=== PATIENT | male | born 1945 | race Hispanic/Latino ===

== ENCOUNTER 2017-01-27 15:10 | Emergency (ER) | payer MEDICARE, BC ==
[2017-01-27 15:18] VITALS: BMI 37.9
[2017-01-27 15:20] VITALS: RESP 18; TEMP 98.4
[2017-01-27 15:58] LABS: BASO # 0.02 K/mm3 (0.0-2.0); BASO % 0.3 % (0.0-3.0); EOS # 0.1 (0.0-0.7); EOS % 1.5 % (1.5-5.0); GRAN # 5.26 (1.4-6.5); GRAN % 66.4 % (50.0-68.0); HEMATOCRIT 42.7 % (42.0-52.0); LYMPH # 1.8 (1.2-3.4); LYMPH % 23.1 % (22.0-35.0); MEAN CELL VOLUME 98.2 fl (80.0-105.0); MEAN CORPUSCULAR HEMOGLOBIN 32.9 pg (25.0-35.0); MEAN CORPUSCULAR HGB CONC 33.5 g/dl (31.0-37.0); MEAN PLATELET VOLUME 10.9 fl (7.0-11.0); MONO # 0.7 (0.1-0.6); MONO % 8.7 % (1.0-6.0); RED CELL DISTRIBUTION WIDTH 16.7 % (11.5-14.5); WHITE BLOOD COUNT 7.9 10^3/ul (4.5-11.0)
[2017-01-27 16:07] LABS: ALB/GLOB RATIO 1.4 (1.1-1.8); ALKALINE PHOSPHATASE 73 U/L (38-126); ALT/SGPT 44 U/L (7-56); AST/SGOT 42 U/L (17-59); BILIRUBIN,TOTAL 0.8 mg/dL (0.2-1.3); BLOOD UREA NITROGEN 32 mg/dL (7-21); CALCIUM 8.4 mg/dL (8.4-10.5); CARBON DIOXIDE 30 mmol/L (21-33); CHLORIDE 106 mmol/L (98-107); GFR AFRICAN-AMERICAN > 60; GLUCOSE,RANDOM 92 mg/dL (70-110); POTASSIUM 4.1 mmol/L (3.6-5.0); SODIUM 143 mmol/L (132-148); TOTAL PROTEIN 6.7 g/dL (5.8-8.3)
[2017-01-27 16:12] LABS: INR 2.1 (0.93-1.08); PARTIAL THROMBOPLASTIN TIME 46.9 Seconds (23.7-30.8)
[2017-01-27] MEDS: Albuterol-Ipratrop 3 mg / 0.5 (3 ml) UD IH SCH ×3 (16:21→17:33)
--- NOTE | 2017-01-27 16:24 | RAD ---
HISTORY: cough COMPARISON: 05/26/2016 FINDINGS: LUNGS: No active pulmonary disease. PLEURA: No significant pleural effusion identified, no pneumothorax apparent. CARDIOVASCULAR: Normal. OSSEOUS STRUCTURES: No significant abnormalities. VISUALIZED UPPER ABDOMEN: Normal. OTHER FINDINGS: None. IMPRESSION: No active disease.
[2017-01-27 16:30] LABS: FREE T4 0.08 ng/dL (0.78-2.19)
--- NOTE | 2017-01-27 16:49 | ED PDOC ---
Arrival/HPI - General Chief Complaint: Abnormal Skin Integrity Time Seen by Provider: 01/27/17 15:37 - History of Present Illness Narrative History of Present Illness (Text): 01/27/17 17:55 71yo male with hx of hyperthyroidism, pulm disease, eczema. Presents with facial redness and some itching for the past 3 weeks. Pt states face feels slightly swollen. No sob or haro. States he does not use his inhalers. denies chest pain. No other complaints. Past Medical History - Provider Review Nursing Documentation Reviewed: Yes - Infectious Disease Hx of Infectious Diseases: None - Tetanus Immunization Tetanus Immunization: Unknown - Cardiac Hx Congestive Heart Failure: Yes Hx Hypertension: Yes - Pulmonary Hx Chronic Obstructive Pulmonary Disease (COPD): Yes - Neurological Hx Neurological Disorder: No - HEENT Hx Deafness: Yes - Renal Hx Renal Disorder: No - Endocrine/Metabolic Hx Endocrine Disorders: No - Hematological/Oncological Hx Blood Disorders: No - Integumentary Hx Dermatological Disorder: Yes Hx Psoriasis: Yes - Musculoskeletal/Rheumatological Hx Musculoskeletal Disorders: No Hx Falls: No - Gastrointestinal Hx Gastrointestinal Disorders: No - Genitourinary/Gynecological Hx Genitourinary Disorders: No - Psychiatric Hx Psychophysiologic Disorder: No Hx Substance Use: No - Past Surgical History Past Surgical History: No Previous - Anesthesia Hx Anesthesia: No - Suicidal Assessment Feels Threatened In Home Enviroment: No Family/Social History Family/Social History: Unknown Family HX Smoking Status: Heavy Smoker > 10 Cigarettes Daily Hx Alcohol Use: No Hx Substance Use: No Hx Substance Use Treatment: No Allergies/Home Meds Allergies/Adverse Reactions: Allergies No Known Allergies Allergy (Verified 05/24/16 09:14) Home Medications: Home Meds Medication Instructions Recorded Confirmed Furosemide [Lasix] 40 mg PO DAILY 01/27/17 01/27/17 Warfarin [Coumadin] 1 tab PO DAILY 01/27/17 01/27/17 methIMAzole [Tapazole] 10 mg PO TID 01/27/17 01/27/17 Physical Exam - Physical Exam Narrative Physical Exam (Text): - Review of Systems Constitutional: Normal. absent: Fatigue, Weight Change, Fevers Eyes: Normal ENT: denies sore throat, denies tristhmus Respiratory: Normal. absent: SOB, Cough, Sputum Cardiovascular: absent: Chest Pain, Palpitations, Syncope Gastrointestinal: Normal. absent: Abdominal Pain, Diarrhea, Nausea, Vomiting Genitourinary: Normal. absent: Dysuria, Frequency, Hematuria Musculoskeletal: Normal. absent: Arthralgias, Back Pain, Neck Pain Skin: facial rash, no erythema Neurological: absent: Focal Weakness Endocrine: Normal Hemo/Lymphatic: Normal Psychiatric: No suicidal or homicidal ideations Physical exam Patient appears age appropriate in no distress, speaking full sentences without difficulty - Systems Exam Head: Present: Atraumatic, Normocephalic Pupils: Present: PERRL Extroacular Muscles: Present: EOMI Conjunctiva: Present: Normal Mouth: Present: Moist Mucous Membranes Neck: Present: Normal Range of Motion. No: MIDLINE TENDERNESS, Paraspinal Tenderness Respiratory/Chest: Present: faint exp wheezing in all lung ruiz, Good Air Exchange. No: Respiratory Distress, Accessory Muscle Use, Tachypneic Cardiovascular: Present: Regular Rate and Rhythm, Normal S1, S2, Peripheal Pulses Present. No: Murmurs Abdomen: Present: Normal Bowel Sounds. No: Tenderness, Distention, Peritoneal Signs, Rebound, Guarding Back: Present: Normal Inspection. No: Midline Tenderness, Paraspinal Tenderness Upper Extremity: Present: Normal Inspection. No: Cyanosis, Edema Lower Extremity: Present: Normal Inspection. No: Edema Neurological: Present: GCS=15, Speech Normal, cranial nerves II through XII fully intact with no cerebellar abnormality, neurosensory fully intact. No focal neurological deficits. Skin: Present: eczematous rash to pt's face and body, no signs of secondary infection Lymphatic: Present: OX3, NI, NC Psychiatric: Present: Alert, Oriented x 3, Normal Insight, Normal Concentration Vital Signs Reviewed: Yes Vital Signs Temp Pulse Resp BP Pulse Ox 01/27/17 16:43 86 18 156/96 H 95 01/27/17 15:19 98.4 F 99 H 18 159/103 H 93 L Temperature: Afebrile Blood Pressure: Hypertensive Pulse: Regular Respiratory Rate: Normal Appearance: Positive for: Well-Appearing Pain Distress: None Mental Status: Positive for: Alert and Oriented X 3 Medical Decision Making ED Course and Treatment: Report Date : 01/27/2017 16:22:21 Procedure: Chest xray Dictator : Renaldo Perez MD IMPRESSION: No active disease. on reevaluation, patient is clear to ausc. b/l after nebs, states he feels well instructed to use inhailer at home as prescribed dw Dr. Campos in detail. aware of TSH. states he will set up endocrine f/u himself will dc home with medrol dose pack pt states he feels comfortable being dc'd home with outpatient f/u BNP 2190 previous higher no active disease per radiologist read pt's lungs clear to ausc. b/l Pt states he understands to return to the ER right away for new or worsening symptoms or for inability to f/u with PMD or specialist as instructed. Patient states that he fully agrees with and understands discharge instructions. States that he agrees with the plan and disposition. Verbalized and repeated discharge instructions and plan. I have given the patient opportunity to ask any additional questions. - Lab Interpretations Lab Results: 01/27/17 15:45 01/27/17 15:45 Lab Results 01/27/17 15:45: Free T4 0.08 L, TSH 3rd Generation 45.00 H 01/27/17 15:45: Sodium 143, Potassium 4.1, Chloride 106, Carbon Dioxide 30, Anion Gap 11, BUN 32 H, Creatinine 1.3, Est GFR ( Amer) > 60, Est GFR ( Non-Af Amer) 54, Random Glucose 92, Calcium 8.4, Total Bilirubin 0.8, AST 42, ALT 44, Alkaline Phosphatase 73, Lactate Dehydrogenase 1710 H, Total Creatine Kinase 414 H, CK-MB (CK-2) 5.8 H, CK-MB (CK-2) % 1.4 L, Troponin I < 0.01 D, NT -Pro-B Natriuret Pep 2190 H, Total Protein 6.7, Albumin 3.9, Globulin 2.8, Albumin/Globulin Ratio 1.4 01/27/17 15:45: PT 22.7 H, INR 2.10 H, APTT 46.9 H 01/27/17 15:45: WBC 7.9, RBC 4.35, Hgb 14.3, Hct 42.7, MCV 98.2, MCH 32.9, MCHC 33.5, RDW 16.7 H, Plt Count 139, MPV 10.9, Gran % 66.4, Lymph % (Auto) 23.1, Murray % (Auto) 8.7 H, Eos % (Auto) 1.5, Baso % (Auto) 0.3, Gran # 5.26, Lymph # 1.8, Murray # 0.7 H, Eos # 0.1, Baso # 0.02 - RAD Interpretation Radiology Orders: 01/27/17 15:52 CHEST PORTABLE [RAD] Stat - Medication Orders Current Medication Orders: Discontinued Medications Albuterol/Ipratropium (Duoneb 3 Mg/0.5 Mg (3 Ml) Ud) 3 ml IH Q15M UBALDO Stop: 01/27/17 16:31 Last Admin: 01/27/17 17:33 Dose: 3 ml Albuterol/Ipratropium (Duoneb 3 Mg/0.5 Mg (3 Ml) Ud) 3 ml IH Q15M UBALDO Stop: 01/27/17 17:16 Last Admin: 01/27/17 17:33 Dose: 3 ml Aspirin (Aspirin Chewable) 162 mg PO STAT STA Stop: 01/27/17 15:53 Last Admin: 01/27/17 16:21 Dose: 162 mg Methylprednisolone (Solu-Medrol) 125 mg IVP STAT STA Stop: 01/27/17 15:53 Last Admin: 01/27/17 16:21 Dose: 125 mg Disposition/Present on Arrival - Present on Arrival Any Indicators Present on Arrival: No History of DVT/PE: No History of Uncontrolled Diabetes: No Urinary Catheter: No History of Decub. Ulcer: No History Surgical Site Infection Following: None - Disposition Have Diagnosis and Disposition been Completed?: Yes Diagnosis: Rash Disposition: HOME/ ROUTINE Disposition Time: 19:01 Patient Plan: Discharge Condition: GOOD Discharge Instructions (ExitCare): Dermatitis (ED), Acute Rash (ED) Additional Instructions: PLEASE RETURN TO THE EMERGENCY DEPARTMENT FOR NEW OR WORSENING SYMPTOMS. RETURN RIGHT AWAY IF YOU CANNOT FOLLOW UP WITH YOUR PRIMARY CARE DOCTOR, CLINIC, OR SPECIALIST IN 1-2 DAYS. Prescriptions: Methylprednisolone [Medrol Dose Pack (21 tabs)] 4 mg PO DAILY #21 mg Referrals: Natalya Campos MD [Primary Care Provider] - Follow up with primary Forms: [employer] (Latvian)
[2017-01-27 18:15] LABS: TROPONIN I < 0.01 ng/mL
[2017-01-27 19:05] VITALS: BP 148/89; PULSE 79; O2SAT 96
== END 2017-01-27 19:20 | disposition home or self-care (01) ==
LOC: ED 15:10
DX: R21 Rash and other nonspecific skin eruption (principal); I10 Essential (primary) hypertension; F17.210 Nicotine dependence, cigarettes, uncomplicated
CPT/HCPCS: 71010; 80053; 82550; 82553; 83615; 83880; 84439; 84443; 84484; 85025; 85610; 85730; 96374; 99283; J2930

== ENCOUNTER 2018-02-08 18:02 | Inpatient (IN) | payer MEDICARE ==
[2018-02-08 18:08] VITALS: BMI 37.5
--- NOTE | 2018-02-08 19:05 | ED PDOC ---
Arrival/HPI <Cyrus Green - Last Filed: 02/08/18 22:44> - General Historian: Patient - History of Present Illness Time/Duration: Prior to Arrival Symptom Onset: Sudden Symptom Course: Unchanged Activities at Onset: Light Context: Home <Hannah Reilly PA-C - Last Filed: 02/09/18 00:58> - General Chief Complaint: Abdominal Pain Time Seen by Provider: 02/08/18 18:11 - History of Present Illness Narrative History of Present Illness (Text): 02/08/18 19:02 72 year old male, whose past medical history includes hyperlipidemia, congestive heart failure, and afib, who presents to the Emergency Department complaining of weakness to legs and dizziness. Patient states he woke up ftom a nap and when he stood up began experiencing symptoms. Patient notes associated nausea and headache. Patient denies any fever, chills, chest pain, shortness of breath, vomiting, diarrhea, urinary symptoms, back pain, neck pain, current dizziness, or any other complaints. PMD Andres (Hannah Reilly PA-C) Past Medical History - Provider Review Nursing Documentation Reviewed: Yes - Infectious Disease Hx of Infectious Diseases: None - Tetanus Immunization Tetanus Immunization: Unknown - Cardiac Hx Congestive Heart Failure: Yes Hx Hypertension: Yes - Pulmonary Hx Chronic Obstructive Pulmonary Disease (COPD): Yes - Neurological Hx Neurological Disorder: No - HEENT Hx Deafness: Yes - Renal Hx Renal Disorder: No - Endocrine/Metabolic Hx Endocrine Disorders: No - Hematological/Oncological Hx Blood Disorders: No - Integumentary Hx Dermatological Disorder: Yes Hx Psoriasis: Yes - Musculoskeletal/Rheumatological Hx Musculoskeletal Disorders: No Hx Falls: No - Gastrointestinal Hx Gastrointestinal Disorders: No - Genitourinary/Gynecological Hx Genitourinary Disorders: No - Psychiatric Hx Psychophysiologic Disorder: No Hx Substance Use: No - Past Surgical History Past Surgical History: No Previous - Anesthesia Hx Anesthesia: No - Suicidal Assessment Feels Threatened In Home Enviroment: No <Hannah Reilly PA-C - Last Filed: 02/09/18 00:58> Family/Social History - Physician Review Nursing Documentation Reviewed: Yes Family/Social History: Unknown Family HX Smoking Status: Heavy Smoker > 10 Cigarettes Daily Hx Alcohol Use: No Hx Substance Use: No Hx Substance Use Treatment: No <Hannah Reilly PA-C - Last Filed: 02/09/18 00:58> Allergies/Home Meds <Cyrus Green - Last Filed: 02/08/18 22:44> <Hannah Reilly PA-C - Last Filed: 02/09/18 00:58> Allergies/Adverse Reactions: Allergies No Known Allergies Allergy (Verified 05/24/16 09:14) Home Medications: Home Meds Medication Instructions Recorded Confirmed Furosemide [Lasix] 40 mg PO DAILY 01/27/17 02/09/18 Warfarin [Coumadin] 1 tab PO DAILY 01/27/17 02/09/18 methIMAzole [Tapazole] 5 mg PO DAILY 01/27/17 02/09/18 Atorvastatin [Lipitor] 10 mg PO 02/09/18 Review of Systems - Physician Review All systems were reviewed & negative as marked: Yes - Review of Systems Constitutional: Normal Eyes: Normal ENT: Normal Respiratory: Normal. absent: SOB, Cough Cardiovascular: Normal. absent: Chest Pain Gastrointestinal: Nausea. absent: Abdominal Pain, Diarrhea Genitourinary Male: Normal. absent: Dysuria, Frequency, Hematuria Musculoskeletal: Normal. absent: Back Pain, Neck Pain Skin: Normal Neurological: Headache, Dizziness Endocrine: Normal Hemo/Lymphatic: Normal Psychiatric: Normal <Hannah Reilly PA-C - Last Filed: 02/09/18 00:58> Physical Exam Vital Signs Reviewed: Yes Temperature: Afebrile Blood Pressure: Normal Pulse: Regular Respiratory Rate: Normal Appearance: Positive for: Well-Appearing, Non-Toxic, Comfortable Pain Distress: None Mental Status: Positive for: Alert and Oriented X 3 - Systems Exam Head: Present: Atraumatic, Normocephalic Pupils: Present: PERRL Extroacular Muscles: Present: EOMI Conjunctiva: Present: Normal Mouth: Present: Moist Mucous Membranes Neck: Present: Normal Range of Motion Respiratory/Chest: Present: Rhonchi (scattered). No: Respiratory Distress, Accessory Muscle Use Cardiovascular: Present: Normal S1, S2, Irregular Rhythm. No: Murmurs, Tachycardic Abdomen: No: Tenderness, Distention, Peritoneal Signs Back: Present: Normal Inspection Upper Extremity: Present: Normal Inspection. No: Cyanosis, Edema Lower Extremity: Present: Normal Inspection, Edema (2+ pitting edema) Neurological: Present: GCS=15, CN II-XII Intact, Speech Normal, Motor Func Grossly Intact, Normal Sensory Function Skin: Present: Warm, Dry, Rashes (errythematous raised plaque like lesions on chest, back, forearms, and bilateral shins) Psychiatric: Present: Alert, Oriented x 3, Normal Insight, Normal Concentration <Hannah Reilly PA-C - Last Filed: 02/09/18 00:58> Vital Signs Temp Pulse Resp BP Pulse Ox 02/08/18 23:03 86 18 124/78 96 02/08/18 22:21 98.5 F 72 18 130/71 97 02/08/18 18:09 98.2 F 86 18 128/77 98 Medical Decision Making <Cyrus Green - Last Filed: 02/08/18 22:44> <Hannah Reilly PA-C - Last Filed: 02/09/18 00:58> ED Course and Treatment: 02/08/18 19:06 Impression: 72 year old male presents to the Emergency Department complaining of weakness to legs and dizziness. Plan: -- CT Head -- EKG -- Labs -- Cardiac ISO -- Chest X-ray -- Urine Culture -- UA -- Reassess and disposition Progress Notes: EKG : A fib at 81 bpm, +RBBB, no acute ST changes, as read by KB CXR : +pleural effusion in the LLL Labs : trop (-), BNP 2009. CT head : FINDINGS: Brain: There is minimal patchy low attenuation of deep white matter. Ventricles: Normal. No ventriculomegaly. Bones/joints: Normal. No acute fracture. Sinuses: Minimal frontal sinus mucosal thickening. Mastoid air cells: Normal as visualized. No mastoid effusion. Soft tissues: Normal. IMPRESSION: 1. Minimal chronic ischemic white matter change. 2. Minimal frontal sinus disease. 3. Otherwise negative noncontrast head CT. Dictated and Authenticated by: Reg Fuentes MD 02/08/2018 8:47 PM Eastern Time ([place] & [place]) On reevaluation, patient reports improvement of symptoms, denies any dizziness, headache, CP or SOB at this time. On exam, patient remains awake alert and oriented 3 in no acute distress. Neck is supple, repeat neuro exam shows no focal findings. Given lasix 20 mg IV. Case d/w Dr. Campos agrees with plan for tele observation with consults to Dr. Arguelles (pt's cardio) and Dr. Aundrea Carlin. Patient agrees with plan for further tele observation. (Tommie TOLEDO,Hannah Munoz) - Lab Interpretations Lab Results: 02/08/18 18:57 02/08/18 18:57 Lab Results 02/08/18 20:50: Urine Color Yellow, Urine Appearance Clear, Urine pH 5.5, Ur Specific Victor 1.020, Urine Protein Negative, Urine Glucose (UA) Negative, Urine Ketones Negative, Urine Blood Small H, Urine Nitrate Negative, Urine Bilirubin Negative, Urine Urobilinogen 0.2, Ur Leukocyte Esterase Negative, Urine RBC 10 - 15, Urine WBC 2 - 5, Ur Epithelial Cells 6 - 8 09 18:57: Sodium 141, Potassium 4.4, Chloride 104, Carbon Dioxide 32, Anion Gap 11, BUN 28 H, Creatinine 1.2, Est GFR ( Amer) > 60, Est GFR (Non-Af Amer) 59, Random Glucose 104, Calcium 8.9, Magnesium 2.0, Total Bilirubin 1.6 H, AST 29, ALT 24, Alkaline Phosphatase 103, Lactate Dehydrogenase 671, Total Creatine Kinase 94, Troponin I < 0.01, NT-Pro-B Natriuret Pep 2010 H , Total Protein 7.5, Albumin 4.1, Globulin 3.4, Albumin/Globulin Ratio 1.2 02/08/18 18:57: PT 17.5 H, INR 1.52, APTT 35.3 02/08/18 18:57: WBC 10.5 D, RBC 5.23, Hgb 16.3, Hct 48.6, MCV 92.9 D, MCH 31.2, MCHC 33.5, RDW 14.0, Plt Count 172, MPV 11.2 H, Gran % 80.4 H, Lymph % (Auto) 11.3 L, [place] % (Auto) 6.5 H, Eos % (Auto) 1.6, Baso % (Auto) 0.2, Gran # 8.44 H, Lymph # (Auto) 1.2, [place] # (Auto) 0.7 H, Eos # (Auto) 0.2, Baso # (Auto) 0.02 - RAD Interpretation Radiology Orders: 02/08/18 18:35 CHEST TWO VIEWS (PA/LAT) [RAD] Stat 02/08/18 18:37 HEAD W/O CONTRAST [CT] Stat - Medication Orders Current Medication Orders: Discontinued Medications Furosemide (Lasix) 20 mg IVP STAT STA Stop: 02/08/18 21:33 Last Admin: 02/08/18 23:03 Dose: 20 mg MAR Blood Pressure Document 02/08/18 23:03 [place] (Rec: 02/08/18 23:03 [id number] Blood Pressure Blood Pressure (100/60-150/90) 124/78 IVP Administration Document 02/08/18 23:03 [place] (Rec: 02/08/18 23:03 [id number]) Charges for Administration # of IVP Administrations 1 - PA / ENERGY PROJECT MANAGER / Resident Statement / has reviewed & agrees with the documentation as recorded. / has examined the patient and agrees with the treatment plan. <Cyrus Green - Last Filed: 02/08/18 22:44> - PA / ENERGY PROJECT MANAGER / Resident Statement TATIANA has reviewed & agrees with the documentation as recorded. - Scribe Statement The provider has reviewed the documentation as recorded by the Scribe <Hannah Reilly PA-C - Last Filed: 02/09/18 00:58> - Scribe Statement Fabiana Martin All medical record entries made by the Scribe were at my direction and personally dictated by me. I have reviewed the chart and agree that the record accurately reflects my personal performance of the history, physical exam, medical decision making, and the department course for this patient. I have also personally directed, reviewed, and agree with the discharge instructions and disposition. (Hannah Reilly PA-C) Disposition/Present on Arrival <Cyrus Green - Last Filed: 02/08/18 22:44> - Present on Arrival Any Indicators Present on Arrival: No History of DVT/PE: No History of Uncontrolled Diabetes: No Urinary Catheter: No History of Decub. Ulcer: No History Surgical Site Infection Following: None - Disposition Have Diagnosis and Disposition been Completed?: Yes Disposition Time: 21:30 Patient Plan: Telemetry (observation) <Hannah Reilly PA-C - Last Filed: 02/09/18 00:58> - Disposition Diagnosis: CHF exacerbation, Near syncope Disposition: HOSPITALIZED Patient Problems: Current Active Problems Problem Status Onset CHF exacerbation Acute Near syncope Acute Condition: FAIR
[2018-02-08 19:18] LABS: BASO # 0.02 K/mm3 (0.0-2.0); BASO % 0.2 % (0.0-3.0); EOS # 0.2 (0.0-0.7); EOS % 1.6 % (1.5-5.0); GRAN # 8.44 (1.4-6.5); GRAN % 80.4 % (50.0-68.0); HEMOGLOBIN 16.3 g/dL (14.0-18.0); LYMPH # 1.2 (1.2-3.4); LYMPH % 11.3 % (22.0-35.0); MEAN CELL VOLUME 92.9 fl (80.0-105.0); MEAN CORPUSCULAR HEMOGLOBIN 31.2 pg (25.0-35.0); MEAN CORPUSCULAR HGB CONC 33.5 g/dl (31.0-37.0); MEAN PLATELET VOLUME 11.2 fl (7.0-11.0); MONO # 0.7 (0.1-0.6); MONO % 6.5 % (1.0-6.0); RBC 5.23 10^6/uL (3.5-6.1); WHITE BLOOD COUNT 10.5 10^3/ul (4.5-11.0)
[2018-02-08 19:24] LABS: INR 1.52; PARTIAL THROMBOPLASTIN TIME 35.3 Seconds (25.1-36.5); PROTHROMBIN TIME 17.5 SECONDS (9.4-12.5)
[2018-02-08 19:26] LABS: ALB/GLOB RATIO 1.2 (1.1-1.8); ALBUMIN 4.1 g/dL (3.0-4.8); ALT/SGPT 24 U/L (7-56); AST/SGOT 29 U/L (17-59); BLOOD UREA NITROGEN 28 mg/dL (7-21); CALCIUM 8.9 mg/dL (8.4-10.5); GFR NON-AFRICAN AMERICAN 59
[2018-02-08 19:38] LABS: B-TYPE NATRIURETIC PEPTIDE 2010 pg/mL (0-450); TROPONIN I < 0.01 ng/mL
[2018-02-08 21:23] LABS: PH,URINE 5.5 (4.7-8.0); URINE APPEARANCE CLEAR (CLEAR); URINE BILIRUBIN NEGATIVE (NEGATIVE); URINE BLOOD SMALL (NEGATIVE); URINE COLOR YELLOW (YELLOW); URINE GLUCOSE (UA) NEGATIVE (NEGATIVE); URINE LEUKOCYTE ESTERASE NEGATIVE Leu/uL (NEGATIVE); URINE PROTEIN NEGATIVE mg/dL (<30 mg/dL); URINE UROBILINOGEN 0.2 E.U./dL (<1 E.U./dL)
[2018-02-09 08:01] LABS: INR 1.53; PROTHROMBIN TIME 17.8 SECONDS (9.4-12.5)
--- NOTE | 2018-02-09 08:01 | CT ---
Date of service: 02/08/2018 PROCEDURE: CT HEAD WITHOUT CONTRAST. HISTORY: weakness COMPARISON: None available. TECHNIQUE: Axial computed tomography images were obtained through the head/brain without intravenous contrast. Supplemental Coronal and Sagittal projectections created and reviewed. Radiation dose: Total exam DLP = 1102.51 mGy-cm. This CT exam was performed using one or more of the following dose reduction techniques: Automated exposure control, adjustment of the mA and/or kV according to patient size, and/or use of iterative reconstruction technique. FINDINGS: HEMORRHAGE: No intracranial hemorrhage. BRAIN: No mass effect or edema. No atrophy or chronic microvascular ischemic changes. VENTRICLES: Unremarkable. No hydrocephalus. CALVARIUM: Unremarkable. PARANASAL SINUSES: Unremarkable as visualized. No significant inflammatory changes. MASTOID AIR CELLS: Unremarkable as visualized. No inflammatory changes. OTHER FINDINGS: None. IMPRESSION: No acute intracranial abnormalities. No significant findings to account for the clinical presentation. Concordant results (preliminary interpretation) provided by [facility]. Procedure Completed: 19:51 Preliminary ([facility]) Report: Dictated and Authenticated: 20:47 Final Interpretation: 07:59. February 09, 2018.
--- NOTE | 2018-02-09 08:40 | RAD ---
Date of service: 02/08/2018 HISTORY: weakness COMPARISON: 01/27/2017 TECHNIQUE: Chest PA and lateral FINDINGS: LUNGS: No active pulmonary disease. PLEURA: No significant pleural effusion identified. No pneumothorax apparent. CARDIOVASCULAR: No radiographic findings to suggest acute or significant cardiovascular disease. OSSEOUS STRUCTURES: No significant abnormalities. VISUALIZED UPPER ABDOMEN: Normal. OTHER FINDINGS: None. IMPRESSION: No active disease. No significant interval change compared to the prior examination(s).
[2018-02-09] MEDS: Albuterol 0.083% Inhal Sol (2.5 mg/3 mL) UD INH SCH ×3 (08:45→19:50)
--- NOTE | 2018-02-09 09:37 | CON ---
DATE: 02/09/2018 PULMONARY CONSULTATION DICTATION REASON FOR CONSULTATION: Chronic obstructive pulmonary disease. REFERRING PHYSICIAN: Dr. Natalya Campos HISTORY OF PRESENT ILLNESS: The patient is a 72-year-old male, with past medical history significant for chronic obstructive pulmonary disease, paroxysmal atrial fibrillation, hyperlipidemia, who presents to [facility] with a 1-day history of dizziness and weakness. The patient states that after his nap yesterday, he stood up and began experiencing dizziness. He also noted weakness in his legs. He was thus admitted for additional evaluation. The patient denies shortness of breath at rest, dyspnea on exertion, cough, and/or sputum production. The patient also denies chest pain, coughing up of blood, or chest pain - made worse with deep respirations. There is no history of temperatures, chills or infectious exposure. There is no history of night sweats, weight loss or appetite change prior to the above events. No history of leg or calf pains. No history of syncope or diaphoresis. No history of recent travel or trauma. REVIEW OF SYSTEMS: The patient does state to some nausea at home. No vomiting. No diarrhea. No acute urinary symptoms. No new musculoskeletal complaints. Rest of the review of systems is negative. ALLERGIES: NO KNOWN ALLERGIES. SOCIAL HISTORY: Positive for tobacco usage - still smokes, no alcohol. FAMILY HISTORY: No inheritable diseases. HOME MEDICATIONS: Include Tapazole, Lasix, Coumadin, Inderal, Lipitor and albuterol HFA. PHYSICAL EXAMINATION: GENERAL: The patient appears comfortable this morning. He is not short of breath at rest. VITAL SIGNS: The temperature is 97.9, pulse is 88, respirations 18, blood pressure 133/83. Oxygen saturation on room air is 96%. HEENT: Normocephalic, atraumatic. No JVD. CARDIOVASCULAR: Systolic ejection murmur at the lower left sternal border. No S3 gallop. LUNGS: Decreased breath sounds at the bases. Minimal rhonchi. No wheezing. EXTREMITIES: No clubbing, cyanosis or edema. Calves are nontender to palpation. GI: Abdomen is soft, nontender and nondistended. Bowel sounds are positive. SKIN: No acute rash. NEUROLOGIC: Exam limited at the present time. PERTINENT LABORATORY DATA: Chest x-ray was done yesterday and reviewed. There is a chronically elevated left hemidiaphragm. The film done yesterday is very similar to the film done on 01/27/2017. CBC: White count 10.5K, hemoglobin 16.3, hematocrit 48.6, platelets of 172,000. INR is 1.53. Complete metabolic profile: BUN 28, bilirubin 1.6. B-type natriuretic peptide 2010. Rest of the metabolic profile is within normal limits. IMPRESSION: 1. Weakness, dizziness. 2. Chronic obstructive pulmonary disease. 3. Paroxysmal atrial fibrillation. 4. Increased B-type natriuretic peptide. PLAN: I did discuss the case with the nurse at length. I have also reviewed the chart at length, and discussed case with the patient at length. The patient presents to [facility] with a 1-day history of weakness and dizziness. Apparently, after a nap yesterday, the patient stood up and began to experience dizziness. He also felt weakness in his legs. He was thus admitted for additional evaluation. I did review the chest x-ray as above. The chest x-ray is very similar to the film done last year. There is chronic elevation of the left hemidiaphragm. On physical exam, there is no significant bronchospasm noted. In addition, there is no significant alveolar-arterial gradient. I will continue the patient on albuterol via inhalation three times a day. Cardiology and Neurology consults are also ordered. Clinical status of the patient appears improved - compared to the initial presentation. The patient does state to feeling better this morning. I will discuss the above with Dr. Campos. Thank you very much for this pulmonary consultation. Jaiver Echevarria MD DILAN
[2018-02-09] MEDS: methIMAzole 5 MG TAB PO SCH (10:53)
--- NOTE | 2018-02-09 12:39 | CON ---
DATE: 02/09/2018 CHIEF COMPLAINT: Dizziness. HISTORY OF PRESENT ILLNESS: This is a 72-year-old man with past medical history of hyperlipidemia; CHF; AFib, on Coumadin. He was complaining after waking up from a nap generalized weakness, especially weakness in his legs, difficulty moving his legs and getting up and felt lightheaded when he stood up rather than spinning sensation of the room. He denied any headache. Denied any change in sense of vision, taste or smell. Currently, he is doing much better. He is moving all extremities. No pronator drifts seen. REVIEW OF SYSTEMS: Fourteen-point review of systems is negative except as per the HPI. FAMILY HISTORY: Noncontributory. PAST MEDICAL HISTORY: COPD, CHF, hypertension, AFib. MEDICATIONS: The patient is on Lasix, Coumadin, methimazole, Lipitor. ALLERGIES: NO KNOWN DRUG ALLERGIES. REVIEW OF SYSTEMS: Fourteen-point review of systems is negative except as per the HPI. SOCIAL HISTORY: No illicit drug use, smoking or EtOH abuse. LABORATORY DATA: Sodium is 141, potassium is 4.4, chloride of 104, carbon dioxide of 32, BUN of 28, creatinine of 1.2, random glucose . PHYSICAL EXAMINATION: GENERAL: The patient is sitting up in bed, in no acute distress. HEENT: Atraumatic, normocephalic. PERRLA. Extraocular muscles intact. NECK: Supple. No JVD, no adenopathy noted. LUNGS: Clear to auscultation. No adventitious sounds. HEART: S1, S2. Normal rate and rhythm. No murmurs, rubs or gallops. ABDOMEN: Soft, nontender and nondistended. Bowel sounds are present. EXTREMITIES: No clubbing. No cyanosis. Peripheral pulses 2+ felt bilaterally. NEUROLOGIC: The patient is alert and oriented to person, place, month and year. Speech is fluent without any errors. Cranial nerves II through XII are intact. Motor exam: Moves all extremities equally. Toes are downgoing bilaterally. No pronator drift seen. Sensory exam: Light touch, pinprick, proprioception and vibration are intact. DTRs are 2+ throughout and 1 at both ankles. Coordination: Fmrjsx-[id number] intact. No dysmetria noted. VITAL SIGNS: Temperature is 97.9, pulse rate of 88, blood pressure 133/83, respiratory rate of 20, oxygen saturation 95% by room air. ASSESSMENT AND PLAN: This is a 72-year-old man with history of atrial fibrillation, hypertension, congestive heart failure, chronic obstructive pulmonary disease, psoriasis, who came in to the hospital because of weakness in the legs, especially when get up from his nap today along with lightheadedness in terms of dizziness, but no spinning sensation of room. No headache. No change in sense of vision, taste or smell. Currently, neurologic exam shows no focal weakness. Mildly deconditioned, otherwise doing well. 1. Given his history of atrial fibrillation, he has a HAS-BLED score of 3, which does make him a risk of being on Coumadin, but given that he has atrial fibrillation, it is likely he is better to be on Coumadin for stroke prevention and given that he has congestive heart failure as well. 2. We will get an MRI of the brain to see if any embolic infarction has caused him to have dizziness. 3. Physical therapy, occupational therapy evaluation and monitor his atrial fibrillation with the Holter monitor. Thank you for this consult. Lucas Carlin MD
[2018-02-09 12:42] LABS: ALB/GLOB RATIO 1.2 (1.1-1.8); ALBUMIN 3.9 g/dL (3.0-4.8); ALT/SGPT 21 U/L (7-56); AST/SGOT 26 U/L (17-59); BLOOD UREA NITROGEN 27 mg/dL (7-21); CALCIUM 8.7 mg/dL (8.4-10.5); GFR NON-AFRICAN AMERICAN > 60
[2018-02-09 12:53] LABS: TROPONIN I < 0.01 ng/mL
--- NOTE | 2018-02-09 15:12 | HP ---
HISTORY OF PRESENT ILLNESS: A 72-year-old male presented to [facility] with a history of feeling lightheaded and unsteady on his feet. The patient states that he had gone out earlier in the day and came home, taken a nap and upon awakening from the nap, he stood up and began experiencing dizziness and have weakness in his legs. The patient has no history or complaints of chest pain, coughing, shortness of breath, fever, chills, night sweats, loss of appetite or weight. No calf or leg pain. No history of syncope. No recent travel. SOCIAL HISTORY: He has a history of smoking. No alcohol. ALLERGIES: HE HAS NO KNOWN ALLERGIES. FAMILY HISTORY: Negative. HOME MEDICATIONS: Consist of Lipitor, albuterol, Inderal, Coumadin, Lasix and Tapazole. PAST MEDICAL HISTORY: History of hyperthyroidism, atrial fibrillation, COPD, psoriasis, CHF in the past. REVIEW OF SYSTEMS: As stated, he had some mild nausea at home. PHYSICAL EXAMINATION: VITAL SIGNS: His temperature is 97.8. His pulse is 84, his blood pressure is 136/88, respiratory rate is 19. He is satting at this time reportedly at 94% on room air. However, the nurse last night states that he desatted to 88%. NECK: Supple. LUNGS: Showed diminished breath sounds at the bases. HEART: S1, S2 rhythm. ABDOMEN: Obese, soft with positive bowel sounds. EXTREMITIES: Show trace edema plus psoriatic plaques. DIAGNOSTICS: His EKG shows atrial fibrillation with an incomplete right bundle-branch block. He does have a chest x-ray which was read as no active disease by Radiology. He had a CAT scan of his head and is reported as showing no acute intracranial abnormalities. LABORATORY DATA: Shows WBC of 10.5, RBC 5.23, hemoglobin 16.3, hematocrit of 48.6, platelet count is 172. His PT is 17.5 and INR 1.52, PTT is 35.3. His chemistry shows normal electrolytes, BUN is 28, creatinine is 1.2. BNP is reported as 2010. His first troponin is 0.01, total bilirubin is reported as 1.6. Urinalysis shows small amount of blood, 10-15 RBCs, 2-5 WBCs. IMPRESSION: A 72-year-old male with: 1. Episode of lightheadedness and unsteadiness. 2. History of atrial fibrillation. 3. History of chronic obstructive pulmonary disease, has reported desaturation on room air as per the nursing staff. PLAN: We will get cardiac enzymes on the patient and place the patient on telemetry and Cardiology, Neurology and Pulmonary to assess the patient,check orthostatic blood pressures. Follow up the patient's labs. Natalya Campos MD
--- NOTE | 2018-02-09 19:54 | CARD ---
APPROVED REPORT Date of service: 02/08/2018 EKG Measurement Heart [id number] <Conclusion> Atrial fibrillation Incomplete right bundle branch block Abnormal ECG
--- NOTE | 2018-02-10 00:02 | PN ---
DATE: 02/09/2018 SUBJECTIVE: A 72-year-old male sitting comfortably on the edge of the bed this morning. He states that he still feels unsteady when he stands up and a bit lightheaded. Nursing staff relates that there were no particular problems during the night; although they do report that there was some desaturation without oxygen during the night. Pulmonary consult has been requested. PHYSICAL EXAMINATION: VITAL SIGNS: His temp is 98.3, his pulse is 91. His blood pressure is 135/83. Orthostatic blood pressures are 102/60, 110/67 and 150/88. GENERAL: He is alert and oriented x3. NECK: Supple. LUNGS: Show diminished breath sounds at the bases. HEART: In irregular S1 and S2 rhythm. ABDOMEN: Soft, obese, positive bowel sounds. EXTREMITIES: Show trace edema. LABORATORY DATA: His INR is 1.5. Chemistry show normal electrolytes. The BUN is 27. His total bilirubin is 2. His troponins are negative x3. ASSESSMENT AND PLAN: 1. The patient had an episode of lightheadedness and unsteadiness. Neurology consult is pending. 2. We will fractionate his bilirubin. 3. He has been seen by Pulmonary for his chronic obstructive pulmonary disease and initiated on respiratory treatments. 4. Neurology consult is pending as is Cardiology. Continue current level of care. Natalya Campos MD
--- NOTE | 2018-02-10 07:11 | PN ---
DATE: 02/10/2018 PULMONARY NOTE SUBJECTIVE: The patient appears very comfortable this morning. He is not short of breath at rest. PHYSICAL EXAMINATION: VITAL SIGNS: Temperature is 97.6, pulse 58, respirations 18-20, blood pressure 131/92. Oxygen saturation on room air is 96%. HEENT: Normocephalic, atraumatic. No JVD. CARDIOVASCULAR: Systolic ejection murmur at the lower left sternal border. No S3 gallop. LUNGS: Improved breath sounds at the bases. Very minimal/less rhonchi. No wheezing. EXTREMITIES: No clubbing, cyanosis, or edema. Calves are nontender to palpation. GASTROINTESTINAL: Abdomen is soft, nontender, and nondistended. Bowel sounds are positive. SKIN: No acute rash. NEUROLOGIC: Limited at the present time. IMPRESSION: 1. Weakness, dizziness-- resolving. 2. Chronic obstructive pulmonary disease. 3. Paroxysmal atrial fibrillation. 4. Increased B-type natriuretic peptide. PLAN: The patient appears very comfortable this morning. He is not short of breath at rest. He has much less dizziness. He does state to feeling much better overall. I did discuss the case with the night nurse at length. The night nurse stated that the patient had a very good night. On physical exam, there is no significant bronchospasm noted. In addition, the oxygen saturation on room air is 96%. I will continue with the current nebulizer treatments for now. Input by Neurology is noted. We are awaiting a cardiology evaluation. Clinical status of the patient appears much improved - compared to the initial presentation. I will discuss the above with Dr. Campos. Javier Echevarria MD MTDEthan
[2018-02-10 07:41] LABS: INR 1.53; PROTHROMBIN TIME 17.7 SECONDS (9.4-12.5)
[2018-02-10] MEDS ORDERED: Propranolol 80 mg ER Cap PO ONE (11:30)
--- NOTE | 2018-02-10 13:58 | MRI ---
Date of service: 02/10/2018 PROCEDURE: MRI BRAIN WITHOUT CONTRAST HISTORY: Dizziness COMPARISON: Noncontrast head CT from 02/08/2018 TECHNIQUE: Multiplanar, multisequence MR images of the brain were obtained without intravenous contrast enhancement. FINDINGS: HEMORRHAGE: None DWI: No evidence of an acute or early subacute infarction. BRAIN PARENCHYMA: There are mild chronic microangiopathic changes. There is no mass, mass effect or abnormal extra-axial fluid collection. There is no territorial infarction. The midline sagittal structures are normal. VENTRICLES: There is mild age-related global parenchymal volume loss and proportionate enlargement of the ventricles and cortical sulci. CRANIUM: There is normal bone marrow signal pattern. ORBITS: Grossly unremarkable. PARANASAL SINUSES/MASTOIDS: There is mild mucosal thickening in the frontal sinuses and ethmoid air cells. The remaining included paranasal sinuses and mastoid air cells are clear. VASCULAR SYSTEM: There are normal signal voids in the larger intracranial arteries. OTHER FINDINGS: None. IMPRESSION: No acute intracranial abnormality. Mild chronic microangiopathic changes and mild age-related global parenchymal volume loss.
[2018-02-10] MEDS: methIMAzole 5 MG TAB PO SCH (16:53)
--- NOTE | 2018-02-10 17:57 | PN ---
DATE: 02/10/2018 NEUROLOGY CONSULTATION CHIEF COMPLAINT: Follow up for dizziness. SUBJECTIVE: The patient is seen and examined at bedside. He mentioned his dizziness is much better. His MRI of the brain showed no acute intracranial abnormality, just some mild chronic ischemic changes and mild global volume loss bilaterally. His electrolytes were unremarkable. Occasionally, he gets hypertensive diastolically, but otherwise stable. PAST MEDICAL HISTORY: History of COPD, CHF, hypertension, AFib. REVIEW OF SYSTEMS: Fourteen-point review of systems is negative except as per the HPI. FAMILY HISTORY: Noncontributory. MEDICATIONS: On Lasix, Coumadin, methimazole, Lipitor. ALLERGIES: NO KNOWN DRUG ALLERGIES. LABORATORY DATA: Sodium is 141, potassium is 4.3, chloride of 102, carbon dioxide of 31, BUN of 27, creatinine of 1.1, random glucose of 89. PHYSICAL EXAMINATION: VITAL SIGNS: Temperature 97.6, pulse rate of 83, blood pressure 131/92, respiratory rate of 18, O2 saturation 96% by room air. GENERAL: The patient is sitting up in bed, in no acute distress. HEENT: Atraumatic, normocephalic. PERRLA. Extraocular muscles intact. NECK: Supple. No JVD, no adenopathy noted. LUNGS: Clear to auscultation. No adventitious sounds. HEART: S1, S2. Normal rate and rhythm. No murmurs, rubs, or gallops. ABDOMEN: Soft, nontender, and nondistended. Bowel sounds are present. EXTREMITIES: No clubbing. No cyanosis. Peripheral pulses 2+ felt bilaterally. NEUROLOGIC: The patient is alert and oriented to person, place, month, and year. Speech is fluent without any errors. Cranial nerves II through XII are intact. Motor: Moves all extremities equally. Toes are downgoing bilaterally. Sensory: Light touch, pinprick, proprioception, and vibration are intact. DTRs are 2+ throughout and 1 at both ankles and knees. Coordination: Madmvg-ej-tyol intact. No dysmetria noted. Gait is deferred for now. ASSESSMENT AND PLAN: This is a 72-year-old man with history of atrial fibrillation, hypertension, congestive heart failure, and chronic obstructive pulmonary disease who came in for weakness on his legs, especially when getting up from his nap along with lightheadedness in terms of dizziness, but no spinning sensation of room. He denies any change in sense of vision, taste, or smell. Neuro exam shows no focal neurological deficits. He is mildly deconditioned, otherwise doing well. MRI of the brain showed no acute intracranial abnormalities. At this time, we would recommend: 1. Outpatient physical therapy for reconditioning. 2. Continue with his Coumadin for stroke prevention given his AFib. 3. Advice increased fluid intake throughout the day and continue with current present medical management. Thank you for this followup. Lucas Carlin MD
[2018-02-10] MEDS: Albuterol 0.083% Inhal Sol (2.5 mg/3 mL) UD INH SCH (19:42)
[2018-02-11 06:18] VITALS: O2SAT 94
[2018-02-11 06:53] LABS: INR 1.64; PROTHROMBIN TIME 19.1 SECONDS (9.4-12.5)
[2018-02-11] MEDS: Albuterol 0.083% Inhal Sol (2.5 mg/3 mL) UD INH SCH (07:04)
--- NOTE | 2018-02-11 07:23 | PN ---
DATE: 02/11/2018 PULMONARY NOTE DICTATION SUBJECTIVE: The patient appears very comfortable this morning. He is not short of breath at rest. PHYSICAL EXAMINATION: VITAL SIGNS: Temperature is 98, pulse 89, respirations 18, blood pressure 119/82. Oxygen saturation on room air is 94%-97%. HEENT: Normocephalic, atraumatic. No JVD. CARDIOVASCULAR: Systolic ejection murmur at the lower left sternal border. No S3 gallop. LUNGS: Clear bilaterally. EXTREMITIES: No clubbing, cyanosis or edema. Calves are nontender to palpation. GI: Abdomen is soft, nontender and nondistended. Bowel sounds are positive. SKIN: No acute rash. NEUROLOGIC: Exam limited at the present time. IMPRESSION: 1. Weakness, dizziness - resolved. 2. Chronic obstructive pulmonary disease. 3. Paroxysmal atrial fibrillation. 4. Increased B-type natriuretic peptide. PLAN: The patient appears very comfortable this morning. He is not short of breath at rest. He has no more dizziness. He does state to feeling much better overall. On physical exam, his lungs are now clear. In addition, there is no significant alveolar-arterial gradient. I will continue the current nebulizer treatments for now. Input by Neurology is also noted. Clinical status of the patient is significantly improved overall. He is for probable discharge later today. I did give him my card/information for a followup appointment. I will discuss the above with Dr. Campos. Javier Echevarria MD MTDEthan
--- NOTE | 2018-02-11 09:15 | PN ---
DATE: 02/10/2018 SUBJECTIVE: A 72-year-old male admitted to [facility] with sense of lightheadedness and dizziness, primarily being monitored on telemetry and being evaluated by Cardiology, Neurology, and Pulmonary. Nursing staff relates there were no problems during the night, although the patient states that he still feels a little lightheaded at times. PHYSICAL EXAMINATION: VITAL SIGNS: His temperature is 97.6. His pulse is 83. His blood pressure is 131/92. GENERAL: He is alert and oriented x3. LUNGS: Clear. HEART: Irregular S1 and S2 rhythm. ABDOMEN: Soft with positive bowel sounds. EXTREMITIES: Show no evidence of edema. LABORATORY DATA: His bilirubin has normalized. His PT this morning is 17.7 with an INR of 1.53. ASSESSMENT AND PLAN: He is currently on albuterol treatments for his chronic obstructive pulmonary disease, warfarin for his atrial fibrillation, Inderal for his atrial fibrillation and he has known coronary disease, Lipitor for hyperlipidemia and Tapazole for his hyperthyroidism. The patient is scheduled for an MRI today by Neurology and is going to continue to be monitored at this time. Cardiology evaluation is pending. I will continue current level of care. Input from the individual consultants is greatly appreciated. Natalya Campos MD
[2018-02-11] MEDS ORDERED: Propranolol 80 mg ER Cap PO SCH (10:00)
[2018-02-11] MEDS: methIMAzole 5 MG TAB PO SCH (10:21)
[2018-02-11 11:58] VITALS: BP 118/77; PULSE 68; RESP 20; TEMP 97.9
--- NOTE | 2018-02-12 01:07 | CON ---
DATE: 02/11/2018 REASON FOR CONSULTATION: Near syncope. HISTORY: This is a 72-year-old man with a history of chronic atrial fibrillation, hyperlipidemia and prior congestive heart failure, who was admitted with near syncope recently. He states he was in his usual state of health, but became unsteady on his feet and felt weak, found it difficult to stand and became lightheaded. He denied any loss of consciousness. He was unaware of any palpitations at the time. He presents to emergency room for evaluation. He was noted to be orthostatic upon admission. Rest of his workup has been negative. PAST MEDICAL HISTORY: Notable for the problems as mentioned above. He also has COPD and hyperthyroidism. He has history of ybrw-en-gynnzdnf aortic stenosis and chronic psoriasis. MEDICATIONS AT HOME: Include Lipitor, methimazole, Lasix, Coumadin,Inderal and verapamil. ALLERGIES: NONE. SOCIAL HISTORY: He does not smoke or drink. FAMILY HISTORY: Both parents from age-related illness. REVIEW OF SYSTEMS: A 10-point review of systems was unremarkable. PHYSICAL EXAMINATION: GENERAL: He is a middle-aged man, appears comfortable at present time. VITAL SIGNS: Blood pressure 118/76 with pulse 68, in atrial fibrillation. Respirations are 14. He is afebrile. HEENT: Normocephalic, atraumatic. NECK: Supple. No JVD noted. CHEST: Clear to auscultation and percussion. HEART: PMI displaced laterally with an irregular regular rhythm and soft systolic murmurs noted at the base as well as at the left sternal border. ABDOMEN: Soft, nontender, normoactive bowel sounds. EXTREMITIES: No edema. SKIN: Warm and dry. Multiple psoriatic lesions noted. PSYCHIATRIC: Normal mood and affect. NEUROLOGICAL: Alert and oriented x3. No gross motor or sensory is appreciable. DIAGNOSTIC DATA: White count is 10.5, hematocrit 16.3 and 48.6 with platelet count of 172,000. INR is 1.64, potassium 4.2. BUN and creatinine is 27 and 1.1, bilirubin is 1.3. Three sets of cardiac enzymes are negative. BNP is 2010. Initial electrocardiogram reveals atrial fibrillation and rapid ventricular response and non-specific ST-T abnormalities. Followup electrocardiogram reveals the same except for better controlled ventricular rate. Chest x-ray reveals normal cardiac silhouette with clear lung ruiz. Neurologic workup has been unremarkable. IMPRESSION: 1. Recent near syncope in the setting of orthostasis, possibly secondary to volume depletion. 2. Chronic atrial fibrillation with controlled rate at the present time. No evidence of excessive bradycardia noted on monitoring. 3. Hycu-la-sgdpsavd aortic stenosis, likely not playing a role in current symptomatology. 4. Rest of problems as noted. RECOMMENDATIONS: From cardiac standpoint, he appears stable for discharge home at this time. His last echocardiogram revealed only mild LV hypokinesis and may be appropriate to withhold his diuretic therapy at this time and follow him as an outpatient. If his symptomatology changes, diuretics can be resumed. Continued monitoring of his valvular heart disease would be appropriate as well. If he has recurrent symptoms, further evaluation can be planned. Thank you for this consultation. Nixon Arevalo MD MTDEthan
== END 2018-02-11 13:02 | disposition home or self-care (01) | DRG 948 ==
LOC: ED 18:02 → ERH 22:45 → 2RNO 23:46 → OBSVTOIN 02-10 11:49 → 2RNO 02-11 06:01
PROVIDERS: ADMIT Internal Medicine; ATTEND Internal Medicine
PROC: 3E0F7GC Introduction of Other Therapeutic Substance into Respiratory Tract, Via Natural or Artificial Opening (ICD-10-PCS; principal; 2018-02-09)
DX: R53.1 Weakness (principal); R42 Dizziness and giddiness; I11.0 Hypertensive heart disease with heart failure; I50.9 Heart failure, unspecified; J44.9 Chronic obstructive pulmonary disease, unspecified; I48.0 Paroxysmal atrial fibrillation; Z79.01 Long term (current) use of anticoagulants; E05.90 Thyrotoxicosis, unspecified without thyrotoxic crisis or storm; I35.0 Nonrheumatic aortic (valve) stenosis; I48.2 Chronic atrial fibrillation; L40.9 Psoriasis, unspecified; E78.5 Hyperlipidemia, unspecified; F17.200 Nicotine dependence, unspecified, uncomplicated

== ENCOUNTER 2018-05-12 23:41 | Inpatient (IN) | payer MEDICARE ==
[2018-05-13] MEDS ORDERED: Sodium Chloride 0.9% 500 ML IV STA (00:09)
--- NOTE | 2018-05-13 00:13 | ED PDOC ---
Arrival/HPI - General Time Seen by Provider: 05/12/18 23:57 Historian: Patient - History of Present Illness Narrative History of Present Illness (Text): 05/13/18 00:10 72 year old male, with past medical history of hypertension, CHF, and hyperlipidemia, presents to the Emergency department complaining of shortness of breath since prior to arrival. Patient states the symptoms were brought on by exertion and has been unchanged since onset, prompting him to present to the ED for medical evaluation. Patient reports similar symptoms a few months ago for which he was admitted to the hospital. Patient denies any other associated somatic complaints. Patient denies any fevers, chills, headache, dizziness, chest pain, cough, abdominal pain, nausea, vomiting, diarrhea, back pain, neck pain, or any other complaints. PMD: Dr. Campos Time/Duration: Prior to Arrival Symptom Onset: Gradual Symptom Course: Unchanged Activities at Onset: Light Context: Home Past Medical History - Provider Review Nursing Documentation Reviewed: Yes - Infectious Disease Hx of Infectious Diseases: None - Tetanus Immunization Tetanus Immunization: Unknown - Cardiac Hx Congestive Heart Failure: Yes - Pulmonary Hx Chronic Obstructive Pulmonary Disease (COPD): Yes - Neurological Hx Neurological Disorder: No - HEENT Hx Deafness: Yes - Renal Hx Renal Disorder: No - Endocrine/Metabolic Hx Endocrine Disorders: No - Hematological/Oncological Hx Blood Disorders: No - Integumentary Hx Dermatological Disorder: Yes Hx Psoriasis: Yes - Musculoskeletal/Rheumatological Hx Musculoskeletal Disorders: No Hx Falls: No - Gastrointestinal Hx Gastrointestinal Disorders: No - Genitourinary/Gynecological Hx Genitourinary Disorders: No - Psychiatric Hx Psychophysiologic Disorder: No Hx Substance Use: No - Past Surgical History Past Surgical History: No Previous - Anesthesia Hx Anesthesia: No - Suicidal Assessment Feels Threatened In Home Enviroment: No Family/Social History - Physician Review Nursing Documentation Reviewed: Yes Family/Social History: Unknown Family HX Smoking Status: Heavy Smoker > 10 Cigarettes Daily Hx Alcohol Use: No Hx Substance Use: No Hx Substance Use Treatment: No Allergies/Home Meds Allergies/Adverse Reactions: Allergies No Known Allergies Allergy (Verified 05/24/16 09:14) Home Medications: Home Meds Medication Instructions Recorded Confirmed Warfarin [Coumadin] 1 tab PO DAILY 01/27/17 02/09/18 methIMAzole [Tapazole] 5 mg PO DAILY 01/27/17 02/11/18 Atorvastatin [Lipitor] 10 mg PO DAILY 02/09/18 02/11/18 Review of Systems - Physician Review All systems were reviewed & negative as marked: Yes - Review of Systems Constitutional: absent: Fevers Respiratory: SOB Cardiovascular: absent: Chest Pain Gastrointestinal: absent: Abdominal Pain, Nausea, Vomiting Genitourinary Male: absent: Dysuria, Urinary Output Changes Musculoskeletal: absent: Back Pain, Neck Pain Skin: absent: Rash Neurological: absent: Headache, Dizziness Physical Exam - Physical Exam Narrative Physical Exam (Text): 05/13/18 00:13 Gen: VS reviewed, alert, well developed, well nourished, nontoxic, moderate distress. ENT: normal pharynx. Eye: EOMI, PERRL. Neck: no JVD, supple, no adenopathy. CV: regular rate, Irregularly irregular rhythm, no rubs, no murmur, no gallops, S1, S2, pulses equal and strong. Pulm: moderate distress, rales in all lung ruiz, diminished breath sounds in lower lung ruiz, left worse than right Abd: soft, nontender, no guarding, no rebound, no rigidity, normal bowel sounds. Ext: Scales on noted to lower extremities w/ edema. Skin: good color, no rash, no cyanosis. Psych: responds appropriately to questions, normal affect. Neuro: oriented x 3, CN2-12 intact grossly, motor intact, sensation intact. Appearance: Positive for: Well-Appearing, Non-Toxic Pain Distress: Moderate Mental Status: Positive for: Alert and Oriented X 3 Medical Decision Making ED Course and Treatment: 05/13/18 00:16 Impression: 72 year old male presents to the ED complaining of shortness of br eath. Plan: -- VBG -- EKG -- Labs -- Chest X-ray -- Blood Culture -- Bipap/Cpap -- Reassess and disposition Prior Visits: Notes and results from previous visits were reviewed. Progress Notes: 05/13/18 00:19 initial blood pressure read as low but current accurate read patient is hypertensive, will cancel ivf and give dose of lasix 05/13/18 01:29 On reassessment, patient is breathing comfortably on BIPAP and is less tachypneic. Will continue BIPAP and admit to the hospital. 05/13/18 02:[address] campos. patient to be admitted for clinical presentation consistent with chf which responded to bipap and diuresis. after getting cxr there appears to be a distinct left upper infiltrate. will empirically tx for pneumonia. case has been discussed with dr. forerst jernigan or icu screening and disposition. - Critical Care Critical Care Minutes: 30 minutes (critical care for critical illness, coodination of care and complex medical decision making) - RAD Interpretation Narrative RAD Interpretations (Text): 05/13/18 02:07 cxr my read: small bilateral pleural effusion, left upper lobe infiltrate, no ptx Radiology Orders: 05/12/18 23:58 CHEST PORTABLE [RAD] Stat Computer Compositor: ED Physician - EKG Interpretation EKG Interpretation (Text): 05/13/18 02:06 [id number]: atrial fib at 80 bpm, artifact, low voltage, nonspecific lateral st deporessions Interpreted by ED Physician: Yes - Scribe Statement The provider has reviewed the documentation as recorded by the Scribe Danisha Reaves. All medical record entries made by the Scribe were at my direction and personall y dictated by me. I have reviewed the chart and agree that the record accurately reflects my personal performance of the history, physical exam, medical decision making, and the department course for this patient. I have also personally directed, reviewed, and agree with the discharge instructions and disposition. Disposition/Present on Arrival - Present on Arrival Any Indicators Present on Arrival: No History of DVT/PE: No History of Uncontrolled Diabetes: No Urinary Catheter: No History Surgical Site Infection Following: None - Disposition Have Diagnosis and Disposition been Completed?: Yes Diagnosis: CHF (congestive heart failure), Pneumonia, Respiratory distress Disposition: HOSPITALIZED Disposition Time: 02:04 Patient Plan: Admission Patient Problems: Current Active Problems Problem Status Onset CHF (congestive heart failure) Acute Pneumonia Acute Respiratory distress Acute Condition: GUARDED Discharge Instructions (ExitCare): Heart Failure (ED)
[2018-05-13 00:37] LABS: INR 2.67; PARTIAL THROMBOPLASTIN TIME 36.7 Seconds (25.1-36.5)
[2018-05-13 00:41] LABS: ALB/GLOB RATIO 1.3 (1.1-1.8); ALBUMIN 4.2 g/dL (3.0-4.8); ALT/SGPT 47 U/L (7-56); AST/SGOT 147 U/L (17-59); BLOOD UREA NITROGEN 23 mg/dL (7-21); CALCIUM 8.4 mg/dL (8.4-10.5); GFR NON-AFRICAN AMERICAN 59
[2018-05-13 00:44] LABS: BASO # 0.02 K/mm3 (0.0-2.0); BASO % 0.2 % (0.0-3.0); EOS # 0.1 (0.0-0.7); EOS % 0.8 % (1.5-5.0); GRAN # 6.36 (1.4-6.5); GRAN % 75.7 % (50.0-68.0); HEMOGLOBIN 15.6 g/dL (14.0-18.0); LYMPH # 1.5 (1.2-3.4); LYMPH % 17.4 % (22.0-35.0); MEAN CORPUSCULAR HEMOGLOBIN 28.9 pg (25.0-35.0); MEAN CORPUSCULAR HGB CONC 34.4 g/dl (31.0-37.0); MEAN PLATELET VOLUME 10.8 fl (7.0-11.0); MONO # 0.5 (0.1-0.6); MONO % 5.9 % (1.0-6.0); RBC 5.4 10^6/uL (3.5-6.1); RED CELL DISTRIBUTION WIDTH 14.3 % (11.5-14.5); WHITE BLOOD COUNT 8.4 10^3/uL (4.5-11.0)
[2018-05-13 00:50] LABS: MEAN CELL VOLUME 83.9 fl (80.0-105.0)
[2018-05-13 00:53] LABS: TROPONIN I 0.02 ng/mL
[2018-05-13] MEDS ORDERED: Azithromycin 500MG/NS 250ml 500 MG/250 ML BAG IVPB STA (02:05)
[2018-05-13] MEDS ORDERED: cefTRIAXone 1 gm 1 GM/100 ML BAG IVPB ONE (02:30)
[2018-05-13] MEDS ORDERED: Albuterol-Ipratrop 3 mg / 0.5 (3 ml) UD IH STA (02:40)
[2018-05-13] MEDS ORDERED: Albuterol-Ipratrop 3 mg / 0.5 (3 ml) UD ONE (02:45)
[2018-05-13 03:01] LABS: ARTERIAL BLOOD GAS HCO3 24.3 mmol/L (21-28); ARTERIAL BLOOD GAS HEMOGLOBIN 15.2 g/dL (11.7-17.4); ARTERIAL BLOOD GAS O2 CAPACITY 21.2 mL/dl (16-24); ARTERIAL BLOOD GAS O2 CONTENT 21.2 ML/dl (15-23); ARTERIAL BLOOD GAS PCO2 35 mm/Hg (35-45); ARTERIAL BLOOD GAS PH 7.45 (7.35-7.45); ARTERIAL BLOOD GAS TCO2 25.4 mmol.L (22-28)
--- NOTE | 2018-05-13 03:44 | CP.PCM.CON ---
History of Present Illness - History of Present Illness History of Present Illness: David Roque, PGY-1 ICU Consult Note for Vasu Patel: CC: SOB x 2 days Pt is a 72 yo M with pmhx of Afib (on warfarin), COPD, HTN, HLD and CHF who presents to the ED for SOB x 2 days. Pt states that he has noticed being increasingly SOB for the past 2 days and is worse today. Pt states that he was at a [employer] green party where he was eating and drinking when he began to notice SOB with exertion. He then states that he attempted to sit down and relax which typically helps him but nothing he did alleviated the symptoms. He denies any recent travel, and denies any sick contacts. He denies fevers, chills, headache, lightheadedness, coughing, chest pain, palpitations, leg swelling, paroxysmal nocturnal dyspnea, abd pain, n/v, c/d, dysuria. He does admit to SOB, orthopnea, and SOB with exertion. Pmhx: Afib (on warfarin), COPD, HTN, HLD and CHF Pshx: Denies Meds: Lasix 40, warfarin 5mg, propanolol 80, verapamil 40, lipitor 10, me thimazole 5 All: NKDA Social: 1ppd x 30 yrs, admits to some wine at green party, denies any illicit drug use Fam: Non contributory Review of Systems - Review of Systems Review of Systems: 12 point ROS is reviewed and negative except noted in HPI above. Past Patient History - Infectious Disease Hx of Infectious Diseases: None - Tetanus Immunizations Tetanus Immunization: Unknown - Past Social History Smoking Status: Heavy Smoker > 10 Cigarettes Daily - CARDIAC Hx Congestive Heart Failure: Yes - PULMONARY Hx Chronic Obstructive Pulmonary Disease (COPD): Yes - NEUROLOGICAL Hx Neurological Disorder: No - HEENT Hx Deafness: Yes - RENAL Hx Chronic Kidney Disease: No - ENDOCRINE/METABOLIC Hx Endocrine Disorders: No - HEMATOLOGICAL/ONCOLOGICAL Hx Blood Disorders: No - INTEGUMENTARY Hx Dermatological Problems: Yes Hx Psoriasis: Yes - MUSCULOSKELETAL/RHEUMATOLOGICAL Hx Musculoskeletal Disorders: No Hx Falls: No - GASTROINTESTINAL Hx Gastrointestinal Disorders: No - GENITOURINARY/GYNECOLOGICAL Hx Genitourinary Disorders: No - PSYCHIATRIC Hx Psychophysiologic Disorder: No Hx Substance Use: No - SURGICAL HISTORY Hx Surgeries: No - ANESTHESIA Hx Anesthesia: No Meds Allergies/Adverse Reactions: Allergies Allergy/AdvReac Type Severity Reaction Status Date / Time No Known Allergies Allergy Verified 05/24/16 09:14 - Medications Medications: Current Medications Ceftriaxone Sodium (Rocephin 1 Gram Ivpb) 1 gm in 100 mls @ 100 mls/hr IVPB ONCE ONE; Protocol Stop: 05/13/18 03:29 Last Admin: 05/13/18 02:51 Dose: 100 mls/hr Azithromycin (Zithromax 500mg In Ns) 500 mg in 250 mls @ 167 mls/hr IVPB STAT STA; Protocol Stop: 05/13/18 03:34 Physical Exam - Constitutional Appears: Non-toxic, No Acute Distress - Head Exam Head Exam: ATRAUMATIC, NORMAL INSPECTION, NORMOCEPHALIC - Eye Exam Eye Exam: EOMI, Normal appearance, PERRL - Respiratory Exam Respiratory Exam: Decreased Breath Sounds, NORMAL BREATHING PATTERN. absent: Accessory Muscle Use, Rales, Rhonchi, Wheezes, Respiratory Distress, Stridor - Cardiovascular Exam Cardiovascular Exam: Irregular Rhythm, +S1, +S2. absent: Bradycardia, Tachycardia, Gallop, Rubs - GI/Abdominal Exam GI & Abdominal Exam: Normal Bowel Sounds, Soft. absent: Distended, Firm, Guarding, Tenderness - Extremities Exam Extremities exam: Positive for: normal capillary refill, normal inspection, pedal edema, pedal pulses present - Back Exam Back exam: NORMAL INSPECTION. absent: CVA tenderness (L), CVA tenderness (R) - Neurological Exam Neurological exam: Alert, Oriented x3 - Psychiatric Exam Psychiatric exam: Normal Affect, Normal Mood - Skin Skin Exam: Dry, Normal Color, Warm Results - Vital Signs Recent Vital Signs: Last Vital Signs Temp 97.9 F 05/12/18 23:42 Pulse 82 05/13/18 03:12 Resp 19 05/13/18 03:12 BP 138/97 H 05/13/18 03:12 Pulse Ox 99 05/13/18 03:12 - Labs Result Diagrams: 05/12/18 23:50 05/12/18 23:50 Labs: Laboratory Results - last 24 hr 05/12/18 05/12/18 05/12/18 23:50 23:50 23:50 WBC 8.4 RBC 5.40 Hgb 15.6 Hct 45.3 MCV 83.9 D MCH 28.9 MCHC 34.4 RDW 14.3 Plt Count 72 L MPV 10.8 Gran % 75.7 H Lymph % (Auto) 17.4 L [place] % (Auto) 5.9 Eos % (Auto) 0.8 L Baso % (Auto) 0.2 Gran # 6.36 Lymph # (Auto) 1.5 [place] # (Auto) 0.5 Eos # (Auto) 0.1 Baso # (Auto) 0.02 PT 31.0 H INR 2.67 APTT 36.7 H pCO2 pO2 HCO3 ABG pH ABG Total CO2 ABG O2 Saturation ABG O2 Content ABG Base Excess ABG Hemoglobin ABG Carboxyhemoglobin POC ABG HHb (Measured) ABG Methemoglobin ABG O2 Capacity Hgb O2 Saturation FiO2 Sodium 123 L Potassium 5.1 H Chloride 86 L Carbon Dioxide 30 Anion Gap 13 BUN 23 H Creatinine 1.2 Est GFR ( Amer) > 60 Est GFR (Non-Af Amer) 59 Random Glucose 111 H Calcium 8.4 Phosphorus 3.1 Magnesium 1.7 Total Bilirubin 1.0 AST 147 H D ALT 47 Alkaline Phosphatase 126 D Troponin I 0.02 D Total Protein 7.5 Albumin 4.2 Globulin 3.3 Albumin/Globulin Ratio 1.3 05/13/18 02:50 WBC RBC Hgb Hct MCV MCH MCHC RDW Plt Count MPV Gran % Lymph % (Auto) [place] % (Auto) Eos % (Auto) Baso % (Auto) Gran # Lymph # (Auto) [place] # (Auto) Eos # (Auto) Baso # (Auto) PT INR APTT pCO2 35 pO2 264.0 H HCO3 24.3 ABG pH 7.45 ABG Total CO2 25.4 ABG O2 Saturation 100.0 H ABG O2 Content 21.2 ABG Base Excess 0.8 ABG Hemoglobin 15.2 ABG Carboxyhemoglobin 2.6 H POC ABG HHb (Measured) 0 ABG Methemoglobin 0.8 ABG O2 Capacity 21.2 Hgb O2 Saturation 96.6 FiO2 60.0 Sodium Potassium Chloride Carbon Dioxide Anion Gap BUN Creatinine Est GFR ( Amer) Est GFR (Non-Af Amer) Random Glucose Calcium Phosphorus Magnesium Total Bilirubin AST ALT Alkaline Phosphatase Troponin I Total Protein Albumin Globulin Albumin/Globulin Ratio Assessment & Plan - Assessment and Plan (Free Text) Assessment: Pt is a 72 yo M with pmhx of Afib (on warfarin), COPD, HTN, HLD and CHF who presents to the ED for SOB x 2 days. Plan: Pt is currently afebrile, VSS and has a normal WBC. Pt has improved clinically through ED interventions. Pt at this time does not meet ICU criteria for admission and will be placed on tele for admission. Thank you for this consult. Case seen and discussed With Vasu Patel, PGY-1
[2018-05-13 05:35] VITALS: BMI 25.0
--- NOTE | 2018-05-13 07:58 | RAD ---
Date of service: 05/13/2018 HISTORY: chest pain COMPARISON: Chest radiographs 02/08/2018. FINDINGS: LUNGS: Interval left perihilar density is appreciated potentially reflecting localized infiltrate though no definite air bronchograms are associated. An ovoid density is question at the right perihilar space as well and follow-up chest CT is advised with contrast for greater characterization of both findings. Remaining lung ruiz appear clear otherwise. PLEURA: No significant pleural effusion identified, no pneumothorax apparent. CARDIOVASCULAR: No aortic atherosclerotic calcification present. Normal cardiac size. No pulmonary vascular congestion. OSSEOUS STRUCTURES: No significant abnormalities. VISUALIZED UPPER ABDOMEN: Normal. OTHER FINDINGS: None. IMPRESSION: Interval bilateral hilar densities are identified greater the left and right sides for which follow-up chest CT with contrast is advised for better characterization. Consider possible lymphadenopathy and left-sided infiltrate though neoplasm is not excluded. Please see discussion above. Discussed with Nurse Ly with written down and read back verification 05/13/2018 7:52 a.m..
[2018-05-13] MEDS: Budesonide 0.5 mg/2 ml Inhal Susp UD IH SCH ×2 (08:23→20:25)
[2018-05-13] MEDS: Levalbuterol 1.25 MG/3 ML Inhal Soln UD IH SCH ×3 (08:23→20:25)
[2018-05-13 08:32] LABS: BLOOD UREA NITROGEN 20 mg/dL (7-21); CALCIUM 8.7 mg/dL (8.4-10.5); GFR NON-AFRICAN AMERICAN > 60
[2018-05-13 08:42] LABS: TROPONIN I 0.03 ng/mL
--- NOTE | 2018-05-13 09:24 | RAD ---
Date of service: 05/13/2018 HISTORY: follow up COMPARISON: Portable chest 05/13/2018 1:44 a.m.. TECHNIQUE: Chest PA and lateral FINDINGS: LUNGS: The patient rotated toward the right slightly left perihilar in density reiterated. Some air bronchograms are identified included in this area of increased density suggesting infiltrate with right hilar nodular density less well appreciated at this time, potentially due to rotation. Lateral projections fail demonstrate masslike density at the region of the bilateral hilar regions. PLEURA: No significant pleural effusion identified. No pneumothorax apparent. CARDIOVASCULAR: No aortic atherosclerotic calcification present. Normal cardiac size. No pulmonary vascular congestion. OSSEOUS STRUCTURES: No significant abnormalities. VISUALIZED UPPER ABDOMEN: Normal. OTHER FINDINGS: None. IMPRESSION: Pattern most compatible with left perihilar infiltrate with nonvisualization of prior right hilar density seen in earlier portable chest radiograph 05/13/2018 1:44 a.m.. Clinical follow-up and continued is advised to resolution with follow-up chest CT recommended 5th perihilar density persists.
[2018-05-13 10:06] LABS: BASO # 0.01 K/mm3 (0.0-2.0); BASO % 0.1 % (0.0-3.0); EOS # 0.1 (0.0-0.7); GRAN # 5.42 (1.4-6.5); GRAN % 76.9 % (50.0-68.0); LYMPH # 1.1 (1.2-3.4); MEAN CELL VOLUME 82.8 fl (80.0-105.0); MEAN CORPUSCULAR HEMOGLOBIN 28.6 pg (25.0-35.0); MEAN CORPUSCULAR HGB CONC 34.6 g/dl (31.0-37.0); MONO # 0.4 (0.1-0.6); PLATELET COUNT 52 10^3/uL (120.0-450.0); RBC 5.24 10^6/uL (3.5-6.1); RED CELL DISTRIBUTION WIDTH 14.3 % (11.5-14.5); WHITE BLOOD COUNT 7.1 10^3/uL (4.5-11.0)
[2018-05-13] MEDS: cefTRIAXone 1 gm 1 GM/100 ML BAG IVPB SCH (10:13)
[2018-05-13] MEDS: Propranolol 80 mg ER Cap PO SCH (10:13)
[2018-05-13] MEDS: Azithromycin 500MG/NS 250ml 500 MG/250 ML BAG IVPB SCH (10:14)
[2018-05-13 10:39] LABS: PLATELET COUNT MANUAL 50 K/mm3 (120-450)
--- NOTE | 2018-05-13 11:25 | CON ---
DATE: 05/13/2018 PULMONARY CONSULTATION REASON FOR PULMONARY CONSULTATION: Shortness of breath. REFERRING PHYSICIAN FOR THIS PULMONARY CONSULTATION: Dr. Campos. HISTORY OF PRESENT ILLNESS: The patient is a 72-year-old male, with past medical history significant for chronic obstructive pulmonary disease, congestive heart failure, hypertension, hyperlipidemia, who presents to [facility] with worsening shortness of breath at rest, dyspnea on exertion for the past 2 days. There is no history of cough or sputum production. There is no history of chest pain, coughing up of blood, or chest pain - brought on with deep respirations. There is no history of temperatures, chills or infectious exposure. There is no history of night sweats, weight loss or appetite change prior to the above events. No history of leg or calf pains. No history of syncope or diaphoresis. No history of recent travel or trauma. REVIEW OF SYSTEMS: No history of nausea, vomiting or diarrhea. No acute urinary symptoms. No new neurologic complaints. Rest of the review of systems is negative. ALLERGIES: NO KNOWN ALLERGIES. SOCIAL HISTORY: Positive for tobacco and negative for alcohol. FAMILY HISTORY: No inheritable diseases. HOME MEDICATIONS: Include Tapazole, Coumadin, Calan, Inderal, Lipitor, and albuterol HFA PHYSICAL EXAMINATION: GENERAL: The patient appears comfortable at rest. He is not short of breath. He is not using accessory muscles for breathing. VITAL SIGNS: Temperature is 97.5, pulse 80, respirations 18/20, blood pressure 120/86. Oxygen saturation on nasal cannula is 96%. HEENT: Normocephalic, atraumatic. No JVD. CARDIOVASCULAR: Systolic ejection murmur at the lower left sternal border. Positive S3 gallop. LUNGS: Crackles at both bases. Minimal bilateral rhonchi. No wheezing. GASTROINTESTINAL: Abdomen is soft, nontender and nondistended. Bowel sounds are positive. EXTREMITIES: Mild edema. No cyanosis. No clubbing. Calves are nontender to palpation. SKIN: No acute rash. NEUROLOGIC: Exam limited at the present time. PERTINENT LABORATORY DATA: Chest x-ray was done early this morning as a portable film. It is a poor,rotated film. Official results-pending. There is definite increase in pulmonary vascular congestion noted. However, I do question whether there is an added left upper lobe infiltrate. CBC: White count 8.4K, hemoglobin 15.6, hematocrit 45.3, platelets of 72,000. INR 2.67. Complete metabolic profile: Sodium 123, potassium 5.1, chloride 86, BUN 23, glucose 111, AST 147. Rest of the metabolic profile is within normal limits. IMPRESSION: 1. Acute congestive heart failure. 2. Chronic obstructive pulmonary disease. 3. Atrial fibrillation. 4. Electrolyte abnormalities. 5. Rule out pneumonia--left upper lobe. PLAN: The patient presents to [facility] with a 2-day history of worsening pulmonary symptoms. Other than the shortness of breath at rest and dyspnea on exertion, the patient offers NO other pulmonary symptoms. I did review the chest x-ray as above. Official results are pending. Again, there is definite pulmonary vascular congestion noted. However, I do question whether there is an added, left upper lobe infiltrate. I have ordered a repeat chest x-ray - PA and lateral - for closer evaluation. Keep in mind, there is no history of fevers. There is no leukocytosis. On physical exam, there is mild bronchospasm noted. However, there is no significant alveolar-arterial gradient. I will start the patient on Xopenex nebulizer treatments (given the atrial fibrillation) and inhaled Pulmicort. The patient did receive intravenous Lasix in the emergency room. Consultation with Dr. Lorenzo (Cardiology) has been ordered. The patient does state to feeling much better this morning - compared to the past few days. He is clinically improved. Additional pulmonary intervention will be based on the above results, as well as the clinical status of the patient. I will discuss the above with Dr. Campos later this morning. Thank you very much for this pulmonary consultation. Javier Echevarria MD [facility]
[2018-05-13 12:00] LABS: T3 UPTAKE 36.5 % (23.0-41.0); T4 12.1 ug/dL (5.5-11.0)
--- NOTE | 2018-05-13 12:01 | CON ---
DATE: 05/13/2018 INDICATION: Shortness of breath. HISTORY OF PRESENT ILLNESS: This is a 72-year-old man admitted with increasing shortness of breath, which has been present for several weeks to a month or more. He noted increasing dyspnea on exertion walking short distances and stairs. This got worse, and he came to the emergency room yesterday. He was treated in the emergency room. This morning he feels better, sitting on his bed in telemetry. There is no chest pain, orthopnea, PND, syncope, presyncope, lightheadedness, dizziness or vertigo. No palpitations. He has chronic edema. No fever, chills, cough, sputum production, hemoptysis, abdominal pain, nausea, vomiting, diarrhea, constipation, melena. PAST MEDICAL HISTORY: His past medical history is notable for congestive heart failure. He has an echocardiogram in 05/2016 that showed mild LV dysfunction with [id number] aortic stenosis and mitral regurgitation and moderate tricuspid regurgitation and pulmonary hypertension. He has chronic AFib, on warfarin. He is a current smoker. He has COPD, hyperlipidemia, psoriasis, hyperthyroidism. There is no history of rheumatic fever, myocardial infarction, angina, stroke, TIA or gout. MEDICATIONS: Medications at the time of admission include verapamil, warfarin, propranolol [place], Lipitor, Tapazole, and albuterol. ALLERGIES: NO MEDICATION ALLERGIES ARE REPORTED. SOCIAL HISTORY: He lives at home. He is ambulatory, but very limited. He still smokes. He denies significant alcohol intake. FAMILY HISTORY: Noncontributory. REVIEW OF SYSTEMS: Ten-point review of systems is otherwise unremarkable except as noted above. PHYSICAL EXAMINATION: GENERAL: He is a well-developed male sitting on his bed in telemetry, in no acute distress. VITAL SIGNS: Notable for atrial fibrillation, 80 beats per minute, afebrile, 120/86, respirations 19-20, O2 sat 96-98% on BiPAP and now nasal cannula. HEENT: Exam reveals no neck vein distention, thyromegaly, carotid bruit. Mucous membranes moist. Conjunctivae pink. NECK: Supple. LUNGS: Lung ruiz, scattered rhonchi. CARDIAC: Examination of the heart revealed an irregular rhythm. Normal first and second heart sounds. ABDOMEN: Soft. Bowel sounds present. No mass, organomegaly, tenderness, rebound, guarding, CVA tenderness, or palpable abdominal aortic aneurysm. EXTREMITIES: Extremity exam reveals chronic skin changes. Mild edema. NEUROLOGICALLY: Awake, alert, oriented. PSYCHIATRIC: Normal as to mood and affect. LABORATORY AND IMAGING STUDIES: Chest x-ray reveals bilateral hilar densities, greater left than right, consider left-sided infiltrate, neoplasm not excluded, see full report. An EKG is done, but not available, apparently it did not show acute changes, I will track it down. CBC is notable for platelet count of 72,000. Otherwise unremarkable. PT 31, INR 2.67, PTT 36.7. Blood gases are noted. Electrolytes revealed sodium of 123, potassium 5.1, BUN 23, creatinine 1.2, blood sugar 111, magnesium 1.7. AST is elevated at 147, troponin 0.02. IMPRESSION: Jayden Palacios is a 72-year-old smoker, admitted with increasing shortness of breath, dyspnea on exertion, infiltrates on the x-ray suggestive of pneumonia, possible neoplasm, also hyponatremia, and thrombocytopenia with a background history of left ventricular dysfunction, [id number] aortic stenosis, [id number] mitral regurgitation, moderate tricuspid regurgitation and pulmonary hypertension. PLAN: At this time, he will have a Pulmonary consultation and a CT scan of the chest. I would hold Lasix for now. There should be fluid restrictions. He should have a Renal evaluation as well. I will check a troponin level. I will order an echocardiogram. I will review his old records. I will continue verapamil and propranolol for now. I will continue Lipitor. We will monitor I's and O's and adjust warfarin dose accordingly. He can be out of bed to a chair and ambulate as tolerated. I would hold Lasix for now given the hyponatremia and the chest x-ray, which does not suggest acute congestive heart failure. I will monitor I's and O's, check stool for occult blood. I will follow along with you and make additional recommendations based on his clinical course. Stewart Lorenzo MD [facility]
--- NOTE | 2018-05-13 14:46 | CP.PCM.CON ---
History of Present Illness - History of Present Illness History of Present Illness: 72 year old male with PMH of COPD, hypertension, dyslipidemia, Psoriasis came in to [facility] because of shortness of breath for the past 2 days associated with shortness of breath. The patient was recently at a [employer] and is unsure if he was exposed to someone with cough or colds, or fevers. He denies being in the hospital or taking antibiotics in the past 3 months, denies recent travel outside of [place] in the past 3 months, no headache or dizziness, no chest pain, no sore throat, no rhinorrhea, no muscle aches, no abdominal pain, no diarrhea, no dysuria. CXR was done and it is showing left sided perihilar infiltrates. Infectious diseases consult is requested to further evaluate and manage. Review of Systems - Review of Systems All systems: reviewed and no additional remarkable complaints except (as per HPI) Past Patient History - Infectious Disease Hx of Infectious Diseases: None - Tetanus Immunizations Tetanus Immunization: Unknown - Past Social History Smoking Status: Current Some Days Smoker - CARDIAC Hx Congestive Heart Failure: Yes - PULMONARY Hx Chronic Obstructive Pulmonary Disease (COPD): Yes - NEUROLOGICAL Hx Neurological Disorder: No - HEENT Hx Deafness: Yes - RENAL Hx Chronic Kidney Disease: No - ENDOCRINE/METABOLIC Hx Endocrine Disorders: No - HEMATOLOGICAL/ONCOLOGICAL Hx Blood Disorders: No - INTEGUMENTARY Hx Dermatological Problems: Yes Hx Psoriasis: Yes - MUSCULOSKELETAL/RHEUMATOLOGICAL Hx Musculoskeletal Disorders: No Hx Falls: No - GASTROINTESTINAL Hx Gastrointestinal Disorders: No - GENITOURINARY/GYNECOLOGICAL Hx Genitourinary Disorders: No - PSYCHIATRIC Hx Psychophysiologic Disorder: No Hx Substance Use: No - SURGICAL HISTORY Hx Surgeries: No - ANESTHESIA Hx Anesthesia: No Meds Allergies/Adverse Reactions: Allergies Allergy/AdvReac Type Severity Reaction Status Date / Time No Known Allergies Allergy Verified 05/24/16 09:14 - Medications Medications: Current Medications Atorvastatin Calcium (Lipitor) 10 mg PO DIN [facility] Budesonide (Pulmicort Respules) 0.5 mg IH [id number] [facility] Last Admin: 05/13/18 08:23 Dose: 0.5 mg Azithromycin (Zithromax 500mg In Ns) 500 mg in 250 mls @ 167 mls/hr IVPB DAILY [facility]; Protocol Last Admin: 05/13/18 10:14 Dose: 167 mls/hr Ceftriaxone Sodium (Rocephin 1 Gram Ivpb) 1 gm in 100 mls @ 100 mls/hr IVPB DAILY [facility]; Protocol Last Admin: 05/13/18 10:13 Dose: 100 mls/hr Levalbuterol HCl (Xopenex) 1.25 mg IH [id number] [facility] Last Admin: 05/13/18 08:23 Dose: 1.25 mg Propranolol HCl (Inderal La) 80 mg PO DAILY [facility] Last Admin: 05/13/18 10:13 Dose: 80 mg Verapamil HCl (Calan Tab) 40 mg PO TID [facility] Last Admin: 05/13/18 10:12 Dose: 40 mg Physical Exam - Constitutional Appears: Chronically Ill - Head Exam Head Exam: NORMAL INSPECTION - Respiratory Exam Respiratory Exam: Decreased Breath Sounds - Cardiovascular Exam Cardiovascular Exam: +S1, +S2 - GI/Abdominal Exam GI & Abdominal Exam: Soft. absent: Tenderness Results - Vital Signs Recent Vital Signs: Last Vital Signs Temp 97.5 F L 05/13/18 06:00 Pulse 98 H 05/13/18 10:13 Resp 20 05/13/18 06:00 BP 113/62 05/13/18 10:12 Pulse Ox 96 05/13/18 06:00 - Labs Result Diagrams: 05/13/18 09:58 05/13/18 08:00 Labs: Laboratory Results - last 24 hr 05/12/18 05/12/18 05/12/18 23:50 23:50 23:50 WBC 8.4 RBC 5.40 Hgb 15.6 Hct 45.3 MCV 83.9 D MCH 28.9 MCHC 34.4 RDW 14.3 Plt Count 72 L Manual Plt Count MPV 10.8 Gran % 75.7 H Lymph % (Auto) 17.4 L Reynolds % (Auto) 5.9 Eos % (Auto) 0.8 L Baso % (Auto) 0.2 Gran # 6.36 Lymph # (Auto) 1.5 Reynolds # (Auto) 0.5 Eos # (Auto) 0.1 Baso # (Auto) 0.02 PT 31.0 H INR 2.67 APTT 36.7 H pCO2 pO2 HCO3 ABG pH ABG Total CO2 ABG O2 Saturation ABG O2 Content ABG Base Excess ABG Hemoglobin ABG Carboxyhemoglobin POC ABG HHb (Measured) ABG Methemoglobin ABG O2 Capacity Hgb O2 Saturation FiO2 Sodium 123 L Potassium 5.1 H Chloride 86 L Carbon Dioxide 30 Anion Gap 13 BUN 23 H Creatinine 1.2 Est GFR ( Amer) > 60 Est GFR (Non-Af Amer) 59 Random Glucose 111 H Calcium 8.4 Phosphorus 3.1 Magnesium 1.7 Total Bilirubin 1.0 AST 147 H D ALT 47 Alkaline Phosphatase 126 D Troponin I 0.02 D Total Protein 7.5 Albumin 4.2 Globulin 3.3 Albumin/Globulin Ratio 1.3 Thyroxine (T4) T3 Uptake TSH 3rd Generation 05/13/18 05/13/18 05/13/18 02:50 08:00 09:58 WBC 7.1 RBC 5.24 Hgb 15.0 Hct 43.4 MCV 82.8 MCH 28.6 MCHC 34.6 RDW 14.3 Plt Count 52 L Manual Plt Count 50 L MPV Gran % 76.9 H Lymph % (Auto) 16.0 L Reynolds % (Auto) 6.0 Eos % (Auto) 1.0 L Baso % (Auto) 0.1 Gran # 5.42 Lymph # (Auto) 1.1 L Reynolds # (Auto) 0.4 Eos # (Auto) 0.1 Baso # (Auto) 0.01 PT INR APTT pCO2 35 pO2 264.0 H HCO3 24.3 ABG pH 7.45 ABG Total CO2 25.4 ABG O2 Saturation 100.0 H ABG O2 Content 21.2 ABG Base Excess 0.8 ABG Hemoglobin 15.2 ABG Carboxyhemoglobin 2.6 H POC ABG HHb (Measured) 0 ABG Methemoglobin 0.8 ABG O2 Capacity 21.2 Hgb O2 Saturation 96.6 FiO2 60.0 Sodium 124 L Potassium 4.6 Chloride 87 L Carbon Dioxide 28 Anion Gap 14 BUN 20 Creatinine 1.1 Est GFR ( Amer) > 60 Est GFR (Non-Af Amer) > 60 Random Glucose 99 Calcium 8.7 Phosphorus Magnesium Total Bilirubin AST ALT Alkaline Phosphatase Troponin I 0.03 D Total Protein Albumin Globulin Albumin/Globulin Ratio Thyroxine (T4) T3 Uptake TSH 3rd Generation 05/13/18 11:26 WBC RBC Hgb Hct MCV MCH MCHC RDW Plt Count Manual Plt Count MPV Gran % Lymph % (Auto) Reynolds % (Auto) Eos % (Auto) Baso % (Auto) Gran # Lymph # (Auto) Reynolds # (Auto) Eos # (Auto) Baso # (Auto) PT INR APTT pCO2 pO2 HCO3 ABG pH ABG Total CO2 ABG O2 Saturation ABG O2 Content ABG Base Excess ABG Hemoglobin ABG Carboxyhemoglobin POC ABG HHb (Measured) ABG Methemoglobin ABG O2 Capacity Hgb O2 Saturation FiO2 Sodium Potassium Chloride Carbon Dioxide Anion Gap BUN Creatinine Est GFR ( Amer) Est GFR (Non-Af Amer) Random Glucose Calcium Phosphorus Magnesium Total Bilirubin AST ALT Alkaline Phosphatase Troponin I Total Protein Albumin Globulin Albumin/Globulin Ratio Thyroxine (T4) 12.1 H T3 Uptake 36.5 TSH 3rd Generation 4.36 Assessment & Plan - Assessment and Plan (Free Text) Plan: Assessment consider left sided community-acquired pneumonia history of Severe sepsis secondary to community-acquired pneumonia COPD hypertension dyslipidemia Psoriasis Plan started Ceftriaxone and Zithromax and will follow up urine Legionella Ag, PCT; reviewed CXR with Dr. Echevarria will monitor clinically discussed with Dr. Campos
--- NOTE | 2018-05-13 23:59 | CARD ---
APPROVED REPORT Date of service: 05/12/2018 EKG Measurement Heart [id number] <Conclusion> Atrial fibrillation Left posterior fascicular block Cannot rule out Inferior infarct, age undetermined Anteroseptal infarct, age undetermined Abnormal ECG
--- NOTE | 2018-05-14 00:37 | CARD ---
APPROVED REPORT Date of service: 05/13/2018 EKG Measurement Heart [id number] <Conclusion> Atrial fibrillation Abnormal ECG
[2018-05-14] MEDS: Levalbuterol 1.25 MG/3 ML Inhal Soln UD IH SCH ×4 (01:25→21:22)
[2018-05-14 07:24] LABS: BASO # 0.02 K/mm3 (0.0-2.0); BASO % 0.3 % (0.0-3.0); EOS # 0.1 (0.0-0.7); EOS % 0.8 % (1.5-5.0); GRAN # 4.42 (1.4-6.5); GRAN % 68.3 % (50.0-68.0); HEMOGLOBIN 15.4 g/dL (14.0-18.0); LYMPH # 1.4 (1.2-3.4); LYMPH % 22.3 % (22.0-35.0); MEAN CELL VOLUME 84.4 fl (80.0-105.0); MEAN CORPUSCULAR HEMOGLOBIN 28.6 pg (25.0-35.0); MEAN CORPUSCULAR HGB CONC 33.9 g/dl (31.0-37.0); MONO # 0.5 (0.1-0.6); MONO % 8.3 % (1.0-6.0); PLATELET COUNT 54 10^3/uL (120.0-450.0); RBC 5.38 10^6/uL (3.5-6.1); RED CELL DISTRIBUTION WIDTH 14.6 % (11.5-14.5); WHITE BLOOD COUNT 6.5 10^3/uL (4.5-11.0)
[2018-05-14 07:29] LABS: INR 1.59; PROTHROMBIN TIME 18.4 SECONDS (9.4-12.5)
[2018-05-14 07:45] LABS: ALB/GLOB RATIO 1.3 (1.1-1.8); ALBUMIN 4.2 g/dL (3.0-4.8); ALT/SGPT 40 U/L (7-56); AST/SGOT 147 U/L (17-59); BLOOD UREA NITROGEN 23 mg/dL (7-21); CALCIUM 8.9 mg/dL (8.4-10.5); GFR NON-AFRICAN AMERICAN > 60
--- NOTE | 2018-05-14 08:11 | CP.PCM.PN ---
Subjective - Date & Time of Evaluation Date of Evaluation: 05/14/18 Time of Evaluation: 07:00 - Subjective Subjective: Stable on 2R. He feels better. No SOB, CP. V/S noted. AF PE: Lungs: rhonchi Cor: irreg, S1S2 Abd: soft Ext.: no edema Neuro.: alert I/O= 440/700 recorded Labs: Pl CT = 54,000, INR = 1.59, Na+= 127, K+= 5.3, BUN = 23, Cr.= 1.1, trops X2 Neg., TSH NL, T4 = 12.1 05/13 ECG: AF, NSSTWchages. No change Objective - Vital Signs/Intake and Output Vital Signs (last 24 hours): Temp Pulse Resp BP Pulse Ox 97.8 F 70 20 115/57 L 99 05/14/18 06:00 05/14/18 06:00 05/14/18 06:00 05/14/18 06:00 05/14/18 06:00 Intake and Output: 05/14/18 05/14/18 06:59 18:59 Intake Total 440 Output Total 700 Balance -260 - Medications Medications: Current Medications Atorvastatin Calcium (Lipitor) 10 mg PO DIN [facility] Last Admin: 05/13/18 17:39 Dose: 10 mg Budesonide (Pulmicort Respules) 0.5 mg IH [id number] [facility] Last Admin: 05/13/18 20:25 Dose: 0.5 mg Azithromycin (Zithromax 500mg In Ns) 500 mg in 250 mls @ 167 mls/hr IVPB DAILY [facility]; Protocol Last Admin: 05/13/18 10:14 Dose: 167 mls/hr Ceftriaxone Sodium (Rocephin 1 Gram Ivpb) 1 gm in 100 mls @ 100 mls/hr IVPB DAILY [facility]; Protocol Last Admin: 05/13/18 10:13 Dose: 100 mls/hr Levalbuterol HCl (Xopenex) 1.25 mg IH [id number] [facility] Last Admin: 05/14/18 01:25 Dose: 1.25 mg Propranolol HCl (Inderal La) 80 mg PO DAILY [facility] Last Admin: 05/13/18 10:13 Dose: 80 mg Verapamil HCl (Calan Tab) 40 mg PO TID [facility] Last Admin: 12/26/18 17:39 Dose: 40 mg Warfarin Sodium (Coumadin) 5 mg PO 1800 [facility]; Protocol - Labs Labs: 05/14/18 06:30 05/14/18 06:30 PT 18.4 SECONDS (9.4-12.5) H 05/14/18 06:30 INR 1.59 05/14/18 06:30 APTT 36.7 Seconds (25.1-36.5) H 05/12/18 23:50 Assessment and Plan - Assessment and Plan (Free Text) Assessment: Dyspnea Hyponatremia, Thrombocytopenia Abn. CXR R/O pneumonia, neoplasm, etc COPD/Smoker Chronic AF on warfarin H/O CHF Remote echo: Mild LVD, mild/mod and MR, mild TR and PH HLD Syncope Psoriasis Hyperthyroidism Plan: CT chest, as per pulm. Check echo>done Heme Eval Warfarin 5 today. Monitor INRs Fluid Restriction Monitor: labs, I/O, sats., cultures, INRs, etc. OOB D/C Smoking.
--- NOTE | 2018-05-14 08:19 | HP ---
DATE OF EXAM: 05/13/2018 HISTORY OF PRESENT ILLNESS: The patient is a 72-year-old male who states that 2 days prior to coming to the emergency room he was noting that he was having increased shortness of breath with activity, especially when he would go up and down steps. He denies any chest tightness or chest pain or palpitations. Denies any cough, fever or chills. PAST MEDICAL HISTORY: Aortic stenosis, coronary disease, COPD, psoriasis, atrial fibrillation and hyperlipidemia. SOCIAL HISTORY: He is a nonsmoker at this time, but was a smoker for many years. He denies any use of drugs and an occasional social drinker. ALLERGIES: HE DOES NOT HAVE ANY KNOWN ALLERGIES. HOME MEDICATIONS: Listed as methimazole for his hyperthyroid disease, warfarin for his atrial fibrillation, verapamil for his AFib, Inderal for his AFib and hypertension for his coronary artery disease, Lipitor for his hyperlipidemia and he uses Ventolin inhaler at home. Methimazole is 5 mg daily, warfarin is 2.5 mg daily, verapamil is 40 mg t.i.d., Inderal is 80 mg daily, Lipitor is 10 mg daily, and albuterol is 2 puffs q.i.d. REVIEW OF SYSTEMS: Ten systems are actively reviewed. Pertinent findings as stated in the physical exam. At this point in time, the patient is resting comfortably, says that he still has some mild shortness of breath. PHYSICAL EXAMINATION: VITAL SIGNS: His temperature is reported at 97.5. His pulse is 80. His heart rate is irregular. His blood pressure is 120/86. His respiratory rate is 20. He is satting reportedly on 4 liters of nasal oxygen at 96%. GENERAL: He is alert and oriented x3. NECK: Supple. No JVD appreciated. HEART: Has an irregular S1, S2 with a grade 2/6 systolic murmur. ABDOMEN: Soft, obese, positive bowel sounds. EXTREMITIES: Show evidence of psoriasis. LABORATORY DATA: Shows a WBC of 8.4, RBC 5.4, hemoglobin 15.6, hematocrit 45.3, and platelet count is 72,000. Coagulation panel; PT of 31, INR 2.67 and PTT of 36.7. A blood gas in the emergency room is reported as showing a pH of 7.45, CO2 of 35, pO2 of 264 on an FIO2 of 60% with 100% oxygen saturation. Bicarb was 24.3. Chemistry was reported as showing a sodium of 123, potassium 5.1, chloride 86, CO2 of 30, BUN of 23, creatinine of 1.2 and random glucose was 111. His AST was 147. His troponin is 0.02. Chest x-ray report is read as showing findings of bilateral hilar densities, left and right. A repeat chest x-ray is reported as showing air bronchogram with increased density suggesting infiltrate with right hilar nodular density less well appreciated at this time, partially due to rotation failed to demonstrate mass-like density in the region of the bilateral pleural hilar regions. IMPRESSION: A 72-year-old male with increased progressive episodes of shortness of breath with activity over the last several days. 1. Dyspnea, possible pneumonia. 2. Hyponatremia. 3. Thrombocytopenia. 4. Chronic obstructive pulmonary disease with exacerbation. PLAN: Initiate the patient on antibiotics with a Pulmonary consultation. Blood cultures were drawn in the emergency room. We will follow up the patient's labs. We will check a manual platelet count. At the same time, we will get a Cardiology consult to rule out the possibility of underlying vascular congestion.Need to assess CXR findings Will review with Pulmonary Renal consult and Hematology consult Natalya Campos MD [facility]TD[facility]
[2018-05-14] MEDS: Budesonide 0.5 mg/2 ml Inhal Susp UD IH SCH ×2 (08:22→21:22)
--- NOTE | 2018-05-14 09:20 | CARD ---
APPROVED REPORT Date of service: 05/13/2018 EXAM: Two-dimensional and M-mode echocardiogram with Doppler and color Doppler. Other Information Quality : FairRhythm : INDICATION Dyspnea Cardiac Disease: CAD , S/P Remote CABG. 2D DIMENSIONS Left Atrium (2D)4.5 (1.6-4.0cm)IVSd1.2 (0.7-1.1cm) LVDd4.7 (3.9-5.9cm)PWd1.2 (0.7-1.1cm) LVDs3.3 (2.5-4.0cm)FS (%) 30.8 % LVEF (%)58.0 (>50%) M-Mode DIMENSIONS Aortic Root3.60 (2.2-3.7cm)Aortic Cusp Exc.1.00 (1.5-2.0cm) Aortic Valve AoV Peak Xftzwwlx212.0cm/Satya Peak GR.18mmHg Mitral Valve E/A ratio0.0 TDI E/Lateral E'0.0E/Medial E'0.0 Tricuspid Valve RAP [id number] Peak Gr.[id number] LEFT VENTRICLE The left ventricle is normal size. There is mild concentric left ventricular hypertrophy. The left ventricular function is normal. The left ventricular ejection fraction is within the normal range. There is normal LV segmental wall motion. RIGHT VENTRICLE The right ventricle is normal size. ATRIA The left atrium is mildly dilated. The right atrium is mildly dilated. The interatrial septum is intact with no evidence for an atrial septal defect. AORTIC VALVE The aortic valve is mildly to moderately calcified. Aortic sclerosis vs. mild . MITRAL VALVE The mitral valve is normal in structure. TRICUSPID VALVE The tricuspid valve is normal in structure. There is mild tricuspid regurgitation. PULMONIC VALVE The pulmonic valve is not well visualized. There is mild pulmonic valvular regurgitation. GREAT VESSELS The aortic root is normal in size. PERICARDIAL EFFUSION There is no pericardial effusion. <Conclusion> The left ventricle is normal size. There is mild concentric left ventricular hypertrophy. The left ventricular function is normal. The left ventricular ejection fraction is within the normal range. The aortic valve is mildly to moderately calcified. Aortic sclerosis vs. mild . There is mild tricuspid regurgitation.
[2018-05-14] MEDS: cefTRIAXone 1 gm 1 GM/100 ML BAG IVPB SCH (10:47)
[2018-05-14] MEDS: Propranolol 80 mg ER Cap PO SCH (10:47)
[2018-05-14] MEDS: Azithromycin 500MG/NS 250ml 500 MG/250 ML BAG IVPB SCH (10:48)
--- NOTE | 2018-05-14 11:00 | CON ---
DATE: 05/14/2018 SUBJECTIVE: This is a 72-year-old man with a thrombocytopenia. The patient at present is sitting up in chair and notably comfortable. PHYSICAL EXAMINATION: SKIN: No petechiae. No bruises. No telangiectasia. HEENT: Anicteric. No mucosal lesions noted. LYMPH NODES: No palpable masses in the axillary, cervical, supraclavicular, inguinal regions. LUNGS: Clear at present. No vertebral tenderness. HEART: S1 and S2. ABDOMEN: Shows no liver. No spleen. No tenderness. No rebound. No ascites. EXTREMITIES: No edema. [employer] DEVELOPMENT: No focal finding. MEDICATIONS: The patient is on various medications including warfarin with atrial fibrillation and he is also on the Tapazole for thyroid condition. He really does not have very good history of how long he has been on this. He says that he was at the green party and he was getting more short of breath last 2 days, came from that, right now he is feeling much better. LABORATORY FINDINGS: Show white count between 6.5 and 8.5 with a hemoglobin of 15, MCV is 84, and the platelet count variation from 72, manual is 50, today is 54. I am going to do another manual. I do not see clumping. I do not see large platelets. I do not see abnormal white cells on the peripheral smear and no lymphocytes or monocytes. The INR was 2.6 upon admission. He held Coumadin for a day, it is 1.6. The laboratory findings show a normal creatinine. The sugar is okay. The liver function test are basically as well. His AST is 147, ALT 40, I do not understand how that could be, but his thyroid overall T4 is 12.1, otherwise normal. There certainly could be a part of the Tapazole pill, though that as we discussed with Dr. Campos also low is the white cells as well, but it does not have to. Could be an acute alcohol effect on the platelets, but usually has been drinking a lot more than that. I do not see ITP or TTP here on the peripheral smear and at this point, his main problem was his heart failure and shortness of breath probably when he was eating. He seems to be more stable at this point. We would recommend holding of and reevaluate him as an outpatient in another week or two and observe the questions whether he should continue the Tapazole, but he clearly needs it. So at this point with the platelet count of 50 and if he needs the Tapazole, we would not stop it and just follow his platelets. So, I would recommend that he come to the office in another week or two to get it rechecked. I know if he understands very well , but if he just wants to go home, but it is all discussed with Dr. Campos. Franco MD [place]
--- NOTE | 2018-05-14 12:05 | CT ---
Date of service: 05/14/2018 PROCEDURE: CT Chest without contrast HISTORY: hilar and lung changes COMPARISON: None available. TECHNIQUE: Contiguous axial images were obtained through the chest without intravenous contrast enhancement. Sagittal and coronal reconstructions were performed. Radiation dose: Total exam DLP = 719.79 mGy-cm. This CT exam was performed using one or more of the following dose reduction techniques: Automated exposure control, adjustment of the mA and/or kV according to patient size, and/or use of iterative reconstruction technique. FINDINGS: LUNGS: Large roughly 6.2 x 6.1 centimeter lobulated mass in the left lower lobe compatible with malignancy. Left hilar lymphadenopathy as well as a 1.2 centimeter nonspecific left paratracheal lymph node. Accompanying subpleural infiltrate at the left base. Centrilobular emphysema. MEDIASTINUM: Unremarkable thoracic aorta. No aneurysm. Normal sized heart. Main pulmonary artery unremarkable. No vascular congestion. No aortic atherosclerotic calcification. PLEURA: No pleural fluid. No pneumothorax. BONES: No fracture. No destructive lesion. UPPER ABDOMEN: Grossly unremarkable. OTHER FINDINGS: None. IMPRESSION: Large roughly 6.2 x 6.1 centimeter lobulated mass in the left lower lobe compatible with malignancy. Left hilar lymphadenopathy as well as a 1.2 centimeter nonspecific left paratracheal lymph node. Accompanying subpleural infiltrate at the left base. Centrilobular emphysema.
--- NOTE | 2018-05-14 12:45 | CP.PCM.PN ---
Subjective - Date & Time of Evaluation Date of Evaluation: 05/14/18 Time of Evaluation: 10:55 - Subjective Subjective: Comfortable on a chair, no fevers, no cough currently. Objective - Vital Signs/Intake and Output Vital Signs (last 24 hours): Temp Pulse Resp BP Pulse Ox 97.5 F L 84 20 118/84 96 05/13/18 06:00 05/13/18 12:00 05/13/18 12:00 05/13/18 12:00 05/13/18 06:00 Intake and Output: 05/13/18 05/13/18 06:59 18:59 Intake Total 150 Output Total 1300 Balance -1150 - Medications Medications: Current Medications Atorvastatin Calcium (Lipitor) 10 mg PO DIN [facility] Budesonide (Pulmicort Respules) 0.5 mg IH [id number] [facility] Last Admin: 05/13/18 08:23 Dose: 0.5 mg Azithromycin (Zithromax 500mg In Ns) 500 mg in 250 mls @ 167 mls/hr IVPB DAILY [facility]; Protocol Last Admin: 05/13/18 10:14 Dose: 167 mls/hr Ceftriaxone Sodium (Rocephin 1 Gram Ivpb) 1 gm in 100 mls @ 100 mls/hr IVPB DAILY [facility]; Protocol Last Admin: 05/13/18 10:13 Dose: 100 mls/hr Levalbuterol HCl (Xopenex) 1.25 mg IH [id number] [facility] Last Admin: 05/13/18 13:14 Dose: 1.25 mg Propranolol HCl (Inderal La) 80 mg PO DAILY [facility] Last Admin: 05/13/18 10:13 Dose: 80 mg Verapamil HCl (Calan Tab) 40 mg PO TID [facility] Last Admin: 05/13/18 10:12 Dose: 40 mg - Labs Labs: 05/13/18 09:58 05/13/18 08:00 PT 31.0 SECONDS (9.4-12.5) H 05/12/18 23:50 INR 2.67 05/12/18 23:50 APTT 36.7 Seconds (25.1-36.5) H 05/12/18 23:50 - Constitutional Appears: No Acute Distress, Chronically Ill - Head Exam Head Exam: NORMAL INSPECTION - Respiratory Exam Respiratory Exam: Decreased Breath Sounds - Cardiovascular Exam Cardiovascular Exam: +S1, +S2 - GI/Abdominal Exam GI & Abdominal Exam: Soft. absent: Tenderness Assessment and Plan - Assessment and Plan (Free Text) Plan: Assessment consider left sided community-acquired pneumonia history of Severe sepsis secondary to community-acquired pneumonia COPD hypertension dyslipidemia Psoriasis Plan continue Ceftriaxone and Zithromax day 2 and will follow up urine Legionella Ag, PCT; reviewed CXR with Dr. Echevarria will continue monitor clinically patient to have CT chest today discussed with Dr. Campos
--- NOTE | 2018-05-14 14:16 | PN ---
DATE: 05/14/2018 PULMONARY PROGRESS NOTE SUBJECTIVE: The patient is resting comfortably, in no acute distress. He is sitting in his chair. There is no dyspnea at rest, although he does remain somewhat tachypneic. There is no apparent cough at this time. He denies chest pain. Chart has been reviewed and the case discussed at length with Dr. Natalya Campos. PHYSICAL EXAMINATION: GENERAL: The patient is resting comfortably. VITAL SIGNS: Remain stable. He is afebrile, pulse of 80, respiratory rate 18, blood pressure 120/80, oxygen saturation 96% on supplemental oxygen nasal cannula. HEENT: Normocephalic, atraumatic. NECK: Supple. No jugular venous distension. No bruit. No mass. No thyromegaly. Lymphadenopathy is not present on physical exam. CARDIOVASCULAR: Regular rhythm. S1 and S2. Soft systolic ejection murmur at the lower left sternal border. S3 gallop is appreciated. LUNGS: Bilateral rales and rhonchi throughout both lung ruiz. No wheezing is appreciated. ABDOMEN: Soft. Bowel sounds normoactive without mass, guarding, rebound or organomegaly. EXTREMITIES: Reveal trace edema. No clubbing or cyanosis. There is no Constantino sign noted. SKIN: Shows no rash or excoriation. NEUROLOGIC: Reveals no focal findings. Chest x-ray has been reviewed with Dr. Campos, it is a poorly evaluated film. There appears to be increased pulmonary vascular congestion, question of an infiltrate in the hilum is noted. No other additional laboratory value was available. IMPRESSION: 1. Respiratory insufficiency. 2. Pulmonary vascular congestion/congestive heart failure. 3. Chronic obstructive pulmonary disease. 4. Atrial fibrillation. 5. Rule out lung mass or infiltrate. PLAN: The case has been discussed at length with Dr. Natalya Campos. We will get a CT of the chest without contrast and evaluate further the radiographic findings. In the meantime; however, the patient will continue on inhaled bronchodilators, corticosteroids and antibiotics treatment with diuresis for his pulmonary vascular congestion will continue. We will follow closely. The patient is feeling better since his admission, but we need further evaluation to confirm the general status. Continue present care. We will follow closely with you and decide on the need for further intervention based on his clinical status. Howard Hillman MD [facility] # [phone]
--- NOTE | 2018-05-14 16:23 | CON ---
DATE: 05/14/2018 ENDOCRINOLOGY CONSULTATION LOCATION: Room 276. HISTORY OF PRESENT ILLNESS: This is a 72-year-old male with known history of hyperthyroidism, on a low-dose methimazole given at 5 mg once daily and presenting here with acute onset of shortness of breath with precordial chest pain and is now undergoing cardiac evaluation and management. He is being referred also for endocrine evaluation of hyperthyroidism as noted. PAST MEDICAL HISTORY: History of hyperthyroidism, currently on methimazole given at 5 mg daily; history of cardiac tachyarrhythmias with chronic atrial fibrillation, currently on Coumadin therapy for anticoagulation; history of chronic obstructive lung disease and previous admissions for exacerbations of the same; history of congestive heart failure and has been optimally controlled on cardiac medications at this time; history of hypertension and dyslipidemia. FAMILY HISTORY: Positive for hypertension and heart disease. SOCIAL HISTORY: The patient is an active smoker and has smoked a pack a day for more than 30 years. He drinks wine socially. He has a supportive family otherwise. REVIEW OF SYSTEMS: As mentioned above, admits to generalized body weakness with episodic bouts of dizziness and lightheadedness worse on the day of admission. Also admits to sudden onset of precordial chest pain with progressive shortness of breath initially on exertion and then at rest with paroxysmal nocturnal dyspnea. His oral intake has been variable with nausea and dyspepsia and vague upper abdominal pains. No recent alterations of bowel or urinary patterns. PHYSICAL EXAMINATION: GENERAL: This is an average built male in no apparent distress. VITAL SIGNS: Blood pressure of 140/80, pulse of 100 beats per minute and irregular, temperature 98, respirations 20. Height is 6 feet 1 inch, weight is 190 pounds. HEENT: Head, normocephalic. Eyes anicteric with pink conjunctivae. Funduscopy not possible at this time. Ears, nose and throat otherwise normal. NECK: Supple. Thyroid gland is normal in size. No carotid bruits or cervical adenopathy. CARDIOPULMONARY: Some adynamic precordium. S1, S2 is rapid and irregular. LUNGS: Showed some scattered rhonchi. ABDOMEN: Flat, soft with positive bowel sounds. EXTREMITIES: No peripheral edema. Pulses are +2 bilaterally. LABORATORY DATA: His chemistry showed a BUN of 23, sodium 127, potassium 5.3, chloride 86, CO2 is 33, glucose 95 and creatinine is 1.1. His thyroxine level is 12.1 with a TSH of 4.36. ASSESSMENT: This is a 72-year-old male with a known history of hyperthyroidism, who appears clinically euthyroid at this time and biochemically has evidence of early subclinical hypothyroxinemia most likely related to the intercurrent low-dose methimazole therapy as given. He most likely has also significant history of autoimmune thyroiditis with longstanding hyperthyroidism as mentioned. PLAN OF MANAGEMENT: We will hold off the resumption of his oral thyroid medication given as Tapazole at 5 mg once daily at this time. We will repeat the thyroid studies to include a total of free T4 and TSH with a TSH stimulating immunoglobulin to confirm and/or indicate the presence of underlying autoimmune thyroiditis. We will observe his clinical and biochemical response, currently off medical therapy for hyperthyroidism, and resume the above mentioned if his thyroid indices change otherwise. We will follow this. Rika Anderson MD
--- NOTE | 2018-05-14 19:27 | PN ---
DATE: 05/14/2018 SUBJECTIVE: A 72-year-old male sitting comfortably on the edge of the bed this morning. Nursing staff relates that there were no problems during the night. OBJECTIVE: VITAL SIGNS: Show a temperature of 98.8, pulse is 93, blood pressure is 129/90, and oxygen sat 99% on room air. GENERAL: He is alert and oriented x3. LUNGS: Show diminished breath sounds at the bases. Rhonchi left more than right. HEART: Irregular S1 and S2 rhythm with grade 2/6 systolic murmur. ABDOMEN: Soft with positive bowel sounds. EXTREMITIES: Show no evidence of edema. He has psoriasis. NEUROLOGIC: He is alert and oriented x3. LABORATORY DATA: Shows WBC of 6.5, RBC 5.38, hemoglobin 15.4, hematocrit 45.4, and platelet count manually 77,000. Differential shows 68% granulocytes, 22% lymphs, 8.3% monocytes, 0.8 lymphocytes, and 0.3 basophils. Chemistry shows a sodium of 127, potassium 5.3, chloride 86, BUN is 23, and creatinine is 1.1. His AST is 147. His procalcitonin is 1.93. His TSH level was 4.36 with a T4 of 12.1 and a T3 uptake of 36.5. ASSESSMENT AND PLAN: 1. We will request a CT of the chest for further evaluation of the chest findings on this patient. 2. He continues on IV antibiotics. 3. He continues on bronchodilator therapy, being followed by Pulmonary. He is also being followed by Infectious Disease on antibiotics. Cardiology is also following the patient with his history of atrial fibrillation. We requested Endocrinology evaluation regarding his Graves disease disorder and the use of methimazole. Oncology note is noted and appreciated. We will follow up the patient's labs. We will also get a Renal consult because of the low sodium and elevated potassium. Natalya Campos MD
[2018-05-14] MEDS: Sodium Chloride 0.9% 500 ML IV SCH (23:44)
--- NOTE | 2018-05-15 00:02 | CON ---
DATE OF CONSULTATION: 05/14/2018 The patient is admitted for Dr. Natalya Campos. REFERRING PHYSICIAN: Natalya Campos MD REASON FOR CONSULTATION: Evaluation of a patient who presents with hyponatremia and a lung mass. HISTORY OF PRESENT ILLNESS: The patient is a 72-year-old white male with a long history of cigarette smoking, one pack per day for 30 plus years; history of COPD; history of atrial fibrillation, on chronic anticoagulation, with mild valvular heart disease, /TR/PI; history of hypertension; history of hyperlipidemia; history of hyperthyroidism, on methimazole therapy. The patient presents to the hospital with increasing shortness of breath. He was initially felt to have congestive heart failure. Workup shows a large left lower lobe lung mass 6 cm with hilar lymphadenopathy. The patient's sodium on admission was 123. His sodium today is 127. Of note, the patient is also noted to be mildly hyperkalemic. The patient has no history of adrenal disease. Thyroid function tests are normal. The patient is not an avid water drinker. The patient does not use diuretic therapy at home. The patient has a mild elevation of his BUN at 23 with a creatinine of 1.1, which is his baseline. We are asked to evaluate the patient for his hyponatremia. PAST MEDICAL HISTORY: Significant for COPD; atrial fibrillation, on chronic anticoagulation; history of LVH; hypertension; mild ; tricuspid regurgitation; pulmonic insufficiency; history of continued cigarette smoking; history of hyperthyroidism, on methimazole therapy; history of hyperlipidemia. FAMILY HISTORY: Positive for hypertension and heart disease. SOCIAL HISTORY: Positive for history of cigarette smoking. Positive for history of alcohol use. MEDICATIONS AT HOME: Tapazole, Coumadin, Calan, Inderal, Lipitor, Ventolin. CURRENT MEDICATIONS IN HOSPITAL: Verapamil, Coumadin, Inderal, Lipitor, Pulmicort Respules, Rocephin, Xopenex, and Zithromax. ALLERGIES: THE PATIENT HAS NO KNOWN ALLERGIES TO MEDICATIONS. REVIEW OF SYSTEMS: GENERAL: The patient states appetite and weight have been stable. ENT: Denies any hearing or visual problems. PULMONARY: Chronic shortness of breath with dyspnea on exertion, likely secondary to COPD. CARDIAC: History of LVH with mild valvular heart disease. GI: No nausea, vomiting, diarrhea, constipation or abdominal pain. : No history of chronic kidney disease. No history of prostate issues. No history of urinary tract infections. ENDOCRINE: No history of diabetes. Positive for history of hyperthyroidism. MUSCULOSKELETAL: No complaints. NEURO: No past history of CVA, TIA, seizures or syncope. HEME/ONC: No history of anemia. No history of malignancy. PSYCHIATRIC: History is negative. PHYSICAL EXAMINATION: GENERAL: The patient is currently seen on telemetry. He is sitting with his clothes on at the edge of the bed, asking if he can go home tomorrow. He remained short of breath. The presence of his lung mass was not discussed with him as per my discussion with Dr. Campos. VITAL SIGNS: Blood pressure is 138/96 presently, earlier today it was 118/63; temperature is 97.6; pulse is 75 and irregular; respiratory rate is 20. HEENT: Exam shows him to be normocephalic, atraumatic. Conjunctivae are pink. Sclerae are nonicteric. Pupils are equal and reactive to light and accommodation. Extraocular muscles are intact. Posterior pharynx is normal. NECK: Supple. No neck vein distention. No thyromegaly. No lymphadenopathy. No bruits. CHEST: Decreased breath sounds at the left base. Scattered rhonchi. No rales or wheezing. CARDIOVASCULAR: Irregular S1, S2. Atrial fibrillation. /TR/PI. No S3, no S4, no rub. ABDOMEN: Soft. Bowel sounds normal. No rebound, guarding or masses. BACK: No CVAT. No spinal tenderness. EXTREMITIES: No cyanosis, clubbing or edema. Positive for dermatitis over his lower extremities bilaterally. Diminished lower extremity pulses bilaterally. NEURO: Alert and oriented x3 with no gross focal motor or sensory deficits noted. LABORATORY DATA AND IMAGING STUDIES: Admitting chest CT scan shows a 6-cm left lower lobe lung mass and COPD with left hilar lymphadenopathy. Admitting EKG shows atrial fibrillation, rate controlled. Admitting chest x-ray shows a left perihilar infiltrate. Labs: CBC: White blood cell count 8.4 on admission, it is now 6.5; hemoglobin 15.4; platelet count is low at 54,000, manual platelet count is 77,000. Coags: PT 18.4 with an INR of 1.59. Blood gas: pCO2 of 35, pO2 of 264 with a pH of 7.45. This is on an FiO2 of 60%. Chemistries show sodium of 123 on admission and 127 today. Potassium has been ranging from 4.6 to 5.3. BUN 23 with a creatinine of 1.1. Glucose is 95. Calcium, phosphorus, and magnesium level are normal. Liver enzymes show mild elevation of his AST. Elevated procalcitonin. Normal TSH with a T4 level of 12.1. Microbiology: Blood cultures are negative at 24 hours. ASSESSMENT: 1. Hyponatremia. The patient is not on diuretic therapy. The patient is not a copious fluid drinker. Perhaps this is syndrome of inappropriate antidiuretic hormone perhaps secondary to probable malignancy. I will obtain a uric acid level, urine sodium, urine osmolality. In light of his mild elevation of potassium level with low sodium level, I will check an a.m. cortisol level. Unlikely, but possible that the patient could have adrenal mets. 2. Chronic obstructive pulmonary disease with exacerbation. The patient continues to smoke in excess of one pack per day of cigarettes for the last 30 plus years. 3. History of atrial fibrillation, on chronic anticoagulation, history of left ventricular hypertrophy, history of valvular heart disease, aortic stenosis/tricuspid regurgitation/pulmonary insufficiency, all appear to be stable. There is no evidence presently for congestive heart failure. 4. Hypertension. Blood pressure control is variable. The patient should continue outpatient antihypertensive meds. 5. Hyperthyroidism. The patient is seen by Endocrinology. Presently, he is not on Tapazole. 6. History of hyperlipidemia, on low cholesterol diet and statin therapy. PLAN: 1. Discussed with Dr. Campos. I will start the patient on low volume normal saline, as there is no evidence for congestive heart failure and the sodium level remains low at 127. 2. We will obtain urine sodium, urine osmolality, uric acid level, and a.m. cortisol level. 3. If it turns out that the patient does have SIADH and he is not responding well to low volume normal saline, the patient can receive several doses of tolvaptan in the hospital. 4. Continue p.o. fluid restriction, but increased from 1000 mL to 1250 mL a day. 5. Restart blood pressure medication. P.r.n. increase verapamil dose. 6. Complete a course of antibiotic therapy, though I am not convinced that the patient has pneumonia or bronchitis. 7. Continue to monitor accurate I's and O's. 8. Continue to follow labs on a daily basis. 9. Discussed with Dr. Campos. In all likelihood, the patient will be seen by Oncology, perhaps a biopsy of the left lower lobe lung mass will be necessary. 10. Consider full body CT scan, which should include an abdominal and pelvic CT scan. Thank you for letting me partake and share in the care of your patient. Cyrus Paul MD
[2018-05-15] MEDS: Levalbuterol 1.25 MG/3 ML Inhal Soln UD IH SCH ×4 (03:07→20:17)
[2018-05-15 06:39] LABS: BASO # 0.02 K/mm3 (0.0-2.0); BASO % 0.3 % (0.0-3.0); EOS # 0.1 (0.0-0.7); EOS % 0.8 % (1.5-5.0); GRAN # 4.87 (1.4-6.5); LYMPH # 1.1 (1.2-3.4); MEAN CELL VOLUME 83.1 fl (80.0-105.0); MEAN CORPUSCULAR HEMOGLOBIN 27.9 pg (25.0-35.0); MEAN CORPUSCULAR HGB CONC 33.6 g/dl (31.0-37.0); MONO # 0.4 (0.1-0.6); MONO % 5.9 % (1.0-6.0); PLATELET COUNT 55 10^3/uL (120.0-450.0); RBC 5.02 10^6/uL (3.5-6.1); RED CELL DISTRIBUTION WIDTH 14.6 % (11.5-14.5); WHITE BLOOD COUNT 6.4 10^3/uL (4.5-11.0)
[2018-05-15 06:42] LABS: INR 1.55
[2018-05-15 07:25] LABS: FREE T4 1.96 ng/dL (0.78-2.19); T4 11.4 ug/dL (5.5-11.0)
[2018-05-15 07:43] LABS: BLOOD UREA NITROGEN 20 mg/dL (7-21); GFR NON-AFRICAN AMERICAN > 60
[2018-05-15 07:44] LABS: ALB/GLOB RATIO 1.2 (1.1-1.8); ALBUMIN 3.7 g/dL (3.0-4.8); ALT/SGPT 42 U/L (7-56); AST/SGOT 151 U/L (17-59); CALCIUM 8.6 mg/dL (8.4-10.5); URIC ACID 5.2 mg/dL (3.5-8.5)
--- NOTE | 2018-05-15 07:57 | CP.PCM.PN ---
Subjective - Date & Time of Evaluation Date of Evaluation: 05/15/18 Time of Evaluation: 07:00 - Subjective Subjective: Stable on 2R. He feels better. No SOB, CP at rest. V/S noted. AF PE: Lungs: rhonchi Cor: irreg, S1S2, TI Abd: soft Ext.: no edema Neuro.: alert I/O= 1260/206 recorded Labs: Pl CT = 55,000, INR = 1.55, other labs pending 05/13 ECG: AF, NSSTW chages. No change CT Scan noted: LARGE LLL mass Echo: NL LV. Aortic sclerosis vs. Mild and mild TR Objective - Vital Signs/Intake and Output Vital Signs (last 24 hours): Temp Pulse Resp BP Pulse Ox 99.1 F 91 H 20 142/76 97 05/15/18 00:01 05/15/18 02:00 05/15/18 00:01 05/15/18 00:01 05/14/18 06:00 Intake and Output: 05/15/18 05/15/18 06:59 18:59 Intake Total 120 Output Total 200 Balance -80 - Medications Medications: Current Medications Atorvastatin Calcium (Lipitor) 10 mg PO DIN [facility] Last Admin: 05/14/18 17:34 Dose: 10 mg Budesonide (Pulmicort Respules) 0.5 mg IH [id number] [facility] Last Admin: 05/14/18 21:22 Dose: 0.5 mg Azithromycin (Zithromax 500mg In Ns) 500 mg in 250 mls @ 167 mls/hr IVPB DAILY [facility]; Protocol Last Admin: 05/14/18 10:48 Dose: 167 mls/hr Ceftriaxone Sodium (Rocephin 1 Gram Ivpb) 1 gm in 100 mls @ 100 mls/hr IVPB DAILY [facility]; Protocol Last Admin: 05/14/18 10:47 Dose: 100 mls/hr Sodium Chloride (Sodium Chloride 0.9%) 500 mls @ 60 mls/hr IV [id number] UBALDO Stop: 05/16/18 05:34 Last Admin: 05/14/18 23:44 Dose: 60 mls/hr Levalbuterol HCl (Xopenex) 1.25 mg IH [id number] [facility] Last Admin: 05/15/18 03:07 Dose: 1.25 mg Propranolol HCl (Inderal La) 80 mg PO DAILY [facility] Last Admin: 05/14/18 10:47 Dose: 80 mg Verapamil HCl (Calan Tab) 40 mg PO TID [facility] Last Admin: 05/14/18 17:34 Dose: 40 mg Warfarin Sodium (Coumadin) 5 mg PO 1800 [facility]; Protocol Warfarin Sodium (Coumadin) 10 mg PO ONCE ONE; Protocol Stop: 05/15/18 10:01 - Labs Labs: 05/15/18 06:00 05/15/18 06:00 PT 18.0 SECONDS (9.4-12.5) H 05/15/18 06:00 INR 1.55 05/15/18 06:00 APTT 36.7 Seconds (25.1-36.5) H 05/12/18 23:50 Assessment and Plan - Assessment and Plan (Free Text) Assessment: Dyspnea Hyponatremia, Thrombocytopenia Abn. CXR and CT chest: LARGE LLL mass c/w neoplasm COPD/Smoker Chronic AF on warfarin H/O CHF Remote echo: Mild LVD, mild/mod and MR, mild TR and PH HLD Syncope Psoriasis Hyperthyroidism Plan: Heme/Onc Eval. Warfarin 10 today. Monitor INRs. If procedure is planned, can hold warfarin and bridge with Lovenox. Fluid Restriction Monitor: labs, I/O, sats., cultures, INRs, etc. OOBas hue. D/C Smoking.
[2018-05-15] MEDS: Sodium Chloride 0.9% 500 ML IV SCH ×3 (08:00→21:29)
[2018-05-15] MEDS: Budesonide 0.5 mg/2 ml Inhal Susp UD IH SCH ×2 (08:10→20:17)
[2018-05-15] MEDS: Propranolol 80 mg ER Cap PO SCH (09:46)
[2018-05-15] MEDS: cefTRIAXone 1 gm 1 GM/100 ML BAG IVPB SCH (09:47)
--- NOTE | 2018-05-15 10:54 | CP.PCM.PN ---
Subjective - Date & Time of Evaluation Date of Evaluation: 05/15/18 Time of Evaluation: 10:35 - Subjective Subjective: Not in distress, no fevers, no cough currently. Objective - Vital Signs/Intake and Output Vital Signs (last 24 hours): Temp Pulse Resp BP Pulse Ox 97.8 F 93 H 20 118/63 99 05/14/18 06:00 05/14/18 10:47 05/14/18 06:00 05/14/18 10:47 05/14/18 06:00 Intake and Output: 05/14/18 05/14/18 06:59 18:59 Intake Total 440 Output Total 700 Balance -260 - Medications Medications: Current Medications Atorvastatin Calcium (Lipitor) 10 mg PO DIN [facility] Last Admin: 05/13/18 17:39 Dose: 10 mg Budesonide (Pulmicort Respules) 0.5 mg IH [id number] [facility] Last Admin: 05/14/18 08:22 Dose: 0.5 mg Azithromycin (Zithromax 500mg In Ns) 500 mg in 250 mls @ 167 mls/hr IVPB DAILY [facility]; Protocol Last Admin: 05/14/18 10:48 Dose: 167 mls/hr Ceftriaxone Sodium (Rocephin 1 Gram Ivpb) 1 gm in 100 mls @ 100 mls/hr IVPB DAILY [facility]; Protocol Last Admin: 05/14/18 10:47 Dose: 100 mls/hr Levalbuterol HCl (Xopenex) 1.25 mg IH [id number] [facility] Last Admin: 05/14/18 08:22 Dose: 1.25 mg Propranolol HCl (Inderal La) 80 mg PO DAILY [facility] Last Admin: 05/14/18 10:47 Dose: 80 mg Verapamil HCl (Calan Tab) 40 mg PO TID [facility] Last Admin: 05/14/18 10:47 Dose: 40 mg Warfarin Sodium (Coumadin) 5 mg PO 1800 [facility]; Protocol - Labs Labs: 05/14/18 06:30 05/14/18 06:30 PT 18.4 SECONDS (9.4-12.5) H 05/14/18 06:30 INR 1.59 05/14/18 06:30 APTT 36.7 Seconds (25.1-36.5) H 05/12/18 23:50 - Constitutional Appears: No Acute Distress, Chronically Ill - Head Exam Head Exam: NORMAL INSPECTION - Respiratory Exam Respiratory Exam: Decreased Breath Sounds - Cardiovascular Exam Cardiovascular Exam: +S1, +S2 - GI/Abdominal Exam GI & Abdominal Exam: Soft. absent: Tenderness Assessment and Plan - Assessment and Plan (Free Text) Plan: Assessment consider left sided community-acquired pneumonia, now with new finding of left lung mass on CT scan, suspicious for malignancty history of Severe sepsis secondary to community-acquired pneumonia COPD hypertension dyslipidemia Psoriasis Plan continue Ceftriaxone and Zithromax day 3 to complete 5-7 days; PCT is elevated at 1.93; reviewed CT chest with Dr. Campos and Dr. Marcelino - recommend biopsy of lung mass
--- NOTE | 2018-05-15 11:10 | PN ---
DATE: 05/15/2018 SUBJECTIVE: A 72-year-old male sitting comfortably this morning, receiving a breathing treatment. Nursing staff relates that there were no problems during the night. OBJECTIVE: VITAL SIGNS: The patient's temperature orally is 99, his pulse is 74, his blood pressure is 142/76, 35% FIO2, he has reported satting at 98%, his respiratory rate is 20. GENERAL: His alert and oriented x3. LUNGS: Show rhonchi with diminished breath sounds at the bases. HEART: Irregular S1, S2 rhythm. ABDOMEN: Obese, soft with positive bowel sounds. EXTREMITIES: Show no evidence of edema. He does have psoriasis present. LABORATORY DATA: Shows a WBC of 6.4, RBC of 5.02, hemoglobin 14, hematocrit 41.7, platelet count is 55,000. His PT is 18 with INR of 1.55. His chemistry shows sodium of 124, potassium 5, chloride 90, BUN of 20, creatinine is 0.9. His AST is 151. His free T4 is 1.96. His T4 is 11.4. His TSH is 3.17. 1. The patient's CT of the chest which has been discussed with the patient shows presence of mass and has been explained to the patient after discussion with oncology and pulmonary, the indication is to do a biopsy. 2. Oncology is requested an abdominal ultrasound. 3. His low platelet count evaluation is in process. 4. Endocrinology is following the patient with a history of Graves disease in the past appreciated. We will monitor his labs closely. 5. Cardiology is following the patient as well, his anticoagulation therapy is continued at this time, we will monitor his PT/INR. 6. We will request consult for needle biopsy of the process in the lung. 7. Infectious Diseases is working with the patient as well and continues on his antibiotics at this time. 8. Current medications consist of , Coumadin, Inderal, Lipitor, Pulmicort, Rocephin, IV sodium chloride, and Xopenex, as well as Zithromax. 9. He is being seen by renal for his hyponatremia and hyperkalemia and evaluation is being in process to rule out adrenal insufficiency. Also there is a concern that if the findings on the CAT scan of the chest and may be some distant disease as well. All these findings have been discussed with the patient at this point in time and we will continue current level of care and monitor the patient closely. Natalya Campos MD
--- NOTE | 2018-05-15 11:52 | US ---
Date of service: 05/15/2018 HISTORY: increasde lft, r/o hyperspklenism COMPARISON: None. TECHNIQUE: Sonographic evaluation of the abdomen. FINDINGS: LIVER: Measures 14.6 cm. Patent portal vein. Portal venous flow: Hepatopetal. Unremarkable echogenicity of the liver parenchyma. No mass. No intrahepatic bile duct dilatation. GALLBLADDER: Cholelithiasis. Negative study for gallbladder wall thickening, pericholecystic fluid, sonographic Lara's sign. COMMON BILE DUCT: Measures 4.7 mm. No stones. No dilatation. PANCREAS: Unremarkable as visualized. No mass. No ductal dilatation. RIGHT KIDNEY: Measures 5.8 x 12.0cm. Normal echogenicity. No calculus, mass, or hydronephrosis. LEFT KIDNEY: Measures 6.0 x 10.4cm. Normal echogenicity. No calculus, mass, or hydronephrosis. Lower pole cyst 1.7 x 2 cm SPLEEN: Normal in size and contour. No mass. AORTA: No aneurysmal dilatation. IVC: Unremarkable. OTHER FINDINGS: None. IMPRESSION: Contracted gallbladder. Cholelithiasis. No sonographic evidence of acute cholecystitis.
--- NOTE | 2018-05-15 13:29 | PN ---
DATE: 05/15/2018 Two issues: 1. The patient still has a platelet count that is low. There is a discrepancy between 55 and manual is about 72. It is still unclear to me. My suspicion at this point is it may be hypersplenism. 2. Liver function test. There is a big discrepancy here between the AST which is 147 and 151 and ALT which is 40, alk phos normal, bilirubin normal. It is unclear to me why the AST should be so high and what we are going to do is do an ultrasound to rule out hypersplenism, to rule out lesions in his liver based on that. 3. The patient has a mass in his lung. The mass is about 6 cm lobulated mass in the left lower lobe with left hilar lymphadenopathy and the issue here is cancer which also brings this into the issue as to whether there is any metastasis as well. The patient does not complain of any cough, shortness of breath, change in weight etc. He is going to need to biopsy this. I am going to advise CAT scan guided biopsy. In terms of the platelets, they are about 70,000 but I will give a unit of single donor platelets on the day of prior to the biopsy. As far as the PT is concerned, the INR is 1.55 at this point with a PT of 18, either hold the Coumadin for 2 days or so and treat him and we will give him vitamin K initially today. We would rather hold it for two to three days and do the biopsy and then restart him on the Coumadin. The issue is to whether to give him heparin or Lovenox up to the day before and restart the day after the biopsies is also reasonable, but he needs to biopsy this mass. Franco Ross MD
--- NOTE | 2018-05-15 14:03 | PN ---
DATE: 05/15/2018 PULMONARY PROGRESS NOTE SUBJECTIVE: The patient was seen and examined at bedside. Case discussed at length with Dr. Campos. PHYSICAL EXAMINATION: GENERAL: The patient appears to be comfortable, in no respiratory distress. VITAL SIGNS: His temperature is 98.4, pulse 93, blood pressure 120/90 and oxygen saturation is 99% on room air. HEENT: Head, ears, nose, and throat just within normal limits. NECK: Supple. There is no jugular vein distentions. PULMONARY: Diminished breath sounds at left lung base with few rhonchi. No wheezing. CARDIOVASCULAR: S1 and S2. No S3. Regular. GI: Soft and nontender. No organomegaly. EXTREMITIES: No pedal edema. No cyanosis. NEUROLOGIC: No focal deficits. SKIN: No acute skin rash. LABORATORY DATA: New laboratory data reviewed. His platelet count is reduced to 77,000. I also reviewed the CT scan of the chest together with Dr. Campos. The findings are consistent with large mass in the left lower lobe with possible post obstructive pneumonitis with extension to the pleura. There is no significant pleural effusion. There are no other findings. ASSESSMENT AND PLAN: Left lower lobe lung mass from the radiologic appearance. It looks like primary lung tumor. I advised needle biopsy on the CT guidance by Dr. Peña Patel. This will be done either today or tomorrow. We will follow closely after results are obtained. Joao Daniel MD MTDD
[2018-05-15] MEDS: Tolvaptan 15 MG TAB PO SCH (14:50)
--- NOTE | 2018-05-15 15:27 | PN ---
DATE: 05/15/2018 SUBJECTIVE The patient is currently seen sitting up in bed, normal saline is infusing. The patient was unable to leave us urine samples. His sodium level today had dropped down to 124. The patient is aware of the fact that he has a mass in his lung. He understands that he will need a biopsy and a workup but he understands that this while might be cancer. MEDICATIONS: Medication list reviewed. The patient is currently on verapamil, Coumadin, Inderal, Lipitor, Pulmicort Respules, Rocephin, normal saline 60 mL an hour, Xopenex and Zithromax. OBJECTIVE: GENERAL: Intake/output; intake 1260, output 2206. VITAL SIGNS: Blood pressure is 127/81, pulse of 67, temperature is 99.1, respiratory rate is 20. HEENT: Shows him to be normocephalic, atraumatic. Conjunctivae are pink. Sclerae are nonicteric. NECK: Supple. No neck vein distention. CHEST: Decreased breath sounds at the left base. No rhonchi or wheezing today. No rales. CARDIOVASCULAR: Shows an irregular S1, S2. Atrial fibrillation. /TR/PI. No ST no S4, no rub. ABDOMEN: Soft. Bowel sounds normal. No rebound, guarding or masses. EXTREMITIES: Show trace to 1+ pitting pedal edema bilaterally. Dermatitis over his lower extremity bilaterally. Diminished lower extremity pulses. LABS: CBC, white blood cell count today 6.4, hemoglobin 14 with a platelet count of 55,000, manual platelet count was 77,000. Coags, PT 18 with an INR of 1.55. Chemistry show a sodium which has dropped to 124, potassium 5, chloride 90. BUN 20 with a creatinine of 0.9. Uric acid level 5.2. Calcium 8.6, phosphorus 3.2, magnesium 1.8. Elevated AST. Remainder of the liver enzymes are normal. Normal TFTs that his thyroid function tests. Abnormal a.m. cortisol level. Urine studies requested were not done. Urine sodium, urine osmolality are pending. Microbiology, all cultures are negative at 48 hours. ASSESSMENT: 1. Hyponatremia. Quite possibly this is secondary to syndrome of inappropriate antidiuretic hormone secretion likely secondary to possible lung malignancy. I will empirically start the patient on tolvaptan 15 mg daily for 2-3 days pending his response. Once his sodium level increases to greater than 134, tolvaptan will be discontinued. I will leave him on normal saline, pending tomorrow's blood work. If the sodium level starts increasing normal saline can be discontinued as the patient is starting develop some edema of his lower extremity. 2. Mild hyperkalemia, resolved. No evidence for adrenal insufficiency a.m. cortisol level was normal. 3. Chronic obstructive pulmonary disease with exacerbation. The patient continues to smoke cigarettes in excess of one pack per day for 30+ years. 4. History of atrial fibrillation on chronic anticoagulation with left ventricular hypertrophy, history of valvular heart disease aortic stenosis/tricuspid regurgitation/pulmonary insufficiency. 5. History of hypertension. Blood pressure control is improved. He is back on his usual regimen. 6. History of hyperthyroidism. The patient seen by Endocrinology. Presently he is not receiving Tapazole. Thyroid function levels are acceptable. 7. History of hyperlipidemia, on low fat/low cholesterol diet and statin therapy. PLAN: 1. As discussed with staff on tomorrow I will start the patient empirically on tolvaptan as a sodium level had dropped 127-124. Once his sodium level starts increasing IV normal saline may be discontinued. 2. Complete a course of antibiotics for possible bronchitis or pneumonia. 3. Appreciate input from oncology. The patient will likely need a CT-guided biopsy of the lung mass. If indeed positive for cancer the patient will require a complete workup and evaluation for metastatic cancer. 4. Continue p.o. fluid restriction for now and labs on a daily basis. Cyrus Paul MD
--- NOTE | 2018-05-15 19:31 | PN ---
DATE: 05/15/2018 ENDOCRINOLOGY FOLLOWUP NOTE ROOM: 276. SUBJECTIVE: This is a 72-year-old male admitted with precordial chest pain and currently being followed closely for hemodynamic monitoring and is also being followed for metabolic management because of known history of hyperthyroidism, previously on Tapazole medications as given. He remains clinically euthyroid at this time. LABORATORY DATA: The latest chemistries showed a BUN of 20, sodium 124, potassium 5, chloride 90, CO2 of 28, glucose 96 and creatinine 0.9. His repeat comprehensive thyroid profile showed a total T4 or thyroxine of 11.4 with a TSH of 3.17 and a free T4 of 1.96. His serum cortisol level is 16.8 mcg/dL. 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 PLAN: Plan of management, we will continue to hold off the resumption of his methimazole or Tapazole medications to allow for full therapeutic washout from his system and it would take 3-5 days for the aforementioned. We will repeat serial chemistries and supplement accordingly as needed, especially with a euvolemic hyponatremia and he is currently on tolvaptan medications as given. We will also repeat the thyroid studies and determine the need to resume his Tapazole accordingly as indicated. We will follow. Rika Anderson MD
[2018-05-15 21:18] LABS: OSMOLALITY,URINE 226 mosm/kg (300-1000)
[2018-05-15 22:18] LABS: BLOOD UREA NITROGEN 25 mg/dL (7-21); CALCIUM 8.4 mg/dL (8.4-10.5); GFR NON-AFRICAN AMERICAN > 60
[2018-05-16] MEDS: Levalbuterol 1.25 MG/3 ML Inhal Soln UD IH SCH ×4 (01:31→19:43)
--- NOTE | 2018-05-16 02:43 | CP.PCM.PN ---
Subjective - Date & Time of Evaluation Date of Evaluation: 05/16/18 Time of Evaluation: 02:39 - Subjective Subjective: Rodriguez mccracken progress note Rodriguez fall was called on 72 yo male with PMH DM, HTN, aortic stenosis, a. fib, hyperthyriodism admitted for hyponathremia, CHF and COPD. Rodriguez mccracken was called because patient was trying to get out of bed and kicking the nurses. Patient was confused. Objective - Vital Signs/Intake and Output Vital Signs (last 24 hours): Temp Pulse Resp BP Pulse Ox 98.0 F 74 19 130/80 96 05/16/18 00:01 05/16/18 00:01 05/16/18 00:01 05/16/18 00:01 05/16/18 00:01 Intake and Output: 05/15/18 05/16/18 18:59 06:59 Intake Total 720 580 Balance 720 580 - Medications Medications: Current Medications Atorvastatin Calcium (Lipitor) 10 mg PO DIN [facility] Last Admin: 05/15/18 17:09 Dose: 10 mg Azithromycin (Zithromax) 500 mg PO DAILY [facility] Last Admin: 05/15/18 09:46 Dose: 500 mg Budesonide (Pulmicort Respules) 0.5 mg IH [id number] [facility] Last Admin: 05/15/18 20:17 Dose: 0.5 mg Ceftriaxone Sodium (Rocephin 1 Gram Ivpb) 1 gm in 100 mls @ 100 mls/hr IVPB DAILY [facility]; Protocol Last Admin: 05/15/18 09:47 Dose: 100 mls/hr Sodium Chloride (Sodium Chloride 0.9%) 500 mls @ 60 mls/hr IV [id number] [facility] Stop: 05/16/18 05:34 Last Admin: 05/15/18 21:29 Dose: 60 mls/hr Levalbuterol HCl (Xopenex) 1.25 mg IH [id number] [facility] Last Admin: 05/16/18 01:31 Dose: Not Given Propranolol HCl (Inderal La) 80 mg PO DAILY [facility] Last Admin: 05/15/18 09:46 Dose: 80 mg Tolvaptan (Samsca) 15 mg PO DAILY [facility] Stop: 05/17/18 13:58 Last Admin: 05/15/18 14:50 Dose: 15 mg Verapamil HCl (Calan Tab) 40 mg PO TID [facility] Last Admin: 05/15/18 17:06 Dose: 40 mg Warfarin Sodium (Coumadin) 5 mg PO 1800 [facility]; Protocol - Labs Labs: 05/15/18 06:00 05/15/18 22:04 PT 18.0 SECONDS (9.4-12.5) H 05/15/18 06:00 INR 1.55 05/15/18 06:00 APTT 36.7 Seconds (25.1-36.5) H 05/12/18 23:50 - Constitutional Appears: Agitated, Confused - Head Exam Head Exam: ATRAUMATIC, NORMOCEPHALIC - Respiratory Exam Respiratory Exam: NORMAL BREATHING PATTERN. absent: Respiratory Distress Assessment and Plan - Assessment and Plan (Free Text) Assessment: 72 yo male with PMH of DM, HTN, aortic stenosis, a. fib, hyperthyriodism admitted for hyponathremia, CHF and COPD. Rodriguez mccracken was called because patient was confused, trying to get out of bed and kicking the nurses. Chart and Lab work was reviewed. Primary care doctor Dr. Campos was called he recommended ativan 0.5, head CT and call to neurologist. Neurologist was called and message was left. Patient has lung mass on CT, consider adrenal cause. Will order renin and aldosterone. T4 was elevated with normal TSH, endo alreasdy following. Will repeat blood work including cbc, cmp was ordered as well as UA. Patient became calm after 0.5 of ativan.
[2018-05-16 03:59] LABS: INR 1.79; PROTHROMBIN TIME 20.7 SECONDS (9.4-12.5)
[2018-05-16 04:03] LABS: ALB/GLOB RATIO 1.3 (1.1-1.8); ALBUMIN 3.4 g/dL (3.0-4.8); ALT/SGPT 45 U/L (7-56); AST/SGOT 138 U/L (17-59); BLOOD UREA NITROGEN 21 mg/dL (7-21); CALCIUM 8.5 mg/dL (8.4-10.5); GFR NON-AFRICAN AMERICAN > 60
[2018-05-16 04:14] LABS: TROPONIN I 0.01 ng/mL
[2018-05-16 04:25] LABS: URINE BILIRUBIN NEGATIVE (NEGATIVE); URINE BLOOD TRACE-INTACT (NEGATIVE); URINE GLUCOSE (UA) NEGATIVE (NEGATIVE); URINE LEUKOCYTE ESTERASE NEGATIVE Leu/uL (NEGATIVE); URINE PROTEIN NEGATIVE mg/dL (<30 mg/dL); URINE UROBILINOGEN 0.2 E.U./dL (<1 E.U./dL)
[2018-05-16 04:26] LABS: BASO # 0.01 K/mm3 (0.0-2.0); BASO % 0.2 % (0.0-3.0); EOS # 0.1 (0.0-0.7); GRAN # 4.14 (1.4-6.5); GRAN % 66.3 % (50.0-68.0); HEMOGLOBIN 13.3 g/dL (14.0-18.0); LYMPH # 1.5 (1.2-3.4); LYMPH % 23.7 % (22.0-35.0); MEAN CELL VOLUME 83.6 fl (80.0-105.0); MEAN CORPUSCULAR HEMOGLOBIN 27.9 pg (25.0-35.0); MEAN CORPUSCULAR HGB CONC 33.3 g/dl (31.0-37.0); MONO # 0.6 (0.1-0.6); MONO % 8.8 % (1.0-6.0); PLATELET COUNT 51 10^3/uL (120.0-450.0); RBC 4.77 10^6/uL (3.5-6.1); RED CELL DISTRIBUTION WIDTH 14.5 % (11.5-14.5); WHITE BLOOD COUNT 6.2 10^3/uL (4.5-11.0)
[2018-05-16 04:35] LABS: URINE APPEARANCE CLEAR (CLEAR); URINE COLOR YELLOW (YELLOW)
[2018-05-16 04:55] LABS: URINE RBC 0 - 2 /hpf (0-2); URINE WBC 0 - 2 /hpf (0-6)
[2018-05-16] MEDS: Budesonide 0.5 mg/2 ml Inhal Susp UD IH SCH ×2 (08:36→19:43)
[2018-05-16] MEDS: cefTRIAXone 1 gm 1 GM/100 ML BAG IVPB SCH (09:17)
[2018-05-16] MEDS: Propranolol 80 mg ER Cap PO SCH (09:17)
[2018-05-16] MEDS: Tolvaptan 15 MG TAB PO SCH (09:18)
--- NOTE | 2018-05-16 11:15 | PN ---
DATE: 05/16/2018 SUBJECTIVE: The patient is seen sitting in bed on telemetry. He is currently comfortable. His atrial fibrillation rate is controlled. He awaits CT-guided biopsy of his lung mass. CURRENT MEDICATIONS: Include; verapamil 40 mg t.i.d., warfarin, which has been placed on hold, Inderal 80 mg daily, Lipitor 10 mg daily, Pulmicort inhaler, Rocephin, Samsca 15 mg daily, Xopenex and Zithromax. OBJECTIVE: GENERAL: He is a middle-aged man who appears comfortable at rest. VITAL SIGNS: Blood pressure is 116/76, pulse 94 and atrial fibrillation, respirations are 14 and he is afebrile. HEENT: No JVD. CHEST: Bilateral scattered rhonchi. HEART: Irregular regular rhythm with a systolic murmur at the lower left sternal border. ABDOMEN: Soft and nontender with normoactive bowel sounds. EXTREMITIES: 1+ edema with chronic cellulitic changes. DIAGNOSTIC DATA: Sodium is 129, potassium is 4.9, BUN and creatinine 21 and 1.0. White count 6.2, hemoglobin and hematocrit of 13.3 and 39.9 with platelet count of 51,000. INR is 1.79. IMPRESSION: 1. Large lung mass is suspicious for malignant neoplasm. 2. Chronic atrial fibrillation with controlled rate. 3. Mild aortic stenosis. 4. Mild tricuspid regurgitation. 5. Tobacco abuse. RECOMMENDATIONS: His warfarin will be placed on hold, awaiting CT-guided needle biopsy was left lower lobe mass. Verapamil and Inderal will be continued for rate control therapy for now. He appears stable to proceed with the biopsy from a cardiac standpoint. Plans are being made for platelet transfusion at that time to reduce risk of bleeding. We will continue to follow and make further recommendations as appropriate. Nixon Arevalo MD MTDD
--- NOTE | 2018-05-16 13:00 | PN ---
DATE: 05/16/2018 SUBJECTIVE: The patient is in bed in no acute distress, nontoxic. PHYSICAL EXAMINATION: VITAL SIGNS: Temperature is 98, blood pressure is 117/70, respiratory rate of 18, heart rate of 94. HEENT: Examination is unremarkable. NECK: Supple. LUNGS: Have decreased breath sounds. HEART: Normal S1, S2. ABDOMEN: Soft, nontender. LABORATORY DATA: Examination reveals a white count of 6.2, hemoglobin of 13. Chemistries are noted. Procalcitonin is 1.93. Urinalysis is noted. Microbiology reveals the blood cultures are negative. The patient had abdominal ultrasound, contracted gallbladder, cholelithiasis, no evidence of acute cholecystitis. MEDICATIONS: Review of orders, the patient is on ceftriaxone and Zithromax. ASSESSMENT AND PLAN: A 72-year-old male seen earlier today with a left-sided community-acquired pneumonia with a left lung mass on CAT scan, suspicious for malignancy and chronic obstructive lung disease, hypertension, on ceftriaxone and Zithromax day #4. Elevated procalcitonin. We will trend the procalcitonin. The patient was combative this morning. Consider a CAT scan of the head to rule out metastases. The patient appears to be confused and disoriented. We will check on the procalcitonin this morning. Kali Power MD
--- NOTE | 2018-05-16 13:28 | PN ---
DATE: 05/16/2018 LOCATION: Room 276. SUBJECTIVE: This is a 72-year-old male admitted with congestive heart failure, currently being followed closely for hemodynamic monitoring in the telemetry unit and is also being followed for evaluation of recent abnormal thyroid function studies. He has known history of hyperthyroidism and previously on Tapazole at a low dose of 5 mg once daily as given. His initial thyroid studies, however, showed the presence of subclinical hypothyroxinemia as noted with a TSH of 3.17 and a total T4 of 11.4 which was also elevated, and a free T4 of 1.96. His cortisol level was 16.8 mcg/dL. His latest chemistry showed a BUN of 21, sodium 129, potassium 4.9, chloride 94, CO2 of 29, glucose 94, and creatinine 1. RECOMMENDATIONS: So, at this time, we will continue holding off the resumption of his methimazole therapy for hyperthyroidism to allow for a full therapeutic washout and dose equilibration thereof. He remains clinically euthyroid. So, there is no indication for the resumption of the aforementioned for now. We will obtain serial thyroid studies accordingly and titrate and/or resume his dose medications as indicated. We will obtain serial chemistries and supplement accordingly as needed. We will follow with you. Rika Anderson MD
--- NOTE | 2018-05-16 15:30 | PN ---
DATE: 05/16/2018 PULMONARY PROGRESS NOTE SUBJECTIVE: Patient was seen and examined at bedside. He is very lethargic. He was given sedation for confusion and agitation. PHYSICAL EXAMINATION: VITAL SIGNS: Temperature 98.4, blood pressure 116/76, pulse 94, respirations 20, and he is afebrile. HEENT: Head normocephalic and atraumatic. NECK: Supple. There is no jugular vein distention. CARDIOVASCULAR: Irregular rhythm. 2/6 systolic murmur. PULMONARY: Diminished breath sounds with few rhonchi at left base. GI: Soft and nontender. No organomegaly. EXTREMITIES: 1+ pedal edema. SKIN: Clear with no skin rashes. NEUROLOGIC: No focal deficits. ASSESSMENT: 1. Large mass in the left lower lobe highly suspicious for primary lung cancer. 2. Chronic atrial fibrillation with controlled rate. 3. Mild aortic stenosis. 4. Tobacco abuse. PLAN: Patient is awaiting further evaluation with CT-guided needle biopsy of left lower lobe mass. This was discussed yesterday with Dr. Campos, the issue of confusion and agitation now is being addressed by his primary. Joao Daniel MD
--- NOTE | 2018-05-16 16:17 | CON ---
DATE: 05/16/2018 NEUROLOGY CONSULT CHIEF COMPLAINT: Change in mental status. HISTORY OF PRESENT ILLNESS: This is a 72-year-old male with past medical history of type 2 diabetes mellitus, hypertension, aortic stenosis, AFib, chronic anticoagulation and mild valvular heart disease, tricuspid regurgitation, pulmonary hypertension, history of hypertension, history of hyperlipidemia, history of hyperthyroidism on methimazole therapy, who came to the hospital with increasing shortness of breath and was initially found to have congestive heart failure. Given the workup, it showed a large left lower lobe lung mass 6 cm with hilar lymphadenopathy and had a low sodium of 123 on admission. Rodriguez mccracken was called, the patient was combative and agitated and kicking his legs out of the bed tried to kick the nurses. Ativan 0.5 was given and the patient is much calmer. We will add Seroquel 12.5 mg p.o. at bedtime for delirium and get a CAT scan of the head. Oncology is on-board with regards to his lung mass. Today, his sodium is 129 . Procalcitonin is 1.93 and was elevated. FAMILY HISTORY: Noncontributory. ALLERGIES: NO KNOWN DRUG ALLERGIES. SOCIAL HISTORY: Positive for cigarette smoking, positive for history of alcohol abuse. MEDICATIONS: Reviewed by nurse's reconciliation sheet. REVIEW OF SYSTEMS: Fourteen-point review of systems is negative except per HPI. PHYSICAL EXAMINATION: GENERAL: The patient is lying in bed, drowsy, in no acute distress. VITAL SIGNS: Temperature 97.9, pulse rate is 55, blood pressure of 124/71, respiratory rate 19, oxygen saturation 90% by nasal cannula. HEENT: Atraumatic, normocephalic. PERRLA. Extraocular muscles intact. NECK: Supple. No JVD. No adenopathy noted. LUNGS: Decreased breath sounds especially to the left lung base, scattered rhonchi. HEART: Irregular rate and rhythm and S1 and S2 AFib. Mild systolic murmur at the aortic area. ABDOMEN: Soft, nontender, nondistended. Bowel sounds present. EXTREMITIES: No clubbing, no cyanosis. Peripheral pulses are 2+ felt bilaterally. He has positive dermatitis over his lower extremities bilaterally. NEUROLOGIC: The patient is drowsy but agitated, follows simple commands, oriented to herself. Cranial nerves II through XII are intact. Speech is fluent without any errors. Motor: Slightly increased tone throughout. Moves all extremities equally. No pronator drift seen. Sensory: Decreased light touch and pinprick up to the calves bilaterally. Decreased vibration at the toes. DTRs are 2+ throughout and 1 at both knees and ankles. Coordination: Gait is deferred for now. LABORATORY DATA: Sodium is 129, potassium 4.9, chloride 94, carbon dioxide 29, BUN of 21, creatinine 1, random glucose 94. ASSESSMENT AND PLAN: This is a 72-year-old man with past medical history of type 2 diabetes mellitus, hypertension, aortic stenosis, atrial fibrillation, hyperthyroidism on methimazole, came in with shortness of breath and was thought to have congestive heart failure, but found to have large left lower lobe lung mass measuring 6 cm with hilar lymphadenopathy along with low sodium and today's current sodium is 129, yesterday was 123, , possibly syndrome of inappropriate antidiuretic hormone induced hyponatremia following lung malignancy. It was called for agitation and combative behavior. The patient is in state of acute delirium superimposed on underlying chronic medical condition. At this time we will recommend: 1. A CAT scan of the head to see any metastasis to the brain. 2. Monitor electrolytes and correct accordingly. 3. Delirium precautions. 4. Seroquel 12.5 mg p.o. at bedtime for agitation. 5. Continue with oncologist followup in regards to left lower lung mass in terms of management and continue with current and present medical management. Thank you for this consult. Lucas Carlin MD
--- NOTE | 2018-05-16 21:14 | CP.PCM.PN ---
Subjective - Date & Time of Evaluation Date of Evaluation: 05/16/18 Time of Evaluation: 17:00 - Subjective Subjective: Providing nephrology coverage for Dr. Paul: Patient with Afib (on warfarin), COPD, HTN, HLD and CHF, admitted with dyspnea, found to have lung mass, being treated for CAP; Agitated frequently per nursing staff, unable to get head CT for this reason; otherwise, patient denying any complaints; no nausea/vomiting/diarrhea; Objective - Vital Signs/Intake and Output Vital Signs (last 24 hours): Temp Pulse Resp BP Pulse Ox 97.9 F 75 19 121/72 95 05/16/18 12:00 05/16/18 19:19 05/16/18 12:00 05/16/18 19:19 05/16/18 06:00 Intake and Output: 05/16/18 05/17/18 18:59 06:59 Intake Total 720 Balance 720 - Medications Medications: Current Medications Atorvastatin Calcium (Lipitor) 10 mg PO DIN [facility] Last Admin: 05/16/18 19:19 Dose: 10 mg Azithromycin (Zithromax) 500 mg PO DAILY [facility] Last Admin: 05/16/18 09:18 Dose: 500 mg Budesonide (Pulmicort Respules) 0.5 mg IH [id number] [facility] Last Admin: 05/16/18 19:43 Dose: 0.5 mg Ceftriaxone Sodium (Rocephin 1 Gram Ivpb) 1 gm in 100 mls @ 100 mls/hr IVPB DAILY [facility]; Protocol Last Admin: 05/16/18 09:17 Dose: 100 mls/hr Levalbuterol HCl (Xopenex) 1.25 mg IH [id number] [facility] Last Admin: 05/16/18 19:43 Dose: 1.25 mg Propranolol HCl (Inderal La) 80 mg PO DAILY [facility] Last Admin: 05/16/18 09:17 Dose: 80 mg Quetiapine Fumarate (Seroquel) 12.5 mg PO HS [facility]; Protocol Tolvaptan (Samsca) 15 mg PO DAILY [facility] Stop: 05/17/18 13:58 Last Admin: 05/16/18 09:18 Dose: 15 mg Verapamil HCl (Calan Tab) 40 mg PO TID [facility] Last Admin: 05/16/18 19:19 Dose: 40 mg Warfarin Sodium (Coumadin) 5 mg PO 1800 [facility]; Protocol - Labs Labs: 05/16/18 03:45 05/16/18 03:45 PT 20.7 SECONDS (9.4-12.5) H 05/16/18 03:45 INR 1.79 05/16/18 03:45 APTT 36.7 Seconds (25.1-36.5) H 05/12/18 23:50 - Constitutional Appears: Non-toxic, No Acute Distress - Eye Exam Eye Exam: Normal appearance - ENT Exam ENT Exam: Mucous Membranes Moist - Respiratory Exam Respiratory Exam: Clear to Ausculation Bilateral. absent: Respiratory Distress - Cardiovascular Exam Cardiovascular Exam: RRR, +S1, +S2 - GI/Abdominal Exam GI & Abdominal Exam: Soft. 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
[2018-05-17] MEDS: Levalbuterol 1.25 MG/3 ML Inhal Soln UD IH SCH ×4 (01:25→20:12)
[2018-05-17 07:58] LABS: BASO # 0.01 K/mm3 (0.0-2.0); BASO % 0.2 % (0.0-3.0); EOS # 0.1 (0.0-0.7); EOS % 1.4 % (1.5-5.0); GRAN # 4.11 (1.4-6.5); GRAN % 69.3 % (50.0-68.0); HEMOGLOBIN 13.3 g/dL (14.0-18.0); LYMPH # 1.3 (1.2-3.4); LYMPH % 21.3 % (22.0-35.0); MEAN CELL VOLUME 85.8 fl (80.0-105.0); MEAN CORPUSCULAR HEMOGLOBIN 27.8 pg (25.0-35.0); MEAN CORPUSCULAR HGB CONC 32.4 g/dl (31.0-37.0); MEAN PLATELET VOLUME 10.1 fl (7.0-11.0); MONO # 0.5 (0.1-0.6); MONO % 7.8 % (1.0-6.0); RBC 4.79 10^6/uL (3.5-6.1); RED CELL DISTRIBUTION WIDTH 14.9 % (11.5-14.5); WHITE BLOOD COUNT 5.9 10^3/uL (4.5-11.0)
[2018-05-17 08:10] LABS: INR 2.1; PROTHROMBIN TIME 24.5 SECONDS (9.4-12.5)
[2018-05-17 08:16] LABS: ALB/GLOB RATIO 1.2 (1.1-1.8); ALBUMIN 3.4 g/dL (3.0-4.8); ALT/SGPT 44 U/L (7-56); AST/SGOT 136 U/L (17-59); BLOOD UREA NITROGEN 18 mg/dL (7-21); GFR NON-AFRICAN AMERICAN > 60
[2018-05-17] MEDS: Budesonide 0.5 mg/2 ml Inhal Susp UD IH SCH ×2 (08:30→20:12)
[2018-05-17] MEDS: Propranolol 80 mg ER Cap PO SCH (09:45)
[2018-05-17] MEDS: cefTRIAXone 1 gm 1 GM/100 ML BAG IVPB SCH (09:45)
--- NOTE | 2018-05-17 10:07 | PN ---
DATE: 05/17/2018 SUBJECTIVE: A 72-year-old male, sitting comfortably this morning in bed. Nursing staff states that there were no problems during the night. He has been on one-to-one because of periods of agitation during the night. PHYSICAL EXAMINATION: VITAL SIGNS: This morning showed a temperature of 98, his pulse is 76, his blood pressure is 121/73, his oxygen saturation is reported at 96% on 2 liters of nasal cannula. GENERAL: He is alert and oriented x3. LUNGS: Diminished breath sounds at the bases, more left than right. HEART: Is in irregular S1, S2 rhythm. ABDOMEN: Obese, soft with positive bowel sounds. EXTREMITIES: Show no evidence of edema. He does have evidence of psoriasis. LABORATORY DATA: Electrolytes: His sodium is 135, potassium 4.9, chloride 99, BUN is 18, creatinine is 1. His AST is 136, calcium is 9, blood sugar is 88. His procalcitonin is 1.9. Cortisol level was 16.8. TSH level was 3.17. CBC shows a WBC of 5.9, RBC of 4.79, hemoglobin 13.3, hematocrit 41.1, platelet count is 51,000. His PT is 24.5 with an INR of 2.4. MEDICATIONS: Currently, the patient is on Lipitor 10 mg daily, Pulmicort 0.5 mg every 12 hours, Rocephin IV daily, Zithromax 5 mg daily, Xopenex every 6 hours, Seroquel 12.5 mg at bedtime. ASSESSMENT AND PLAN: 1. The patient was found to have a large lung mass and currently is being treated for infection, on antibiotics and respiratory treatments for his underlying chronic obstructive pulmonary disease. A request has been made for consultation with Dr. Peña Patel to do a lung biopsy. 2. Hyponatremia has improved. He was receiving tolvaptan. 3. He has a low platelet count. 4. He has underlying chronic obstructive pulmonary disease. 5. He has atrial fibrillation. 6. He has a history of valvular heart disease. 7. He has been seen by Neurology for his agitation, placed on Seroquel at bedtime and will await CAT scan of the head that has been reported. He continues on his verapamil 40 t.i.d. and his Inderal 80 daily. Coumadin has been placed on hold. The patient is aware of the clinical status and findings at this point and plan of therapy. We will follow up the patient's labs and check his coags. His thyroid medicine has been placed on hold by Endocrinology. His TSH is normal. He has a history of Graves disease, has been on methimazole. Natalya Campos MD
--- NOTE | 2018-05-17 11:08 | CT ---
Date of service: 05/17/2018 PROCEDURE: CT HEAD WITHOUT CONTRAST. HISTORY: confusion COMPARISON: CT head dated 02/08/2018. TECHNIQUE: Axial computed tomography images were obtained through the head/brain without intravenous contrast. Radiation dose: Total exam DLP = 808.14 mGy-cm. This CT exam was performed using one or more of the following dose reduction techniques: Automated exposure control, adjustment of the mA and/or kV according to patient size, and/or use of iterative reconstruction technique. FINDINGS: HEMORRHAGE: No intracranial hemorrhage. BRAIN: No mass effect or edema. Atrophy. Chronic microvascular ischemic changes. Right basal ganglia lacunar infarction. VENTRICLES: Prominent. No hydrocephalus. CALVARIUM: Unremarkable. PARANASAL SINUSES: Unremarkable as visualized. No significant inflammatory changes. MASTOID AIR CELLS: Unremarkable as visualized. No inflammatory changes. OTHER FINDINGS: None. IMPRESSION: No acute intracranial pathology. Age-related changes. No significant interval change.
--- NOTE | 2018-05-17 13:02 | PN ---
DATE: 05/17/2018 SUBJECTIVE: The patient is seen lying in bed, on telemetry. He remains somewhat confused and slightly agitated. He is being sent for CT of the head this morning. He remains in atrial fibrillation, anticoagulation is on hold pending his planned CT-guided lung biopsy. CURRENT MEDICATIONS: Include verapamil 40 mg t.i.d., Inderal 80 mg daily, Lipitor 10 mg daily, Pulmicort inhaler, Rocephin, Seroquel, Xopenex, and Zithromax. OBJECTIVE: GENERAL: He is a middle-aged man who appears comfortable but somewhat restless. VITAL SIGNS: His blood pressure 126/70, pulse of 86, in atrial fibrillation, respirations 16. He is afebrile. HEENT: No JVD. CHEST: Few scattered rhonchi heard. HEART: PMI displaced laterally with systolic murmur at the left sternal border. ABDOMEN: Soft, nontender with bowel sounds. EXTREMITIES: 1+ edema with chronic cellulitic changes. DIAGNOSTIC DATA: Potassium 4.9, BUN and creatinine 18 and 1. White count 5.9, hemoglobin and hematocrit 13.3 and 41.1 with platelet count of 51,000. INR is 2.1. Coumadin remains on hold. IMPRESSION: 1. Chronic atrial fibrillation with controlled rate at present. 2. A large lung mass, suspicious for malignancy. 3. Mild aortic stenosis. 4. Mild tricuspid regurgitation. 5. History of tobacco abuse. RECOMMENDATIONS: Current medications should continue for now for rate control. An INR will be ordered for the morning. From a cardiac standpoint, he appears stable to proceed with a CT-guided needle biopsy assuming his INR has fallen to an acceptable range. Following biopsy, Coumadin therapy should be re-instituted. We will continue to follow and make further recommendations as appropriate. Nixon Arevalo MD MTDD
--- NOTE | 2018-05-17 14:32 | PN ---
DATE: 05/17/2018 SUBJECTIVE: The patient is in bed, in no acute distress. PHYSICAL EXAMINATION: VITAL SIGNS: Temperature is 98, blood pressure is 126/70, respiratory rate of 20, heart rate of 76. HEENT: Examination of HEENT is unremarkable. NECK: Supple. LUNGS: Have decreased breath sounds. HEART: Normal S1 and S2. ABDOMEN: Soft, nontender. LABORATORY EXAMINATION: Reveals a white count of 5.9, hemoglobin of 13. Chemistries reveal a BUN of 18, creatinine of 1.0. Urinalysis is noted. Urine for Legionella antigen is negative. Blood cultures are no growth. Review of orders, the patient is on ceftriaxone and Zithromax. Urine for Legionella antigen is negative and procalcitonin is elevated x2. Dr. Campos' note is reviewed. Dr. Nieves's note is reviewed. The patient had a CT scan of the head, no significant findings. Dr. Lucas Carlin's consultation from yesterday is reviewed. ASSESSMENT AND PLAN: This is a 72-year-old male with community-acquired pneumonia and a lung mass suspicious for malignancy in a patient with chronic obstructive lung disease and hypertension. Today is day #5 of ceftriaxone and Zithromax. We will discontinue his ceftriaxone and we would complete 5-7 days of Zithromax. The patient for CAT scan guided biopsy of the lung mass and currently on p.o. Zithromax. The patient has received 5 days of ceftriaxone, which is more than adequate. We will discontinue ceftriaxone and today is day #5 of Zithromax, would complete 7 days of p.o. Zithromax. Kali Power MD
--- NOTE | 2018-05-17 15:32 | PN ---
DATE: 05/17/2018 NEUROLOGY CONSULTATION CHIEF COMPLAINT: Follow up for change in mental status. SUBJECTIVE: The patient is much more calmer since he was given Seroquel 12.5 mg p.o. at bedtime. CAT scan of the head showed no acute intracranial abnormality. FAMILY HISTORY: Noncontributory. ALLERGIES: NO KNOWN DRUG ALLERGIES. MEDICATIONS: Reviewed by nurse's reconciliation sheet. REVIEW OF SYSTEMS: A 12-point review of systems is negative except per the HPI. PAST MEDICAL HISTORY: History of type 2 diabetes mellitus, hypertension, aortic stenosis, atrial fibrillation, chronic anticoagulation, mild valvular heart disease, tricuspid regurgitation, pulmonary hypertension, history of hypertension, history of hyperlipidemia, history of hypothyroidism, on therapy. LABORATORY DATA: Sodium is 135, potassium is 4.9, chloride of 99, carbon dioxide of 33, BUN of 18, creatinine of 1, random glucose 88. PHYSICAL EXAMINATION: GENERAL: The patient is sitting on bed, no acute distress. VITAL SIGNS: Temperature is 97.6, pulse of 86, blood pressure 129/86, and respiratory rate of 18. HEENT: Atraumatic, normocephalic. PERRLA. Extraocular muscles intact. NECK: Supple. No JVD. No adenopathy noted. LUNGS: Clear to auscultation. No adventitious sounds. HEART: S1 and S2. Normal rate and rhythm. No murmurs, rubs, or gallops. ABDOMEN: Soft, nontender, and nondistended. Bowel sounds are present. EXTREMITIES: No clubbing. No cyanosis. Peripheral pulses 2+ felt bilaterally. NEUROLOGIC: The patient is alert and oriented to person, place, not much to month, and year. Recall time is 0/3. Poor attention span. Slow thought process. Cranial nerves II through XII are intact. Speech is fluent without any errors. Motor exam; Slightly increased tone throughout. Moves all extremities equally. No pronator drift seen. Sensory; decreased vibration of the toes. DTRs are 2+ throughout and 1 at both ankles and knees. Coordination and gait are deferred for now. ASSESSMENT AND PLAN: Acute state of delirium superimposed on underlying chronic medical condition at this time. CAT scan of the head showed no acute abnormality well over night due to Seroquel 12.5 mg p.o. at bedtime for agitation RECOMMENDATIONS: 1. Continue Seroquel 12.5 mg p.o. at bedtime. 2. Delirium precautions. 3. Monitor electrolytes and continue with oncology, followup for left lower lung mass and biopsy. Lucas Carlin MD
--- NOTE | 2018-05-17 16:02 | PN ---
DATE: 05/17/2018 SUBJECTIVE: This is a 72-year-old male admitted with congestive heart failure. Now, being followed closely and also being follows with metabolic management because of recent thyroid function, instability. He remains clinically ill, his thyroid biochemical indices have fluctuated and the latest thyroxin level is 11.4 with a TSH of 3.17, and free T4 of 1.96. His cortisol level is 16.8. His latest chemistry showed BUN of 18, sodium 135, potassium 4.9, chloride 99, CO2 33, glucose 88, and creatinine 1.0. So, at this time, we will continue holding of the resumption of his medical therapy for hyperthyroidism which is methimazole given at a low dose prior to this admission. We will 3 to 5 days for full therapy to washout of the medications, so we will hold of resumption until repeat thyroid studies improved accordingly. We will follow. Rika Anderson MD
--- NOTE | 2018-05-17 22:23 | CP.PCM.PN ---
Subjective - Date & Time of Evaluation Date of Evaluation: 05/17/18 Time of Evaluation: 11:00 - Subjective Subjective: Providing nephrology coverage for Dr. Paul: Patient with Afib (on warfarin), COPD, HTN, HLD and CHF, admitted with dyspnea, found to have lung mass, being treated for CAP, hyponatremia; Patient less agitated today per staff; tolerating diet; no nausea/vomiting/diarrhea; Objective - Vital Signs/Intake and Output Vital Signs (last 24 hours): Temp Pulse Resp BP Pulse Ox 97.4 F L 74 18 109/69 100 05/17/18 18:00 05/17/18 18:00 05/17/18 18:00 05/17/18 18:00 05/17/18 18:00 Intake and Output: 05/17/18 05/18/18 18:59 06:59 Intake Total 100 860 Output Total 5 Balance 100 855 - Medications Medications: Current Medications Atorvastatin Calcium (Lipitor) 10 mg PO DIN FORMERLY [facility], [facility]1983 Last Admin: 05/17/18 17:29 Dose: 10 mg Azithromycin (Zithromax) 500 mg PO DAILY FOR[facility], [facility]1983 Last Admin: 05/17/18 09:45 Dose: 500 mg Budesonide (Pulmicort Respules) 0.5 mg IH [id number] [facility], [facility]1983 Last Admin: 05/17/18 20:12 Dose: 0.5 mg Levalbuterol HCl (Xopenex) 1.25 mg IH [id number] [facility], [facility]1983 Last Admin: 05/17/18 20:12 Dose: 1.25 mg Propranolol HCl (Inderal La) 80 mg PO DAILY [facility], [facility]1983 Last Admin: 05/17/18 09:45 Dose: 80 mg Quetiapine Fumarate (Seroquel) 12.5 mg PO HS [facility], [facility]; Protocol Last Admin: 05/17/18 22:00 Dose: 12.5 mg Verapamil HCl (Calan Tab) 40 mg PO TID [facility], [facility] Last Admin: 05/17/18 17:30 Dose: 40 mg Warfarin Sodium (Coumadin) 5 mg PO 1800 [facility], [facility]; Protocol - Labs Labs: 05/17/18 07:00 05/17/18 07:00 PT 24.5 SECONDS (9.4-12.5) H 05/17/18 07:00 INR 2.10 05/17/18 07:00 APTT 36.7 Seconds (25.1-36.5) H 05/12/18 23:50 - Constitutional Appears: Non-toxic, No Acute Distress - Eye Exam Eye Exam: Normal appearance. absent: Scleral icterus - ENT Exam ENT Exam: Mucous Membranes Moist - Respiratory Exam Respiratory Exam: Clear to Ausculation Bilateral. absent: Respiratory Distress - Cardiovascular Exam Cardiovascular Exam: RRR, +S1, +S2 - GI/Abdominal Exam GI & Abdominal Exam: Soft. absent: Distended, Tenderness - Extremities Exam Additional comments: minimal lower leg edema; - Neurological Exam Neurological Exam: Alert, Awake - Psychiatric Exam Psychiatric exam: Normal Affect, Normal Mood. absent: Agitated - Skin Skin Exam: Warm. absent: Cyanosis Assessment and Plan (1) Hyponatremia Assessment & Plan: Hyponatremia resolved with tolvaptan, stopping further doses unless serum Na drops below 130 again; has received enough IVF; SIADH suspected with presence of lung mass; -obtain urine osm, Na; -continue PO fluid restriction <1.5L per day; -avoid NSAIDS for pain (can potentiate effect of ADH and worsen hyponatremia) Status: Acute
--- NOTE | 2018-05-17 22:48 | CP.PCM.PCO ---
Physician Communication Note - Physician Communication Note Physician Communication Note: 05/17 2246 Addendum Addendum: 05/17/18 22:46 Nursing paged resident; notified that patient was c/o pains; endorsed that patient does become agitated overnight and is on seroquel Patient is admitted for CHF exacerbation AST/ALT reviewed - AST: 150s Will not admin tylenol Cr. Reviewed : wnl No Hx of GI bleed in H&P Noted Will admin ibuprofen 600mg one time.
[2018-05-18] MEDS: Levalbuterol 1.25 MG/3 ML Inhal Soln UD IH SCH ×4 (01:08→19:37)
[2018-05-18] MEDS: Budesonide 0.5 mg/2 ml Inhal Susp UD IH SCH ×2 (07:46→19:37)
[2018-05-18 08:02] LABS: BASO # 0.03 K/mm3 (0.0-2.0); BASO % 0.5 % (0.0-3.0); EOS # 0.1 (0.0-0.7); EOS % 1.2 % (1.5-5.0); GRAN # 4.6 (1.4-6.5); GRAN % 69.6 % (50.0-68.0); HEMOGLOBIN 13.8 g/dL (14.0-18.0); LYMPH # 1.5 (1.2-3.4); MEAN CELL VOLUME 85.8 fl (80.0-105.0); MEAN CORPUSCULAR HEMOGLOBIN 27.9 pg (25.0-35.0); MEAN CORPUSCULAR HGB CONC 32.5 g/dl (31.0-37.0); MEAN PLATELET VOLUME 11.6 fl (7.0-11.0); MONO # 0.4 (0.1-0.6); MONO % 6.7 % (1.0-6.0); RBC 4.94 10^6/uL (3.5-6.1); RED CELL DISTRIBUTION WIDTH 15.1 % (11.5-14.5); WHITE BLOOD COUNT 6.6 10^3/uL (4.5-11.0)
[2018-05-18 08:12] LABS: INR 1.69; PARTIAL THROMBOPLASTIN TIME 31.7 Seconds (25.1-36.5); PROTHROMBIN TIME 19.7 SECONDS (9.4-12.5)
[2018-05-18 08:19] LABS: ALB/GLOB RATIO 1.2 (1.1-1.8); ALBUMIN 3.7 g/dL (3.0-4.8); ALT/SGPT 49 U/L (7-56); AST/SGOT 140 U/L (17-59); BLOOD UREA NITROGEN 25 mg/dL (7-21); CALCIUM 9.4 mg/dL (8.4-10.5); GFR NON-AFRICAN AMERICAN > 60
[2018-05-18 08:44] LABS: FREE T4 2.04 ng/dL (0.78-2.19); T4 11.4 ug/dL (5.5-11.0)
--- NOTE | 2018-05-18 08:55 | PN ---
DATE: 05/17/2018 PULMONARY PROGRESS NOTE SUBJECTIVE: The patient was seen and examined at beside. He is much more awake and alert today. He is agreeing to biopsy which is scheduled for tomorrow. PHYSICAL EXAMINATION: VITAL SIGNS: Temperature is 98, pulse 85, respirations 20, pulse oximetry is 96% on nasal cannula and blood pressure is 126/70. HEENT: Head is normocephalic and atraumatic. NECK: Supple with no jugular vein distentions. CARDIOVASCULAR: S1 and S2. No S3, regular. PULMONARY: Diminished breath sounds at both bases with rhonchi at both bases, left more than right. GI: Soft and nontender. No organomegaly. EXTREMITIES: No pedal edema. NEUROLOGIC: No focal deficits. SKIN: Clear with no skin rashes, no cyanosis. ASSESSMENT: 1. Left lower lobe lung mass. 2. Chronic obstructive pulmonary disease. 3. Altered mental status. 4. Atrial fibrillation. PLAN: I have reviewed the patient's blood work, his electrolytes and chemistries are normal. His WBC is at 5.9, hemoglobin of 13.3 and platelet count is 51,000. His PT is 24.5 and INR is 2.1. Additional findings, large mass at the left lung base. He is being treated with antibiotics. He has chronic obstructive pulmonary disease, he is being addressed. Consultation with Dr. Peña Patel and biopsy is pending. His coagulation profile with decreased platelets, but mainly with increased INR will be an impediment for biopsy. Joao Daniel MD
--- NOTE | 2018-05-18 09:13 | PN ---
DATE: 05/16/2018 SUBJECTIVE: A 72-year-old male sitting comfortably in bed this morning, at this time having breakfast. He is on one to one. Events noted from earlier this morning. The patient seemed to be a little agitated. PHYSICAL EXAMINATION: VITAL SIGNS: His temperature is 97.9, his pulse is 76, his blood pressure is 124/71. GENERAL: He is alert and oriented x3. LUNGS: Show rhonchi with diminished breath sounds, left more than right. HEART: Irregular S1, S2 rhythm. ABDOMEN: Soft, with positive bowel sounds. EXTREMITIES: Show no evidence of edema. There is presence of psoriatic plaques. LABORATORY DATA: Shows a WBC of 6.2, RBC 4.77, hemoglobin 13.3, hematocrit 39.9, platelet count is 51,000. Chemistries show a sodium of 129, potassium 4.9, chloride 94, BUN is 21, creatinine is 1. AST is now 138. ASSESSMENT AND PLAN: 1. The patient was admitted with a history of shortness of breath, found to have an infiltrate/density on his chest x-ray. He is currently on intravenous antibiotics, being followed by Infectious Disease. 2. He has underlying atrial fibrillation and valvular heart disease. He is currently being followed by Cardiology. 3. He presented with a low serum sodium. He is currently on IV fluids at this time with some improvement in the serum sodium. 4. He has a low platelet count. Abdominal ultrasound showed a normal-sized spleen, contracted gallbladder with cholelithiasis. 5. He is being followed by Endocrinology. He has a history of Graves disease. Currently, his methimazole is on hold as his TSH level is normal. We will closely monitor. He is also being followed by Pulmonary, receiving bronchodilator therapy and by Oncology. The patient was made aware of what the CAT scan findings showed. His Coumadin has been placed on hold. Request will be made for biopsy of the lung. Neurology workup has been requested given his period of agitation, history of complaints of some soreness or weakness in the lower extremities. We will continue to monitor his labs and continue current level of supportive care. Clinical findings have been discussed with the patient as well as with his family members. Natalya Campos MD
[2018-05-18] MEDS: Propranolol 80 mg ER Cap PO SCH (10:36)
--- NOTE | 2018-05-18 11:53 | PN ---
DATE: 05/18/2018 SUBJECTIVE: The patient was seen sitting on chair on telemetry. He denies any dyspnea. He awaits CT-guided needle biopsy of his lung mass. His Coumadin remains on hold. His current medications include verapamil 40 mg t.i.d., Inderal LA, Lipitor 10 mg daily, Pulmicort inhaler, Seroquel, Xopenex and Zithromax. OBJECTIVE: GENERAL: He is a middle-aged male, appears comfortable at rest. He is afebrile. VITALS: His blood pressure is 150/76, pulse 74, in atrial fibrillation, respirations are 14. HEENT: No JVD. CHEST: Bilateral scattered rhonchi. HEART: PMI displaced laterally without any regular rate or rhythm. ABDOMEN: Soft and nontender with normoactive bowel sounds. EXTREMITIES: 1+ edema with chronic cellulitic changes. DIAGNOSTIC DATA: Potassium 5.1, BUN and creatinine 25 and 1.1, white count is 6.6, hemoglobin is 13.8, hematocrit 42.4 with platelet count 61,000. INR is 1.69. IMPRESSION: 1. Chronic atrial fibrillation with controlled rate, anticoagulation. Currently on hold, pending lung biopsy. 2. Large lung mass suspicious for malignancy, awaits biopsy. 3. Mild aortic stenosis. 4. History of tobacco abuse. RECOMMENDATIONS: His current medications should be continued for now. He is stable from a cardiac standpoint to proceed with CT-guided biopsy of his lung mass. Following this, the anticoagulant therapy should actually be resumed. Rate control therapy with verapamil and Inderal will be planned for now as well. We will continue to follow me further if needed as appropriate. Nixon Arevalo MD
--- NOTE | 2018-05-18 12:05 | PN ---
DATE: 05/18/2018 PULMONARY PROGRESS NOTE SUBJECTIVE: The patient was seen and examined, sitting up in chair. He is no longer confused or agitated. He is not in respiratory distress. PHYSICAL EXAMINATION VITAL SIGNS: As follows; temperature is 97.9, pulse 74, respirations 18, pulse oximetry is 97% on nasal cannula, and blood pressure is 150/76. HEENT: Head is normocephalic and atraumatic. NECK: Supple with no jugular vein distentions. CARDIOVASCULAR: S1 and S2. No S3, irregular. PULMONARY: Diminished breath sounds at left lung base with few rhonchi at the left base. No wheezing. GI: Soft, nontender. No organomegaly. EXTREMITIES: 1+ pedal edema. SKIN: Clear with no cyanosis, no skin rashes. NEUROLOGIC: No focal deficits. LABORATORY DATA: I have reviewed today's blood work. His chemistries are within normal limits, except for elevation of AST transaminase. Hematology; WBC is 6.6, hemoglobin of 13.8, his platelet count is up to 61,000. His PT is down to 19.7 and INR is 1.69. ASSESSMENT: 1. Left lung mass, suspicious for primary lung cancer. 2. Coagulopathy. 3. Altered mental status. 4. Thrombocytopenia. PLAN: We are awaiting normalization of his PT and INR. The patient was on Coumadin prior to that, Coumadin was stopped. His PT and INR has improved. The platelet count of 61,000 should not be an impediment for biopsy. I discussed about these with Dr. Campos and we are awaiting normalization of coagulation profile to move further with diagnostic procedure. Joao Daniel MD
--- NOTE | 2018-05-18 13:06 | PN ---
DATE: 05/18/2018 SUBJECTIVE: A 72-year-old male sitting comfortably this morning, having breakfast. Nursing staff relates that there were no problems during the day or night. PHYSICAL EXAMINATION: GENERAL: Currently, the patient is alert and oriented x3. VITAL SIGNS: His temperature is 97.9. His pulse is 74. His blood pressure is 150/76, respiratory rate is 18, oxygen saturation is 97% on nasal cannula. LUNGS: Show diminished breath sounds at the bases. HEART: Is in irregular S1, S2 rhythm. ABDOMEN: Obese, soft with positive bowel sounds. EXTREMITIES:No Evidence of edema. LABORATORY DATA: Shows a sodium of 132, potassium 5.1, chloride 98, CO2 of 20, BUN of 25, creatinine of 1.1. His AST is 140. His PT is 19.7 with INR of 1.69, PTT of 31.7 and the CBC shows a WBC of 6.6, RBC 4.94, hemoglobin 13.8, hematocrit 42.4, platelet count is 61,000. MEDICATIONS: He continues at this time on Calan 40 mg three times a day, Inderal 80 mg daily, Lipitor 10 mg daily, Pulmicort 0.5 every 12 hours, Seroquel 12.5 mg at bedtime, Xopenex 1.25 every 6 hours and Zithromax 500 mg daily. ASSESSMENT AND PLAN: 1. Lung mass: Plan for lung biopsy is scheduled. Consult has been placed with Dr. Peña Patel. 2. Thrombocytopenia: Oncology is reviewing and following the patient, recommending platelet transfusion prior to lung biopsy. 3. Atrial fibrillation: Cardiology recommends just monitoring the patient off anticoagulation therapy at this time. 4. Hyponatremia: Has improved. 5. Hyperkalemia, 5.1. Renal is following the patient. We will follow up the patient's labs. 6. Episode of agitation and delirium: The patient is currently on Seroquel at bedtime and being followed by Neurology. All clinical findings have been discussed with the individual consultants and with the patient and his family. We will continue to monitor the patient closely and follow his labs. Natalya Campos MD [facility] # [id number] MTDD
--- NOTE | 2018-05-18 13:44 | PN ---
DATE: 05/18/2018 SUBJECTIVE: The patient is currently seen sitting in a chair on the side of his bed. He is awaiting scheduling of his lung biopsy. The patient's sodium level today has drifted downward, it did rise as high as 135 with normal saline and tolvaptan which had been discontinued. It is today 132. The patient is hearing to fluid restriction. MEDICATIONS: Medication list reviewed. The patient is currently on verapamil, Coumadin is on hold, Inderal, Lipitor, Pulmicort, Seroquel, Xopenex and Zithromax. OBJECTIVE: INTAKE/OUTPUT: Intake is 960, output is 900. VITAL SIGNS: 121/63, temperature 97.9, pulse of 87 with a respiratory rate of 18. Oxygen saturation is 97%. HEENT: Shows him to be normocephalic, atraumatic. Conjunctivae are pink. Sclerae nonicteric. NECK: Supple. No neck vein distention. CHEST: Decreased breath sounds at the left base. No rhonchi or wheezing or rales today. CARDIOVASCULAR: Shows an irregular S1, S2. Positive atrial fibrillation. No S3, no S4, no rub. ABDOMEN: Soft. Bowel sounds normal. No rebound, guarding or masses. EXTREMITIES: Show trace to 1+ pitting edema of his lower extremity bilaterally with chronic stasis dermatitis of his lower extremity with diminished lower extremity pulses. LABORATORY DATA AND IMAGING: CBC: White blood cell count 6.6, hemoglobin 13.8 with a platelet count of 61,000. Coags, PT 19.7 with an INR of 1.69. Coumadin is on hold for his lung biopsy. Chemistries show a potassium of 5.1. Sodium is down from 135-132. BUN 25. The creatinine of 1.1. Glucose is 89. Calcium is 9.4. Mild elevation of his AST. TSH level was normal. Cortisol level was normal. Initial urine study showed a depletional hyponatremia. Microbiology, all cultures are negative at 5 days. ASSESSMENT: 1. Hyponatremia initially felt to be secondary to a depletional hyponatremia. The patient received copious amounts of normal saline with no significant improvement in his sodium level despite fluid restriction. It is quite possible the patient has a component of syndrome of inappropriate antidiuretic hormone secretion perhaps secondary to the underlying process in his lung. The patient did receive tolvaptan over the weekend with an improvement in the sodium level to 135. Medication was discontinued and the sodium is starting to drop. The patient will adhere to all dietary restrictions including that of a fluid restriction. 2. Mild hyperkalemia. Potassium level today is 5.1, slightly higher. 3. History of chronic obstructive pulmonary disease with exacerbation. The patient is a continued and active cigarette smoker. Positive 30+ years. 4. History of atrial fibrillation with chronic anticoagulation with left ventricular hypertrophy and mild valvular heart disease /TR/PI. 5. History of hypertension. Blood pressure control is acceptable on current medication. 6. History of hyperthyroidism. The patient was seen by Endocrinology. He had been on Tapazole in the past. Thyroid function levels are acceptable, so he is not receiving any medication to suppress his thyroid function. 7. History of hyperlipidemia. The patient will continue present medical therapy and statin therapy. PLAN: 1. Discussed with the patient and staff on 2R. The patient is patiently awaiting scheduling of his lung biopsy. 2. Continue to monitor laboratory work on a frequent basis during the hospitalization in light of his tendency toward hyponatremia. 3. Discontinuation of antibiotics as per Dr. Campos. 4. I have asked the patient to voluntarily limit his fluid intake to 1250 mL a day. 5. P.r.n. redose for tolvaptan if sodium level drops into the low to mid 120s. Cyrus Paul MD MTDEthan
--- NOTE | 2018-05-18 13:45 | CP.PCM.PN ---
Subjective - Date & Time of Evaluation Date of Evaluation: 05/18/18 Time of Evaluation: 11:40 - Subjective Subjective: Resting comfortably on a chair, no fevers, not in distress. Objective - Vital Signs/Intake and Output Vital Signs (last 24 hours): Temp Pulse Resp BP Pulse Ox 97.9 F 87 18 121/63 97 05/18/18 06:00 05/18/18 10:36 05/18/18 06:00 05/18/18 10:36 05/18/18 06:00 Intake and Output: 05/18/18 05/18/18 06:59 18:59 Intake Total 980 Output Total 11 Balance 969 - Medications Medications: Current Medications Atorvastatin Calcium (Lipitor) 10 mg PO DIN [facility] Last Admin: 05/17/18 17:29 Dose: 10 mg Azithromycin (Zithromax) 500 mg PO DAILY [facility] Last Admin: 05/18/18 10:47 Dose: 500 mg Budesonide (Pulmicort Respules) 0.5 mg IH [id number] [facility] Last Admin: 05/18/18 07:46 Dose: 0.5 mg Levalbuterol HCl (Xopenex) 1.25 mg IH [id number] [facility] Last Admin: 05/18/18 13:18 Dose: 1.25 mg Propranolol HCl (Inderal La) 80 mg PO DAILY [facility] Last Admin: 05/18/18 10:36 Dose: 80 mg Quetiapine Fumarate (Seroquel) 12.5 mg PO HS [facility]; Protocol Last Admin: 05/17/18 22:00 Dose: 12.5 mg Verapamil HCl (Calan Tab) 40 mg PO TID [facility] Last Admin: 05/18/18 10:35 Dose: 40 mg Warfarin Sodium (Coumadin) 5 mg PO 1800 [facility]; Protocol - Labs Labs: 05/18/18 07:45 05/18/18 07:45 PT 19.7 SECONDS (9.4-12.5) H 05/18/18 07:45 INR 1.69 05/18/18 07:45 APTT 31.7 Seconds (25.1-36.5) 05/18/18 07:45 - Constitutional Appears: Chronically Ill - Head Exam Head Exam: NORMAL INSPECTION - Neck Exam Neck Exam: absent: Meningismus - Respiratory Exam Respiratory Exam: Decreased Breath Sounds - Cardiovascular Exam Cardiovascular Exam: +S1, +S2 - GI/Abdominal Exam GI & Abdominal Exam: Soft. absent: Tenderness Assessment and Plan - Assessment and Plan (Free Text) Plan: Assessment consider left sided community-acquired pneumonia, now with new finding of left lung mass on CT scan, suspicious for malignancy history of Severe sepsis secondary to community-acquired pneumonia COPD hypertension dyslipidemia Psoriasis Plan continue Zithromax day 6 to complete 7 days; PCT is elevated at 1.93; reviewed CT chest with Dr. Campos and Dr. Marcelino previously - recommend biopsy of lung mass and we are awaiting the procedure
[2018-05-18 15:04] LABS: TSI 295 % baseline (<140)
[2018-05-18 16:59] LABS: OSMOLALITY,URINE 762 mosm/kg (300-1000)
--- NOTE | 2018-05-18 18:43 | PN ---
DATE: 05/18/2018 ENDOCRINOLOGY FOLLOWUP NOTE LOCATION: Room 276. SUBJECTIVE: This is a 72-year-old male admitted with progressive shortness of breath and evaluated to be in congestive heart failure and supervening acute exacerbation of COPD, and is now being followed closely for metabolic management because of abnormal thyroid function studies. He remains clinically euthyroid at this time. His repeat thyroid studies remained near optimal at this time with a TSH of 2.72 and a T4 of 11.4, and a free T4 of 2.04. So at this time, we will continue holding of resumption of his medical therapy for hyperthyroidism, which is Tapazole given as 5 mg once daily as previously ordered. We will obtain serial chemistries and supplement accordingly as needed. We will follow. Rika Anderson MD
--- NOTE | 2018-05-18 20:18 | CP.PCM.PCO ---
Physician Communication Note - Physician Communication Note Physician Communication Note: Patient had a 2.43 second pause on the outcome analyst
[2018-05-19] MEDS: Levalbuterol 1.25 MG/3 ML Inhal Soln UD IH SCH ×4 (01:07→20:21)
[2018-05-19] MEDS: Budesonide 0.5 mg/2 ml Inhal Susp UD IH SCH ×2 (07:32→20:21)
[2018-05-19 07:48] LABS: INR 1.48; PROTHROMBIN TIME 17.1 SECONDS (9.4-12.5)
[2018-05-19 07:51] LABS: BASO # 0.03 K/mm3 (0.0-2.0); BASO % 0.4 % (0.0-3.0); EOS # 0.1 (0.0-0.7); EOS % 1.2 % (1.5-5.0); GRAN # 4.98 (1.4-6.5); HEMOGLOBIN 13.8 g/dL (14.0-18.0); LYMPH # 1.4 (1.2-3.4); LYMPH % 20.5 % (22.0-35.0); MEAN CORPUSCULAR HGB CONC 32.9 g/dl (31.0-37.0); MEAN PLATELET VOLUME 11.3 fl (7.0-11.0); MONO # 0.4 (0.1-0.6); MONO % 5.9 % (1.0-6.0); RBC 4.93 10^6/uL (3.5-6.1); WHITE BLOOD COUNT 6.9 10^3/uL (4.5-11.0)
[2018-05-19 08:09] LABS: ALB/GLOB RATIO 1.2 (1.1-1.8); ALBUMIN 3.7 g/dL (3.0-4.8); ALT/SGPT 55 U/L (7-56); AST/SGOT 146 U/L (17-59); BLOOD UREA NITROGEN 24 mg/dL (7-21); CALCIUM 9.2 mg/dL (8.4-10.5); GFR NON-AFRICAN AMERICAN > 60
--- NOTE | 2018-05-19 10:50 | PN ---
DATE: 05/19/2018 SUBJECTIVE: The patient is seen sitting in bed on telemetry. He is currently comfortable. He had evidence of 2-to 3-second pauses overnight with an overall controlled rate of 70 to 80 in atrial fibrillation. He is asymptomatic. His current medications include verapamil 40 mg t.i.d., propranolol LA 80 mg daily, warfarin which is on hold, Lipitor 10 mg daily, Pulmicort inhaler, Seroquel, Zithromax, and Xopenex. OBJECTIVE: GENERAL: He is a middle-aged man who appears comfortable at rest. VITAL SIGNS: Blood pressure is 126/86 with pulse of 80 in atrial fibrillation, respirations are 14. He is afebrile. HEENT: No JVD. CHEST: Few scattered rhonchi heard. HEART: PMI displaced laterally with an irregularly irregular rhythm. ABDOMEN: Soft, nontender with normoactive bowel sounds. EXTREMITIES: No edema. DIAGNOSTICS DATA: Potassium 5, BUN and creatinine 24 and 1, white count 6.9, hemoglobin and hematocrit 13.8 and 41.9 with a platelet count of 65,000. INR is 1.48. IMPRESSION: 1. Chronic atrial fibrillation with controlled rate. Anticoagulation currently on hold, awaiting lung biopsy tomorrow and occasional pauses of up 3 seconds in the setting of overall normal heart rate are inconsequential and do not need addressing at this time. Should he have further pauses or excessive bradycardia, verapamil can be discontinued or dose reduced. 2. Large lung mass, suspicious for malignancy. 3. Mild aortic stenosis. 4. History of tobacco abuse. RECOMMENDATIONS: Current management should continue for now. Anticoagulation remains on hold pending CT-guided lung biopsy tomorrow. Oral anticoagulation should be resumed following the procedure. We will continue to follow and make further recommendations as appropriate. Nixon Arevalo MD
[2018-05-19] MEDS: Propranolol 80 mg ER Cap PO SCH (10:55)
--- NOTE | 2018-05-19 11:56 | PN ---
DATE: 05/19/2018 SUBJECTIVE: The patient is in bed, in no acute distress, nontoxic. PHYSICAL EXAMINATION: VITAL SIGNS: Temperature is 97, blood pressure is 126/80, respiratory rate of 22, heart rate of 81. HEENT: Unremarkable. NECK: Supple. LUNGS: Have decreased breath sounds. HEART: Normal S1, S2. ABDOMEN: Soft, nontender. LABORATORY DATA: Reveals a white count of 6.9, hemoglobin of 13. Chemistries are noted. Urinalysis is noted and serology is negative. Microbiology, the blood cultures are negative. REVIEW OF ORDERS. Reveals the patient to be on Zithromax by mouth. ASSESSMENT AND PLAN A 72-year-old male with a left-sided community-acquired pneumonia with a new finding of the left lung mass on CAT scan. Today is day #7 of Zithromax by mouth. Can discontinue Zithromax after today's dose. The patient did have a CAT scan of the head, which showed no acute changes. Kali Power MD
--- NOTE | 2018-05-19 12:24 | PN ---
DATE: 05/19/2018 SUBJECTIVE: A 72-year-old male sitting comfortably this morning, on telemetry. Nursing staff relates that there were no particular problems during the night, although was reported that he had a period of pauses on the monitor. PHYSICAL EXAMINATION: VITAL SIGNS: His temperature is 98.7. His pulse is 81. His blood pressure is 126/85. Oxygen sat is 94% on room air. GENERAL: He is alert and oriented x3. LUNGS: Diminished breath sounds at the bases. HEART: Irregular S1, S2 rhythm. ABDOMEN: Obese, soft. Positive bowel sounds. EXTREMITIES: No evidence of edema. LABORATORY DATA: WBC of 6.9, RBC 4.93, hemoglobin 13.8, hematocrit 41.9, platelet count is 65,000. His PT is 17.1 with an INR 1.48. Chemistry shows sodium 133, potassium 5, chloride 97, CO2 of 30. The BUN is 24, the creatinine is 1. His AST is 146. MEDICATIONS: Currently, the patient is on Calan 40 mg t.i.d., Inderal 80 mg daily, Lipitor 10 mg daily, Pulmicort 0.5 every 12 hours, Seroquel 12.5 mg at bedtime, Xopenex 1.25 every 6 hours, and Zithromax 500 mg daily. ASSESSMENT AND PLAN: 1. The patient has a lung mass documented on CAT scan of the chest. It has been discussed with the patient and his family. A consult is in place with Dr. Peña Patel to do a lung biopsy. This has also been discussed with Oncology, Dr. Ross. 2. He has a low platelet count, being followed. Oncology is recommending a platelet transfusion prior to the biopsy procedure. 3. The patient presented with hyponatremia, which is improved at this time. His hyponatremia has resolved. 4. He has history of underlying atrial fibrillation. His Coumadin is on hold. This was discussed with Cardiology. 5. He was treated with antibiotics for post-obstructive infiltrate on his chest x-ray and currently continues on Zithromax. 6. He has underlying chronic obstructive pulmonary disease. 7. He has arteriosclerotic heart disease. 8. He has psoriasis. We will follow up the patient's labs, await input from the financial operations consultant, Dr. Patel. All clinical findings have been discussed fully with the patient and the family. His blood cultures have been negative after five days. Natalya Campos MD
--- NOTE | 2018-05-19 13:23 | PN ---
DATE: 05/19/2018 SUBJECTIVE: In room 276. This is a 72-year-old male admitted with congestive heart failure and is now improving clinically and hemodynamically as noted thereof. He is also being followed for management of recent subclinical hypothyroidism with significant history of hyperthyroidism on medical therapy as given prior to this admission. He remains clinically euthyroid at this time. LABORATORY DATA: His latest thyroid studies showed a T4 of 11.4 with a TSH of 2.72 and a free T4 of 2.04. His latest chemistry showed a BUN of 24, sodium 133, potassium 5.0, chloride 97, CO2 of 30, glucose 96, and creatinine 1.0. ASSESSMENT AND PLAN: So, at this time, we will continue the serial thyroid studies to be obtained as ordered. We will hold off, however, the resumption of his low dose of methimazole therapy at this time and observe his clinical and biochemical response thereof. We will obtain serial chemistries and supplement accordingly needed. We will follow. Rkia Anderson MD
[2018-05-19] MEDS: Oxycodone/Acetaminophen 5/325 mg Tab PO PRN ×2 (13:43→19:40)
--- NOTE | 2018-05-19 14:54 | PN ---
DATE: 05/19/2018 SUBJECTIVE: The patient is currently seen sitting up in bed. Sodium level today is stable at 133. The patient is awaiting scheduling of lung biopsy. The patient apparently had pauses on telemetry on his EKG and with his heart rhythm, he has been evaluated by Cardiology. The patient is attempting to adhere to fluid restriction in light of his borderline to mild hyponatremia. MEDICATIONS: List reviewed. The patient is currently on verapamil, Coumadin is on hold, Inderal, Lipitor, Pulmicort Respules, Seroquel, Xopenex and Zithromax. OBJECTIVE: INTAKE AND OUTPUT: Intake is 1080 and output is not charted. VITAL SIGNS: Blood pressure 126/85, respiratory rate of 22, pulse of 81 and regular, temperature 98.7 and pulse ox is 94%. HEENT: Normocephalic and atraumatic. Conjunctivae are pink. Sclerae nonicteric. NECK: Supple. No neck vein distention. CHEST: Slight decreased breath sounds at the left base. No rales, rhonchi or wheezing. CARDIOVASCULAR: Shows a regular S1 and S2. /TR/PI. No S3, no S4, no rub. ABDOMEN: Soft. Bowel sounds normal. No rebound, guarding or masses. EXTREMITIES: Show trace to 1+ pitting edema of his lower extremity bilaterally with chronic stasis dermatitis. Diminished lower extremity pulses bilaterally. LABORATORY DATA AND IMAGING STUDIES: CBC today white blood cell count is 6.9 with a hemoglobin of 13.8 and platelet count is 65,000. Coags show PT of 17.1 with an INR of 1.48. Chemistry show a sodium of 133, stable. BUN 24 with a creatinine of 1.0 and potassium is 5.0 today. Glucose is 96. Calcium is 9.2. Mild elevation of his AST. Thyroid function tests remain normal. Again a.m. cortisol level was normal. Repeat urine studies now show urine sodium of 33 with urine osmolality of 762. This is more consistent with the possibility of SIADH secondary to his lung mass. Microbiology, all cultures are negative at 5 days. ASSESSMENT: 1. Borderline to mild hyponatremia. Initially the patient had a depletional hyponatremia, his sodium levels were replaced and he developed further hyponatremia. Picture appears to be consistent with that of syndrome of inappropriate secretion of antidiuretic hormone and is likely secondary to his lung mass. The patient did receive several doses of tolvaptan with a rapid improvement in his sodium level. He is currently off all IV fluid hydration, but remains on p.o. fluid restriction. 2. Borderline hyperkalemia. Potassium level 5.0 today. 3. History of chronic obstructive pulmonary disease with exacerbation. The patient is an active cigarette smoker. He has smoked 30+ years over 1 pack per day. He continues on elation therapy. 4. History of atrial fibrillation with chronic anticoagulation with left ventricular hypertrophy. Rhythm appears to be stable at this point in time. He apparently had pauses yesterday. He is being evaluated by Cardiology, he does have mild valvular heart disease. 5. History of hypertension. Blood pressure control is acceptable on current medication. 6. History of hyperthyroidism. The patient had been on Tapazole in the past. Thyroid function levels remain normal. So at present as per endocrine note, he is not receiving a any medication to decrease his thyroid levels. 7. History of hyperlipidemia. The patient continues on present diet therapy and statin therapy. PLAN: 1. Discussed with staff on 2R. The patient is anxiously awaiting scheduling of his lung biopsy. He states that he would like to go home soon. 2. Continue to monitor labs on a regular basis. Sodium level has remained in the low normal range, but stable. 3. The patient will voluntarily limit his p.o. fluids to 1250 mL per day. 4. Should his sodium level significantly drop, the patient would once again benefit from retreatment with tolvaptan. Cyrus Paul MD [facility]
--- NOTE | 2018-05-19 15:05 | PN ---
DATE: 05/19/2018 SUBJECTIVE: The patient is sitting in a chair more comfortable than previous. He still states that he is somewhat dyspneic but denies cough, pressure or shortness of breath. He states that he is markedly better than in the past. PHYSICAL EXAMINATION: GENERAL: The patient is sitting comfortably in no acute distress. He is afebrile. VITAL SIGNS: Respiratory rate 16, pulse ox 97% on nasal cannula, blood pressure 140/80, pulse 72, temperature 98.4. HEENT: Normocephalic, atraumatic. NECK: Supple. No jugular venous distension. No bruit. No lymphadenopathy. CARDIOVASCULAR: S1, S2 normal without murmur, gallop or rub. CHEST: Global decrease in breath sounds. Minimal rhonchi noted at the left base. No wheezing appreciated. ABDOMEN: Soft. Bowel sounds normoactive without mass, guarding, rebound or organomegaly. EXTREMITY: Reveals trace edema. SKIN: No rash or excoriation. NEUROLOGIC: No focal findings. LABORATORY DATA: No new laboratory data is available. ASSESSMENT: 1. Left lung mass consistent with possible lung cancer. 2. Questionable underlying pneumonitis. 3. Coagulopathy. 4. Altered mental status. 5. Thrombocytopenia. PLAN The patient will require a lung biopsy pending improvement of the coagulopathy. We will discuss with Dr. Echevarria who returns in the morning. Case discussed with Dr. mily Daniel, associate. We will follow closely with you, awaiting further hematologic intervention. Howard Hillman MD
[2018-05-20] MEDS: Levalbuterol 1.25 MG/3 ML Inhal Soln UD IH SCH ×4 (01:56→20:30)
[2018-05-20] MEDS ORDERED: guaiFENesin 200 mg/10 ml Syrup UD PO ONE (02:39)
[2018-05-20] MEDS: Oxycodone/Acetaminophen 5/325 mg Tab PO PRN (02:51)
[2018-05-20 07:11] LABS: BASO # 0.07 K/mm3 (0.0-2.0); BASO % 0.9 % (0.0-3.0); EOS # 0.1 (0.0-0.7); EOS % 1.1 % (1.5-5.0); GRAN # 5.48 (1.4-6.5); GRAN % 69.1 % (50.0-68.0); HEMOGLOBIN 14.8 g/dL (14.0-18.0); LYMPH # 1.7 (1.2-3.4); LYMPH % 21.2 % (22.0-35.0); MONO # 0.6 (0.1-0.6); MONO % 7.7 % (1.0-6.0); PLATELET COUNT 52 10^3/uL (120.0-450.0); RBC 5.28 10^6/uL (3.5-6.1); RED CELL DISTRIBUTION WIDTH 14.9 % (11.5-14.5); WHITE BLOOD COUNT 7.9 10^3/uL (4.5-11.0)
[2018-05-20 07:13] LABS: INR 1.66; PARTIAL THROMBOPLASTIN TIME 40.6 Seconds (25.1-36.5); PROTHROMBIN TIME 19.3 SECONDS (9.4-12.5)
[2018-05-20 07:30] LABS: ALB/GLOB RATIO 1.3 (1.1-1.8); ALBUMIN 4.3 g/dL (3.0-4.8); CALCIUM 9.9 mg/dL (8.4-10.5)
[2018-05-20] MEDS: Budesonide 0.5 mg/2 ml Inhal Susp UD IH SCH ×2 (07:47→20:30)
[2018-05-20 07:55] LABS: ARTERIAL BLOOD GAS HCO3 26.4 mmol/L (21-28); ARTERIAL BLOOD GAS HEMOGLOBIN 14.8 g/dL (11.7-17.4); ARTERIAL BLOOD GAS O2 CAPACITY 20.2 mL/dl (16-24); ARTERIAL BLOOD GAS O2 CONTENT 19.8 ML/dl (15-23); ARTERIAL BLOOD GAS O2 SAT 98.1 % (95-98); ARTERIAL BLOOD GAS PCO2 38 mm/Hg (35-45); ARTERIAL BLOOD GAS PH 7.45 (7.35-7.45); ARTERIAL BLOOD GAS TCO2 27.6 mmol.L (22-28)
[2018-05-20] MEDS: Propranolol 80 mg ER Cap PO SCH (08:05)
[2018-05-20] MEDS ORDERED: Sod Polystyrene Sulf 15 gm/60 ml Susp PO STA (08:49)
[2018-05-20] MEDS: Sodium Chloride 0.9% 1,000 ML IV SCH ×2 (09:09→21:23)
--- NOTE | 2018-05-20 09:23 | RAD ---
Date of service: 05/20/2018 HISTORY: dyspnea COMPARISON: 05/14/2018 CT FINDINGS: LUNGS: There is a left perihilar mass which was evaluated on CT. This is unchanged. PLEURA: No significant pleural effusion identified, no pneumothorax apparent. CARDIOVASCULAR: No aortic atherosclerotic calcification present. Mild cardiomegaly no pulmonary vascular congestion. OSSEOUS STRUCTURES: No significant abnormalities. VISUALIZED UPPER ABDOMEN: Normal. OTHER FINDINGS: None. IMPRESSION: No change in left perihilar mass.
--- NOTE | 2018-05-20 10:39 | PN ---
DATE: 05/20/2018 PULMONARY NOTE SUBJECTIVE: The patient appears comfortable this morning. He is not short of breath at rest. He does complain of some nausea. PHYSICAL EXAMINATION: VITAL SIGNS: Temperature is 97.5, pulse 95, respirations 18/20, blood pressure 138/94. Oxygen saturation on nasal cannula is 98%. HEENT: Normocephalic, atraumatic. No JVD. CARDIOVASCULAR: Systolic ejection murmur at the lower left sternal border. Questionable S3 gallop. LUNGS: Minimal crackles at the bases. Very minimal/less rhonchi. No wheezing. GI: Abdomen is soft, nontender and nondistended. Bowel sounds are positive. EXTREMITIES: Mild edema. No cyanosis, no clubbing. Calves are nontender to palpation. SKIN: No acute rash. NEUROLOGIC: Exam limited at the present time. IMPRESSION: 1. Left lower lobe lung mass, rule out malignancy. 2. Chronic obstructive pulmonary disease. 3. Congestive heart failure. 4. Atrial fibrillation. 5. Thrombocytopenia. PLAN: The patient appears comfortable this morning. He is not short of breath at rest. He does complain of some nausea. I did discuss the case with night nurse at length. The night nurse stated the patient had an uneventful night, but did get anxious earlier. On physical exam, there is no significant bronchospasm noted. In addition, there is no significant alveolar-arterial gradient. I will continue the current nebulizer treatments and inhaled steroids for now. I did discuss the case with Dr. Daniel (my partner) at length. I have also reviewed the notes by Dr. Hillman(my other partner). We are awaiting the lung biopsy to be done- once the coagulopathy improves. Dr. Patel (Interventional Radiology) is consulted on the case. The clinical status of the patient is certainly improved - compared to his initial presentation. However, given the above, the future status/prognosis for this patient remains very guarded at best/poor. I will discuss the above with Dr. Campos. Javier Echevarria MD [facility]
[2018-05-20] MEDS ORDERED: Digoxin 500 mcg/2ml (0.5 mg/2ml) Inj ONE (12:25)
--- NOTE | 2018-05-20 14:35 | PN ---
DATE: 05/20/2018 ENDOCRINOLOGY FOLLOWUP NOTE LOCATION: Room 276. SUBJECTIVE: This is a 72-year-old male admitted with congestive heart failure and currently being followed closely for metabolic management with significant history of hyperthyroidism, previously on methimazole therapy as given. With this hospital admission, we have held off the methimazole therapy with the supervening hypothyroxinemic values as noted. His latest thyroid study showed a T4 of 11.4 with a TSH of 2.72 and a free T4 of 2.04. His latest chemistry showed a BUN of 39, sodium 134, potassium 6.2, chloride 98, CO2 of 26, glucose 112 and creatinine 1.9. So at this time, we will hold off the resumption of his methimazole medications to allow for dose equilibration. As he remains clinically and biochemically euthyroid at this time, it will be more prudent to repeat the thyroid studies serially and restart or resume the medications as indicated. Rika Anderson MD
--- NOTE | 2018-05-20 16:30 | PN ---
DATE: 05/20/2018 SUBJECTIVE: The patient is currently seen sitting up in bed. He appears to be a bit uncomfortable. He did receive the dose of Kayexalate. He was hyperkalemic this morning. His BUN and creatinine have increased. The planned biopsy of the lung mass has been placed on hold. The patient is now on IV fluid hydration. His potassium level did go as high as 6.4. His BUN noble to 39 with a creatinine of 1.9. OBJECTIVE: Intake/output. Intake 1260, output 200. PHYSICAL EXAMINATION: VITAL SIGNS: Blood pressure 138/92, pulse of 104 and irregular, temperature 97.7 with a respiratory rate of 18. HEENT: Normocephalic, atraumatic. Conjunctivae pink. Sclerae nonicteric. NECK: Supple. No neck vein distention. CHEST: Decreased breath sounds at the left base. No rales, rhonchi or wheezing. CARDIOVASCULAR: Shows an irregular S1, S2. /TR/PI. No S3, no S4, no rub. ABDOMEN: Soft. Bowel sounds normal. No rebound, guarding or masses. EXTREMITIES: Show chronic stasis dermatitis with 1+ edema. Diminished lower extremity pulses bilaterally. LABORATORY DATA AND IMAGING: CBC today white blood cell count 7.9, hemoglobin stable 14.8 with a platelet count of 52,000. Coags today. INR was 1.66 with a PT of 19.3 with a PTT of 40.6. Blood gas today pH 7.45, pCO2 of 38 with a pO2 of 80 on an FiO2 of 32%. Chemistries sodium stable at 134. Potassium 6.2, repeated 6.4, non-hemolyzed. CO2 was 26. BUN 39 with a creatinine of 1.9. Glucose was 112. Calcium 9.9, phosphorus elevated at 6.1, magnesium 1.9. Elevated liver enzymes, AST and ALT, alkaline phosphatase. Albumin level was 4.3. Microbiology, all cultures are negative at 5 days. MEDICATIONS: Medication list reviewed. The patient is currently on Calan, Coumadin is on hold, Inderal LA, Lipitor, p.r.n. Percocet, Pulmicort Respules, Seroquel, normal saline was started at 75 mL an hour, Tylenol p.r.n., Xopenex, and Zithromax. The patient is status post one dose of Kayexalate 30 g and sorbitol. ASSESSMENT: 1. Status post mild hyponatremia initially felt to be a depletional hyponatremia, and on reevaluation, post normal saline for 48 hours with the patient remaining hyponatremic. The patient was felt to possibly have syndrome of inappropriate antidiuretic hormone secretion and this might be secondary to his lung mass. The patient did respond to a short course of tolvaptan. 2. Hyperkalemia. The patient had a workup for adrenal insufficiency, a.m. cortisol level was normal. Renin and aldosterone levels are pending. The patient had apparently gotten more dehydrated over the weekend holiday time. BUN and creatinine were elevated at 30 and 9.9 and his potassium level went up to 6.2 - 6.4. The patient is now back on intravenous fluid hydration. The patient did receive one dose of Kayexalate. He will be placed on a 2 g potassium diet. 3. History of chronic obstructive pulmonary disease secondary to chronic cigarette smoking. The patient has a 30+ year history of greater than one pack per day. The patient continues to smoke cigarettes up until the time of this hospitalization. 4. History of atrial fibrillation, on chronic anticoagulation. The patient's rhythm is irregular. Heart rate is in the low 100s. The patient had been seen by Cardiology, he does continue on a beta-yelitza therapy and Calan. He also receives anticoagulation which is being held for the lung mass biopsy. 5. History of hypertension. Blood pressure controlled. 6. History of hyperthyroidism. Thyroid function levels are normal. The patient at this present time does not require Tapazole. 7. History of hyperlipidemia. The patient continues present diet and statin therapy. 8. Elevated BUN and creatinine quite possibly secondary to volume depletion. The patient has been started on normal saline. He is status post intravenous fluid hydration during the early part of his hospitalization, but apparently has dehydrated over the last 24 to 48 hours. The patient did have an abdominal CT scan, kidneys were normal in size with normal echogenicity and no hydronephrosis. PLAN: 1. Repeat K level post treatment. 2. Continue IV fluid hydration. Agree with dose of Kayexalate. In all likelihood, his potassium level should be lowered tomorrow. 3. Sodium level is acceptable, so I have encouraged the patient to increase his p.o. fluid intake in addition to normal saline via IV fluid hydration. 4. Check renin and aldosterone levels. 5. Continue to monitor daily labs with close monitoring of intake and output. Cyrus Paul MD [facility]
[2018-05-20 16:37] LABS: CALCIUM 9.9 mg/dL (8.4-10.5)
[2018-05-20] MEDS ORDERED: Sod Polystyrene Sulf 15 gm/60 ml Susp PO ONE ×2 (16:45)
--- NOTE | 2018-05-21 01:34 | PN ---
DATE: 05/20/2018 SUBJECTIVE: The patient is seen sitting in bed on telemetry. He states he is comfortable. He developed rapid atrial fibrillation overnight with a heart rate of 140. His oral verapamil and metoprolol were given earlier this morning. He remains in relatively rapid atrial fibrillation at 130 beats per minute. In addition, his potassium is noted be elevated at 6.4. CURRENT MEDICATIONS: Include verapamil, Inderal LA, Lipitor, Pulmicort, Seroquel, Xopenex, and Zithromax. He has been treated with Kayexalate as well. OBJECTIVE: GENERAL: He is a chronically ill-appearing middle-aged man. VITAL SIGNS: Blood pressure is 138/94, pulse of 130, respirations are 16. He is afebrile. HEENT: No JVD. CHEST: Bilateral scattered rhonchi. HEART: PMI displaced laterally with irregular rhythm. ABDOMEN: Soft, nontender with bowel sounds. EXTREMITIES: Chronic cellulitic changes. There were 1+ edema. DIAGNOSTIC DATA: Potassium 6.2 and repeat is 6.4, BUN and creatinine 39 and 1.9. White count 7.9, hemoglobin and hematocrit 14.8 and 44.9 with platelet count of 52,000. INR is 1.66. IMPRESSION: 1. Atrial fibrillation, now with suboptimal heart rate control. 2. Mild aortic stenosis. 3. Lung mass. Awaits biopsy for diagnosis. 4. Tobacco abuse. 5. [id number] renal insufficiency. RECOMMENDATIONS: One dose of digoxin will be administered today. He will be started on daily oral administration as a supplement to his rate control therapy. Repeat potassium is pending. His anticoagulant therapy remains on hold pending his lung biopsy which will likely be postponed until his electrolytes have been normalized. We will continue to follow and make further recommendations as appropriate. Nixon Arevalo MD
--- NOTE | 2018-05-21 01:35 | PN ---
DATE: 05/20/2018 SUBJECTIVE: The patient is in bed, in no acute distress, nontoxic. PHYSICAL EXAMINATION VITAL SIGNS: Temperature is 98, tonight the patient has developed a temperature of 100.3, heart rate of 100, respiratory rate is 19 and blood pressure is 140/80. HEENT: Unremarkable. NECK: Supple. LUNGS: Decreased breath sounds. HEART: Normal S1 and S2. ABDOMEN: Soft and nontender. LABORATORY EXAMINATION: Reveals a white count of 7.9. Chemistries reveal the creatinine is up to 2.1 and glucose is 120. Urinalysis is noted. Serology reveals urine Legionella antigen is negative, blood cultures are negative. Chest x-ray, left perihilar mass which on CAT scan with some change. MEDICATIONS: Review of orders reveals the patient to be on Coumadin which is on hold. The patient is on azithromycin. ASSESSMENT AND PLAN: A 72-year-old male, seen early this morning, but now at this hour the patient has a new fever and tachycardia, systemic inflammatory response syndrome, who is in the hospital now, left-sided community-acquired pneumonia, with a left lung mass, on day #8 of Zithromax. For the liver function test elevation, we will discontinue Zithromax. We will also order an ultrasound of the gallbladder in addition to blood cultures, urine cultures, sputum cultures, methicillin-resistant Staphylococcus aureus screen and procalcitonin. We will start the patient on meropenem 500 mg intravenously every 8 hours, discontinue Zithromax. We will check on the ultrasound, may consider lower extremity ultrasound also since the Coumadin is on hold. We will follow with you. Kali Power MD
[2018-05-21 02:50] LABS: PH,URINE 5.5 (4.7-8.0); URINE BILIRUBIN NEGATIVE (NEGATIVE); URINE BLOOD LARGE (NEGATIVE); URINE GLUCOSE (UA) NEGATIVE (NEGATIVE); URINE LEUKOCYTE ESTERASE NEGATIVE Leu/uL (NEGATIVE); URINE PROTEIN 100 mg/dL (<30 mg/dL); URINE UROBILINOGEN 0.2 E.U./dL (<1 E.U./dL)
[2018-05-21 02:51] LABS: URINE COLOR DARK YELLOW (YELLOW)
[2018-05-21 02:52] LABS: URINE APPEARANCE TURBID (CLEAR)
[2018-05-21 03:03] LABS: URINE AMORPHOUS SEDIMENT MANY /hpf; URINE EPITHELIAL CELLS 0 - 2 /hpf (0-5)
[2018-05-21 03:04] LABS: URINE BACTERIA SMALL /hpf
[2018-05-21] MEDS: Levalbuterol 1.25 MG/3 ML Inhal Soln UD IH SCH ×4 (03:10→20:40)
[2018-05-21] MEDS: MEROPENEM 500 MG in NS 500 MG/50 ML BAG IVPB SCH ×3 (05:22→21:35)
[2018-05-21 07:21] LABS: BASO # 0.01 K/mm3 (0.0-2.0); BASO % 0.2 % (0.0-3.0); EOS % 0.6 % (1.5-5.0); GRAN # 4.28 (1.4-6.5); GRAN % 64.8 % (50.0-68.0); HEMOGLOBIN 13.6 g/dL (14.0-18.0); LYMPH # 1.8 (1.2-3.4); LYMPH % 26.8 % (22.0-35.0); MEAN CELL VOLUME 86.1 fl (80.0-105.0); MEAN CORPUSCULAR HEMOGLOBIN 27.8 pg (25.0-35.0); MEAN CORPUSCULAR HGB CONC 32.2 g/dl (31.0-37.0); MONO # 0.5 (0.1-0.6); MONO % 7.6 % (1.0-6.0); RED CELL DISTRIBUTION WIDTH 15.4 % (11.5-14.5); WHITE BLOOD COUNT 6.6 10^3/uL (4.5-11.0)
[2018-05-21 07:34] LABS: PLATELET COUNT 20 10^3/uL (120.0-450.0)
[2018-05-21 07:47] LABS: ALB/GLOB RATIO 1.2 (1.1-1.8); ALBUMIN 3.8 g/dL (3.0-4.8); CALCIUM 9.6 mg/dL (8.4-10.5)
[2018-05-21] MEDS: Budesonide 0.5 mg/2 ml Inhal Susp UD IH SCH ×2 (08:12→20:40)
--- NOTE | 2018-05-21 09:01 | US ---
HISTORY: Leg pain and swelling. Evaluate for DVT PHYSICIAN(S): Peña Patel MD. TECHNIQUE: Duplex sonography and color-flow Doppler with graded compression were used to evaluate the deep venous systems of both lower extremities. FINDINGS: The visualized deep venous systems of both lower extremities are sonographically normal and compressible. Normal wave forms and augmentation are seen. There is no sonographic evidence for deep venous thrombosis in the visualized segments of both lower extremities. IMPRESSION: No sonographic evidence for deep venous thrombosis in the visualized segments of both lower extremities.
[2018-05-21] MEDS: Propranolol 80 mg ER Cap PO SCH (09:24)
[2018-05-21] MEDS ORDERED: Barium Sulfate Susp 2.1% w/v, 2.0% w/w 450 mL Bottle PO ONE (09:33)
--- NOTE | 2018-05-21 13:21 | PN ---
DATE: 05/21/2018 SUBJECTIVE: The patient appears comfortable this morning. He is not short of breath at rest. PHYSICAL EXAMINATION: VITAL SIGNS: Temperature 98.0, pulse on the monitor is 96, respiratory rate 18, blood pressure 111/71. Oxygen saturation on nasal cannula is 97%. HEENT: Normocephalic, atraumatic. No JVD. CARDIOVASCULAR: Systolic ejection murmur at the lower left sternal border. Questionable S3 gallop. LUNGS: Minimal crackles at the bases. Very minimal/less rhonchi. No wheezing. EXTREMITIES: Minimal edema, cyanosis. No clubbing. Calves are nontender to palpation. GI: Abdomen is soft, nontender and nondistended. Bowel sounds are positive. SKIN: No acute rash. NEUROLOGIC: Exam limited at the present time. IMPRESSION: 1. Left lower lobe lung mass, rule out malignancy. 2. Chronic obstructive pulmonary disease. 3. Congestive heart failure. 4. Atrial fibrillation. 5. Thrombocytopenia. PLAN: The patient appears very comfortable this morning. He is not short of breath at rest. He is out of bed, sitting in the chair. He does state to feeling much better this morning. I did discuss the case with night nurse at length. The night nurse stated the patient had an uneventful night. On physical exam, his bronchospasm continues to resolve. In addition, there is no significant alveolar-arterial gradient. I will continue with the current nebulizer treatments and inhaled steroids for now. Inputs by Infectious Disease, Cardiology, and Renal are noted. Repeat a.m. labs are pending. We are awaiting the CAT scan guided lung biopsy - by Interventional Radiology. Clinical status of the patient is certainly improved - compared to his initial presentation. However, unfortunately, the future status/prognosis for this patient appears poor. I will discuss the above with Dr. Campos later this morning. Javier Echevarria MD MTDD
[2018-05-21] MEDS: Digoxin 125 mcg (0.125 mg) Tab PO SCH (13:46)
--- NOTE | 2018-05-21 13:46 | PN ---
DATE: 05/21/2018 SUBJECTIVE The patient is currently seen ambulating in the room. He is not getting prepared to go down for a CT scan for further testing and evaluation of his lung mass. Blood biopsy was held because of hyperkalemia. His potassium level is now down into a normal range at 4.9. His BUN and creatinine continued to improve with IV fluid hydration. MEDICATIONS: Medication list reviewed. The patient is on Calan, Coumadin is on hold, digoxin, Inderal, meropenem, Percocet, Pulmicort Respules, Seroquel, normal saline 75 mL an hour, Tylenol p.r.n. and Xopenex. OBJECTIVE: INTAKE/OUTPUT: Intake is 1260, output is 200 charted. VITAL SIGNS: Heart rate is 110-120, irregular. Temperature 98, blood pressure 111/71 with a respiratory rate of 18. HEENT: Normocephalic, atraumatic. Conjunctivae are pink. Sclerae nonicteric. NECK: Supple. No neck vein distention. CHEST: Decreased breath sounds at the left base. No rales, rhonchi or wheezing. CARDIOVASCULAR: Shows an irregular S1, S2, /TR/PI. No S3, no S4, no rub. ABDOMEN: Soft. Mildly distended. Bowel sounds normal. No rebound, guarding or masses. EXTREMITIES: Show chronic stasis dermatitis of 1+ edema. Diminished lower extremity pulses bilaterally. LABORATORY DATA AND IMAGING: CBC, white blood cell count today 6.6, hemoglobin 13.6, the platelet count up 20,000. Chemistry showed normal electrolytes. Potassium is down to 4.9. BUN is improved at 43. Creatinine is down to 1.7. The patient's baseline BUN is 20 or less. His baseline creatinine is 1.0. Bilirubin is slightly higher at 1.7. Liver enzymes are elevated. Albumin level is low at 3.8. Microbiology, all cultures are negative. ASSESSMENT: 1. Status post mild hyponatremia initially felt to be depletional hyponatremia and then perhaps felt to be secondary to syndrome of inappropriate antidiuretic hormone secretion related to the likely lung mass. His sodium level appears to be normal. She remains on normal saline. He did receive a short course of tolvaptan. 2. Status post severe hyperkalemia yesterday. This is in the setting of a rising BUN and creatinine. His a.m. cortisol level was normal. His renin and aldosterone levels are pending. The patient remains on a low potassium diet. He remains on potassium free IV fluid hydration. With improvement in his BUN and creatinine, I expect his potassium level to remain in a normal range. 3. History of chronic obstructive pulmonary disease secondary to long history of cigarette smoking. The patient remains on inhalation therapy. 4. History of atrial fibrillation, on chronic anticoagulation. The patient's heart rate remains elevated. The patient's rhythm is irregular. He is being followed by Cardiology. The patient remains on verapamil and digoxin along with Inderal as per Cardiology. Chronic anticoagulation was held for the lung mass biopsy. 5. History of hypertension. Blood pressure controlled on present medications. 6. History of hyperthyroidism. Thyroid function levels are normal. He does not require Tapazole as per Endocrinology note. 7. History of hyperlipidemia. The patient continues on a low-fat, low-cholesterol diet. The patient had been on statin therapy in the outpatient setting. 8. Elevated BUN and creatinine/acute renal failure, likely secondary to volume depletion and dehydration. His BUN and creatinine appear to be falling back to baseline with hydration. His abdominal CT scan of the kidneys showed normal echogenicity and no hydronephrosis. The patient's urinalysis was entirely negative. PLAN: 1. Discussed with Dr. Campos. Agree with the need to obtain better heart rate control in light of his atrial fibrillation being followed by Cardiology. 2. Continue IV fluid hydration. 3. Await renin and aldosterone levels as part of his workup of hyperkalemia. 4. Continue to monitor accurate Is and Os. 5. Once heart rate is stabilized, the patient may go down for his CT scan for further assessment of his lung mass and likely lung cancer. Cyrus Paul MD
--- NOTE | 2018-05-21 14:47 | PN ---
DATE: 05/21/2018 ENDOCRINOLOGY FOLLOWUP NOTE LOCATION: In room 276. SUBJECTIVE: This is a 72-year-old male with recent admission for congestive heart failure and supervening acute exacerbation of COPD, and is now being followed closely for metabolic management. He remains clinically and biochemically euthyroid at this time. LABORATORY DATA: His latest chemistries today showed a BUN of 43, sodium 139, potassium 4.9, chloride 101, CO2 of 32, glucose 108, and creatinine 1.7. His latest thyroid study showed a T4 of 11.4 with a TSH of 2.72 and a free T4 of 2.04. ASSESSMENT AND PLAN: So at this time, we will continue the present medical management as given and ordered. We will hold off the resumption of his methimazole therapy for management of hyperthyroidism and allow with full equilibration and therapeutic washout of the medications at this time. We will obtain serial thyroid studies accordingly and resume the medications as indicated. Rika Anderson MD
--- NOTE | 2018-05-21 15:15 | PN ---
DATE: 05/21/2018 SUBJECTIVE: A 72-year-old male resting comfortably this morning. Nursing staff relates that the patient's heart rate was rapid during the night. PHYSICAL EXAMINATION: GENERAL: He is alert and oriented x3. VITAL SIGNS: His temp is 98, his pulse is 110, blood pressure is 111/71, his respiratory rate is 18, his oxygen saturation is 97% on nasal cannula. LUNGS: Show bilateral rhonchi with diminished breath sounds on the bases. HEART: Irregular S1 and S2 rhythm. ABDOMEN: Obese and soft with positive bowel sounds. EXTREMITIES: Showed no evidence of edema, there is evidence of psoriasis. LABORATORY DATA: WBC is 6.6, RBC is 4.9, hemoglobin 13.6, hematocrit is 42.2, and platelet count this morning is 20,000. His chemistry shows a sodium 139, potassium 4.9, chloride 101, the CO2 is 32, the BUN is 43, creatinine is 1.7. His total bilirubin is 1.7. His AST is 631. His ALT is 64 and his alkaline phosphatase is now 218. Urinalysis shows large blood, small bacteria. MEDICATIONS: Currently, the patient is on verapamil 40 mg t.i.d., digoxin 0.125 mg daily, Inderal 80 mg daily, meropenem 500 mg every 8 hours, Percocet 5/325 every 6 p.r.n. for moderate pain, Pulmicort Respules 0.5 mg b.i.d., Seroquel 12.5 mg at bedtime. He is on IV sodium chloride at 75 mL an hour, Tylenol 2 tabs every 6 p.r.n. for mild pain and Xopenex 1.25 every 6 hours. IMPRESSION/PROBLEMS: 1. Left lung mass. 2. Thrombocytopenia. 3. Acute renal failure. 4. Hyperkalemia. 5. Elevated liver function tests. 6. Chronic obstructive pulmonary disease. 7. Atrial fibrillation. 8. Psoriasis. PLAN: 1. Cardiology is following the patient. He has been on placed on digoxin for his rapid heart rate. We will continue to monitor the patient on telemetry. 2. Oncology discussion with Dr. Ross. We will monitor the patient's platelet count. We will get a bone scan and get a CAT scan of the abdomen and pelvis with oral contrast only. 3. His renal failure is being followed by Nephrology, he is on IV fluids. He is status post treatment for hyperkalemia with Kayexalate. We will follow up the patient's labs. 4. He is status post presentation with hyponatremia, which is improved at this time. 5. His underlying COPD is being followed by Pulmonary with his respiratory treatments. The patient needs to be followed closely. He is aware of his clinical findings at this time as is his family. He is also on antibiotics by Infectious Disease. Doppler of the lower extremities was negative for DVT. He is also being followed by Endocrinology with history of Graves disease and methimazole is currently on hold because his TSH level was in the normal range. Natalya Campos MD
--- NOTE | 2018-05-21 16:05 | CT ---
Date of service: 05/21/2018 PROCEDURE: CT Abdomen and Pelvis without intravenous contrast HISTORY: r/o mets COMPARISON: None. TECHNIQUE: Without contrast.. Contrast dose: Radiation dose: Total exam DLP = 1047.22 mGy-cm. This CT exam was performed using one or more of the following dose reduction techniques: Automated exposure control, adjustment of the mA and/or kV according to patient size, and/or use of iterative reconstruction technique. FINDINGS: LOWER THORAX: Left lower lobe lung mass recently evaluated with chest CT. LIVER: Unremarkable. No gross lesion or ductal dilatation. GALLBLADDER AND BILE DUCTS: Contracted PANCREAS: Unremarkable. No gross lesion or ductal dilatation. SPLEEN: Unremarkable. ADRENALS: Unremarkable. No mass. KIDNEYS AND URETERS: Unremarkable. No hydronephrosis. No solid mass. VASCULATURE: Unremarkable. No aortic aneurysm. Aortic calcification BOWEL: Unremarkable. No obstruction. No gross mural thickening. APPENDIX: Unremarkable. Normal appendix. PERITONEUM: Unremarkable. No free fluid. No free air. LYMPH NODES: Unremarkable. No enlarged lymph nodes. BLADDER: Unremarkable. REPRODUCTIVE: Unremarkable. BONES: No acute fracture. OTHER FINDINGS: None. IMPRESSION: No acute intra-abdominal findings. No evidence of metastatic disease.
--- NOTE | 2018-05-21 20:19 | PN ---
DATE: 05/21/2018 SUBJECTIVE: The patient is seen sitting in the chair on telemetry. He is comfortable and eating his breakfast. He is unaware of any palpitations. He denies any dyspnea. OBJECTIVE: GENERAL: He is a middle-aged man appears comfortable at rest. VITAL SIGNS: His blood pressure is 150/80 with a pulse of 100 to 110, in atrial fibrillation, respirations are 14, and he is afebrile. HEENT: No JVD. CHEST: Bilateral coarse rhonchi. HEART: PMI displaced laterally with an irregularly irregular rhythm with systolic murmur at the left sternal border. ABDOMEN: Soft and nontender with normoactive bowel sounds. EXTREMITIES: No edema. DIAGNOSTIC DATA: White count 6.6, hemoglobin and hematocrit 13.6 and 42.2, platelet count is 20,000, and repeat manual platelet count is 26,000. BUN and creatinine are 43 and 1.7. AST and ALT are 631 and 64. MEDICATIONS: His current medications include Calan 40 mg t.i.d., digoxin 0.125 mg daily, Inderal 80 mg daily, meropenem, Percocet, Pulmicort, Seroquel, and Xopenex. IMPRESSION: 1. Atrial fibrillation still with suboptimal heart rate control despite addition of digoxin. 2. Mild aortic stenosis. 3. Lung mass probable malignancy. 4. Tobacco abuse. 5. Worsening thrombocytopenia, now severe. 6. Acute on chronic renal insufficiency. RECOMMENDATIONS: Verapamil will be increased to 80 mg three times daily, warfarin remains on hold, obviously now given his severe thrombocytopenia this is appropriate, initially was being held for planned lung biopsy. This will need to be determined based upon his f/u platelet counts. Continue conservative cardiac management, this is most reasonable at this time. We will continue to follow and make further recommendations as appropriate. Nixon Arevalo MD MTDD
--- NOTE | 2018-05-21 21:53 | PN ---
DATE: 05/21/2018 SUBJECTIVE: The patient is in bed, in no acute distress, nontoxic. PHYSICAL EXAMINATION VITAL SIGNS: Temperature is 98, blood pressure is 158/80, respiratory rate of 18, heart rate of 108. HEENT: Unremarkable. NECK: Supple. LUNGS: Have decreased breath sounds. HEART: Normal S1, S2. ABDOMEN: Soft. LABORATORY DATA: Reveals a white count of 6.6, hemoglobin of 13 and platelets are 20,000. Chemistries revealed a BUN of 43, creatinine of 1.7. LFT elevations are noted and urinalysis is noted. Serology is noted. Urine for Legionella antigen is negative. Microbiology reveals the blood cultures are negative. The patient had a CAT scan of the abdomen and pelvis, left lower lung mass is seen on the CAT scan of the abdomen and pelvis. Liver is unremarkable. Gallbladder is contracted. Unremarkable pancreas. Essentially to abdominal findings. ASSESSMENT AND PLAN: This is a 72-year-old, who had a low-grade fevers and tachycardia, admitted with SIRS, systemic inflammatory response syndrome; left-sided community acquired pneumonia, had lung mass. We discontinued the Zithromax yesterday and CAT scan of the abdomen is unremarkable except for the lung mass and we will check on the repeat cultures and currently on day #2 of meropenem. The patient's fever appears to be improving and we will follow with you. The patient did have a T-max of 100.3 yesterday. Kali Power MD
[2018-05-22] MEDS: Sodium Chloride 0.9% 1,000 ML IV SCH (01:00)
[2018-05-22] MEDS: Levalbuterol 1.25 MG/3 ML Inhal Soln UD IH SCH ×5 (01:50→23:36)
[2018-05-22] MEDS: MEROPENEM 500 MG in NS 500 MG/50 ML BAG IVPB SCH ×3 (05:22→22:14)
[2018-05-22 07:00] LABS: BASO # 0.03 K/mm3 (0.0-2.0); BASO % 0.4 % (0.0-3.0); EOS # 0.1 (0.0-0.7); EOS % 0.7 % (1.5-5.0); GRAN # 4.64 (1.4-6.5); GRAN % 67.5 % (50.0-68.0); HEMOGLOBIN 12.9 g/dL (14.0-18.0); LYMPH # 1.7 (1.2-3.4); LYMPH % 24.7 % (22.0-35.0); MEAN CELL VOLUME 86.3 fl (80.0-105.0); MEAN CORPUSCULAR HEMOGLOBIN 27.6 pg (25.0-35.0); MONO # 0.5 (0.1-0.6); MONO % 6.7 % (1.0-6.0); RBC 4.67 10^6/uL (3.5-6.1); RED CELL DISTRIBUTION WIDTH 15.5 % (11.5-14.5); WHITE BLOOD COUNT 6.9 10^3/uL (4.5-11.0)
[2018-05-22 07:19] LABS: PLATELET COUNT 24 10^3/uL (120.0-450.0)
[2018-05-22] MEDS: Budesonide 0.5 mg/2 ml Inhal Susp UD IH SCH ×3 (07:33→23:36)
[2018-05-22 08:37] LABS: ALB/GLOB RATIO 1.1 (1.1-1.8); ALBUMIN 3.3 g/dL (3.0-4.8); ALT/SGPT 59 U/L (7-56); AST/SGOT 322 U/L (17-59); BLOOD UREA NITROGEN 34 mg/dL (7-21); CALCIUM 9.4 mg/dL (8.4-10.5); GFR NON-AFRICAN AMERICAN 59
--- NOTE | 2018-05-22 08:38 | PN ---
DATE: 05/22/2018 PULMONARY NOTE SUBJECTIVE: The patient appears comfortable this morning. He is not short of breath at rest. OBJECTIVE: VITAL SIGNS: Temperature is 98.4, pulse 90, respirations 19, blood pressure 136/81. Oxygen saturation on room air is 97%. HEENT: Normocephalic, atraumatic. No JVD. CARDIOVASCULAR: Systolic ejection murmur at the lower left sternal border. Questionable S3 gallop. LUNGS: Minimal crackles at the bases. No rhonchi or wheezing this morning. EXTREMITIES: Minimal edema. No cyanosis or clubbing. Calves are nontender to palpation. GI: Abdomen is soft, nontender, nondistended. Bowel sounds are positive. SKIN: No acute rash. NEUROLOGIC: Limited at the present time. IMPRESSION: 1. Left lower lobe lung mass, rule out malignancy. 2. Chronic obstructive pulmonary disease. 3. Congestive heart failure. 4. Atrial fibrillation. 5. Thrombocytopenia. PLAN: The patient appears quite comfortable this morning. He is not short of breath at rest. He is out of bed, sitting in the chair. He does state to feeling much better overall. I did discuss the case with the night nurse at length. The night nurse stated the patient had a good night. On physical exam, the patient's bronchospasm continues to resolve. In addition, the oxygen saturation on room air is now 97%. I will continue with the current nebulizer treatments and inhaled steroids for now. The patient remains on antibiotic therapy - as per Infectious Disease. Inputs by Renal and Cardiology are also noted. Clinical status of the patient is certainly improved - compared to the initial presentation. We are awaiting a the lung biopsy - once the patient's coagulopathy improves. Unfortunately, the future status/prognosis for this patient appears poor. I will discuss the above with Dr. Campos. Javier Echevarria MD MTDEthan
[2018-05-22 09:01] LABS: INR 1.19; PROTHROMBIN TIME 13.7 SECONDS (9.4-12.5)
[2018-05-22] MEDS: Propranolol 80 mg ER Cap PO SCH (10:46)
[2018-05-22 12:27] LABS: HEPATITIS B SURFACE AG Negative (NEGATIVE)
[2018-05-22 12:33] LABS: HEPATITIS A IGM NEGATIVE (NEGATIVE); HEPATITIS B CORE AB NEGATIVE (NEGATIVE)
[2018-05-22 12:44] LABS: HEPATITIS C ANTIBODY NEGATIVE (NEGATIVE)
--- NOTE | 2018-05-22 13:09 | CP.PCM.PN ---
Subjective - Date & Time of Evaluation Date of Evaluation: 05/22/18 Time of Evaluation: 08:30 - Subjective Subjective: For bone scan today, no fevers, not in distress. Objective - Vital Signs/Intake and Output Vital Signs (last 24 hours): Temp Pulse Resp BP Pulse Ox 97.9 F 90 20 117/88 97 05/22/18 12:00 05/22/18 12:00 05/22/18 12:00 05/22/18 12:00 05/22/18 06:00 Intake and Output: 05/22/18 05/22/18 06:59 18:59 Intake Total 1999 Output Total 1925 Balance 75 - Medications Medications: Current Medications Acetaminophen (Tylenol 325mg Tab) 650 mg PO Q6H PRN PRN Reason: Pain, Mild (1-3) Last Admin: 05/20/18 17:17 Dose: 650 mg Budesonide (Pulmicort Respules) 0.5 mg IH [id number] [facility] Last Admin: 05/22/18 07:33 Dose: 0.5 mg Digoxin (Digoxin) 0.125 mg PO 1400 [facility] Last Admin: 05/21/18 13:46 Dose: 0.125 mg Sodium Chloride (Sodium Chloride 0.9%) 1,000 mls @ 75 mls/hr IV .[id number] [facility] Last Admin: 05/22/18 01:00 Dose: Not Given Meropenem/Sodium Chloride (Merrem Iv 500 Mg/Ns 50 Ml) 500 mg in 50 mls @ 100 mls/hr IVPB Q8 [facility]; Protocol Stop: 05/29/18 22:01 Last Admin: 05/22/18 05:22 Dose: 100 mls/hr Levalbuterol HCl (Xopenex) 1.25 mg IH [id number] [facility] Last Admin: 05/22/18 07:33 Dose: 1.25 mg Oxycodone/Acetaminophen (Percocet 5/325 Mg Tab) 1 tab PO Q6H PRN PRN Reason: Pain, moderate (4-7) Stop: 05/22/18 13:27 Last Admin: 05/20/18 02:51 Dose: 1 tab Prednisone (Prednisone Tab) 40 mg PO DAILY [facility] Stop: 05/25/18 23:59 Last Admin: 05/22/18 11:48 Dose: 40 mg Propranolol HCl (Inderal La) 80 mg PO DAILY [facility] Last Admin: 05/22/18 10:46 Dose: 80 mg Quetiapine Fumarate (Seroquel) 12.5 mg PO HS [facility]BAL[facility]; Protocol Last Admin: 05/21/18 21:35 Dose: 12.5 mg Verapamil HCl (Calan Tab) 40 mg PO TID [facility] Last Admin: 05/22/18 10:45 Dose: 40 mg Warfarin Sodium (Coumadin) 5 mg PO 1800 U[facility]; Protocol - Labs Labs: 05/22/18 06:30 05/22/18 06:30 PT 13.7 SECONDS (9.4-12.5) H 05/22/18 08:40 INR 1.19 05/22/18 08:40 APTT 28.0 Seconds (25.1-36.5) 05/22/18 08:40 - Constitutional Appears: Chronically Ill - Head Exam Head Exam: NORMAL INSPECTION - Respiratory Exam Respiratory Exam: Decreased Breath Sounds - Cardiovascular Exam Cardiovascular Exam: +S1, +S2 - GI/Abdominal Exam GI & Abdominal Exam: Soft. absent: Tenderness Assessment and Plan - Assessment and Plan (Free Text) Plan: Assessment consider left sided community-acquired pneumonia, now with new finding of left lung mass on CT scan, suspicious for malignancy, with new onset SIRS R/O HCAP history of Severe sepsis secondary to community-acquired pneumonia COPD hypertension dyslipidemia Psoriasis Plan continue Merrem day 3 pending final repeat culture results Heme/Onc doing work up for the lung mass
--- NOTE | 2018-05-22 13:49 | NM ---
Date of service: 05/22/2018 PROCEDURE: Whole Body Bone Scan HISTORY: r/o bone mets COMPARISON: None available. TECHNIQUE: Following administration of 27.3 miCu of Tc MDP multiplanar whole body images were obtained. FINDINGS: Evidence for bony metastatic disease: None. Degenerative uptake: None. Physiologic uptake: Normal physiologic activity in the kidneys. Other findings: None. IMPRESSION: No evidence of bony metastatic disease.
[2018-05-22] MEDS: Digoxin 125 mcg (0.125 mg) Tab PO SCH (14:22)
--- NOTE | 2018-05-22 15:19 | PN ---
DATE: 05/22/2018 SUBJECTIVE: I spoke with Dr. Campos. Dr. Campos spoke with Dr. Ruby. Dr. Ruby felt that the elevated liver function tests may be from an autoimmune situation. I do not see increased polychromation on the peripheral smear to indicate that he has antibodies to his red cells and platelets. However, I will do a retic count. The LDH is very very high, so we will do a retic count. I will start him on steroids, prednisone 40 mg p.o. stat and then daily for the next five days, and we will see if there has been any response. Interestingly enough, the liver function tests are starting to go down on their own, this is before we started him on the prednisone, so it is unclear why the liver function tests were going up on admission before receiving any treatment and it went up and to go back down again. In any event, we will start him on the steroids. Franco Ross MD
[2018-05-22] MEDS ORDERED: Lidocaine 1% Inj (20ml) ONE (16:14)
[2018-05-22] MEDS ORDERED: Midazolam 2 MG/2 ML VIAL ONE (16:14)
--- NOTE | 2018-05-22 16:24 | PN ---
DATE: 05/22/2018 SUBJECTIVE: The patient is currently sitting in a chair in his room. He is going to be having his CT-guided lung mass biopsy later today, he will be receiving platelets prior to the biopsy. The patient remained stable on normal saline. His BUN and creatinine continued to improve with hydration. He is no longer hyperkalemic and his sodium level is now normal. MEDICATIONS: Medication list reviewed. The patient is currently on verapamil, digoxin, Inderal LA, meropenem, prednisone, Pulmicort, Seroquel, normal saline 75 ml an hour, Tylenol p.r.n. and Xopenex. OBJECTIVE: INTAKE/OUTPUT: Intake 3050. Output is 2565. VITAL SIGNS: Blood pressure 117/88, temperature 97.9, pulse of 90 with a respiratory rate of 20. HEENT: Exam shows him to be normocephalic, atraumatic. Conjunctivae are pink. Sclerae nonicteric. NECK: Supple. No neck vein distention. CHEST: Decreased breath sounds at the left base. No rales, rhonchi or wheezing. CARDIOVASCULAR: Shows an irregular S1, S2, /TR/PI. No S3, no S4, no rub. ABDOMEN: Soft. Mild distention. Bowel sounds normal. No rebound, guarding or masses. EXTREMITIES: Lower extremities show chronic stasis dermatitis with 1+ edema with diminished lower extremity pulses bilaterally. LABORATORY DATA AND IMAGING: Abdominal pelvic CT scan done yesterday shows no acute findings, no evidence for metastatic disease. Bone scan done earlier today shows no evidence for bony metastatic disease. CBC, white blood cell count today 6.9, hemoglobin 12.9 with a platelet count of 24,000, manual platelet count yesterday was 26,000. Coags today, PT 13.7 with an INR of 1.19 in preparation for the biopsy. Chemistries, normal electrolytes. Sodium 139, potassium 4.5. BUN 34 with a creatinine of 1.2. Creatinine is back to baseline levels. BUN remains mildly elevated, perhaps secondary to the use of steroids. Renin level in the low normal range. Aldosterone level in the low normal range, but both normal. Bilirubin is 2.0. Liver enzymes remain mildly elevated. LDH is elevated at 10,427. A.m. cortisol again was normal. Thyroid function tests were normal. ASSESSMENT: 1. Status post mild hyponatremia, initially felt to be depletional with the possibility of syndrome of inappropriate antidiuretic hormone, superimposed secondary to the possible lung mass. The patient responded well to tolvaptan after having had an initial response to normal saline. 2. History of chronic obstructive pulmonary disease secondary to long history of cigarette smoking. The patient remains on inhalation therapy. 3. History of atrial fibrillation, on chronic anticoagulation. This is being held for the kidney biopsy. Heart rate is controlled on verapamil, digoxin and Inderal as per Cardiology. 4. History of hypertension. Blood pressure is controlled on present medication. 5. History of hyperthyroidism. Thyroid function tests are now normal. The patient had required Tapazole in the past but does not require it at this point in time as per Endocrinology note. 6. History of hyperlipidemia. The patient continues a low cholesterol, low-fat diet. Presently, he is not receiving statin therapy which he had been taking in the outpatient setting. 7. Mild elevation of BUN and creatinine, likely secondary to volume depletion and dehydration. With IV fluid hydration, his BUN and creatinine are falling to normal. He still has a slight elevation of BUN, perhaps secondary to the use of steroids. His abdominal CT scan showed no renal abnormality. Normal echogenicity of the kidneys and no hydronephrosis. His urinalysis was negative. PLAN: 1. Discussed with Dr. Campos. Agree with plans for tissue diagnosis and lung biopsy. 2. From a metabolic standpoint, the patient appears to be stable. 3. Perhaps I will discontinue IV fluid hydration post biopsy tomorrow if everything goes well and the patient will be able to maintain himself on IV fluid hydration. Cyrus Paul MD
--- NOTE | 2018-05-22 16:48 | CON ---
DATE: 05/22/2018 GASTROENTEROLOGY CONSULTATION REQUESTING PHYSICIAN: Dr. Campos. This is Dr. Ruby covering for Dr. Dowling. REASON FOR CONSULTATION: I have been asked to see this 72-year-old male with a history of COPD, hyperlipidemia, hypertension, who is admitted to the hospital approximately 10 days ago with increasing shortness of breath. Chest x-ray showed left-sided perihilar infiltrates. The patient's platelet count has been decreasing over the last several days. Etiology of this is unclear. I have been asked to see this patient for elevated AST, mildly elevated ALT, and mildly elevated total bilirubin. He currently denies any abdominal pain, nausea, vomiting, history of liver disease. CT scan of the chest revealed a large 6 x 6 cm mass in the left lower lobe with left hilar lymphadenopathy. The patient denies any GI bleeding such as melena, rectal bleeding, bleeding from his gums, or unusual ecchymotic areas on his skin. PAST MEDICAL HISTORY: Notable for atrial fibrillation, psoriasis, COPD, hypertension, hyperlipidemia, congestive heart failure, aortic stenosis, mitral regurgitation, tricuspid regurgitation, and pulmonary hypertension. SOCIAL HISTORY: The patient smokes between a half pack to a pack of cigarettes per day and he has done so for many years. He denies alcohol abuse. FAMILY HISTORY: Noncontributory. REVIEW OF SYSTEMS: A 14-point review of systems is notable for shortness of breath, especially with dyspnea on minimal exertion. MEDICATIONS AT HOME: Include warfarin, propranolol LA, verapamil, Lipitor, Tapazole, and albuterol. PHYSICAL EXAMINATION: GENERAL: Well-developed male, lying in bed, in no acute distress. VITAL SIGNS: Reveal a temperature of 98.4, blood pressure 136/81, heart rate 90. HEENT: Reveals sclerae to be white. Conjunctivae pink. NECK: Supple. CHEST: Reveals scattered rhonchi. HEART: Exam reveals an irregularly irregular rate with a 2/6 systolic murmur. ABDOMEN: Soft, nontender. No mass. EXTREMITIES: Show no edema. LABORATORY DATA: Reveal white blood cell count 6.9, hemoglobin 12.9, platelet count of 24,000. Manual platelet count is 26,000. Chemistries reveal BUN 34, creatinine 1.2, total bilirubin 2. AST 322, ALT 59, alkaline phosphatase of 187, LDH of 10,427. PT 13.7, INR 1.19. IMPRESSION: A 72-year-old male admitted to the hospital with increasing shortness of breath, history of congestive heart failure, valvular heart disease, atrial fibrillation with thrombocytopenia and elevated liver enzymes, predominantly his AST with minimally elevated ALT and total bilirubin. He has a markedly elevated LDH. I do not believe that the abnormal AST and ALT are secondary to liver dysfunction. I suspect that the patient has hemolytic anemia in conjunction with low platelet count. He has a lung mass suspicious for malignancy. RECOMMENDATIONS: 1. No need for liver biopsy. CT scan of the abdomen and pelvis revealed a normal liver. He does have gallstones on ultrasound. These are asymptomatic. 2. Check serum haptoglobin level and reticulocyte count. David Ruby MD
[2018-05-22] MEDS ORDERED: Midazolam 5 MG/5 ML VIAL IVP ONE (17:00)
--- NOTE | 2018-05-22 17:11 | PN ---
DATE: 05/22/2018 ENDOCRINOLOGY FOLLOWUP NOTE LOCATION: Room 276. SUBJECTIVE: This is a 72-year-old male presenting here with congestive heart failure and possible underlying pulmonary or lung malignancy and possibly with metastatic lung carcinoma and is now being followed closely for metabolic management. He remains clinically euthyroid at this time. LABORATORY DATA: His latest chemistry showed a BUN of 34, sodium 139, potassium 4.5, chloride 101, CO2 of 33, glucose 99 and creatinine 1.2. His thyroid study showed a T4 of 11.4 with a TSH of 2.72 and a free T4 of 2.04. ASSESSMENT AND PLAN: So at this time, we will continue the serial chemistries and supplement accordingly as needed. We will also continue the serial thyroid studies and determine the need to resume his methimazole therapy as indicated. We will follow. Rika Anderson MD
[2018-05-22] MEDS ORDERED: Albuterol-Ipratrop 3 mg / 0.5 (3 ml) UD ONE (18:44)
--- NOTE | 2018-05-22 19:23 | CON ---
DATE: 05/22/2018 HISTORY OF PRESENT ILLNESS: This is a 77-year-old man with the lung mass and thrombocytopenia and several medical problems. Today when I saw the patient he was lying flat in bed but he says he gets short of breath with minimal exertion. PHYSICAL EXAMINATION: SKIN: No petechiae. No bruises. HEENT: No mucosal lesions and no bleeding from the mouth or the eyes. Nodes. Nonpalpable masses in the cervical, supraclavicular, or inguinal regions. LUNGS: It is actually clear. There is no real rhonchi or rales or wheezing. HEART: Atrial fibrillation and irregularly irregular. ABDOMEN: Shows no liver, no spleen, no tenderness, no rebound, no ascites. EXTREMITIES: Shows chronic changes of his skin and the low shins from chronic infectious, probably chronic edema, but Constantino's sign negative. CENTRAL NERVOUS EXAM: No focal finding. ASSESSMENT AND PLAN: There are several medical problems. I spoke with Dr. Arevalo today in terms of the cardiac situation as well as Dr. Campos. 1. The liver test is just climbing. He came in with an abnormal liver test to begin with and that has just steadily gotten worse. His alkaline phosphatase is now up to 218, bilirubin is 1.7, AST is 631, ALT is 64. So Dr. Campos agreed we should get GI to see him. The CAT scan without contrast does not show any lesions in his liver. So it is unclear as to why he has this rapidly worsening liver situation. 2. He has renal insufficiency. The BUN also has been going up and with the creatinine increasing his IV fluids and the creatinine starts going down. 3. CBCs. Interesting is that his white count is staying stable at 6.9, hemoglobin is staying stable at 13, that has not changed pretty much at all but the platelet count continues to drop to 60 and the beginning staying stable at 50 to 60. In the last two to three days, as the liver tests have increased, the platelet count has dropped down to about 25,000. I checked peripheral smear. There is no schistocytes, no fragmented cells, no increased polychromasia. I do not think this is thrombotic thrombocytopenic purpura and I do not think this is idiopathic thrombocytopenic purpura either and I think this has something to do with the liver involvement situation. Then in any event Dr. Campos and I discussed the case this morning. We agree that if possible we can ask Dr. Coles to do a needle biopsy of the lung. We are going to give him platelet transfusion this morning. He does not manifest any side effects from the platelets of 24,000 but we will give him before the biopsy and we will check the PT, PTT first although his INR the other day was 1.6. The second issue is whether to do a liver biopsy as well. I do not think they can do a liver biopsy at the same time as a lung biopsy and I think a lung biopsy is more pertinent but they want to separate that out and next week do a liver biopsy on Friday or so. We will see what he says. Franco Ross MD
--- NOTE | 2018-05-22 19:52 | CT ---
PROCEDURE: CT guided left lower lobe lung biopsy. HISTORY: Large left lower lobe lung mass. Smoker. Evaluate for malignancy PHYSICIAN(S): Peña Patel MD. TECHNIQUE: The relative risks and indications of the procedure were explained to the patient and consent obtained. The patient was placed prone on the CT scanner and preliminary images through the lower lungs obtained. Conscious sedation and monitoring were provided throughout the procedure by a nurse. There is a 7 cm lobulated noncalcified mass in the left lower lobe below the hilum.. A left posterior approach was selected and the area prepped and draped in the usual sterile fashion. 1% Xylocaine was used to anesthetize the skin and soft tissues. A 19 gauge guiding needle was advanced into the 7 cm left lower lobe mass.. Its position was confirmed with CT. Using coaxial technique, multiple core biopsies were obtained. The postprocedure images show no evidence of large pneumothorax or significant hemorrhage.. IMPRESSION: 1. CT-guided left lower lobe lung biopsy as described above.
[2018-05-22] MEDS: Sodium Chloride 0.45% 1,000 ML IV SCH (21:30)
--- NOTE | 2018-05-22 22:07 | PN ---
DATE: 05/22/2018 SUBJECTIVE: A 72-year-old male on telemetry. Nursing relates that there were no particular problems during the night. PHYSICAL EXAMINATION: VITAL SIGNS: His temp is 98.3. His pulse is 70, blood pressure is 122/77. GENERAL: He is alert and oriented x3. LUNGS: Show diminished breath sounds with rhonchi at the bases, left more than right. HEART: Irregular S1 and S2 rhythm. ABDOMEN: Soft, obese. Positive bowel sounds. EXTREMITIES: Show no evidence of edema. LABORATORY DATA: The patient's laboratory data shows a WBC of 6.9, RBC of 4.67, hemoglobin of 12.9, hematocrit of 40.3, platelet count of 24,000. Retic count is 0.5. His PT is 13.7 with an INR of 1.19 and PTT of 28. Chemistry shows sodium 139, potassium 4.5, chloride 101, BUN of 34, creatinine of 1.2. Total bilirubin is 2, AST is 322, ALT is 59, alkaline phosphatase is 187. LDH is 10,427. Procalcitonin is 4.15. PROBLEMS: 1. Left lung mass. 2. Thrombocytopenia. 3. Elevated liver function tests. 4. Chronic obstructive pulmonary disease. 5. Atrial fibrillation. 6. Psoriasis. The patient is being followed by Infectious Disease, Oncology, Pulmonary, Cardiology and Renal. He has renal insufficiency which is improving with IV fluids. He is scheduled for a lung biopsy with Dr. Peña Patel. He will receive platelet transfusion prior to the procedure. He will be seen by GI for his elevated liver function tests. He is being followed by Oncology. We will follow up the patient's labs. He had an abdominopelvic CT with oral contrast only which showed no evidence of metastatic disease. He had a bone scan which was negative for metastatic disease as well. The patient has been explained all the clinical findings to date and plans for treatment. Continue current level of care. Natalya Campos MD
--- NOTE | 2018-05-23 00:53 | PN ---
DATE: 05/22/2018 SUBJECTIVE: The patient is seen sitting in a chair on telemetry. His platelet count remains excessively low. He remains in atrial fibrillation with variable heart rate control. His CT-guided lung biopsy has been on hold given his change in clinical status. CURRENT MEDICATIONS: Include verapamil 40 mg t.i.d., digoxin 0.125 mg daily, Inderal 80 mg daily, meropenem, prednisone, Pulmicort inhaler, Seroquel, and Xopenex. OBJECTIVE: GENERAL: He is a middle-aged male who appears comfortable at rest. VITAL SIGNS: Blood pressure 116/82 with a pulse of 80 and in atrial fibrillation and respirations of 14. His rate occasionally goes up to 110 to 120 range. He remains afebrile. NECK: No JVD. CHEST: Bilateral scattered rhonchi heard. HEART: PMI displaced laterally. Rhythm is irregularly irregular. ABDOMEN: Soft and nontender. Normoactive bowel sounds. EXTREMITIES: No edema. DIAGNOSTIC DATA: White count 6.9, hemoglobin and hematocrit 12.9 and 40.3 with platelet count of 24,000 and reticulocyte count is 0.5. INR 1.19, potassium 4.5, BUN and creatinine 34 and 1.2, and bilirubin is 2. AST and ALT 322 and 59 respectively with alkaline phosphatase of 187 and LDH 10,427. IMPRESSION: 1. Atrial fibrillation with variable heart rate control. 2. Mild aortic stenosis. 3. Lung mass suspicious for malignancy. 4. Severe thrombocytopenia. 5. [id number] renal insufficiency. 6. History of tobacco abuse. RECOMMENDATIONS: His current rate control therapy will continue for now and being adjusted as needed. Warfarin remains on hold given the need for lung biopsy as well as severe thrombocytopenia. Thrombocytopenia workup in progress. We will continue to follow and make further recommendations as appropriate. Nixon Arevalo MD
[2018-05-23] MEDS: Levalbuterol 1.25 MG/3 ML Inhal Soln UD IH SCH ×4 (01:38→21:20)
[2018-05-23] MEDS: MEROPENEM 500 MG in NS 500 MG/50 ML BAG IVPB SCH ×3 (05:40→21:28)
[2018-05-23] MEDS: Sodium Chloride 0.9% 1,000 ML IV SCH (06:37)
[2018-05-23] MEDS: Sodium Chloride 0.45% 1,000 ML IV SCH (06:45)
[2018-05-23] MEDS: Budesonide 0.5 mg/2 ml Inhal Susp UD IH SCH ×2 (07:37→21:20)
[2018-05-23 08:11] LABS: HEMOGLOBIN 12.8 g/dL (14.0-18.0); MEAN CELL VOLUME 86.3 fl (80.0-105.0); MEAN CORPUSCULAR HEMOGLOBIN 28.4 pg (25.0-35.0); MEAN CORPUSCULAR HGB CONC 32.9 g/dl (31.0-37.0); MEAN PLATELET VOLUME 12.5 fl (7.0-11.0); RBC 4.51 10^6/uL (3.5-6.1); RED CELL DISTRIBUTION WIDTH 15.4 % (11.5-14.5); WHITE BLOOD COUNT 7.2 10^3/uL (4.5-11.0)
[2018-05-23 08:14] LABS: PLATELET COUNT 46 10^3/uL (120.0-450.0)
[2018-05-23 08:33] LABS: ALB/GLOB RATIO 1.1 (1.1-1.8); ALBUMIN 3.6 g/dL (3.0-4.8); ALT/SGPT 58 U/L (7-56); AST/SGOT 274 U/L (17-59); BLOOD UREA NITROGEN 33 mg/dL (7-21); CALCIUM 9.8 mg/dL (8.4-10.5); GFR NON-AFRICAN AMERICAN > 60
--- NOTE | 2018-05-23 08:34 | PN ---
DATE: 05/23/2018 SUBJECTIVE: The patient appears comfortable this morning. He is not short of breath at rest. He is mildly confused. OBJECTIVE: VITAL SIGNS: Temperature is 99.0, pulse on the monitor is 92, respiratory rate 18, blood pressure 152/88. Oxygen saturation on nasal cannula is 97%-98%. HEENT: Normocephalic, atraumatic. NECK: No JVD. CARDIOVASCULAR: Systolic ejection murmur at the lower left sternal border. Questionable S3 gallop. LUNGS: Minimal/less crackles at the bases. No rhonchi. No wheezing. EXTREMITIES: Minimal edema. No cyanosis or clubbing. Calves are nontender to palpation. GASTROINTESTINAL: Abdomen is soft, nontender and nondistended. Bowel sounds are positive. SKIN: No acute rash. NEUROLOGIC: Limited at the present time. IMPRESSION: 1. Left lower lobe lung mass, rule out malignancy. 2. Chronic obstructive pulmonary disease. 3. Congestive heart failure. 4. Atrial fibrillation. 5. Thrombocytopenia. PLAN: The patient appears comfortable this morning. He is not short of breath at rest. He is mildly confused. I did discuss the case with the nurse and night aide at length. Apparently, the patient did become somewhat confused last night. On physical exam, there is no significant bronchospasm noted. In addition, there is no significant alveolar-arterial gradient. I will continue the current nebulizer treatments and inhaled steroids for now. The patient remains on antibiotic therapy - as per Infectious Disease. There are no temperatures noted. There is no leukocytosis. The patient is status post CAT scan guided lung biopsy by Dr. Peña Patel. Notes are reviewed. Clinical status of the patient is certainly improved - compared to the initial presentation. However, again, it appears that the future status/prognosis for this patient remains poor. I will discuss the above with Dr. Campos. Javier Echevarria MD [facility]
[2018-05-23] MEDS: Propranolol 80 mg ER Cap PO SCH (10:12)
--- NOTE | 2018-05-23 10:18 | PN ---
DATE: 05/23/2018 SUBJECTIVE: The patient is a 72-year-old male resting this morning comfortably on telemetry. He is status post lung biopsy. PHYSICAL EXAMINATION: VITAL SIGNS: His temp is 99, his pulse is 102, his blood pressure is 152/88, and his oxygen sat is 97% on nasal cannula 3 L reported, respiratory rate is 18. GENERAL: He is alert and oriented x3. LUNGS: Show scattered rhonchi with diminished breath sounds at the bases, left more than right. HEART: Irregular S1, S2 rhythm. ABDOMEN: Obese, soft with positive bowel sounds. EXTREMITIES: Show evidence of edema. LABORATORY DATA: WBC 7.2, RBC 4.5, hemoglobin 12.8, hematocrit 38.9, platelet count is 46,000. His haptoglobin is less than 20. Chemistry shows sodium of 138, potassium 4.7, chloride 103, BUN is 33, creatinine is 1.1. Total bilirubin is 1.4, his AST is 274, ALT is 58, alkaline phosphatase is 188. CURRENT MEDICATIONS: Consist of verapamil 40 mg t.i.d., digoxin 0.125 mg daily, Inderal 80 mg daily. He is on meropenem, prednisone 40 mg daily, Pulmicort 0.5 every 12 hours, Seroquel at bedtime, Tylenol 2 every six hours for mild pain, Xopenex every 6 hours, Zofran p.r.n., and prednisone 40 mg daily. ASSESSMENT AND PLAN: 1. Left lung mass, status post lung biopsy. 2. Thrombocytopenia, status post platelet transfusion for procedure done yesterday, currently placed on steroids by Oncology. 3. Chronic obstructive pulmonary disease with exacerbation. 4. Atrial fibrillation. 5. Coronary artery disease. 6. Psoriasis. Post-surgical procedure, the patient had some periods of agitation, was placed on 1:1 for safety. He seems calmer this morning. We will closely monitor the patient. Follow up his labs. He did initially present with a low-serum sodium which is improved, and at one point, had an elevated potassium which is improved and some acute renal insufficiency which is improved. Microbiological studies today are negative, blood and MRSA screen. Continue to monitor the patient closely and follow up the patient's labs.Follow up with consultants. Natalya Campos MD [facility] # [id number] [place]IL[place]
--- NOTE | 2018-05-23 10:47 | PN ---
DATE: 05/23/2018 SUBJECTIVE: The patient is currently seen, lying comfortable in bed, in telemetry. He appears to be mildly confused. He believes that he is [facility]. He had been seen by Neurology, did have a negative head CT scan. Followup neurology evaluation is in progress. The patient is status post CT-guided lung mass biopsy yesterday. IV fluids will be discontinued. His electrolytes appear normal. His BUN is 33 with a creatinine of 1.1. He is back to baseline levels. MEDICATIONS: Medication list reviewed. The patient is currently on verapamil, Coumadin was on hold, digoxin, Inderal, meropenem, prednisone, Pulmicort, Seroquel, Tylenol, Xopenex, and Zofran p.r.n. OBJECTIVE: INTAKE/OUTPUT: Intake is 2275, output is not charted. VITAL SIGNS: 152/88, up from 124/65. Temperature 99. Pulse 102, respiratory rate is 18, pulse ox is 97%. HEENT: Shows him to be normocephalic, atraumatic. Conjunctivae are pink. Sclerae nonicteric. NECK: Supple. No neck vein distention. CHEST: Slight decreased breath sounds at the left base. No rales, rhonchi, or wheezing. CARDIOVASCULAR: Shows an irregular S1, S2, /TR/PI. No S3, no S4, no rub. ABDOMEN: Soft. Mildly distended. Bowel sounds normal. No rebound, guarding, or masses. LOWER EXTREMITIES: Show trace edema with chronic stasis dermatitis. Diminished lower extremity pulses bilaterally. LABORATORY DATA AND IMAGING: CBC: White blood cell count 7.2, hemoglobin 12.8 with a platelet count at low at 46,000. Coags: PT 13.7, INR 1.19. Chemistries: Normal electrolytes. BUN now 33 with a creatinine of 1.1, likely a steroid effect. Renal parameters have improved. Calcium, phosphorus, magnesium are normal. Mild elevation of liver enzymes. The patient is being evaluated by GI. LDH noted to be elevated. Albumin is 3.6. CT scans done earlier this week. Abdominal CT scan showed no acute findings, no evidence for metastatic disease. Bone scan done showed no evidence for bony metastatic disease. Microbiology, all cultures are negative. ASSESSMENT: 1. Status post mild hyponatremia, initially felt to be depletional in nature, then a possible component of syndrome of inappropriate antidiuretic hormone secretion, perhaps secondary to his lung mass. He was treated successfully with intravenous normal saline and tolvaptan. Sodium level has now stabilized. 2. Status post hyperkalemia. This has been corrected, and his potassium level now remains normal. Morning cortisol levels were normal. Renin, aldosterone levels were in the low normal range, but normal. The patient is currently on a low-potassium diet. 3. History of chronic obstructive pulmonary disease secondary to longstanding history of cigarette smoking. The patient remains on inhalation therapy and steroids. 4. History of atrial fibrillation, on chronic anticoagulation. This was held for his kidney biopsy. Heart rate is controlled on verapamil, digoxin, Inderal as per Cardiology. 5. History of hypertension. Blood pressure for the most part is controlled on present medication, being used to treat atrial fibrillation. 6. History of hyperthyroidism. Thyroid function tests are now normal. The patient required Tapazole in the past for hyperthyroidism. As per endocrine note, this medication is not necessary at this point in time. 7. History of hyperlipidemia. The patient continues low-fat, low-cholesterol diet. Perhaps restart statin therapy upon discharge. 8. Left lower lobe 6.2 cm lobulated mass with lymphadenopathy. Biopsy was done yesterday, results are pending. Feeling is that the patient does have lung cancer. 9. Thrombocytopenia. Discussed with Dr. Campos. Perhaps at some future point in time, bone marrow biopsy to determine etiology of thrombocytopenia. 10. Status post acute renal failure, likely secondary to volume depletion and dehydration. With IV fluid hydration, his BUN and creatinine have returned to normal. Slight elevation of BUN is likely secondary to steroids. His CT scan of the kidneys showed normal echogenicity and no hydronephrosis. His urinalysis was unremarkable. PLAN: 1. Discussed with Dr. Campos. We will await results of tissue diagnosis from the lung biopsy. 2. From metabolic standpoint, the patient appears to be improved. Agree with decision to discontinue IV fluid hydration. 3. Continued confusion. Neuro evaluation in progress. Negative head CT scan. 4. Continue to monitor labs on a regular basis. 5. Continue to monitor the patient on telemetry in light of his atrial fibrillation. Cyrus Paul MD MTDD
--- NOTE | 2018-05-23 11:17 | PN ---
DATE: 05/23/2018 Room 276. SUBJECTIVE: This is a 72-year-old male with known history of hyperthyroidism, previously on methimazole medications. Up until this admission, his thyroid levels were indicative of subclinical hypothyroidism and so his methimazole medications were temporarily discontinued till the present time. He is also undergoing cardiac and pulmonary evaluation. He presented here with acute exacerbation of congestive heart failure with possible underlying metastatic lung carcinoma. He remains clinically euthyroid at this time. The latest chemistry showed a BUN of 33, sodium 138, potassium 4.7, chloride 103, CO2 30, glucose 102 and creatinine 1.1. His latest thyroid study showed a T4 of 11.4 repeat TSH of 2.72. So at this time, we will hold off the resumption of his medical therapy for hyperthyroidism and obtain serial chemistries and supplement accordingly needed. We will also obtain serial thyroid studies and determine the need for resumption as indicated. We will follow. Rika Anderson MD
--- NOTE | 2018-05-23 12:29 | RAD ---
Date of service: 05/22/2018 HISTORY: LLL lung bx COMPARISON: 05/20/2018 FINDINGS: LUNGS: No evidence of post biopsy pneumothorax PLEURA: No significant pleural effusion identified, no pneumothorax apparent. CARDIOVASCULAR: No aortic atherosclerotic calcification present. Moderate cardiomegaly mild vascular congestion OSSEOUS STRUCTURES: No significant abnormalities. VISUALIZED UPPER ABDOMEN: Normal. OTHER FINDINGS: None. IMPRESSION: No evidence of post biopsy pneumothorax on the left.
[2018-05-23] MEDS: Digoxin 125 mcg (0.125 mg) Tab PO SCH (13:29)
--- NOTE | 2018-05-23 14:44 | PN ---
DATE: 05/23/2018 SUBJECTIVE: Patient is in bed, in no acute distress, nontoxic. PHYSICAL EXAMINATION: VITAL SIGNS: Temperature 99, blood pressure 152/80, respiratory rate 18, heart rate 102. HEENT: Examination of HEENT is unremarkable. NECK: Supple. LUNGS: Decreased breath sounds. HEART: Normal S1, S2. ABDOMEN: Soft. LABORATORY DATA: White count 7.2, hemoglobin 12, platelets 46. Chemistries reveals a BUN of 33, creatinine of 1.1. The LFTs are noted. Urinalysis is noted. Serology is reviewed. Microbiology reveals the blood cultures are no growth. Nares are negative. note is reviewed from this morning. Review of orders reveals the patient to be on meropenem and prednisone. ASSESSMENT AND PLAN: The patient is a 72-year-old male with a left-sided community-acquired pneumonia, new finding of the lung mass on computerized tomography scan, suspicious for malignancy, status post lung biopsy computed tomography-guided biopsy, has a new systemic inflammatory response syndrome, day #4 of meropenem. The patient is doing well. The patient is afebrile now and with normal white count and all the cultures; blood cultures negative, methicillin-resistant Staphylococcus aureus screen is negative and the patient's computerized tomography scan-guided biopsy by Dr. Peña Patel, the pathology is pending. We will be discontinuing the meropenem within the next 24 hours. Kali Power MD
--- NOTE | 2018-05-23 15:13 | PN ---
DATE: 05/23/2018 SUBJECTIVE: The patient is seen lying in bed on telemetry. He is confused this morning. He underwent CT-guided biopsy of his lung mass yesterday. Results are pending. MEDICATIONS: His current medications include verapamil 40 mg t.i.d., digoxin 0.125 mg daily, Inderal 80 mg daily, meropenem, prednisone 40 mg daily, Pulmicort inhaler, Seroquel, Xopenex. OBJECTIVE: GENERAL: He is a middle-aged man who appears comfortable. VITAL SIGNS: Blood pressure is 140/90 with pulse of 100-110 in atrial fibrillation, respirations are 16. He is afebrile. HEENT: No JVD. CHEST: Coarse scattered rhonchi. HEART: PMI displaced laterally with an irregularly irregular rhythm. ABDOMEN: Soft, nontender. Normoactive bowel sounds. EXTREMITIES: Unchanged. DIAGNOSTIC DATA: Potassium 4.7, BUN and creatinine 33 and 1.1. White count 7.2, hemoglobin and hematocrit 12 and 38.9 with platelet count of 46,000. AST and ALT 274 and 58 respectively. IMPRESSION: 1. Chronic atrial fibrillation with variable heart rate control, not currently anticoagulated, given recent biopsy as well as severe thrombocytopenia. 2. Mild aortic stenosis. 3. Probable lung cancer. 4. Severe thrombocytopenia. 5. [id number] renal insufficiency. 6. History of tobacco abuse. RECOMMENDATIONS: Continued heart rate control therapy will be planned for now. Anticoagulation will remain on hold until his thrombocytopenia has improved. Further recommendations will be made based upon his lung biopsy results. We will follow along as needed. Nixon Arevalo MD
--- NOTE | 2018-05-23 17:55 | PN ---
DATE: 05/23/2018 This note is for Dr. Dowling, Dr. Ruby covering. SUBJECTIVE: The patient is lying in bed. He is confused. He had confusion last night. He is disoriented to time and place. He is pleasantly awake. He did have a CT-guided lung biopsy yesterday. There is no evidence of any overt bleeding. PHYSICAL EXAMINATION: VITAL SIGNS: Reveal temperature of 99, blood pressure 142/90, heart rate of 114. HEENT: Reveal sclerae to be white. Conjunctivae pink. NECK: Supple. CHEST: Reveal distant breath sounds. HEART: Reveals a regular rate and rhythm. ABDOMEN: Soft, nontender. EXTREMITIES: Show no edema. LABORATORY DATA: Reveal white blood cell count 7.2, hemoglobin 12.8. He is haptoglobin is less than 20. His reticulocyte count was 0.51. Chemistries reveal total bilirubin of 1.4, AST down to 274, ALT down to 58, alkaline phosphatase of 188. His platelet count is 46,000. He was started on prednisone yesterday. IMPRESSION: A 72-year-old male with a large lung mass suspicious for malignancy, status post CT-guided lung biopsy with predominately elevated AST, elevated LDH of 10,247 with a low haptoglobin level. 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 His reticulocyte count is not elevated. RECOMMENDATIONS: 1. Continue prednisone.. 2. The patient will need neurologic evaluation for change in his mental status. 3. Await biopsy of lung mass. David Ruby MD
--- NOTE | 2018-05-23 20:17 | CON ---
DATE: 05/23/2018 HISTORY OF PRESENT ILLNESS: This is a 72-year-old white male with a past medical history of diabetes, hypertension, aortic stenosis, AFib, and also hypertension, hyperlipidemia, history of hyperthyroidism, came to hospital on 05/13/2018 and the patient was seen on 05/16/2018, now today reconsulted as because of change in mental status and the patient is very agitated and confused and called to evaluate the patient. CAT scan of the head was done, which was negative and the Oncology on the board for his lung mass. ALLERGIES: NO KNOWN DRUG ALLERGIES. SOCIAL HISTORY: Smokes and insists on smoking. REVIEW OF SYSTEMS: A 10-point review of systems was negative. PHYSICAL EXAMINATION: HEENT: Normocephalic and atraumatic. NECK: Supple. NEUROLOGIC: Awake and oriented to self. Cranial nerves II through XII were tested. Pupils reactive. Spontaneous movement of the extremities noted. Deep tendon reflexes 1+. Plantars are downgoing. Sensory appears intact. Cerebellar gait normal. IMPRESSION: A 72-year-old male with past medical history of diabetes, hypertension, aortic stenosis, atrial fibrillation, hyperthyroidism, and lung mass and the patient has altered mental status. PLAN: Suggest to increase the Seroquel to 25 mg for agitation and Ativan 1 mg IV every 6 hours p.r.n. Continue present management. We will followup. Norbert Carlin MD
[2018-05-24] MEDS: MEROPENEM 500 MG in NS 500 MG/50 ML BAG IVPB SCH ×3 (05:28→23:28)
[2018-05-24 06:24] LABS: HEMOGLOBIN 11.4 g/dL (14.0-18.0); MEAN CELL VOLUME 87.1 fl (80.0-105.0); MEAN CORPUSCULAR HEMOGLOBIN 27.1 pg (25.0-35.0); MEAN CORPUSCULAR HGB CONC 31.1 g/dl (31.0-37.0); RED CELL DISTRIBUTION WIDTH 15.4 % (11.5-14.5); WHITE BLOOD COUNT 6.5 10^3/uL (4.5-11.0)
[2018-05-24 06:27] LABS: ALB/GLOB RATIO 1.1 (1.1-1.8); ALBUMIN 3.2 g/dL (3.0-4.8); ALT/SGPT 68 U/L (7-56); AST/SGOT 238 U/L (17-59); BLOOD UREA NITROGEN 34 mg/dL (7-21); CALCIUM 9.2 mg/dL (8.4-10.5); GFR NON-AFRICAN AMERICAN > 60
[2018-05-24 06:51] LABS: PLATELET COUNT 34 10^3/uL (120.0-450.0)
[2018-05-24] MEDS: Budesonide 0.5 mg/2 ml Inhal Susp UD IH SCH (07:36)
[2018-05-24] MEDS: Levalbuterol 1.25 MG/3 ML Inhal Soln UD IH SCH ×3 (07:36→21:40)
--- NOTE | 2018-05-24 09:16 | PN ---
DATE: 05/24/2018 SUBJECTIVE: The patient is seen lying in bed in telemetry. He remains somewhat confused and restless. He remains in atrial fibrillation with reasonable heart rate control. CURRENT MEDICATIONS: Include Ativan p.r.n., verapamil is 40 mg t.i.d., digoxin 0.125 mg daily, Inderal LA 80 mg daily, meropenem, prednisone, Pulmicort, Seroquel and Xopenex. OBJECTIVE: GENERAL: He is a middle-aged man who appears somewhat restless. VITAL SIGNS: His blood pressure is 146/86 with a pulse of 96, in atrial fibrillation, respirations is 14. He is afebrile. HEENT: No JVD. CHEST: Bilateral scattered rhonchi. HEART: Irregularly irregular rhythm with systolic murmur at the left sternal border. ABDOMEN: Soft, nontender, normoactive bowel sounds. EXTREMITIES: Chronic cellulitic changes with 1+ leg edema. DIAGNOSTIC DATA: Potassium is 4.5, BUN and creatinine is 34 and 1. AST and ALT 238 and 68 with alkaline phosphatase of 167, bilirubin is improved to 1.1. IMPRESSION: 1. Chronic atrial fibrillation with variable heart rate control. 2. Mild aortic stenosis. 3. Probable lung cancer. 4. Severe thrombocytopenia. 5. Plchi-wv-swloemk renal insufficiency. 6. History of tobacco abuse. 7. Elevated transaminases. 8. Markedly elevated LDH. RECOMMENDATIONS: Continued rate control therapy as advised. Anticoagulation remains on hold given his severe thrombocytopenia. If this improves resumption of Coumadin is advised. Further recommendations will be made based upon the results of his lung biopsy. We will follow along as needed. Nixon Arevalo MD MTDEthan
[2018-05-24] MEDS: Propranolol 80 mg ER Cap PO SCH (09:25)
--- NOTE | 2018-05-24 10:37 | PN ---
DATE: 05/24/2018 PULMONARY NOTE SUBJECTIVE: The patient appears comfortable this morning. He is not short of breath at rest. He remains confused. PHYSICAL EXAMINATION: VITAL SIGNS: Temperature is 98.3, pulse on the monitor is 94, respiratory rate 18/20, blood pressure 148/87. Oxygen saturation on nasal cannula 93-98%. HEENT: Normocephalic, atraumatic. No JVD. CARDIOVASCULAR: Systolic ejection murmur at the lower left sternal border. Questionable S3 gallop. LUNGS: Minimal basilar crackles. Very minimal rhonchi. No wheezing. GI: Abdomen is soft, nontender and nondistended. Bowel sounds are positive. EXTREMITIES: Mild edema. No cyanosis or clubbing. Calves are nontender to palpation. SKIN: No acute rash. NEUROLOGIC: Exam limited at the present time. IMPRESSION: 1. Left lower lobe lung mass, rule out malignancy. 2. Chronic obstructive pulmonary disease. 3. Congestive heart failure. 4. Atrial fibrillation. 5. Thrombocytopenia. PLAN: The patient appears comfortable this morning. He is not short of breath at rest. He remains confused. I did discuss the case with the night nurse and aide at length. On physical exam, there is no significant bronchospasm noted. In addition, there is no significant alveolar-arterial gradient. I will continue the current nebulizer treatments and inhaled steroids for now. The patient remains on antibiotic therapy - as per Infectious Disease. The temperatures have now resolved. There is no leukocytosis. Inputs by GI and Cardiology are also noted. Repeat a.m. labs are pending. Lung biopsy cytopathology - pending. Clinical status of the patient has certainly improved - compared to his initial presentation. However, given the above, the overall status/prognosis for this patient appears poor. I will discuss the above with the attending physician. Javier Echevarria MD MTDEthan
--- NOTE | 2018-05-24 13:40 | CON ---
DATE: 05/24/2018 HISTORY OF PRESENT ILLNESS: The patient is a 72-year-old white male with no known former psychiatric history, (please Note that this provider has to review a mini-check system and there it does appear to be no major current encounter with this patient with Psychiatry in the [facility] system). He has been treated since 05/13/2018 after he presented with shortness of breath. The patient has an extensive medical history. Please refer to medical notes for more detailed information. Psychiatry was consulted because the patient had an acute change of mental status including agitation, confusion, which led to code mccracken yesterday. I spoke with nursing and I tried to speak with the patient at bedside; however, the patient was quite sedated . Even with the help of staff member, the patient was difficult to get his attention and to sustain attention. However, staff members do confirm that the patient's behavior yesterday was not typical for him and did show an acute change in mental status. Presently, as noted, the patient is sedated, but he does show shortness of breath during my visit as overall he is sleeping. He is able to answer few questions. He notes he is in the hospital, and he clearly remembers his nurse, however, he cannot answer other questions and no meaningful mental status exam could be performed. PSYCHIATRIC HISTORY: No known psychiatry history at this time. [facility] Records did not indicate any prior psychiatric involvements. MEDICATIONS: The patient has been given Seroquel 25 mg at bedtime on the unit and Ativan 1 mg IV every 6 hours p.r.n. Labs and vitals were reviewed. IMPRESSION: The patient appears to have delirium. The patient with many possible causes for acute changes in mental status and with resultant behavioral disturbance. RECOMMENDATIONS: I suggest to continue with Seroquel. Does appear to have been beneficial for this patient thus far in the unit. However, I would leave more conservative patient's clear respiratory distress at this time. I will recommend and I will change his dosing to Seroquel 12.5 mg to be given in the evening and another 12.5 at night. Other than that, it will be definitely be decreased as this causes respiratory . This dose should never be 1 mg and decreased to 0.25 mg every 6 hours p.r.n. and go from there. Psychiatry will continue to follow up. Next followup will be on 05/25/[address] Nicholas. María Elena Marino MD
[2018-05-24] MEDS: Digoxin 125 mcg (0.125 mg) Tab PO SCH (15:46)
[2018-05-24] MEDS: Metoprolol 1 mg/ml Inj IVP PRN (16:01)
[2018-05-24] MEDS: Dextrose 5%/0.45% NS 1,000 ML IV SCH (16:04)
--- NOTE | 2018-05-24 16:19 | PN ---
DATE: 05/24/2018 ENDO FOLLOWUP NOTE ROOM: 276 SUBJECTIVE: This is a 72-year-old male presenting here with congestive heart failure and progressive shortness of breath and evaluated also to have possible metastatic lung carcinoma with persistent thrombocytopenia as noted thereof, and is being followed closely now for metabolic management. He remains clinically euthyroid at this time and the latest chemistry showed a BUN of 34, sodium 141, potassium 4.5, chloride 104, CO2 32, glucose 92 and creatinine 1.0. His thyroid studies remained optimal with a T4 of 11.4 and a TSH of 2.72 and a free T4 of 2.04. So at this time, we will continue the present medical management as given. We will also hold off the resumption of his medical therapy for hyperthyroidism and obtain serial thyroid studies and determine the need to resume his methimazole therapy as indicated. We will follow and advise accordingly. Rika Anderson MD
--- NOTE | 2018-05-24 16:32 | PN ---
DATE: 05/24/2018 SUBJECTIVE: The patient is currently seen lying comfortable in bed. IV fluids have been discontinued. His BUN and creatinine are back to baseline levels. BUN 34 with a creatinine of 1. Sodium is 141 with a potassium of 4.5 both normal. MEDICATIONS: Medication list reviewed. The patient is currently on Ativan, Calan, digoxin, Inderal, meropenem, prednisone, Pulmicort, Seroquel, Tylenol, Xopenex, and Zofran p.r.n. OBJECTIVE: INTAKE/OUTPUT. Intake is 510, output is 250 if accurate. VITAL SIGNS: Blood pressure is 148/87, pulse of 101, temperature 98.3 with a respiratory rate of 20. HEENT: Exam shows him to be normocephalic, atraumatic. Conjunctivae are pink. Sclerae nonicteric. NECK: Supple. No neck vein distention. CHEST: Slight decreased breath sounds at the left base. Occasional rhonchi. No rales or wheezing. CARDIOVASCULAR: Shows an irregular S1, S2, /TR/PI. No S3, no S4, no rub. ABDOMEN: Soft. Minimal distention. Bowel sounds normal. No rebound, guarding or masses. EXTREMITIES: Lower extremities shows trace pitting edema. The patient has chronic stasis dermatitis. Diminished lower extremity pulses bilaterally. LABORATORY DATA AND IMAGING: CBC, white blood cell count is 6.5 with a hemoglobin of 11.4, platelet count remains low at 34,000. Chemistries showed normal electrolytes. BUN 34 with a creatinine of 1. Calcium is 9.2. Phosphorus was normal at 3.8, magnesium 1.8. Liver enzymes remain minimally elevated. Albumin level is 3.2. Microbiology, all cultures are negative. ASSESSMENT: 1. Status post mild hyponatremia, initially felt to be depletional hyponatremia and then quite possibly felt to have syndrome of inappropriate antidiuretic hormone secretion. The patient was treated successfully with intravenous normal saline and tolvaptan. Sodium level had stabilized. The syndrome of inappropriate antidiuretic hormone secretion is felt to be secondary to the lung mass. 2. Status post mild hyperkalemia. This is been corrected. Potassium levels remain normal. Cortisol levels are normal. Renin aldosterone levels are in the low normal range. The patient is currently on a low-potassium diet. 3. History of chronic obstructive pulmonary disease secondary to long history of cigarette smoking. The patient remains on inhalation therapy and steroids. 4. Mild elevation of BUN with a normal creatinine likely secondary to steroids. 5. History of atrial fibrillation on chronic anticoagulation. This was held for his lung biopsy. Heart rate is currently controlled on verapamil, digoxin, Inderal as per Cardiology. 6. History of hypertension. Blood pressure for the most part is controlled on present medication. The patient remains on Calan for control of atrial fibrillation. Systolics were in the 140s with diastolics in the 80s. 7. History of hyperthyroidism. Thyroid function tests are now normal. The patient required Tapazole in the past. He is currently off this medication. 8. Hyperlipidemia. Continue low-fat, low-cholesterol diet. Perhaps restart statin therapy upon discharge. 9. Left lower lobe 6.2 cm lobulated mass with lymphadenopathy. Biopsy was done on 05/22/2018. Results are pending. In all likelihood, the patient has lung cancer. 10. Thrombocytopenia. Discussed with Dr. Campos. At some point in time in the future, the patient might require a bone marrow biopsy. The patient is working together with Dr. Campos and Dr. Ross. 11. Status post mild elevation of BUN and creatinine secondary to volume depletion and dehydration. With IV fluid hydration, his BUN and creatinine have returned to normal but he is now slightly prerenal because of steroids. CT scan of the kidneys showed normal echogenicity and no hydronephrosis. Urinalysis was unremarkable. PLAN: 1. Await lung biopsy result. 2. From metabolic standpoint, the patient appears to be stable. He will remain off IV fluid hydration and I do not expect any fall in BUN back to below 20 until steroid dose is decreased and/or discontinued. 3. Continued mild confusion. Neuro evaluation is in progress. The patient had a negative head CT scan. 4. Continue to monitor the patient on telemetry in light of his atrial fibrillation. Cyrus Paul MD
[2018-05-24 19:00] LABS: ARTERIAL BLOOD GAS HCO3 29.9 mmol/L (21-28); ARTERIAL BLOOD GAS PCO2 42 mm/Hg (35-45); ARTERIAL BLOOD GAS PH 7.46 (7.35-7.45); ARTERIAL BLOOD GAS TCO2 31.2 mmol.L (22-28)
[2018-05-24] MEDS ORDERED: Vancomycin 1.5 GM in Sodium Chloride 0.9% 500 ML IVPB ONE (19:28)
--- NOTE | 2018-05-24 20:09 | PN ---
DATE: 05/24/2018 SUBJECTIVE: The patient is 72-year-old. The patient of Dr. Campos, covering for him. The patient seen and examined, case discussed with patient's nurse. The patient is agitated since he came back from biopsy. He was very confused and agitated. Yesterday when his caring nurse tried to give him injection, he twisted her arm and . He has been on one-to-one. Psych consult was called and he was given Seroquel. PHYSICAL EXAMINATION: GENERAL: Today, the patient is lethargic, confused and disoriented. Does not respond to verbal command; however, he responds to painful stimuli. VITAL SIGNS: He is afebrile, pulse 115, respiration 22 and blood pressure 147/78. LUNGS: Bilateral soft crackle in upper lung region. The patient is not able to handle his saliva, so he is high risk for aspiration. We will hold off his oral feeding and keep him on IV fluid, small dose. HEART: S1 and S2, audible. ABDOMEN: Soft, obese and nontender. No rebound. No guarding. NEUROLOGICAL: He is sleepy, lethargic. LABORATORY EXAM: WBC 6.5, hemoglobin 11.4, hematocrit 36 and platelet 34. Chemistry; sodium 141, potassium 4.5, chloride 104, CO2 of 32, BUN of 34, creatinine 1, blood sugar of 92. His AST 238 and ALT 68. Blood culture and urine cultures are negative. ASSESSMENT: 1. Lethargy and confusion, postprocedure. 2. Left lower lung mass. 3. Status post computed tomography-guided biopsy. 4. Chronic obstructive pulmonary disease. 5. Congestive heart failure. 6. Chronic atrial fibrillation. 7. Thrombocytopenia liver function tests. 8. Acute onset of delirium. 9. History of aortic stenosis. PLAN: We will keep him n.p.o. for now until his mental status improves. Keep him on small dose of IV fluid, probably 40 mL per hour. Carolyn Hernandez MD
--- NOTE | 2018-05-24 23:39 | PN ---
DATE: 05/24/2018 SUBJECTIVE: The patient is in bed, in no acute distress. PHYSICAL EXAMINATION: VITAL SIGNS: Temperature is 101.4, blood pressure is 150/90, respiratory rate 22, heart rate of 107. HEENT: Unremarkable. NECK: Supple. LUNGS: Decreased breath sounds. HEART: Normal S1, S2. ABDOMEN: Soft. LABORATORY DATA: Reveals a white count of 6.5, hemoglobin 11, platelet of 34, BUN of 34, creatinine of 1. LFTs are elevated as is the alkaline phosphatase. LDH is over 10,000, and the patient does have an elevated procalcitonin, and urinalysis is reviewed. Serology is noted. Microbiology reveals blood cultures are negative. Nares MRSA is negative. Repeat blood cultures are negative. Review of orders reveals the patient to be on meropenem, prednisone. ASSESSMENT AND PLAN: A 72-year-old female with left-sided community acquired pneumonia, lung mass suspicious for malignancy and status post lung biopsy and new systemic inflammatory response syndrome with temperature today of 101. Review of orders reveal the patient on meropenem day #5. The patient is on prednisone, and we will also order one dose of vancomycin. The patient does have renal insufficiency. Etiology of the new fever to be determined and tachycardia. We may need further images with CT of the abdomen and pelvis and chest x-ray. We will repeat procalcitonin, and the patient's last chest x-ray was on 05/22/2018 which was reported to be no pneumothorax. Also bone scan is noted. We will order a portable chest x-ray and an ultrasound of the abdomen and follow with you. The patient did have abdominal CAT scan on 05/21/2017. No evidence of metastatic disease, gallbladder contracted. The patient also had an ultrasound of the abdomen on 05/15/2018, which showed cholelithiasis, negative study for gallbladder wall thickening, paracystic fluid or ultrasound. Lara sign was negative. We will follow with you. Kali Power MD
[2018-05-25 02:25] LABS: URINE BILIRUBIN NEGATIVE (NEGATIVE); URINE BLOOD MODERATE (NEGATIVE); URINE GLUCOSE (UA) NEGATIVE (NEGATIVE); URINE LEUKOCYTE ESTERASE NEGATIVE Leu/uL (NEGATIVE); URINE PROTEIN TRACE mg/dL (<30 mg/dL); URINE UROBILINOGEN 0.2 E.U./dL (<1 E.U./dL)
[2018-05-25] MEDS: Levalbuterol 1.25 MG/3 ML Inhal Soln UD IH SCH ×5 (02:25→20:40)
[2018-05-25 02:29] LABS: URINE APPEARANCE SL CLOUDY (CLEAR); URINE COLOR YELLOW (YELLOW)
[2018-05-25 02:40] LABS: URINE AMORPHOUS SEDIMENT FEW /hpf; URINE BACTERIA OCC /hpf; URINE EPITHELIAL CELLS 0 - 2 /hpf (0-5); URINE WBC 0 - 2 /hpf (0-6)
[2018-05-25] MEDS: MEROPENEM 500 MG in NS 500 MG/50 ML BAG IVPB SCH ×3 (06:09→21:59)
[2018-05-25 06:30] LABS: HEMOGLOBIN 11.9 g/dL (14.0-18.0); MEAN CELL VOLUME 87.4 fl (80.0-105.0); MEAN CORPUSCULAR HEMOGLOBIN 27.8 pg (25.0-35.0); MEAN CORPUSCULAR HGB CONC 31.8 g/dl (31.0-37.0); MEAN PLATELET VOLUME 11.8 fl (7.0-11.0); RBC 4.28 10^6/uL (3.5-6.1); RED CELL DISTRIBUTION WIDTH 15.4 % (11.5-14.5); WHITE BLOOD COUNT 5.6 10^3/uL (4.5-11.0)
[2018-05-25 06:43] LABS: ALB/GLOB RATIO 1.1 (1.1-1.8); ALBUMIN 3.1 g/dL (3.0-4.8); ALT/SGPT 71 U/L (7-56); AST/SGOT 207 U/L (17-59); BLOOD UREA NITROGEN 32 mg/dL (7-21); CALCIUM 9.1 mg/dL (8.4-10.5); GFR NON-AFRICAN AMERICAN > 60
[2018-05-25 06:59] LABS: PLATELET COUNT 37 10^3/uL (120.0-450.0)
[2018-05-25] MEDS: Budesonide 0.5 mg/2 ml Inhal Susp UD IH SCH ×2 (07:30→20:40)
[2018-05-25] MEDS: Propranolol 80 mg ER Cap PO SCH (09:40)
--- NOTE | 2018-05-25 09:49 | RAD ---
Date of service: 05/24/2018 HISTORY: fever COMPARISON: 05/22/2018 FINDINGS: LUNGS: Left perihilar consolidation PLEURA: No significant pleural effusion identified, no pneumothorax apparent. CARDIOVASCULAR: No aortic atherosclerotic calcification present. Mild cardiomegaly no pulmonary vascular congestion. OSSEOUS STRUCTURES: No significant abnormalities. VISUALIZED UPPER ABDOMEN: Normal. OTHER FINDINGS: None. IMPRESSION: New right-sided perihilar consolidation consistent with pneumonia
[2018-05-25] MEDS: Dextrose 5%/0.45% NS 1,000 ML IV SCH ×2 (11:00→14:23)
--- NOTE | 2018-05-25 11:55 | CP.PCM.PN ---
<Zaid De Santiago - Last Filed: 05/25/18 19:08> Subjective - Date & Time of Evaluation Date of Evaluation: 05/25/18 Time of Evaluation: 08:35 - Subjective Subjective: Zaid De Santiago DO, PGY1. GI progress note for Dr Dowling Patient seen and examined at bedside. He is altered, still on 1:1 observation. ROS is limited due to patient's condition. Objective - Vital Signs/Intake and Output Vital Signs (last 24 hours): Temp Pulse Resp BP Pulse Ox 100.3 F H 83 20 112/71 97 05/25/18 05:48 05/25/18 10:00 05/25/18 05:48 05/25/18 09:40 05/25/18 05:48 Intake and Output: 05/25/18 05/25/18 06:59 18:59 Intake Total 1550 Output Total 1850 Balance -300 - Medications Medications: Current Medications Acetaminophen (Tylenol 325mg Tab) 650 mg PO Q6H PRN PRN Reason: Pain, Mild (1-3) Last Admin: 05/20/18 17:17 Dose: 650 mg Acetaminophen (Tylenol 650 Mg Supp) 650 mg RC Q6H PRN PRN Reason: Fever >100.4 F Last Admin: 05/24/18 17:51 Dose: 650 mg Budesonide (Pulmicort Respules) 0.5 mg IH [id number] UBALDO Last Admin: 05/25/18 07:30 Dose: 0.5 mg Digoxin (Digoxin) 0.125 mg PO 1400 UBALDO Last Admin: 05/24/18 15:46 Dose: Not Given Meropenem/Sodium Chloride (Merrem Iv 500 Mg/Ns 50 Ml) 500 mg in 50 mls @ 100 mls/hr IVPB Q8 UBALDO; Protocol Stop: 05/29/18 22:01 Last Admin: 05/25/18 06:09 Dose: 50 mls/hr Dextrose/Sodium Chloride (Dextrose 5%/0.45% Ns 1000 Ml) 1,000 mls @ 50 mls/hr IV .Q20H UBALDO Last Admin: 05/24/18 16:04 Dose: 50 mls/hr Levalbuterol HCl (Xopenex) 1.25 mg IH [id number] UBALDO Last Admin: 05/25/18 07:30 Dose: 1.25 mg Lorazepam (Ativan) 0.25 mg IVP Q6H PRN; Protocol PRN Reason: Agitation Last Admin: 05/24/18 22:21 Dose: 0.25 mg Metoprolol Tartrate (Lopressor) 5 mg IVP Q6 PRN PRN Reason: Heart Rate greater than 110bpm Last Admin: 05/24/18 16:01 Dose: 5 mg Ondansetron HCl (Zofran Inj) 4 mg IVP Q6H PRN PRN Reason: Nausea/Vomiting Prednisone (Prednisone Tab) 40 mg PO DAILY [facility] Stop: 05/25/18 23:59 Last Admin: 05/25/18 09:40 Dose: 40 mg Propranolol HCl (Inderal La) 80 mg PO DAILY [facility] Last Admin: 05/25/18 09:40 Dose: 80 mg Quetiapine Fumarate (Seroquel) 12.5 mg PO HS UBALDO; Protocol Last Admin: 05/25/18 00:34 Dose: 12.5 mg Quetiapine Fumarate (Seroquel) 12.5 mg PO 1500 UBALDO; Protocol Last Admin: 05/24/18 15:46 Dose: Not Given Verapamil HCl (Calan Tab) 40 mg PO TID UBALDO Last Admin: 05/25/18 09:37 Dose: 40 mg Warfarin Sodium (Coumadin) 5 mg PO 1800 UBALDO; Protocol - Labs Labs: 05/25/18 05:30 05/25/18 05:30 PT 13.7 SECONDS (9.4-12.5) H 05/22/18 08:40 INR 1.19 05/22/18 08:40 APTT 28.0 Seconds (25.1-36.5) 05/22/18 08:40 - Constitutional Appears: Confused - Head Exam Head Exam: ATRAUMATIC, NORMAL INSPECTION, NORMOCEPHALIC - Eye Exam Eye Exam: Normal appearance - ENT Exam ENT Exam: Mucous Membranes Dry - Neck Exam Neck Exam: Full ROM, Normal Inspection. absent: Lymphadenopathy - Respiratory Exam Respiratory Exam: Decreased Breath Sounds, Prolonged Expiratory Phase - Cardiovascular Exam Cardiovascular Exam: REGULAR RHYTHM, +S1, +S2. absent: Gallop, Rubs - GI/Abdominal Exam GI & Abdominal Exam: Soft, Normal Bowel Sounds. 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 no GI intervention at this point Case reviewed and plan discussed with Dr Josey De Santiago, <Romulo Dowling V - Last Filed: 05/26/18 22:03> Objective - Vital Signs/Intake and Output Vital Signs (last 24 hours): Temp Pulse Resp BP Pulse Ox 100.2 F H 66 19 125/78 100 05/25/18 18:45 05/25/18 18:00 05/25/18 18:00 05/25/18 18:00 05/25/18 12:00 Intake and Output: 05/25/18 05/26/18 18:59 06:59 Intake Total 600 Balance 600 - Medications Medications: Current Medications Acetaminophen (Tylenol 325mg Tab) 650 mg PO Q6H PRN PRN Reason: Pain, Mild (1-3) Last Admin: 05/20/18 17:17 Dose: 650 mg Acetaminophen (Tylenol 650 Mg Supp) 650 mg RC Q6H PRN PRN Reason: Fever >100.4 F Last Admin: 05/24/18 17:51 Dose: 650 mg Budesonide (Pulmicort Respules) 0.5 mg IH [id number] UBALDO Last Admin: 05/25/18 20:40 Dose: 0.5 mg Digoxin (Digoxin) 0.125 mg PO 1400 UBALDO Last Admin: 05/25/18 14:16 Dose: 0.125 mg Meropenem/Sodium Chloride (Merrem Iv 500 Mg/Ns 50 Ml) 500 mg in 50 mls @ 100 mls/hr IVPB Q8 UBALDO; Protocol Stop: 05/29/18 22:01 Last Admin: 05/25/18 21:59 Dose: 100 mls/hr Dextrose/Sodium Chloride (Dextrose 5%/0.45% Ns 1000 Ml) 1,000 mls @ 50 mls/hr IV .Q20H UBALDO Last Admin: 05/25/18 14:23 Dose: 50 mls/hr Levalbuterol HCl (Xopenex) 1.25 mg IH [id number] UBALDO Last Admin: 05/25/18 20:40 Dose: 1.25 mg Lorazepam (Ativan) 0.25 mg IVP Q6H PRN; Protocol PRN Reason: Agitation Last Admin: 05/24/18 22:21 Dose: 0.25 mg Metoprolol Tartrate (Lopressor) 5 mg IVP Q6 PRN PRN Reason: Heart Rate greater than 110bpm Last Admin: 05/24/18 16:01 Dose: 5 mg Ondansetron HCl (Zofran Inj) 4 mg IVP Q6H PRN PRN Reason: Nausea/Vomiting Prednisone (Prednisone Tab) 40 mg PO DAILY [facility] Stop: 05/25/18 23:59 Last Admin: 05/25/18 09:40 Dose: 40 mg Propranolol HCl (Inderal La) 80 mg PO DAILY [facility] Last Admin: 05/25/18 09:40 Dose: 80 mg Quetiapine Fumarate (Seroquel) 12.5 mg PO HS [facility]; Protocol Last Admin: 05/25/18 00:34 Dose: 12.5 mg Quetiapine Fumarate (Seroquel) 12.5 mg PO 1500 UBALDO; Protocol Last Admin: 05/25/18 14:16 Dose: 12.5 mg Verapamil HCl (Calan Tab) 40 mg PO TID [facility] Last Admin: 05/25/18 18:20 Dose: Not Given Warfarin Sodium (Coumadin) 5 mg PO 1800 UBALDO; Protocol - Labs Labs: 05/25/18 05:30 05/25/18 05:30 PT 13.7 SECONDS (9.4-12.5) H 05/22/18 08:40 INR 1.19 05/22/18 08:40 APTT 28.0 Seconds (25.1-36.5) 05/22/18 08:40 Attending/Attestation - Attestation I have personally seen and examined this patient.: Yes I have fully participated in the care of the patient.: Yes I have reviewed all pertinent clinical information, including history, physical exam and plan: Yes Notes (Text): This is an addendum to GI progress report dictated by the Resident.The patient was seen and examined earlier. Medical records, lab studies, imagings were reviewed. Last 24 hours events reviewed. Agreed with the above treatment plan as outlined in Resident 's notes with the addition of the following This patient with lung mass, status post biopsy, has elevated transaminases thrombocytopenia r/o hemolytic anemia rule out the microangiopathic Less likely hepatology etiology Imaging studies of the liver were reviewed Gallstones, contracted gallbladder normal CBD measuring 4.7 mm Follow-up the enzymes Hematology oncology follow-up No GI intervention planned 05/25/18 22:56 05/26/18 22:02
--- NOTE | 2018-05-25 12:14 | PN ---
DATE: 05/25/2018 SUBJECTIVE: The patient appears comfortable this morning. He is not short of breath at rest. He remains confused. PHYSICAL EXAMINATION: VITAL SIGNS: Temperature is 100.3, pulse 102, respirations 18/20, blood pressure 153/87. Oxygen saturation on BiPAP is 97%. HEENT: Normocephalic, atraumatic. No JVD. CARDIOVASCULAR: Systolic ejection murmur at the lower left sternal border. Questionable S3 gallop. LUNGS: Minimal crackles at the bases. Minimal rhonchi. No wheezing. EXTREMITIES: Mild edema. No cyanosis, no clubbing. Calves are nontender to palpation. GASTROINTESTINAL: Abdomen is soft, nontender, nondistended. Bowel sounds are positive. SKIN: No acute rash. NEUROLOGIC: Exam limited at the present time. PERTINENT LABORATORY DATA: Chest x-ray was done this morning and reviewed. It is not significantly changed from the previous film. Official results- pending. IMPRESSION: 1. Left lower lobe lung mass, rule out malignancy. 2. Chronic obstructive pulmonary disease. 3. Congestive heart failure. 4. Atrial fibrillation. 5. Thrombocytopenia. PLAN: The patient appears comfortable this morning. He is not short of breath at rest. He does remain confused. I did discuss the case with the night nurse and night aide at length. I did review the chest x-ray as above. The chest x-ray is not significantly changed from the previous film. Official results are pending. Input by Infectious Disease (Dr. Power) is noted. On physical exam, there is less bronchospasm noted. In addition, there is no significant alveolar-arterial gradient. I will continue the current nebulizer treatments for now. I will also order aspiration precautions - given his above mental status. Inputs by Renal and Endocrine are also noted. Clinical status of the patient is certainly improved - compared to the initial presentation. We are awaiting the lung biopsy results. However, the future status/prognosis for this patient appears poor. I will discuss the above with the attending physician. Javier Echevarria MD [facility]
--- NOTE | 2018-05-25 13:33 | PN ---
DATE: 05/25/2018 SUBJECTIVE: The patient is confused. He is on a BiPAP. PHYSICAL EXAMINATION: VITAL SIGNS: Temperature is 100.3, pulse is 89, blood pressure is 153/87, respirations 20. GENERAL: The patient is lying in bed, flat, comfortable. HEENT: No oral lesion. Anicteric sclerae. Moist mucosa. NECK: No JVD, adenopathy, or thyromegaly. CARDIOVASCULAR: S1 and S2, regular. No murmurs, rubs, or gallops. LUNGS: Clear to auscultation bilaterally. No wheeze, rales, or rhonchi. ABDOMEN: Bowel sounds are positive, soft, nontender, nondistended. EXTREMITIES: No cyanosis, clubbing, or edema. LABORATORY DATA: White count of 5.6, hemoglobin is 11.9, platelet count is 37, creatinine is 0.9. Sodium is 140. Chest x-ray shows left lower lobe infiltrate with effusion. Echo shows normal chamber size, mild LVH. ASSESSMENT: 1. Community-acquired pneumonia. 2. Left lung mass. 3. Sepsis. 4. Thrombocytopenia. 5. Fever. 6. Transaminitis. PLAN: The patient is currently comfortable. He is on one-to-one because of confusion. The patient is on Coumadin, but it has been placed on hold. Last INR was 1.1. The patient is on propanolol daily. The patient is on meropenem for antibiotic. The blood cultures have been negative. The patient is receiving Xopenex for nebulizer treatment. He is on Seroquel for his agitation. He is on BiPAP, this will be continued. He is being followed by multiple consultants. He is continuing on telemetry. His overall prognosis is guarded. Jayy Branch MD
--- NOTE | 2018-05-25 14:00 | PN ---
DATE: 05/25/2018 LOCATION: Room 276. SUBJECTIVE: This is a 72-year-old male with recent admission for congestive heart failure and acute exacerbation of COPD, currently on prednisone given as 40 mg once daily and is now being followed closely for metabolic management. He also has significant history of hyperthyroidism, currently off methimazole therapy as noted. His latest chemistry showed a BUN of 32, sodium 140, potassium 4.2, chloride 105, CO2 of 31, glucose 95 and creatinine 0.9. He has been taken off thyroid medications at this time and has remained clinically and biochemically euthyroid at this time. We will also repeat the thyroid studies and determine the need to resume methimazole therapy as indicated. We will follow and advise accordingly. Rika Anderson MD
[2018-05-25] MEDS: Digoxin 125 mcg (0.125 mg) Tab PO SCH (14:16)
--- NOTE | 2018-05-25 14:23 | PN ---
DATE: 05/25/2018 SUBJECTIVE: The patient is seen lying in bed. He is on BiPAP. He is arousable. Somewhat lethargic. PHYSICAL EXAMINATION: GENERAL: Elderly male lying in bed. VITAL SIGNS: Blood pressure 112/71, respiratory rate 20, pulse rate 94, temperature 100.3 and T-max is 101.8. HEENT: Normocephalic, atraumatic, positive pallor. NECK: Supple, no JVD. LUNGS: Bilateral distant breath sounds, scattered rhonchi, no rales appreciated anteriorly. CARDIAC: S1 and S2, regular rate and rhythm, no murmur, no rub. ABDOMEN: Obese, distended, soft, nontender, bowel sounds present. EXTREMITIES: Trace lower extremity edema. INTAKE AND OUTPUT: 1550/1850. LABORATORY DATA: WBC 5.6, hemoglobin 11.9, hematocrit 37 and platelets 37. Sodium 140, potassium 4.2, chloride 105, CO2 of 31, BUN 32, creatinine 0.9, glucose 95, calcium 9.1, AST 207, ALT 71, albumin 3.1 and globulin 2.9. Urinalysis slightly cloudy, pH of 6.0, specific gravity greater than 1.030, protein trace, blood moderate, leukocyte esterase negative. Blood cultures no growth. Sputum culture no growth. MEDICATIONS: Reviewed. Currently on Ativan, Calan, digoxin, Inderal, meropenem, prednisone, Seroquel, Tylenol and Xopenex. ASSESSMENT: 1. Hyponatremia, resolved status post tolvaptan. 2. Hyperkalemia, resolved. 3. Chronic obstructive pulmonary disease. 4. Mild prerenal azotemia in the setting of steroids. 5. Atrial fibrillation. 6. Hypertension. 7. History of hyperthyroidism. 8. Hyperlipidemia. 9. Lung mass, status post biopsy. 10. Thrombocytopenia. PLAN: 1. Follow up lung biopsy report. 2. Avoid nephrotoxins. 3. Continue current antihypertensives. 4. Continue Cardizem. 5. Restart anticoagulation? Elissa Rodriguez MD
--- NOTE | 2018-05-25 14:32 | PN ---
DATE: 05/25/2018 FOLLOWUP NOTE SUBJECTIVE: Shortly, the patient is 72-year-old male, was admitted on the medical side for left-sided community-acquired pneumonia. The patient was found to have lung mass suspicious for malignancy status post lung biopsy and new systemic inflammatory response syndrome. The patient had fever yesterday. Psych consult was called for evaluation of restless behavior and agitation, which this senior medical writer feels it is related to delirium due to general medical condition. The patient was initially seen by Dr. Marino, notes reviewed. The patient was started 12.5 mg of Seroquel at the nighttime and as-needed medication for anxiety. The patient was seen today. The patient presented to be alert with BiPAP machine, but was not able to participate in interview. The patient does not present to be restless or agitated. The patient is currently on one-to-one, collateral was obtained from the one-to-one sitter. As per her, the patient has restless night. The patient was not agitated, but restless. The patient does not have any physical aggression or agitation so far. PHYSICAL EXAMINATION: VITAL SIGNS: Reviewed. Temperature 100.3, pulse is 94, blood pressure 112/71, respirations 20, oxygen saturation is 97 on BiPAP. LABORATORY DATA: Labs reviewed. Hemoglobin and hematocrit 11.9 and 37.4. Coagulation reviewed. Blood gas reviewed. Chemistry reviewed. AST and ALT elevated 207 and 71 respectively. Urinalysis revealed large blood and protein trace. Serology was negative for any hepatitis. Mental status examination as this senior medical writer described above, the patient appears to be alert with BiPAP machine, but the patient was not able to participate in interview. The patient was staring at this senior medical writer and not participating in interview. MEDICATIONS: Reviewed. The patient is on Tylenol, Pulmicort, dextrose, digoxin, Xopenex, Ativan 0.25 mg IV push every 6 hours as needed, last time was on 05/24/2018 at 10:20, Merrem, Lopressor, Zofran, prednisone, propranolol, Seroquel 12.5 mg at the nighttime schedule as well as 12.5 mg at 04:00 p.m. The patient was lethargic and did not get his evening dose of Seroquel. The patient is on verapamil and Coumadin. IMPRESSION: Most likely patient is in delirium stage which is related to multiple medical issues, pneumonia, systemic inflammatory syndrome and delirium. The patient also was found to have lung mass status post lung biopsy. PLAN: We will continue Ativan IV push 0.25 mg four times a day as needed, Seroquel twice a day at 05:00 p.m. and at the nighttime 12.5. We will continue that management. The patient is currently on one to one. We will follow up and advise accordingly. Thank you very much for letting me participate in care of your patient. Adelina Nicholas MD
--- NOTE | 2018-05-25 14:43 | PN ---
DATE: 05/25/2018 SUBJECTIVE: The patient is seen lying in bed on telemetry. He remains somewhat confused but comfortable. MEDICATIONS: His current medications include Ativan p.r.n., verapamil 40 mg t.i.d., Coumadin currently on hold, digoxin 0.125 mg daily, propanolol LA 80 mg daily, meropenem, prednisone, Pulmicort, Seroquel, and Xopenex. OBJECTIVE: GENERAL: He is a middle-aged man who appears comfortable. He is currently on a BiPAP machine. VITAL SIGNS: Blood pressure 112/70 with pulse of 90 in atrial fibrillation, respirations 16. He had a temperature of 101.4 yesterday and is 100.3 this morning. CHEST: Bilateral scattered rhonchi. HEART: Irregularly irregular rhythm. ABDOMEN: Soft, nontender, with normoactive bowel sounds. EXTREMITIES: Chronic cellulitic changes. DIAGNOSTIC DATA: Potassium 4.2, BUN and creatinine 32 and 0.9. White count 5.6, hemoglobin and hematocrit 11.9 and 37.4 with platelet count of 37,000. AST and ALT 207 and 71 respectively. Bilirubin is 1.2, alkaline phosphatase 157. Ammonia level 28. IMPRESSION: 1. Chronic atrial fibrillation with adequate heart rate control at present. 2. Lung mass status post CT-guided biopsy with pathology results pending. 3. Severe thrombocytopenia, etiology uncertain. 4. Rest of problems as noted. RECOMMENDATIONS: His current rate control therapy will continue for now. We will await the results of his lung biopsy and further recommendations will be made based upon those findings and his clinical course. We will follow along as needed. Nixon Arevalo MD
--- NOTE | 2018-05-25 15:51 | CP.PCM.PN ---
Subjective - Date & Time of Evaluation Date of Evaluation: 05/25/18 Time of Evaluation: 10:50 - Subjective Subjective: Patient still on BiPAP, having fevers overnight. Objective - Vital Signs/Intake and Output Vital Signs (last 24 hours): Temp Pulse Resp BP Pulse Ox 98.3 F 91 H 18 144/88 100 05/25/18 12:00 05/25/18 14:15 05/25/18 12:00 05/25/18 14:15 05/25/18 12:00 Intake and Output: 05/25/18 05/25/18 06:59 18:59 Intake Total 1550 Output Total 1850 Balance -300 - Medications Medications: Current Medications Acetaminophen (Tylenol 325mg Tab) 650 mg PO Q6H PRN PRN Reason: Pain, Mild (1-3) Last Admin: 05/20/18 17:17 Dose: 650 mg Acetaminophen (Tylenol 650 Mg Supp) 650 mg RC Q6H PRN PRN Reason: Fever >100.4 F Last Admin: 05/24/18 17:51 Dose: 650 mg Budesonide (Pulmicort Respules) 0.5 mg IH [id number] UBALDO Last Admin: 05/25/18 07:30 Dose: 0.5 mg Digoxin (Digoxin) 0.125 mg PO 1400 UBALDO Last Admin: 05/25/18 14:16 Dose: 0.125 mg Meropenem/Sodium Chloride (Merrem Iv 500 Mg/Ns 50 Ml) 500 mg in 50 mls @ 100 mls/hr IVPB Q8 UBALDO; Protocol Stop: 05/29/18 22:01 Last Admin: 05/25/18 14:24 Dose: 100 mls/hr Dextrose/Sodium Chloride (Dextrose 5%/0.45% Ns 1000 Ml) 1,000 mls @ 50 mls/hr IV .Q20H UBALDO Last Admin: 05/25/18 14:23 Dose: 50 mls/hr Levalbuterol HCl (Xopenex) 1.25 mg IH [id number] UBALDO Last Admin: 05/25/18 14:05 Dose: 1.25 mg Lorazepam (Ativan) 0.25 mg IVP Q6H PRN; Protocol PRN Reason: Agitation Last Admin: 05/24/18 22:21 Dose: 0.25 mg Metoprolol Tartrate (Lopressor) 5 mg IVP Q6 PRN PRN Reason: Heart Rate greater than 110bpm Last Admin: 05/24/18 16:01 Dose: 5 mg Ondansetron HCl (Zofran Inj) 4 mg IVP Q6H PRN PRN Reason: Nausea/Vomiting Prednisone (Prednisone Tab) 40 mg PO DAILY UBALDO Stop: 05/25/18 23:59 Last Admin: 05/25/18 09:40 Dose: 40 mg Propranolol HCl (Inderal La) 80 mg PO DAILY UBALDO Last Admin: 05/25/18 09:40 Dose: 80 mg Quetiapine Fumarate (Seroquel) 12.5 mg PO HS UBALDO; Protocol Last Admin: 05/25/18 00:34 Dose: 12.5 mg Quetiapine Fumarate (Seroquel) 12.5 mg PO 1500 UBALDO; Protocol Last Admin: 05/25/18 14:16 Dose: 12.5 mg Verapamil HCl (Calan Tab) 40 mg PO TID UBALDO Last Admin: 05/25/18 14:15 Dose: 40 mg Warfarin Sodium (Coumadin) 5 mg PO 1800 UBALDO; Protocol - Labs Labs: 05/25/18 05:30 05/25/18 05:30 PT 13.7 SECONDS (9.4-12.5) H 05/22/18 08:40 INR 1.19 05/22/18 08:40 APTT 28.0 Seconds (25.1-36.5) 05/22/18 08:40 - Constitutional Appears: Chronically Ill - Head Exam Head Exam: NORMAL INSPECTION - ENT Exam Additional comments: BiPAP in place - Respiratory Exam Respiratory Exam: Decreased Breath Sounds - Cardiovascular Exam Cardiovascular Exam: +S1, +S2 - GI/Abdominal Exam GI & Abdominal Exam: Soft. absent: Tenderness Assessment and Plan - Assessment and Plan (Free Text) Plan: Assessment consider left sided community-acquired pneumonia, now with new finding of left lung mass on CT scan, suspicious for malignancy, with new onset SIRS R/O HCAP history of Severe sepsis secondary to community-acquired pneumonia COPD hypertension dyslipidemia Psoriasis Plan continue Merrem day 6 and will give a dose of IV Vancomycin since he had fevers today and will repeat cultures Heme/Onc doing work up for the lung mass will get rapid flu test as well
[2018-05-26] MEDS: Levalbuterol 1.25 MG/3 ML Inhal Soln UD IH SCH ×4 (01:32→20:20)
[2018-05-26] MEDS: MEROPENEM 500 MG in NS 500 MG/50 ML BAG IVPB SCH ×2 (06:42→13:21)
[2018-05-26] MEDS: Dextrose 5%/0.45% NS 1,000 ML IV SCH (07:12)
[2018-05-26 07:34] LABS: HEMOGLOBIN 11.8 g/dL (14.0-18.0); MEAN CELL VOLUME 86.3 fl (80.0-105.0); MEAN CORPUSCULAR HEMOGLOBIN 27.4 pg (25.0-35.0); MEAN CORPUSCULAR HGB CONC 31.8 g/dl (31.0-37.0); RED CELL DISTRIBUTION WIDTH 15.3 % (11.5-14.5); WHITE BLOOD COUNT 5.6 10^3/uL (4.5-11.0)
[2018-05-26 07:38] LABS: ALBUMIN 3.1 g/dL (3.0-4.8); ALT/SGPT 61 U/L (7-56); AST/SGOT 161 U/L (17-59); BLOOD UREA NITROGEN 30 mg/dL (7-21); CALCIUM 9.2 mg/dL (8.4-10.5); GFR NON-AFRICAN AMERICAN > 60
[2018-05-26] MEDS: Budesonide 0.5 mg/2 ml Inhal Susp UD IH SCH ×2 (07:45→20:21)
[2018-05-26 07:52] LABS: FREE T4 2.12 ng/dL (0.78-2.19); T4 11.2 ug/dL (5.5-11.0)
[2018-05-26 07:57] LABS: PLATELET COUNT 40 10^3/uL (120.0-450.0)
--- NOTE | 2018-05-26 08:15 | PN ---
DATE: 05/26/2018 SUBJECTIVE: The patient is seen lying in bed in telemetry. He appears comfortable and less confused. His heart rate control is improved. MEDICATIONS: His current medications include Ativan, verapamil 40 mg t.i.d., digoxin 0.125 mg daily, Inderal LA 80 mg daily, meropenem, Pulmicort, Seroquel, and Xopenex. OBJECTIVE: GENERAL: He is a middle-aged man, who appears comfortable. VITAL SIGNS: Blood pressure 126/80 with pulse of 76, in atrial fibrillation, respirations are 16. He is afebrile. NECK: No JVD. CHEST: Bilateral coarse rhonchi. HEART: Rhythm is irregularly irregular. Systolic murmur left sternal border and base. ABDOMEN: Soft, nontender with bowel sounds. EXTREMITIES: No edema. LABORATORY DATA: Blood work is pending. Pathology results of the lung biopsy also pending. IMPRESSION: 1. Chronic atrial fibrillation with adequate heart rate control at the present time. 2. Lung mass suspicious for malignancy, await the CT-guided biopsy results. 3. Severe thrombocytopenia, possibly due to autoimmune cause. 4. Elevated transaminases, clinically improving. Possible hemolysis, elevated liver enzymes, low platelet count syndrome. RECOMMENDATIONS: 1. Continued conservative management is advised. 2. Followup platelet count will be checked once his platelets have improved above 80,000. 3. Resumption of anticoagulant therapy would be appropriate. 4. Further recommendations will be based upon the results of his biopsy. 5. We will follow along as needed. Nixon Arevalo MD
--- NOTE | 2018-05-26 10:01 | PN ---
DATE: 05/26/2018 SUBJECTIVE: The patient appears comfortable this morning. He is not short of breath at rest. He remains confused. PHYSICAL EXAMINATION: VITAL SIGNS: Temperature 98, pulse 77, respirations 18/20, blood pressure 126/81. Oxygen saturation on nasal cannula is 98%. HEENT: Normocephalic, atraumatic. NECK: No JVD. CARDIOVASCULAR: Systolic ejection murmur at the lower left sternal border. Questionable S3 gallop. LUNGS: Minimal crackles at the bases. Minimal rhonchi. No wheezing. EXTREMITIES: Mild edema. No cyanosis. No clubbing. Calves are nontender to palpation. GI: Abdomen is soft, nontender and nondistended. Bowel sounds are positive. SKIN: No acute rash. NEUROLOGIC: Exam limited at the present time. IMPRESSION: 1. Left lower lobe lung mass, rule out malignancy. 2. Chronic obstructive pulmonary disease. 3. Congestive heart failure. 4. Rule out right perihilar pneumonia. 5. Atrial fibrillation. 6. Thrombocytopenia. PLAN: The patient appears comfortable this morning. He is not short of breath at rest. He does remain confused. I did discuss the case with the night nurse and night aide at length. I did review the official results from the chest x-ray done on 05/24/2018. There is a possible right perihilar infiltrate. I would continue with the antibiotic coverage as per Infectious Disease. Input by Dr. Kessler is noted. Temperatures have now resolved. Inputs by Renal and Cardiology are also noted. Clinical status of the patient is certainly improved - compared to his initial presentation. However, unfortunately, the future status/prognosis for this patient appears poor. We are still awaiting the biopsy results. I will discuss the above with the attending physician. Javier Echevarria MD MTDD
[2018-05-26] MEDS: Propranolol 80 mg ER Cap PO SCH (10:16)
--- NOTE | 2018-05-26 12:41 | PN ---
DATE: 05/26/2018 LOCATION: Room 276. SUBJECTIVE: This is a 72-year-old male with recent admission for congestive heart failure and is currently being followed closely for hemodynamic monitoring and cardiac management and is also being followed closely for metabolic management with known history of hyperthyroidism. He has been taken off medical therapy with Thioureas since admission. His latest thyroid study showed a T4 or thyroxine level of 11.2 mcg/dl with a free T4 of 2.12 and a TSH of 1.76. He remains clinically and biochemically euthyroid at this time and has been off medical therapy as noted and given. So for now, we will obtain serial thyroid studies and determine the need to resume his medical therapy for hyperthyroidism as indicated. We will obtain serial chemistries and supplement accordingly as needed. We will follow. Rika Anderson MD
[2018-05-26] MEDS: Digoxin 125 mcg (0.125 mg) Tab PO SCH (13:22)
--- NOTE | 2018-05-26 13:32 | PN ---
DATE: 05/26/2018 SUBJECTIVE: The patient has no complaints of any chest pain, no shortness of breath, no headaches or dizziness. He is more awake and alert today. He is having his breakfast. PHYSICAL EXAMINATION VITAL SIGNS: Temperature is 98.6, pulse of 111, blood pressure is 121/75, respirations 20. GENERAL: The patient is lying in bed, flat, comfortable. HEENT: No oral lesion. Anicteric sclerae. Moist mucosa. NECK: No JVD, adenopathy, or thyromegaly. CARDIOVASCULAR: S1 and S2, regular. No murmurs, rubs, or gallops. LUNGS: Clear to auscultation bilaterally. No wheeze, rales, or rhonchi. ABDOMEN: Bowel sounds are positive, soft, nontender and nondistended. EXTREMITIES: no cyanosis, clubbing or edema. LABORATORY DATA: White count of 5.6, hemoglobin 11.8. Creatinine is 0.9. ASSESSMENT: 1. Left lower lung mass. 2. Community-acquired pneumonia. 3. Sepsis. 4. Thrombocytopenia. 5. Fever, improved. 6. Transaminitis, improved. PLAN: The patient is currently comfortable. He is more awake and alert. The patient is eating better. He does have chronic atrial fibrillation. He has severe thrombocytopenia. The patient is being followed by Hematology for his thrombocytopenia. He is on verapamil daily. The patient is on IV fluids. He is on Seroquel. I will discontinue his IV fluids at this point because he is able to eat and drink. He has an INR that is normal. The patient is on propranolol. We will continue his propranolol. He is on his Pulmicort. This will be continued as well. The patient is on Seroquel for his agitation. He is getting Zofran as needed. He is on BiPAP. He is on a heart-healthy diet. We are waiting for biopsy results. Jayy Branch MD
--- NOTE | 2018-05-26 15:30 | PN ---
DATE: 05/26/2018 SUBJECTIVE: The patient is currently seen sitting up in bed. No results on the lung biopsy are back as of yet. From a renal standpoint, the patient remains entirely stable. His sodium level was 140 with potassium level 4.6. He does have a slight elevation of his BUN at 30 and this is likely from the patient taking prednisone. MEDICATIONS: Medication list reviewed. The patient is on Ativan, Calan, Coumadin is on hold, digoxin, Inderal, Lopressor, meropenem, Pulmicort Respules, Seroquel, Tylenol p.r.n., Xopenex and Zofran. The patient is currently off prednisone. OBJECTIVE: Intake/output. Intake is 1200, output is not charted. PHYSICAL EXAMINATION: VITAL SIGNS: Blood pressure 121/75, pulse of 111, temperature 98.6 with a respiratory rate of 20. HEENT: Normocephalic, atraumatic. Conjunctivae pink. Sclerae nonicteric. NECK: Supple. No neck vein distention. CHEST: Clear to auscultation and percussion with slight decreased breath sounds at the left base. Scattered rhonchi. No rales or wheezing. CARDIOVASCULAR: Irregular S1, S2, /TR/PI. No S3, no S4, no rub. ABDOMEN: Soft. Minimal distention. Bowel sounds normal. No rebound, guarding or masses. EXTREMITIES: Show trace pitting edema. Chronic stasis dermatitis. Diminished lower extremity pulses bilaterally. LABORATORY DATA AND IMAGING: CBC, white blood cell count is 5.6, hemoglobin 11.8 with a platelet count low at 40,000. Coags, PT of 13.7, INR 1.19, PTT of 28. Chemistry showed normal electrolytes. BUN 30 with a creatinine of 0.9. Glucose is 126. Sodium 140, potassium 4.6. Calcium, phosphorus, magnesium level all normal. Mild elevation of his liver enzymes improving. Bilirubin is normal at 1.1. Albumin level was 3.1. Microbiology, all cultures are negative. ASSESSMENT: 1. Status post hyponatremia, depletional initially with possibly a component of syndrome of inappropriate antidiuretic hormone secretion secondary to his likely lung mass. The patient appropriately was treated with normal saline and 3 days of tolvaptan. 2. Status post mild hyperkalemia. Potassium levels are now back to normal. Cortisol levels are normal. Renin and aldosterone levels are within the normal range. The patient is currently on a low potassium diet. 3. History of chronic obstructive pulmonary disease secondary to long history of cigarette smoking. Patient remains on inhalation therapy. He is off steroids. 4. Mild elevation of BUN with a normal creatinine likely secondary to the use of steroids. 5. History of atrial fibrillation on chronic anticoagulation. This was held for his lung biopsy. He remains on verapamil, digoxin, and Inderal as per Cardiology. 6. History of hypertension. Blood pressure is in acceptable range. Systolics are in the 120s with diastolics in the mid 70s. 7. Past history of hyperthyroidism. The patient is currently not receiving Tapazole. Thyroid function levels are normal. 8. Hyperlipidemia. Continue low-fat, low-cholesterol diet, and upon discharge, perhaps restart statin therapy. 9. Left lower lobe 6.2 cm lobulated mass with lymphadenopathy. Biopsy results are pending. In all likelihood, the patient has lung cancer. 10. History of thrombocytopenia. As discussed with Dr. Campos, the patient will likely need a bone marrow biopsy with Dr. Ross at some future point in time. PLAN: 1. Await results of lung biopsy. 2. From a metabolic standpoint, the patient appears to be stable. 3. Status post episode of mild confusion with a negative workup. The patient is back to baseline. 4. Continue to monitor the patient on telemetry in light of his atrial fibrillation. 5. From a renal standpoint, the patient is entirely stable. We can follow along with you on an as-needed basis. For right now, we will sign off care of this patient. Cyrus Paul MD
--- NOTE | 2018-05-26 20:22 | PN ---
DATE: 05/26/2018 FOLLOWUP NOTE SUBJECTIVE: The patient was admitted on the medical side for congestive heart failure. The patient was found to have new lung mass. The patient is awaiting for lung biopsy. This caption writer got involved into the patient care because the patient has mild confusion and agitation, which is related to delirium stage. Please see notes for more detailed information. The patient was seen today for followup. The patient presented much better to compare with yesterday. The patient was breathing by himself. The patient was not confused. The patient was pleasant and cooperative. The patient knows that he is in the hospital. The patient reported that he lives alone. The patient reported that he is independent. The patient reported that he has family and kids, but they are also independent. The patient reported that at present moment he feels better. The patient denied feeling depressed. The patient denied any thoughts of harming himself or others. The patient denied history of being depressed or has a history of suicidal attempts. The patient presented very well. This caption writer will repeat herself. PHYSICAL EXAMINATION: VITAL SIGNS: Vital signs are stable. Temperature 98.6, pulse is 73, blood pressure 121/75. MEDICATIONS: Medications reviewed. The patient is on Tylenol, Pulmicort, digoxin, Xopenex, Ativan, Merrem, Lopressor, Zofran, Inderal, and Seroquel 12.5 mg at the nighttime schedule, which will be changed to as-needed. The patient will be doing better and does not require Seroquel, it means the patient is doing much better. The patient also is on verapamil and Coumadin. LABORATORY DATA: Labs reviewed. Platelets count a kind of low. Chemistry reviewed. Microbiology reviewed. MENTAL STATUS EXAM: Mental status examination as this caption writer described above. The patient was alert and oriented, pleasant, cooperative. Fair eye contact. Mood described as "I feel better." Affect was constricted. Thought process concrete. Thought content; the patient denied visual, auditory, tactile hallucinations. Denied paranoid ideation. The patient denied thoughts of harming himself or others. Denied intent or plan. Insight and judgment seems to be improving. Impulses are well controlled. IMPRESSION: Most likely the patient was in delirium stage, which is clearing up. PLAN: Seroquel is only as needed and Ativan only as needed for anxiety. Considering the fact that the patient is improving very fast, most likely the patient is doing much better. The patient is psychiatrically stable. This caption writer will sign off for now. Please re-consult as needed. I wish the patient best of luck. From this caption writer perspective, the patient might benefit from Social Service evaluation and assessment of his functionality. Thank you very much for letting me participate in the care of your patient. I will sign off. Adelina Nicholas MD
--- NOTE | 2018-05-26 21:30 | PN ---
DATE: 05/26/2018 SUBJECTIVE: The patient is in bed in no acute distress, nontoxic. OBJECTIVE: VITAL SIGNS: On exam, temperature is 97, blood pressure is 130/70, respiratory rate of 18. HEENT: Unremarkable. NECK: Supple. LUNGS: Have decreased breath sounds. HEART: Normal S1, S2. ABDOMEN: Soft, nontender. LABORATORY EXAMINATION: Reveals a white count of 5.6, a hemoglobin of 11, BUN of 30, creatinine of 0.6. Urinalysis is noted. Serology; urine cultures negative and blood cultures negative. ASSESSMENT AND PLAN: This is a 72-year-old with a left-sided community-acquired pneumonia, lung mass and with new onset of systemic inflammatory response syndrome, chronic obstructive lung disease, and hypertension. The patient is on meropenem and vancomycin, day #7. Pathology is pending and we will discontinue the meropenem. We will follow closely with you. Kali Power MD
[2018-05-26] MEDS: Metoprolol 1 mg/ml Inj IVP PRN (23:55)
[2018-05-27] MEDS: Levalbuterol 1.25 MG/3 ML Inhal Soln UD IH SCH ×4 (01:00→19:42)
[2018-05-27] MEDS ORDERED: Metoprolol 1 mg/ml Inj IVP ONE (03:55)
[2018-05-27 04:54] LABS: ARTERIAL BLOOD GAS HCO3 27.7 mmol/L (21-28); ARTERIAL BLOOD GAS HEMOGLOBIN 12.7 g/dL (11.7-17.4); ARTERIAL BLOOD GAS O2 CAPACITY 17.4 mL/dl (16-24); ARTERIAL BLOOD GAS O2 CONTENT 17.3 ML/dl (15-23); ARTERIAL BLOOD GAS O2 SAT 99.2 % (95-98); ARTERIAL BLOOD GAS PCO2 39 mm/Hg (35-45); ARTERIAL BLOOD GAS PH 7.46 (7.35-7.45); ARTERIAL BLOOD GAS TCO2 28.9 mmol.L (22-28)
[2018-05-27 05:01] LABS: TROPONIN I 0.05 ng/mL
--- NOTE | 2018-05-27 05:51 | CP.PCM.PN ---
<Srinivas Monet - Last Filed: 05/27/18 05:45> Subjective - Date & Time of Evaluation Date of Evaluation: 05/27/18 Time of Evaluation: 05:45 - Subjective Subjective: Resident, me, was called by nurse since patient's heart rate had increased to 140s and patient seemed more agitated than usual. Patient had already received metoprolol and ativan overnight. I went to evaluate the patient and on examination, patient was found to be tachycardic with an irregular rhythm as well as mild respiratory distress. Patient was mildly agitated in bed with BiPAP and patient was not able to communicate with me. Stat EKG was ordered which sh owed atrial fibrillation. Stat troponin was 0.05 and troponin was trended. BNP was in the 8000s with no prior value for comparison. Stat CXR showed worsened left lower lobe effusion with bilateral hilar masses. Patient was given one dose of metoprolol 5 mg IV. Patient's heart rate decreased to the 110s. Stat ABG was ordered which showed unremarkable pH, pO2, and pCO2. Objective - Vital Signs/Intake and Output Vital Signs (last 24 hours): Temp Pulse Resp BP Pulse Ox 102.2 F H 127 H 22 170/103 H 98 05/27/18 03:11 05/27/18 04:17 05/27/18 00:01 05/27/18 04:17 05/26/18 10:00 Intake and Output: 05/26/18 05/27/18 18:59 06:59 Intake Total 650 Output Total 950 Balance -300 - Medications Medications: Current Medications Acetaminophen (Tylenol 325mg Tab) 650 mg PO Q6H PRN PRN Reason: Pain, Mild (1-3) Last Admin: 05/26/18 13:20 Dose: 650 mg Acetaminophen (Tylenol 650 Mg Supp) 650 mg RC Q6H PRN PRN Reason: Fever >100.4 F Last Admin: 05/27/18 03:11 Dose: 650 mg Albuterol/Ipratropium (Duoneb 3 Mg/0.5 Mg (3 Ml) Ud) 3 ml IH Q2H PRN PRN Reason: Shortness of Breath Budesonide (Pulmicort Respules) 0.5 mg IH [id number] UBALDO Last Admin: 05/26/18 20:21 Dose: 0.5 mg Digoxin (Digoxin) 0.125 mg PO 1400 [facility] Last Admin: 05/26/18 13:22 Dose: 0.125 mg Levalbuterol HCl (Xopenex) 1.25 mg IH [id number] [facility] Last Admin: 05/27/18 01:00 Dose: 1.25 mg Lorazepam (Ativan) 0.25 mg IVP Q6H PRN; Protocol PRN Reason: Agitation Last Admin: 05/27/18 02:19 Dose: 0.25 mg Metoprolol Tartrate (Lopressor) 5 mg IVP Q6 PRN PRN Reason: Heart Rate greater than 110bpm Last Admin: 05/26/18 23:55 Dose: 5 mg Ondansetron HCl (Zofran Inj) 4 mg IVP Q6H PRN PRN Reason: Nausea/Vomiting Propranolol HCl (Inderal La) 80 mg PO DAILY [facility] Last Admin: 05/26/18 10:16 Dose: 80 mg Quetiapine Fumarate (Seroquel) 12.5 mg PO 1500 PRN; Protocol PRN Reason: Psychosis Quetiapine Fumarate (Seroquel) 12.5 mg PO HS PRN; Protocol PRN Reason: psychosis, agiation Verapamil HCl (Calan Tab) 40 mg PO TID [facility] Last Admin: 05/26/18 17:39 Dose: 40 mg Warfarin Sodium (Coumadin) 5 mg PO 1800 UBALDO; Protocol - Labs Labs: 05/26/18 07:00 05/26/18 07:00 PT 13.7 SECONDS (9.4-12.5) H 05/22/18 08:40 INR 1.19 05/22/18 08:40 APTT 28.0 Seconds (25.1-36.5) 05/22/18 08:40 <Susie Barajas - Last Filed: 05/27/18 06:13> Objective - Vital Signs/Intake and Output Vital Signs (last 24 hours): Temp Pulse Resp BP Pulse Ox 102.2 F H 127 H 22 170/103 H 98 05/27/18 03:11 05/27/18 04:17 05/27/18 00:01 05/27/18 04:17 05/26/18 10:00 Intake and Output: 05/26/18 05/27/18 18:59 06:59 Intake Total 650 Output Total 950 Balance -300 - Medications Medications: Current Medications Acetaminophen (Tylenol 325mg Tab) 650 mg PO Q6H PRN PRN Reason: Pain, Mild (1-3) Last Admin: 05/26/18 13:20 Dose: 650 mg Acetaminophen (Tylenol 650 Mg Supp) 650 mg RC Q6H PRN PRN Reason: Fever >100.4 F Last Admin: 05/27/18 03:11 Dose: 650 mg Albuterol/Ipratropium (Duoneb 3 Mg/0.5 Mg (3 Ml) Ud) 3 ml IH Q2H PRN PRN Reason: Shortness of Breath Budesonide (Pulmicort Respules) 0.5 mg IH [id number] [facility] Last Admin: 05/26/18 20:21 Dose: 0.5 mg Digoxin (Digoxin) 0.125 mg PO 1400 [facility] Last Admin: 05/26/18 13:22 Dose: 0.125 mg Levalbuterol HCl (Xopenex) 1.25 mg IH [id number] [facility] Last Admin: 05/27/18 01:00 Dose: 1.25 mg Lorazepam (Ativan) 0.25 mg IVP Q6H PRN; Protocol PRN Reason: Agitation Last Admin: 05/27/18 02:19 Dose: 0.25 mg Metoprolol Tartrate (Lopressor) 5 mg IVP Q6 PRN PRN Reason: Heart Rate greater than 110bpm Last Admin: 05/26/18 23:55 Dose: 5 mg Ondansetron HCl (Zofran Inj) 4 mg IVP Q6H PRN PRN Reason: Nausea/Vomiting Propranolol HCl (Inderal La) 80 mg PO DAILY [facility] Last Admin: 05/26/18 10:16 Dose: 80 mg Quetiapine Fumarate (Seroquel) 12.5 mg PO 1500 PRN; Protocol PRN Reason: Psychosis Quetiapine Fumarate (Seroquel) 12.5 mg PO HS PRN; Protocol PRN Reason: psychosis, agiation Verapamil HCl (Calan Tab) 40 mg PO TID [facility] Last Admin: 05/26/18 17:39 Dose: 40 mg Warfarin Sodium (Coumadin) 5 mg PO 1800 UBALDO; Protocol - Labs Labs: 05/26/18 07:00 05/26/18 07:00 PT 13.7 SECONDS (9.4-12.5) H 05/22/18 08:40 INR 1.19 05/22/18 08:40 APTT 28.0 Seconds (25.1-36.5) 05/22/18 08:40 Attending/Attestation - Attestation I have personally seen and examined this patient.: Yes I have fully participated in the care of the patient.: Yes I have reviewed all pertinent clinical information, including history, physical exam and plan: Yes Notes (Text): 05/27/18 06:08 Pt seen ,chart reviewed.Pt is febrile,his antibiotics have been dcd,was given tylenol rectally. Discussed with the resident. He called Dr Branch,discussedx case with him.
--- NOTE | 2018-05-27 08:05 | PN ---
DATE: 05/27/2018 PULMONARY NOTE SUBJECTIVE: The patient is more short of breath this morning. He remains agitated and confused. PHYSICAL EXAMINATION: VITALS: Temperature is 102.2, pulse 127, respiratory rate 24, blood pressure 170/103. Oxygen saturation on BiPAP - 95%. HEENT: Normocephalic, atraumatic. No JVD. CARDIOVASCULAR: Systolic ejection murmur at the lower left sternal border. Questionable S3 gallop. LUNGS: Minimal crackles at the bases. Minimal/less rhonchi. No wheezing. EXTREMITIES: Mild edema. No cyanosis, no clubbing. Calves are nontender to palpation. GASTROINTESTINAL: Abdomen is soft, nontender, and nondistended. Bowel sounds are positive. SKIN: No acute rash. NEUROLOGIC: Exam limited at the present time. PERTINENT LABORATORY DATA: Chest x-ray was done this morning and reviewed. The chest x-ray reveals a possible minimal infiltrate noted at the right lower lobe. There is no significant pulmonary vascular congestion. Official results are pending. Arterial blood gas was done on BiPAP with 35% oxygen. Results are: PH 7.46, pCO2 of 39, pO2 of 102. IMPRESSION: 1. Left lower lobe lung mass, rule out malignancy. 2. Chronic obstructive pulmonary disease. 3. Congestive heart failure. 4. Rule out pneumonia - right lower lobe. 5. Atrial fibrillation. 6. Thrombocytopenia. PLAN: The patient is definitely more short of breath this morning. He remains confused and agitated. I did discuss the case with the night nurse at length. I also discussed the case with Dr. Barajas at length. The patient did spike a fever to 102.2 this morning. I did review the chest x-ray as above. Other than a possible minimal infiltrate noted at the right lower lobe, there are no other new significant changes. I have also reviewed the arterial blood gas. The arterial blood gas is surprisingly acceptable at this point in time. I will continue with BiPAP for now. On physical exam, there is no significant bronchospasm noted. I will continue the current nebulizer treatments and inhaled steroids for now. Antibiotics were stopped yesterday as per Infectious Disease. I did review the above with Dr. Power this morning. Clinical status of the patient remains very guarded. His overall prognosis remains poor. I will discuss the above with the attending physician later this morning. Javier Echevarria MD [facility] # [id number] [facility]
[2018-05-27] MEDS: Vancomycin 1gm in NS 250ml 1 GM/250 ML BAG IVPB SCH ×2 (08:34→20:46)
[2018-05-27] MEDS: Budesonide 0.5 mg/2 ml Inhal Susp UD IH SCH ×2 (08:41→19:42)
--- NOTE | 2018-05-27 09:46 | PN ---
DATE: 05/27/2018 SUBJECTIVE: The patient is on BiPAP, subtended, events from overnight were reviewed. I did speak to the resident regarding the patient's atrial fibrillation and fever. PHYSICAL EXAMINATION VITAL SIGNS: Temperature is 102, pulse of 113, blood pressure is 139/84, and respirations 22. GENERAL: The patient is lying in bed, flat, comfortable. HEENT: No oral lesion. Anicteric sclerae. Moist mucosa. NECK: No JVD, adenopathy, or thyromegaly. CARDIOVASCULAR: S1 and S2, regular. No murmurs, rubs, or gallops. LUNGS: Clear to auscultation bilaterally. No wheeze, rales, or rhonchi. ABDOMEN: Bowel sounds are positive, soft, nontender and nondistended. EXTREMITIES: No cyanosis, clubbing or edema. LABORATORY DATA: White count of 5.6 and hemoglobin 11.8. Creatinine is 0.9. Platelet count is 40. ASSESSMENT: 1. Fever. 2. Atrial fibrillation with rapid rate. 3. Left lung mass. 4. Community-acquired pneumonia. 5. Sepsis. 6. Thrombocytopenia. 7. Transaminitis. PLAN: The patient is currently is a full code. The patient is on Ativan. He is receiving digoxin. The patient is receiving propranolol. He is being followed by multiple consultants. He is on cefepime for antibiotics. The patient continues to have fever although he is on vancomycin and cefepime. He is going to continue with Xopenex. The patient's prognosis is guarded. I will get palliative care to evaluate the patient. I did speak with the patient's sister yesterday to give her an update on the patient's diagnosis and plan of care. The patient had biopsy and the biopsy results are still pending. Jayy Branch MD
--- NOTE | 2018-05-27 10:16 | PN ---
DATE: 05/27/2018 SUBJECTIVE: The patient is in bed, seen earlier today. He has a temperature. Overall, he is doing poorly and he has shortness of breath. PHYSICAL EXAMINATION: VITAL SIGNS: Temperature is 102, blood pressure is 130/80, respiratory 22, heart rate of 118. HEENT: The patient has a BiPap on. NECK: Supple. LUNGS: Have decreased breath sounds. HEART: Normal S1, S2. ABDOMEN: Soft, nontender. LABORATORY DATA: White count of 5.6, hemoglobin 11. Chemistries reveals a BUN of 30, creatinine of 0.9. The LFTs are elevated. Alk phos is elevated. The BNP is 8000 and the patient's procalcitonin is 2.08. Microbiology reveals all the cultures, blood cultures, urine cultures are negative. The nasal MRSA is negative and imaging reveals the patient's chest x-ray from this morning, the official report is pending. The chest x-ray from 05/24/2018, there was a left perihilar consolidation. Dr. Echevarria states there is no new findings on the chest x-ray from this morning. Dr. Barajas's progress note from this morning is reviewed and appreciated. The review of orders reveals repeat cultures had been ordered and also troponin had been ordered.. The pathology report is still pending.. ASSESSMENT AND PLAN: This is a 72-year-old male who is with left-sided community-acquired pneumonia, lung mass, status post CT-guided biopsy. The patient was on vancomycin, meropenem for 7 days which was just stopped yesterday and now has systemic inflammatory response syndrome and for us to rule out new infectious etiology, we will check on the repeat pancultures and check on the pathology and we will order Dopplers of the lower extremities. Start the patient on vancomycin and Maxipime. We will order a procalcitonin and cefepime. Overall prognosis is quite poor, should consider a hospice setting in this patient who appears to be terminal. Case discussed with Dr. Echevarria, the pulmonary ada accommodation consultant on the case and we will follow with you. Kali Power MD [facility] # [id number]
--- NOTE | 2018-05-27 13:07 | RAD ---
Date of service: 05/27/2018 HISTORY: r/o infiltrate COMPARISON: Desats or radiologists coated FINDINGS: LUNGS: No active pulmonary disease. PLEURA: Small left pleural effusion. CARDIOVASCULAR: Cardiomegaly. No evidence of acute, significant cardiovascular disease. Prominent hilar likely enlarged pulmonary arteries. OSSEOUS STRUCTURES: No significant abnormalities. VISUALIZED UPPER ABDOMEN: Normal. OTHER FINDINGS: None. IMPRESSION: No active disease.
--- NOTE | 2018-05-27 13:28 | PN ---
DATE: 05/27/2018 SUBJECTIVE: The patient is seen lying in bed on telemetry. He is again somewhat restless and agitated and confused. This worsened there in the evening. A repeat chest x-ray was unchanged and electrocardiogram showed atrial fibrillation with increased ventricular rate. This morning he has recorded temperature of 102 rectally. His lung biopsy results remain pending. PHYSICAL EXAMINATION: GENERAL: He is a restless appearing, middle-aged man. VITAL SIGNS: His blood pressure is 140/84 with a pulse of 110, in atrial fibrillation; respirations are 16, temperature is 102 rectally. HEENT: No JVD. CHEST: Bilateral coarse rhonchi. HEART: Rhythm is irregularly regular with a systolic murmur present at the left sternal border and base. ABDOMEN: Soft, nontender with normoactive bowel sounds. EXTREMITIES: No edema. DIAGNOSTIC DATA: Arterial blood gas revealed pH 7.46, PCO2 39, PO2 102. BNP 8070. Troponin 0.05. Electrocardiogram atrial fibrillation with no acute ST-T changes. CURRENT MEDICATIONS: Include Ativan p.r.n., verapamil 40 mg t.i.d., digoxin 0.125 mg daily, DuoNeb inhaler, Inderal LA 80 mg daily, Maxipime, Pulmicort, Seroquel, IV vancomycin and Xopenex. IMPRESSION: 1. Chronic atrial fibrillation with variable rate control. 2. Probable lung cancer, biopsy results pending. 3. Severe thrombocytopenia, persistent, suspect due to autoimmune cause. 4. History of tobacco abuse. 5. Rest of the problems as noted. RECOMMENDATIONS: His current medications should continue for now. Further recommendations will be made after review of his biopsy results. A palliative care consult is pending. His DNR status should be addressed with the family if possible. Coumadin will remain on hold given his severe thrombocytopenia. His overall prognosis is extremely guarded. We will follow along and make further recommendations as needed. Nixon Arevalo MD
[2018-05-27] MEDS: Cefepime 1gm in NS 100ml 1 GM/100 ML BAG IVPB SCH ×2 (14:23→21:03)
--- NOTE | 2018-05-27 14:27 | CP.PCM.CON ---
History of Present Illness - History of Present Illness History of Present Illness: Palliative consult requested by Dr Sloan Branch Reason: Advance care planning 72 year old male with history of COPD, CHF, HTN who presented to ED on 05/13/18 with shortness of breath at rest and increased dyspnea on exertion. He denied chest pain, productive cough, fever,chills, nausea, vomiting, diarrhea, syncope, headache,dizziness or urinary symptom. Work up revealed DONG pneumonia,LL mass, thrombocytopenia. During this admission patient developed episodes of agitation and altered mental status. CT of head showed no acute abnormalities. A lung biopsy was done 05/25, results pending. PMHx: COPD,CHF,HTN, HLD, A Fib, hypothyroidism, psoriasis PSHx: unknown Social History: Current smoker, no alcohol or drug use. Lived independently Family History: Non contributory. Advance Care Planning: The patient dos not have an Advanced Directive Review of Systems: As per HPI, patient is altered, unable to obtain Past Patient History - Infectious Disease Hx of Infectious Diseases: None - Tetanus Immunizations Tetanus Immunization: Unknown - Past Social History Smoking Status: Current Some Days Smoker - CARDIAC Hx Congestive Heart Failure: Yes - PULMONARY Hx Chronic Obstructive Pulmonary Disease (COPD): Yes - NEUROLOGICAL Hx Neurological Disorder: No - HEENT Hx Deafness: Yes - RENAL Hx Chronic Kidney Disease: No - ENDOCRINE/METABOLIC Hx Endocrine Disorders: No - HEMATOLOGICAL/ONCOLOGICAL Hx Blood Disorders: No - INTEGUMENTARY Hx Dermatological Problems: Yes Hx Psoriasis: Yes - MUSCULOSKELETAL/RHEUMATOLOGICAL Hx Musculoskeletal Disorders: No Hx Falls: No - GASTROINTESTINAL Hx Gastrointestinal Disorders: No - GENITOURINARY/GYNECOLOGICAL Hx Genitourinary Disorders: No - PSYCHIATRIC Hx Psychophysiologic Disorder: No Hx Substance Use: No - SURGICAL HISTORY Hx Surgeries: No - ANESTHESIA Hx Anesthesia: No Meds Allergies/Adverse Reactions: Allergies Allergy/AdvReac Type Severity Reaction Status Date / Time No Known Allergies Allergy Verified 05/24/16 09:14 - Medications Medications: Current Medications Acetaminophen (Tylenol 325mg Tab) 650 mg PO Q6H PRN PRN Reason: Pain, Mild (1-3) Last Admin: 05/26/18 13:20 Dose: 650 mg Acetaminophen (Tylenol 650 Mg Supp) 650 mg RC Q6H PRN PRN Reason: Fever >100.4 F Last Admin: 05/27/18 03:11 Dose: 650 mg Albuterol/Ipratropium (Duoneb 3 Mg/0.5 Mg (3 Ml) Ud) 3 ml IH Q2H PRN PRN Reason: Shortness of Breath Budesonide (Pulmicort Respules) 0.5 mg IH [id number] [facility] Last Admin: 05/27/18 08:41 Dose: 0.5 mg Digoxin (Digoxin) 0.125 mg PO 1400 [facility] Last Admin: 05/26/18 13:22 Dose: 0.125 mg Cefepime HCl (Maxipime 1gm) 1 gm in 100 mls @ 100 mls/hr IVPB Q8 [facility]; Protocol Stop: 06/05/18 14:01 Last Admin: 05/27/18 14:23 Dose: 100 mls/hr Vancomycin HCl (Vancomycin 1gm) 1 gm in 250 mls @ 167 mls/hr IVPB Q12H [facility]; Protocol Stop: 06/05/18 08:01 Last Admin: 05/27/18 08:34 Dose: 167 mls/hr Levalbuterol HCl (Xopenex) 1.25 mg IH [id number] [facility] Last Admin: 05/27/18 14:04 Dose: 1.25 mg Lorazepam (Ativan) 0.25 mg IVP Q6H PRN; Protocol PRN Reason: Agitation Last Admin: 05/27/18 11:25 Dose: 0.25 mg Metoprolol Tartrate (Lopressor) 5 mg IVP Q6 PRN PRN Reason: Heart Rate greater than 110bpm Last Admin: 05/26/18 23:55 Dose: 5 mg Ondansetron HCl (Zofran Inj) 4 mg IVP Q6H PRN PRN Reason: Nausea/Vomiting Propranolol HCl (Inderal La) 80 mg PO DAILY [facility] Last Admin: 05/26/18 10:16 Dose: 80 mg Quetiapine Fumarate (Seroquel) 12.5 mg PO 1500 PRN; Protocol PRN Reason: Psychosis Quetiapine Fumarate (Seroquel) 12.5 mg PO HS PRN; Protocol PRN Reason: psychosis, agiation Verapamil HCl (Calan Tab) 40 mg PO TID [facility] Last Admin: 05/26/18 17:39 Dose: 40 mg Verapamil HCl (Verapamil Inj) 5 mg IV Q4H [facility] Last Admin: 05/27/18 14:22 Dose: 5 mg Warfarin Sodium (Coumadin) 5 mg PO 1800 [facility]; Protocol Physical Exam - Constitutional Appears: Chronically Ill - Head Exam Head Exam: NORMOCEPHALIC - Eye Exam Eye Exam: Normal appearance, PERRL - ENT Exam ENT Exam: Mucous Membranes Moist - Neck Exam Neck exam: Positive for: Normal Inspection Additional comments: no JVD - Respiratory Exam Respiratory Exam: Decreased Breath Sounds Additional comments: BiPap in use - Cardiovascular Exam Cardiovascular Exam: Tachycardia, Irregular Rhythm, +S1, +S2 - GI/Abdominal Exam GI & Abdominal Exam: Normal Bowel Sounds, Soft Additional comments: no tenderness - Exam Additional comments: incontinent - Extremities Exam Extremities exam: Positive for: pedal edema Additional comments: venous stasis lower extremities - Neurological Exam Neurological exam: Altered - Psychiatric Exam Psychiatric exam: Agitated - Skin Skin Exam: Pallor, Warm - Additional Findings Additional findings: Palliative performance scale rating 30% Results - Vital Signs Recent Vital Signs: Last Vital Signs Temp 97.5 F L 05/27/18 12:00 Pulse 121 H 05/27/18 14:22 Resp 18 05/27/18 12:00 BP 129/89 05/27/18 14:22 Pulse Ox 97 05/27/18 06:00 - Labs Result Diagrams: 05/26/18 07:00 05/26/18 07:00 Labs: Laboratory Results - last 24 hr 05/27/18 05/27/18 05/27/18 04:24 04:45 10:25 pCO2 39 pO2 102.0 H HCO3 27.7 ABG pH 7.46 H ABG Total CO2 28.9 H ABG O2 Saturation 99.2 H ABG O2 Content 17.3 ABG Base Excess 3.7 H ABG Hemoglobin 12.7 ABG Carboxyhemoglobin 2.0 H POC ABG HHb (Measured) 0.8 ABG Methemoglobin 1.1 ABG O2 Capacity 17.4 Hgb O2 Saturation 96.1 FiO2 35.0 Troponin I 0.05 D 0.05 NT-Pro-B Natriuret Pep 8070 H Assessment & Plan - Assessment and Plan (Free Text) Assessment: 72 year old male with history of CHF,COPD,HTN, HLD,A Fib who is admitted with dyspnea, thrombocytopenia, left lung mass,SIRS, elevated LFT's,altered mental status The patient is on BiPap, extremely restless. 1:1 monitoring. I spoke with patients sister Emam Calles via phone. She states that the patient does not have a an Advanced Directive. She also states that they have never had a discussion regarding resuscitation wishes. She reports that there are three other siblings all of whom are not really well. She intends to visit the patient tomorrow. I will meet with her and the patient tomorrow. If he is alert and oriented will discuss goals of care and advance care planning. Time spent in advance care planning discussion with family, 15 minutes Plan: Advance care planning Left lung mass> biopsy results pending Dyspnea/hypoxia: Dr Echevarria following, recs reviewed< Bipap, Duoneb, Xopenex. SIRS: ID following, rec reviewed. Continue Cefepime, Vancomycin AMS: Psychiatry following, Seroquel HS and prn, Ativan prn
--- NOTE | 2018-05-27 17:12 | PN ---
DATE: 05/27/2018 ENDO FOLLOWUP SUBJECTIVE: This is a 72-year-old male admitted with congestive heart failure and is now being followed closely also for metabolic management. His thyroid levels have remained near optimal at this time and he has also remained clinically and biochemically euthyroid as noted. His repeat thyroid study showed T4 of 11.2 with a free T4 of 2.12 and a TSH of 1.76. His latest chemistries showed a BUN of 30, sodium 140, potassium 4.6, chloride 105, CO2 of 33, glucose 126 and creatinine 0.9. So at this time, we will continue the serial thyroid studies to be obtained, but we will hold off the resumption of the methimazole therapy as noted. We will obtain serial chemistries and supplement accordingly as needed. We will follow. Rika Anderson MD
--- NOTE | 2018-05-27 18:59 | CARD ---
APPROVED REPORT Date of service: 05/27/2018 EKG Measurement Heart [id number] <Conclusion> Atrial fibrillation with rapid ventricular response ST & T wave abnormality, consider anterior ischemia or digitalis effect Abnormal ECG
[2018-05-28] MEDS: Levalbuterol 1.25 MG/3 ML Inhal Soln UD IH SCH ×2 (02:10→08:38)
[2018-05-28] MEDS: Cefepime 1gm in NS 100ml 1 GM/100 ML BAG IVPB SCH ×3 (05:37→21:23)
[2018-05-28 07:13] LABS: HEMOGLOBIN 11.5 g/dL (14.0-18.0); MEAN CELL VOLUME 87.4 fl (80.0-105.0); MEAN CORPUSCULAR HEMOGLOBIN 27.4 pg (25.0-35.0); MEAN CORPUSCULAR HGB CONC 31.3 g/dl (31.0-37.0); RED CELL DISTRIBUTION WIDTH 15.7 % (11.5-14.5); WHITE BLOOD COUNT 4.1 10^3/uL (4.5-11.0)
[2018-05-28 07:19] LABS: PLATELET COUNT 27 10^3/uL (120.0-450.0)
[2018-05-28 07:36] LABS: ALBUMIN 3.1 g/dL (3.0-4.8); ALT/SGPT 78 U/L (7-56); AST/SGOT 433 U/L (17-59); BLOOD UREA NITROGEN 50 mg/dL (7-21); CALCIUM 9.4 mg/dL (8.4-10.5); GFR NON-AFRICAN AMERICAN > 60
[2018-05-28] MEDS: Vancomycin 1gm in NS 250ml 1 GM/250 ML BAG IVPB SCH ×2 (07:45→21:23)
--- NOTE | 2018-05-28 08:08 | PN ---
DATE: 05/28/2018 SUBJECTIVE: The patient appears much more comfortable this morning. He is not short of breath at rest. He remains confused. PHYSICAL EXAMINATION: VITAL SIGNS: Temperature is 98.2, pulse on the monitor is 114, respiratory rate 18/20, blood pressure 150/90. Oxygen saturation on BiPap is 98%. HEENT: Normocephalic, atraumatic. No JVD. CARDIOVASCULAR: Systolic ejection murmur at the lower left sternal border. Questionable S3 gallop. LUNGS: Minimal crackles at the bases. Minimal/less rhonchi. No wheezing. EXTREMITIES: Mild edema. No cyanosis, no clubbing. Calves are nontender to palpation. GASTROINTESTINAL: Abdomen is soft, nontender and nondistended. Bowel sounds are positive. SKIN: No acute rash. NEUROLOGIC: Exam limited at the present time. IMPRESSION: 1. Left lower lobe lung mass, rule out malignancy. 2. Chronic obstructive pulmonary disease. 3. Congestive heart failure. 4. Rule out pneumonia - right lower lobe. 5. Atrial fibrillation. 6. Thrombocytopenia. PLAN: The patient appears much more comfortable this morning. He is not short of breath at rest. He remains confused. I did discuss the case with the night nurse at length. The night nurse stated the patient had a much better night. On physical exam, there is less bronchospasm noted. In addition, the alveolar-arterial gradient is also less. I will continue the current nebulizer treatments and inhaled steroids for now. The patient also remains on antibiotic therapy - as per Infectious Disease. Temperatures are resolving. Input by Dr. Power is noted. We are still awaiting the biopsy results. I will speak with Dr. Franco (Pathology) later this morning. Inputs by Cardiology and Endocrine are also noted. Clinical status of the patient is certainly improved - compared to yesterday. However, again, it appears that the future status/prognosis for this patient is very poor. I will discuss the above with the attending physician later this morning. Javier Echevarria MD [facility]
[2018-05-28] MEDS: Budesonide 0.5 mg/2 ml Inhal Susp UD IH SCH ×2 (08:38→20:03)
--- NOTE | 2018-05-28 11:15 | US ---
HISTORY: Leg pain and swelling. Evaluate for DVT PHYSICIAN(S): Peña Patel MD. TECHNIQUE: Duplex sonography and color-flow Doppler with graded compression were used to evaluate the deep venous systems of both lower extremities. The exam is somewhat limited by edema FINDINGS: The visualized deep venous systems of both lower extremities are sonographically normal and compressible. Normal wave forms and augmentation are seen. There is no sonographic evidence for deep venous thrombosis in the visualized segments of both lower extremities. IMPRESSION: No sonographic evidence for deep venous thrombosis in the visualized segments of both lower extremities.
[2018-05-28] MEDS: Digoxin 500 mcg/2ml (0.5 mg/2ml) Inj IV SCH (13:28)
[2018-05-28] MEDS: Albuterol-Ipratrop 3 mg / 0.5 (3 ml) UD IH PRN ×2 (13:36→20:04)
--- NOTE | 2018-05-28 14:59 | CP.PCM.PN ---
Subjective - Date & Time of Evaluation Date of Evaluation: 05/28/18 Time of Evaluation: 14:00 - Subjective Subjective: Altered mental status, non verbal, unable to follow command,restless Objective - Vital Signs/Intake and Output Vital Signs (last 24 hours): Temp Pulse Resp BP Pulse Ox 99.8 F H 124 H 32 H 125/79 98 05/28/18 12:00 05/28/18 13:28 05/28/18 12:00 05/28/18 13:28 05/28/18 05:47 Intake and Output: 05/28/18 05/28/18 06:59 18:59 Intake Total 510 Balance 510 - Medications Medications: Current Medications Acetaminophen (Tylenol 325mg Tab) 650 mg PO Q6H PRN PRN Reason: Pain, Mild (1-3) Last Admin: 05/26/18 13:20 Dose: 650 mg Acetaminophen (Tylenol 650 Mg Supp) 650 mg RC Q6H PRN PRN Reason: Fever >100.4 F Last Admin: 05/27/18 17:29 Dose: 650 mg Albuterol/Ipratropium (Duoneb 3 Mg/0.5 Mg (3 Ml) Ud) 3 ml IH Q2H PRN PRN Reason: Shortness of Breath Last Admin: 05/28/18 13:36 Dose: 3 ml Budesonide (Pulmicort Respules) 0.5 mg IH [id number] [facility] Last Admin: 05/28/18 08:38 Dose: 0.5 mg Digoxin (Lanoxin) 0.125 mg IV 1400 [facility] Last Admin: 05/28/18 13:28 Dose: 0.125 mg Cefepime HCl (Maxipime 1gm) 1 gm in 100 mls @ 100 mls/hr IVPB Q8 [facility]; Protocol Stop: 06/05/18 14:01 Last Admin: 05/28/18 13:28 Dose: 100 mls/hr Vancomycin HCl (Vancomycin 1gm) 1 gm in 250 mls @ 167 mls/hr IVPB Q12H [facility]; Protocol Stop: 06/05/18 08:01 Last Admin: 05/28/18 07:45 Dose: 167 mls/hr Lorazepam (Ativan) 0.5 mg IVP Q6H PRN; Protocol PRN Reason: Anxiety Last Admin: 05/28/18 09:17 Dose: 0.5 mg Metoprolol Tartrate (Lopressor) 5 mg IVP Q6 PRN PRN Reason: Heart Rate greater than 110bpm Last Admin: 05/26/18 23:55 Dose: 5 mg Ondansetron HCl (Zofran Inj) 4 mg IVP Q6H PRN PRN Reason: Nausea/Vomiting Propranolol HCl (Inderal La) 80 mg PO DAILY [facility] Last Admin: 05/26/18 10:16 Dose: 80 mg Quetiapine Fumarate (Seroquel) 12.5 mg PO 1500 PRN; Protocol PRN Reason: Psychosis Quetiapine Fumarate (Seroquel) 12.5 mg PO HS PRN; Protocol PRN Reason: psychosis, agiation Verapamil HCl (Calan Tab) 40 mg PO TID [facility] Last Admin: 05/26/18 17:39 Dose: 40 mg Verapamil HCl (Verapamil Inj) 5 mg IV Q4H [facility] Last Admin: 05/28/18 13:28 Dose: 5 mg Warfarin Sodium (Coumadin) 5 mg PO 1800 [facility]; Protocol - Labs Labs: 05/28/18 06:30 05/28/18 06:30 PT 13.7 SECONDS (9.4-12.5) H 05/22/18 08:40 INR 1.19 05/22/18 08:40 APTT 28.0 Seconds (25.1-36.5) 05/22/18 08:40 - Constitutional Appears: Chronically Ill - Head Exam Head Exam: NORMOCEPHALIC - Eye Exam Eye Exam: Normal appearance, PERRL - ENT Exam ENT Exam: Mucous Membranes Moist - Respiratory Exam Respiratory Exam: Decreased Breath Sounds, Rhonchi - Cardiovascular Exam Cardiovascular Exam: Irregular Rhythm, +S1, +S2 - GI/Abdominal Exam GI & Abdominal Exam: Soft, Hypoactive Bowel Sounds - Exam Additional comments: incontinent - Extremities Exam Additional comments: venous stasis of lower extremities - Back Exam Back Exam: NORMAL INSPECTION - Neurological Exam Neurological Exam: Altered - Psychiatric Exam Additional comments: restless - Skin Skin Exam: Dry Additional comments: numerous small ecchymotic areas Assessment and Plan - Assessment and Plan (Free Text) Assessment: 72 year old male with history of A Fib, HTN, HLD, COPD, CHF and psoriasis who is admitted with LLL lung mass, possible RLL pneumonia, shortness of breath,altered mental status, thrombocytopenia The patient remains altered. Patients sister Emma at bedside. Emma has been speaking with Dr Branch daily for updates on his condition. Lung biopsy results pending. Resuscitation status discussed with Emma. Her brother did not have an advanced directive. She expressed that her brother would probably not want CPR or intubation. She is considering DNR/DNI but intends to discuss her siblings before making this decision. Although she is hopeful that his condition will improve, she verbalized that her brother is " not doing well". Psychosocial support provided. Time spent with family in goals of care and advance care planning discussion, 20 minutes Plan: Ga[place] of care and advance care planning BiPap, continue Pulmicort,Duonebs. Continue Calan,Digoxin,Inderal, Metoprolol,Coumadin. Seroquel HS and prn
--- NOTE | 2018-05-28 15:11 | PN ---
DATE: 05/28/2018 SUBJECTIVE: The patient is in bed in no acute distress, was seen earlier. Overall weak. PHYSICAL EXAMINATION: VITAL SIGNS: On exam, temperature is 98, T-max yesterday was 102, blood pressure is 120/60, respiratory rate of 18. HEENT: Examination of HEENT is unremarkable. NECK: Supple. LUNGS: Have decreased breath sounds. HEART: Normal S1, S2. ABDOMEN: Soft. LABORATORY DATA: Laboratory examination reveals a white count of 4.1, hemoglobin 11, platelets of 27. Chemistries are noted and BUN of 50, creatinine of 1. LFTs are elevated.. Procalcitonin is elevated. Microbiology reveals the blood cultures are negative and Rekha Werner's consultation is noted. Dr. Echevarria's note is reviewed. ASSESSMENT/PLAN: This is a 72-year-old male with a left-sided community-acquired lung mass, status post CT scan guided biopsy, was treated with vancomycin and meropenem for 7 days. Developed new systemic inflammatory response syndrome and now on day #2 of Maxipime and vancomycin. On microbiology 24 hours negative for the blood cultures. The patient has an elevated procalcitonin. Concern about sepsis with a new healthcare-associated pneumonia.. Overall prognosis is quite poor. No evidence of DVT on ultrasound. We will follow with you. Kali Power MD
--- NOTE | 2018-05-28 15:32 | PN ---
DATE: 05/28/2018 SUBJECTIVE: The patient is seen lying in bed on telemetry. He remains confused and continues to require one to one observation. His biopsy report from his previous CT-guided lung biopsy remains pending. He remains in atrial fibrillation with moderate ventricular rate. CURRENT MEDICATIONS: Include verapamil 5 mg IV every 4 hours, IV vancomycin, Seroquel, Pulmicort inhaler, Maxipime and IV metoprolol and DuoNeb inhaler. PHYSICAL EXAMINATION: GENERAL: He is a middle-aged man, appears chronically ill. VITAL SIGNS: His blood pressure is 120/70 with pulse of 116 in atrial fibrillation and respirations are 16. He is afebrile. HEENT: No JVD. Chest: Bilateral scattered rhonchi. HEART: Rhythm is irregularly irregular. Systolic murmur at base left sternal border. ABDOMEN: Soft and nontender. Normoactive bowel sounds. EXTREMITIES: Chronic cellulitic changes. DIAGNOSTIC DATA Potassium 4.3, BUN and creatinine 50 and 1.1. White count 4.1 with platelet count 27,000. AST and ALT 433 and 78 with alkaline phosphatase 217. IMPRESSION: 1. Chronic atrial fibrillation with variable heart rate control, not currently taking oral medications consistently. Verapamil and metoprolol have been switched over to IV administration. 2. Probable lung cancer with confirmatory biopsy results pending. 3. Severe thrombocytopenia, persistent. 4. History of tobacco abuse. 5. Rest of problems as noted. RECOMMENDATIONS: Digoxin will be switched to IV administration as well for better rate control. Anticoagulation remains on hold given his severe thrombocytopenia. We await the results of his recent biopsy. In general, conservative management appears most appropriate. We will follow along as needed. Nixon Arevalo MD MTDEthan
--- NOTE | 2018-05-28 20:22 | PN ---
DATE: 05/28/2018 ENDOCRINOLOGY FOLLOWUP NOTE LOCATION: Room 276. This is a 72-year-old male with recent admission for congestive heart failure and currently being followed closely for metabolic management. He remains clinically euthyroid at this time, and repeat chemistry showed a BUN of 50, sodium 146, potassium 4.3, chloride 109, CO2 of 33, glucose 97, and creatinine 1.1. His repeat thyroid studies had shown a thyroxine level or T4 of 11.2 with a TSH of 1.76 and a free T4 of 2.12. So at this time, we will continue the serial thyroid testing and hold off the resumption of his methimazole therapy was previously given. We will follow the advise accordingly. Rika Anderson MD
--- NOTE | 2018-05-29 00:49 | PN ---
DATE: 05/28/2018 SUBJECTIVE: The patient is not responding well. He is on BiPAP. PHYSICAL EXAMINATION: VITAL SIGNS: Temperature is 98.8, pulse of 123, blood pressure 143/87, respirations 22. GENERAL: The patient is lying in bed, flat, comfortable. HEENT: No oral lesion. Anicteric sclerae. Moist mucosa. NECK: No JVD, adenopathy, or thyromegaly. CARDIOVASCULAR: S1 and S2, regular. No murmurs, rubs, or gallops. LUNGS: Clear to auscultation bilaterally. No wheeze, rales, or rhonchi. ABDOMEN: Bowel sounds are positive, soft, nontender and nondistended. EXTREMITIES: No cyanosis, clubbing or edema. LABORATORY DATA: White count of 4.1, hemoglobin of 11.5, platelets 27. Creatinine is 1.1. ASSESSMENT: 1. Fever. 2. Atrial fibrillation with rapid rate. 3. Left lung mass. 4. Community-acquired pneumonia. 5. Sepsis. 6. Thrombocytopenia. 7. Transaminitis. PLAN: The patient is currently declining. His platelet count is decreasing. The patient has LFTs that are elevated. His bilirubin is also mildly elevated. He has multiple blood cultures that have been negative. He is not able to take his medications at times. Because of his agitation, his Xanax was increased today. He is on Seroquel. He is receiving IV verapamil. The patient is on BiPAP. He continues to have fevers. He remains to be a full code. I did have palliative care with Rekha Werner to evaluate the patient. DNR status is being addressed as well as hospice discussions. I did speak to the patient's sister, Emma, this morning. She will discuss DNR with the siblings. Overall prognosis is poor. Jayy Branch MD
[2018-05-29] MEDS: Metoprolol 1 mg/ml Inj IVP PRN ×2 (04:12→19:54)
[2018-05-29] MEDS: Cefepime 1gm in NS 100ml 1 GM/100 ML BAG IVPB SCH ×3 (06:44→22:24)
[2018-05-29] MEDS: Budesonide 0.5 mg/2 ml Inhal Susp UD IH SCH (08:31)
--- NOTE | 2018-05-29 09:16 | PN ---
DATE: 05/29/2018 SUBJECTIVE: The patient appears comfortable this morning. He is not short of breath at rest. He remains mildly confused. PHYSICAL EXAMINATION: VITAL SIGNS: Temperature 98.1, pulse on the monitor is 112, respiratory rate 18, blood pressure 130/84. Oxygen saturation on nasal cannula is 94%. Oxygen saturation on BiPAP is 98%. HEENT: Normocephalic, atraumatic. NECK: No JVD. CARDIOVASCULAR: Systolic ejection murmur at the lower left sternal border. Questionable S3 gallop. LUNGS: Minimal/less crackles at the bases. Minimal/much less rhonchi. No wheezing. EXTREMITIES: Mild edema. No cyanosis. No clubbing. Calves are nontender to palpation. GI: Abdomen is soft, nontender and nondistended. Bowel sounds are positive. SKIN: No acute rash. NEUROLOGIC: Exam limited at the present time. IMPRESSION: 1. Left lower lobe lung mass, rule out malignancy. 2. Chronic obstructive pulmonary disease. 3. Congestive heart failure. 4. Rule out pneumonia - right lower lobe. 5. Atrial fibrillation. 6. Thrombocytopenia. PLAN: The patient appears comfortable this morning. He is not short of breath at rest. He remains mildly confused. I did discuss the case with the nurse and aide at length. Both said that the patient had a fairly uneventful night. On physical exam, there is certainly less bronchospasm noted. In addition, the alveolar-arterial gradient is also less. I will continue with the current nebulizer treatments/inhaled steroids. The patient remains on antibiotic therapy - as per Infectious Disease. Temperatures have now resolved. There is no leukocytosis. Cardiology and Endocrine evaluations are also noted. Clinical status of the patient is certainly improved - compared to a few days ago. We are still awaiting the final biopsy results. Unfortunately, the future status/prognosis for this patient does appear poor. I will discuss the above with the attending physician. Javier Echevarria MD MTDEthan
--- NOTE | 2018-05-29 10:12 | PN ---
DATE: 05/29/2018 SUBJECTIVE: The patient is awake. He is on the BiPAP. He denies any chest pain or shortness of breath. PHYSICAL EXAMINATION: GENERAL: The patient is lying in bed, flat, comfortable. VITAL SIGNS: Temperature is 98.7, pulse of 119, blood pressure 130/84, respirations 18. HEENT: No oral lesion. Anicteric sclerae. Moist mucosa. NECK: No JVD, adenopathy, or thyromegaly. CARDIOVASCULAR: S1 and S2, regular. No murmurs, rubs, or gallops. LUNGS: Clear to auscultation bilaterally. No wheeze, rales, or rhonchi. ABDOMEN: Bowel sounds are positive, soft, nontender and nondistended. EXTREMITIES: No cyanosis, clubbing or edema. LABORATORY DATA: White count of 4.1, hemoglobin of 11.5, creatinine is 1.1. ASSESSMENT: 1. Fever, improved. 2. Sepsis. 3. Community-acquired pneumonia. 4. Atrial fibrillation with rapid rate. 5. Left lung, status post biopsy. 6. Thrombocytopenia. 7. Transaminitis. PLAN: He is currently on BiPAP. He does get agitated at times. He is on cefepime for antibiotics. The patient is on propranolol. His Coumadin is on hold. He is on verapamil. He is being followed by Cardiology. He did have episode of bleeding a few days ago from a small laceration/cut on the lower leg. This was controlled with pressure. The discussions about advanced directives have been started. The family will let us know once they have decided after talking to other family members. Jayy Branch MD
[2018-05-29] MEDS: Vancomycin 1gm in NS 250ml 1 GM/250 ML BAG IVPB SCH ×2 (10:18→20:33)
--- NOTE | 2018-05-29 13:28 | CP.PCM.PN ---
Subjective - Date & Time of Evaluation Date of Evaluation: 05/29/18 Time of Evaluation: 13:30 - Subjective Subjective: Lest restless, breathing comfortably. Lethargic but rousable. Able to answer simple questions Objective - Vital Signs/Intake and Output Vital Signs (last 24 hours): Temp Pulse Resp BP Pulse Ox 98.2 F 117 H 20 121/58 L 95 05/29/18 12:00 05/29/18 12:00 05/29/18 12:00 05/29/18 12:00 05/29/18 06:00 Intake and Output: 05/29/18 05/29/18 06:59 18:59 Intake Total 450 Output Total 3 Balance 447 - Medications Medications: Current Medications Acetaminophen (Tylenol 325mg Tab) 650 mg PO Q6H PRN PRN Reason: Pain, Mild (1-3) Last Admin: 05/26/18 13:20 Dose: 650 mg Acetaminophen (Tylenol 650 Mg Supp) 650 mg RC Q6H PRN PRN Reason: Fever >100.4 F Last Admin: 05/27/18 17:29 Dose: 650 mg Albuterol/Ipratropium (Duoneb 3 Mg/0.5 Mg (3 Ml) Ud) 3 ml IH Q2H PRN PRN Reason: Shortness of Breath Last Admin: 05/28/18 13:36 Dose: 3 ml Budesonide (Pulmicort Respules) 0.5 mg IH [id number] UBALDO Last Admin: 05/29/18 08:31 Dose: 0.5 mg Digoxin (Lanoxin) 0.125 mg IV 1400 UBALDO Last Admin: 05/28/18 13:28 Dose: 0.125 mg Cefepime HCl (Maxipime 1gm) 1 gm in 100 mls @ 100 mls/hr IVPB Q8 UBALDO; Protocol Stop: 06/05/18 14:01 Last Admin: 05/29/18 06:44 Dose: 100 mls/hr Vancomycin HCl (Vancomycin 1gm) 1 gm in 250 mls @ 167 mls/hr IVPB Q12H UBALDO; Protocol Stop: 06/05/18 08:01 Last Admin: 05/29/18 10:18 Dose: 167 mls/hr Lorazepam (Ativan) 0.5 mg IVP Q6H PRN; Protocol PRN Reason: Anxiety Last Admin: 05/28/18 22:45 Dose: 0.5 mg Metoprolol Tartrate (Lopressor) 5 mg IVP Q6 PRN PRN Reason: Heart Rate greater than 110bpm Last Admin: 05/29/18 04:12 Dose: 5 mg Ondansetron HCl (Zofran Inj) 4 mg IVP Q6H PRN PRN Reason: Nausea/Vomiting Propranolol HCl (Inderal La) 80 mg PO DAILY [facility] Last Admin: 05/26/18 10:16 Dose: 80 mg Quetiapine Fumarate (Seroquel) 12.5 mg PO 1500 PRN; Protocol PRN Reason: Psychosis Quetiapine Fumarate (Seroquel) 12.5 mg PO HS PRN; Protocol PRN Reason: psychosis, agiation Verapamil HCl (Calan Tab) 40 mg PO TID [facility] Last Admin: 05/26/18 17:39 Dose: 40 mg Verapamil HCl (Verapamil Inj) 5 mg IV Q4H [facility] Last Admin: 05/29/18 10:19 Dose: 5 mg Warfarin Sodium (Coumadin) 5 mg PO 1800 UBALDO; Protocol - Labs Labs: 05/28/18 06:30 05/28/18 06:30 PT 13.7 SECONDS (9.4-12.5) H 05/22/18 08:40 INR 1.19 05/22/18 08:40 APTT 28.0 Seconds (25.1-36.5) 05/22/18 08:40 - Constitutional Appears: Chronically Ill - Head Exam Head Exam: NORMOCEPHALIC - Eye Exam Eye Exam: PERRL - ENT Exam ENT Exam: Mucous Membranes Moist - Respiratory Exam Respiratory Exam: Decreased Breath Sounds, Rhonchi - GI/Abdominal Exam GI & Abdominal Exam: Soft, Hypoactive Bowel Sounds - Extremities Exam Extremities Exam: Normal Capillary Refill - Back Exam Back Exam: NORMAL INSPECTION - Neurological Exam Neurological Exam: Altered Assessment and Plan - Assessment and Plan (Free Text) Assessment: 72 year old male with history of HTN, A Fib, COPD who is admitted with left lung mass, thrombocytopenia, sepsis, AMS. The patient is lethargic and able to follow simple command. 1:1 for safety. Denies pain.Abdomen soft, passing flatus. Last BM 05/22. I spoke with patient's sister Emma Faith via phone. I updated of his condition and explained that although he is more awake, he remains altered and unable to make decisions. Conversation was in follow up to advance care planning discussion which we talked about extensively yesterday. Anupam indicated that she spoke with her siblings and that all agreed that the patient would not want to be resuscitated with CPR or intubation. She is requesting that her brother be made DNR/DNI. Advance care planning discussion, 15 minutes Plan: Advance care planning; DNR/DNI Constipation: Dulcolax RC now. Will add Colace when is able to take PO medications. Pulmonary: Tolerating nasal cannula. Continue nebulizer treatments Per ID recs, continue Cefepime and Vancomycin
--- NOTE | 2018-05-29 13:28 | PN ---
DATE: 05/29/2018 SUBJECTIVE: The patient is seen, lying in bed, on telemetry. He remains in atrial fibrillation with moderate ventricular rate. He is somewhat restless at times. 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 Further plans are pending. MEDICATIONS: His current medications include Ativan p.r.n., DuoNeb inhaler, digoxin 0.125 mg daily IV, metoprolol 5 mg IV every 6 hours, cefepime, Pulmicort, Seroquel, verapamil 5 mg every 4 hours, and vancomycin. OBJECTIVE: GENERAL: The patient is a middle-aged man, who appears somewhat mildly sedated. VITAL SIGNS: His blood pressure is 120/60 with a pulse of 116, in atrial fibrillation, and respirations are 16. He is afebrile. NECK: No JVD. CHEST: Bilateral coarse rhonchi. HEART: Rhythm is irregularly irregular with systolic murmur at the base and left sternal border. ABDOMEN: Soft and nontender with normoactive bowel sounds. EXTREMITIES: Revealed chronic cellulitic changes. DIAGNOSTIC DATA: No blood work is pending from this morning. Last platelet count was 27,000 yesterday. IMPRESSION: 1. Chronic atrial fibrillation with variable heart rate control. 2. 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 3. Severe thrombocytopenia. 4. History of tobacco abuse. RECOMMENDATIONS: Rate control therapy will continue for now. Anticoagulation remains on hold due to his severe thrombocytopenia. Conservative care appeared most appropriate at this time. Palliative care consult has been obtained. We will follow along as needed. Nixon Arevalo MD
--- NOTE | 2018-05-29 15:21 | CP.PCM.PN ---
Subjective - Date & Time of Evaluation Date of Evaluation: 05/29/18 Time of Evaluation: 13:35 - Subjective Subjective: Patient continues to be lethargic, no fevers since 05/27/2018. Objective - Vital Signs/Intake and Output Vital Signs (last 24 hours): Temp Pulse Resp BP Pulse Ox 98.2 F 119 H 20 110/75 95 05/29/18 12:00 05/29/18 13:52 05/29/18 12:00 05/29/18 13:52 05/29/18 06:00 Intake and Output: 05/29/18 05/29/18 06:59 18:59 Intake Total 450 Output Total 3 Balance 447 - Medications Medications: Current Medications Acetaminophen (Tylenol 325mg Tab) 650 mg PO Q6H PRN PRN Reason: Pain, Mild (1-3) Last Admin: 05/26/18 13:20 Dose: 650 mg Acetaminophen (Tylenol 650 Mg Supp) 650 mg RC Q6H PRN PRN Reason: Fever >100.4 F Last Admin: 05/27/18 17:29 Dose: 650 mg Albuterol/Ipratropium (Duoneb 3 Mg/0.5 Mg (3 Ml) Ud) 3 ml IH Q2H PRN PRN Reason: Shortness of Breath Last Admin: 05/28/18 13:36 Dose: 3 ml Budesonide (Pulmicort Respules) 0.5 mg IH [id number] [facility] Last Admin: 05/29/18 08:31 Dose: 0.5 mg Digoxin (Lanoxin) 0.125 mg IV 1400 UBALDO Last Admin: 05/28/18 13:28 Dose: 0.125 mg Docusate Sodium (Colace) 100 mg PO BID UBALDO Cefepime HCl (Maxipime 1gm) 1 gm in 100 mls @ 100 mls/hr IVPB Q8 [facility]; Protocol Stop: 06/05/18 14:01 Last Admin: 05/29/18 13:50 Dose: 100 mls/hr Vancomycin HCl (Vancomycin 1gm) 1 gm in 250 mls @ 167 mls/hr IVPB Q12H [facility]; Protocol Stop: 06/05/18 08:01 Last Admin: 05/29/18 10:18 Dose: 167 mls/hr Lorazepam (Ativan) 0.5 mg IVP Q6H PRN; Protocol PRN Reason: Anxiety Last Admin: 05/28/18 22:45 Dose: 0.5 mg Metoprolol Tartrate (Lopressor) 5 mg IVP Q6 PRN PRN Reason: Heart Rate greater than 110bpm Last Admin: 05/29/18 04:12 Dose: 5 mg Ondansetron HCl (Zofran Inj) 4 mg IVP Q6H PRN PRN Reason: Nausea/Vomiting Propranolol HCl (Inderal La) 80 mg PO DAILY [facility] Last Admin: 05/26/18 10:16 Dose: 80 mg Quetiapine Fumarate (Seroquel) 12.5 mg PO 1500 PRN; Protocol PRN Reason: Psychosis Quetiapine Fumarate (Seroquel) 12.5 mg PO HS PRN; Protocol PRN Reason: psychosis, agiation Verapamil HCl (Calan Tab) 40 mg PO TID [facility] Last Admin: 05/26/18 17:39 Dose: 40 mg Verapamil HCl (Verapamil Inj) 5 mg IV Q4H [facility] Last Admin: 05/29/18 13:52 Dose: 5 mg Warfarin Sodium (Coumadin) 5 mg PO 1800 UBALDO; Protocol - Labs Labs: 05/28/18 06:30 05/28/18 06:30 PT 13.7 SECONDS (9.4-12.5) H 05/22/18 08:40 INR 1.19 05/22/18 08:40 APTT 28.0 Seconds (25.1-36.5) 05/22/18 08:40 - Constitutional Appears: Chronically Ill - Head Exam Head Exam: NORMAL INSPECTION - ENT Exam ENT Exam: Mucous Membranes Moist - Neck Exam Neck Exam: absent: Lymphadenopathy, Meningismus - Respiratory Exam Respiratory Exam: Decreased Breath Sounds - Cardiovascular Exam Cardiovascular Exam: +S1, +S2 - GI/Abdominal Exam GI & Abdominal Exam: Soft. absent: Tenderness Assessment and Plan - Assessment and Plan (Free Text) Plan: Assessment new onset HCAP S/P left sided community-acquired pneumonia, now with new finding of left lung mass on CT scan, suspicious for malignancy, history of Severe sepsis secondary to community-acquired pneumonia COPD hypertension dyslipidemia Psoriasis Plan continue Vancomycin and Cefepime day 3 for 4-7 days; cultures have been negative Heme/Onc doing work up for the lung mass overall prognosis is poor
[2018-05-29] MEDS: Digoxin 500 mcg/2ml (0.5 mg/2ml) Inj IV SCH (15:29)
--- NOTE | 2018-05-29 19:30 | PN ---
DATE: 05/29/2018 ENDOCRINOLOGY FOLLOWUP NOTE LOCATION: In room 276. SUBJECTIVE: This is a 72-year-old male with recent admission for congestive heart failure and supervening acute exacerbation of COPD with an incidental finding of a lung mass currently undergoing closer hemodynamic monitoring and workup at this time. He remains clinically and biochemically euthyroid at this time. The latest chemistry showed a BUN of 50, sodium 146, potassium 4.3, chloride 109, CO2 of 33, glucose 97, and creatinine 1.1. His latest thyroid study showed thyroxine or T4 level of 11.2 with a TSH of 1.76 and a free T4 of 2.12. So, at this time, we will hold off the resumption of his medical therapy for hyperthyroidism, which is Tapazole medications as previously given. We will obtain serial thyroid studies and determine the need to resume the medications accordingly. We will follow. Rika Anderson MD
[2018-05-30] MEDS: Cefepime 1gm in NS 100ml 1 GM/100 ML BAG IVPB SCH ×3 (05:09→21:07)
[2018-05-30 07:52] LABS: HEMOGLOBIN 11.8 g/dL (14.0-18.0); MEAN CELL VOLUME 87.4 fl (80.0-105.0); MEAN CORPUSCULAR HEMOGLOBIN 27.4 pg (25.0-35.0); MEAN CORPUSCULAR HGB CONC 31.4 g/dl (31.0-37.0); RED CELL DISTRIBUTION WIDTH 15.6 % (11.5-14.5); WHITE BLOOD COUNT 3.7 10^3/uL (4.5-11.0)
[2018-05-30] MEDS: Budesonide 0.5 mg/2 ml Inhal Susp UD IH SCH ×2 (07:59→20:04)
[2018-05-30 08:14] LABS: ALT/SGPT 54 U/L (7-56); AST/SGOT 163 U/L (17-59); BLOOD UREA NITROGEN 36 mg/dL (7-21); CALCIUM 9.6 mg/dL (8.4-10.5); GFR NON-AFRICAN AMERICAN > 60
--- NOTE | 2018-05-30 08:53 | PN ---
DATE: 05/30/2018 SUBJECTIVE: The patient is seen lying in bed on telemetry, he appears comfortable at present time. He does continue to be somewhat agitated and restless and requires one to one observation. He has been made a DNR/DNI by his sister. CURRENT MEDICATIONS: Include Ativan p.r.n., DuoNeb inhaler, digoxin 0.125 mg IV daily, metoprolol 5 mg IV every 6 hours p.r.n. daily, cefepime, Pulmicort inhaler, Seroquel p.r.n., IV vancomycin, verapamil 5 mg IV every 4 hours and Zofran p.r.n. OBJECTIVE: GENERAL: He is a middle-aged man who appears comfortable. VITAL SIGNS: Blood pressure is 130/90 with a pulse of 120 in atrial fibrillation, respirations are 16 and temperature 99.2 rectally. HEENT: No JVD. CHEST: Bilateral coarse rhonchi. HEART: Irregular regular rhythm with a systolic murmur at the base of left sternal border. ABDOMEN: Soft, nontender and normoactive bowel sounds. EXTREMITIES: Chronic cellulitic changes. DIAGNOSTICS DATA: Potassium 4.2, BUN and creatinine 36 and 1.0. CBC is pending. IMPRESSION: 1. Persistent atrial fibrillation with variable heart rate control. 2. Small cell lung cancer. 3. Severe thrombocytopenia. 4. History of tobacco abuse. RECOMMENDATIONS: His current IV rate control therapy will be continued. Once he is able to reliably resume oral intake, this can be switched back to pill form. DNR/DNI order is noted. Conservative cardiac care is advised. Await decision regarding treatment plan of his lung cancer. We will be happy to follow along as needed. Nixon Arevalo MD
[2018-05-30] MEDS: Vancomycin 1gm in NS 250ml 1 GM/250 ML BAG IVPB SCH ×2 (09:25→21:07)
[2018-05-30] MEDS: Metoprolol 1 mg/ml Inj IVP PRN (09:28)
--- NOTE | 2018-05-30 09:34 | PN ---
DATE: 05/30/2018 SUBJECTIVE: The patient has no complaints of any chest pain or shortness of breath. No headaches or dizziness. He is more awake today. PHYSICAL EXAMINATION: VITAL SIGNS: Temperature is 99.2, pulse of 127, blood pressure is 130/89, respirations 20. GENERAL: The patient is lying in bed, flat, comfortable. HEENT: No oral lesion. Anicteric sclerae. Moist mucosa. NECK: No JVD, adenopathy, or thyromegaly. CARDIOVASCULAR: S1 and S2, regular. No murmurs, rubs, or gallops. LUNGS: Clear to auscultation bilaterally. No wheeze, rales, or rhonchi. ABDOMEN: Bowel sounds are positive, soft, nontender and nondistended. EXTREMITIES: no cyanosis, clubbing or edema. LABORATORY DATA: White count of 4.1, hemoglobin 11.5, platelet count is 27. ASSESSMENT: 1. Fever. 2. Sepsis. 3. Community-acquired pneumonia. 4. Atrial fibrillation with rapid rate. 5. Left lung mass status post biopsy. 6. Thrombocytopenia. 7. Transaminitis. 8. Do not resuscitate, do not intubate. PLAN: The patient has episodes of lethargy that he was not able to sleep well last night. He is continued on vancomycin and cefepime. His cultures have been negative. The patient is currently on telemetry. He is on verapamil for his atrial fibrillation. He is on nebulizer treatment. He is going to continue with Lopressor. The patient is on Seroquel for his agitation. He is on BiPAP at times. He is getting a heart healthy diet. The patient has overall poor prognosis. Jayy Branch MD
[2018-05-30 09:39] LABS: PLATELET COUNT 28 10^3/uL (120.0-450.0)
--- NOTE | 2018-05-30 12:50 | PN ---
DATE: 05/30/2018 PULMONARY PROGRESS NOTE SUBJECTIVE: The patient remains awake and alert. He appears mildly dyspneic at rest, he is confused. There are no changes reported by the registered nurse. PHYSICAL EXAMINATION: VITAL SIGNS: Remain stable. The patient is afebrile, heart rate 100, respiratory rate is 16 to 18, blood pressure 140/80, O2 saturation 94% on supplemental oxygen. The patient is not on BiPAP at this time. HEENT: Normocephalic, atraumatic. NECK: Supple. No jugular venous distention. No lymphadenopathy. No bruit. CARDIOVASCULAR: Regular rhythm. S1, S2. Systolic ejection murmur at the lower left sternal border. S3 gallop cannot be heard at this time. CHEST: Minimal rales throughout both lung ruiz. Minimal rhonchi noted as well. There is no wheezing. ABDOMEN: Soft. Bowel sounds normoactive without mass, guarding, rebound or organomegaly. EXTREMITIES: Reveal trace edema. NEUROLOGIC: Exam is limited. No focal findings are noted. Abnormal mental status. IMPRESSION: 1. Left lower lobe lung mass. 2. Chronic obstructive pulmonary disease. 3. Congestive heart failure. 4. Possible pneumonitis. 5. Cardiac arrhythmia/atrial fibrillation. PLAN: Continue vigorous supportive care. We will discuss with Cardiology. The patient needs further nursing intervention. We will decide on the appropriate location of the patient's care. The patient continues to require vigorous inhaled bronchodilators. Evaluation of the patient's mass needs to be considered. We will follow closely with you. Howard Hillman MD
[2018-05-30] MEDS: Digoxin 500 mcg/2ml (0.5 mg/2ml) Inj IV SCH (14:55)
--- NOTE | 2018-05-30 15:25 | PN ---
DATE: 05/30/2018 ENDOCRINOLOGY FOLLOWUP NOTE LOCATION: Room 276. SUBJECTIVE: This is a 22-year-old male admitted with congestive heart failure and acute exacerbation of COPD, now being followed closely for metabolic management. He remains clinically euthyroid at this time as noted. His repeat chemistry showed a BUN of 36, sodium 145, potassium 4.2, chloride 110, CO2 of 33, glucose 104 and creatinine 1.0. His latest thyroid studies showed a T4 of 11.2 with a TSH of 1.76 and a free T4 of 2.12. So at this time, we will hold off the resumption of his methimazole therapy as given and we will obtain serial thyroid studies and determine the need accordingly for resumption of the aforementioned medications. We will follow and advise accordingly. Rika Anderson MD
--- NOTE | 2018-05-30 22:02 | PN ---
DATE: 05/30/2018 SUBJECTIVE: The patient is in bed, in no acute distress, nontoxic. He was seen earlier this morning. OBJECTIVE: VITAL SIGNS: Temperature of 98, blood pressure of 130/60, respiratory rate of 18. HEENT: Unremarkable. NECK: Supple. LUNGS: Have decreased breath sounds. HEART: Normal S1, S2. ABDOMEN: Soft. LABORATORY EXAMINATION: Reveals a white count of 3.7, hemoglobin of 11, platelets of 28. Chemistries are noted. Procalcitonin of 3.79 . Microbiology is reviewed. Review of orders reveals the patient to be on cefepime and vancomycin. ASSESSMENT AND PLAN: This is a 72-year-old man. He was seen early this morning in 276, bed 1 with a new onset of healthcare-associated pneumonia and day #4 of cefepime and vancomycin, would complete in 4 to 7 days. The patient does have elevated procalcitonin of 3.75, increase of creatinine of 1.1. Negative blood cultures. Negative urine cultures. The patient did have negative MRSA nares. We would be stopping the antibiotics in the next 24 hours. Kali Power MD
[2018-05-31] MEDS: Metoprolol 1 mg/ml Inj IVP PRN ×3 (03:08→20:40)
[2018-05-31] MEDS: Budesonide 0.5 mg/2 ml Inhal Susp UD IH SCH ×3 (07:49→19:30)
[2018-05-31] MEDS: Albuterol-Ipratrop 3 mg / 0.5 (3 ml) UD IH PRN (07:50)
[2018-05-31] MEDS: Cefepime 1gm in NS 100ml 1 GM/100 ML BAG IVPB SCH (08:23)
[2018-05-31 08:27] LABS: FREE T4 1.72 ng/dL (0.78-2.19); T4 10.8 ug/dL (5.5-11.0)
[2018-05-31] MEDS: Vancomycin 1gm in NS 250ml 1 GM/250 ML BAG IVPB SCH (08:35)
--- NOTE | 2018-05-31 11:38 | PN ---
DATE: 05/31/2018 SUBJECTIVE: The patient is in bed and seen earlier today. He is comfortable, had no fevers and he is short of breath. He is having cough. OBJECTIVE: VITAL SIGNS: Temperature is 97, blood pressure is 130/70, respiratory rate of 18, heart rate of 114. HEENT: Unremarkable. NECK: Supple. LUNGS: Have decreased breath sounds. HEART: Normal S1, S2. ABDOMEN: Soft, nontender. LABORATORY EXAMINATION: Reveals a white count of 3.7, hemoglobin of 11, platelets of 28. BUN of 36, creatinine of 1.0. Procalcitonin is 3.75. Urinalysis is noted and chemistries are noted. Microbiology reveals the blood cultures, urine cultures are negative. ASSESSMENT AND PLAN: This is a 72-year-old male who was seen earlier today, overall in poor condition with a new onset of healthcare-associated pneumonia, today is day #5 of vanco and cefepime. We will discontinue the antibiotics. The patient does have elevated procalcitonin; however, is in the setting of lung mass, was most likely a lung cancer and we will discontinue the antibiotics and follow the patient with you. Overall, prognosis is quite poor. Kali Power MD
--- NOTE | 2018-05-31 11:51 | PN ---
DATE: 05/31/2018 SUBJECTIVE: The patient does not complain of shortness of breath. He is getting nebulizer treatments. He does get agitated and tries to take his mask off. PHYSICAL EXAMINATION: VITAL SIGNS: Temperature is 97.9, pulse of 52, blood pressure is 133/70, respirations 18. GENERAL: The patient is lying in bed, flat, comfortable. HEENT: No oral lesion. Anicteric sclerae. Moist mucosa. NECK: No JVD, adenopathy, or thyromegaly. CARDIOVASCULAR: S1 and S2, regular. No murmurs, rubs, or gallops. LUNGS: Clear to auscultation bilaterally. No wheeze, rales, or rhonchi. ABDOMEN: Bowel sounds are positive, soft, nontender and nondistended. EXTREMITIES: no cyanosis, clubbing or edema. LABORATORY DATA: White count of 3.7, hemoglobin 11.8, hematocrit is 28, creatinine is 1. ASSESSMENT: 1. Fever. 2. Sepsis. 3. Community-acquired pneumonia. 4. Atrial fibrillation with rapid rate. 5. Left lung mass, status post biopsy. 6. Thrombocytopenia. 7. Transaminitis. 8. Do not resuscitate, do not intubate. PLAN: The patient is on Ativan. The patient is receiving nebulizer treatment. He is receiving digoxin daily. He is on quetiapine for agitation. The patient is on vancomycin. He is on BiPAP. Overall prognosis is guarded. Jayy Branch MD
--- NOTE | 2018-05-31 13:20 | PN ---
DATE: 05/31/2018 LOCATION: He is in room 276. SUBJECTIVE: This is a 72-year-old male with recent admission for congestive heart failure and currently undergoing pulmonary workup for a right lung mass and is being followed closely also for metabolic management. He remains clinically and biochemically euthyroid at this time. LABORATORY DATA: The latest chemistry showed a BUN of 36, sodium 145, potassium 4.2, chloride 110, CO2 33, glucose 104 and creatinine 1.0. His thyroid study showed a T4 of 10.8 with a TSH of 1.70 and a free T4 of 1.72. He remains biochemically also euthyroid at this time. So for now, we will hold off the resumption of his medical therapy for known history of hyperthyroidism as he was previously on methimazole therapy given at a low dose of 5 mg daily as given. We will obtain serial thyroid studies and advise accordingly as indicated. We will follow. Rika Anderson MD
[2018-05-31] MEDS: Digoxin 500 mcg/2ml (0.5 mg/2ml) Inj IV SCH (14:27)
[2018-06-01] MEDS: Albuterol-Ipratrop 3 mg / 0.5 (3 ml) UD IH PRN ×3 (02:19→20:12)
[2018-06-01] MEDS: Metoprolol 1 mg/ml Inj IVP PRN ×2 (03:59→22:30)
[2018-06-01] MEDS: Budesonide 0.5 mg/2 ml Inhal Susp UD IH SCH ×2 (07:45→20:12)
[2018-06-01 09:06] LABS: BASO # 0.02 K/mm3 (0.0-2.0); BASO % 0.6 % (0.0-3.0); EOS % 0.8 % (1.5-5.0); GRAN # 1.77 (1.4-6.5); GRAN % 49.5 % (50.0-68.0); HEMOGLOBIN 12.3 g/dL (14.0-18.0); LYMPH # 1.5 (1.2-3.4); MEAN CELL VOLUME 87.7 fl (80.0-105.0); MEAN CORPUSCULAR HEMOGLOBIN 27.5 pg (25.0-35.0); MEAN CORPUSCULAR HGB CONC 31.4 g/dl (31.0-37.0); MONO # 0.2 (0.1-0.6); MONO % 6.1 % (1.0-6.0); RBC 4.47 10^6/uL (3.5-6.1); RED CELL DISTRIBUTION WIDTH 15.7 % (11.5-14.5); WHITE BLOOD COUNT 3.6 10^3/uL (4.5-11.0)
[2018-06-01 09:18] LABS: PLATELET COUNT 33 10^3/uL (120.0-450.0)
[2018-06-01 09:34] LABS: ALBUMIN 3.2 g/dL (3.0-4.8); ALT/SGPT 63 U/L (7-56); AST/SGOT 139 U/L (17-59); BLOOD UREA NITROGEN 37 mg/dL (7-21); CALCIUM 9.5 mg/dL (8.4-10.5); GFR NON-AFRICAN AMERICAN > 60
[2018-06-01] MEDS ORDERED: Sodium Chloride 0.9% 500 ML IV STA (10:25)
[2018-06-01] MEDS: Dextrose 5%/0.45% NS 1,000 ML IV SCH (11:00)
--- NOTE | 2018-06-01 11:38 | PN ---
DATE: 06/01/2018 SUBJECTIVE: The patient appears comfortable this morning. He is not short of breath at rest. He remains confused and restless. PHYSICAL EXAMINATION: VITAL SIGNS: Temperature 98.7, pulse 118, respiratory rate 20, blood pressure 130/75. Oxygen saturation on nasal cannula is 98%. HEENT: Normocephalic, atraumatic. NECK: No JVD. CARDIOVASCULAR: Systolic ejection murmur at the lower left sternal border. Questionable S3 gallop. LUNGS: Minimal crackles at the bases. Minimal/less rhonchi. No wheezing. EXTREMITIES: Mild edema. No cyanosis. No clubbing. Calves are nontender to palpation. GI: Abdomen is soft, nontender and nondistended. Bowel sounds are positive. SKIN: No acute rash. NEUROLOGIC: Exam limited at the present time. IMPRESSION: 1. Left lower lobe lung mass, rule out malignancy. 2. Chronic obstructive pulmonary disease. 3. Congestive heart failure. 4. Rule out pneumonia - right lower lobe. 5. Atrial fibrillation. 6. Thrombocytopenia. PLAN: The patient appears comfortable this morning. He is not short of breath at rest. He remains restless and mildly confused. I did discuss the case with the nurse and aide at length. On physical exam, there is certainly less bronchospasm noted. In addition, the alveolar-arterial gradient is also less. I will continue with the current nebulizer treatments for now. The patient is now off antibiotic therapy - as per Infectious Disease. Input by Dr. Power is noted. The temperatures have now resolved. Inputs by Endocrine and Internal Medicine are also noted. Clinical status of the patient is certainly improved - compared to the initial presentation. Hopefully we will have the final pathology results (from the lung biopsy) today or tomorrow. Unfortunately, the future status/prognosis for this patient remains poor. I will discuss the above with the attending physician. Javier Echevarria MD DILAN
--- NOTE | 2018-06-01 11:47 | PN ---
DATE: 06/01/2018 SUBJECTIVE: The patient is seen lying in bed on telemetry. He remains somnolent. He remains in atrial fibrillation with a variable heart rate. CURRENT MEDICATIONS: Include Ativan p.r.n., DuoNeb inhaler, digoxin 0.125 mg daily, metoprolol 5 mg every 6 hours, Pulmicort, Seroquel, verapamil 5 mg every four hours. OBJECTIVE: GENERAL: He is a chronically ill appearing man. VITAL SIGNS: His blood pressure is 130/76 with pulse of 110, in atrial fibrillation; respirations 16. NECK: No JVD. CHEST: There is bilateral coarse rhonchi. HEART: Systolic murmur at the base and left sternal border. The rhythm is irregularly irregular. ABDOMEN: Soft, nontender with bowel sounds. EXTREMITIES: Chronic cellulitic changes with no edema. DIAGNOSTIC DATA: Morning blood work is pending. IMPRESSION: 1. Recently diagnosed lung cancer, treatment plan to be determined. 2. Chronic atrial fibrillation with variable heart rate control. 3. Variable agitation. 4. Severe thrombocytopenia. 5. Aortic stenosis. RECOMMENDATIONS: Continued conservative management appears most appropriate at the present time. We will await further plans regarding his possible lung cancer treatment as well as repeat platelet count. Anticoagulation remains on hold pending improvement in his thrombocytopenia. We will continue to follow and make further patients as appropriate. Nixon Arevalo MD
[2018-06-01] MEDS: Digoxin 500 mcg/2ml (0.5 mg/2ml) Inj IV SCH ×2 (12:45→13:03)
--- NOTE | 2018-06-01 12:56 | CP.PCM.PN ---
Subjective - Date & Time of Evaluation Date of Evaluation: 06/01/18 Time of Evaluation: 09:00 - Subjective Subjective: Restless,confused> 1:1 in progress Objective - Vital Signs/Intake and Output Vital Signs (last 24 hours): Temp Pulse Resp BP Pulse Ox 98 F 106 H 19 108/63 98 06/01/18 12:00 06/01/18 12:00 06/01/18 12:00 06/01/18 12:00 06/01/18 06:00 Intake and Output: 06/01/18 06/01/18 06:59 18:59 Intake Total 1350 Output Total 4 Balance 1346 - Medications Medications: Current Medications Acetaminophen (Tylenol 325mg Tab) 650 mg PO Q6H PRN PRN Reason: Pain, Mild (1-3) Last Admin: 05/30/18 11:32 Dose: 650 mg Acetaminophen (Tylenol 650 Mg Supp) 650 mg RC Q6H PRN PRN Reason: Fever >100.4 F Last Admin: 05/29/18 20:33 Dose: 650 mg Albuterol/Ipratropium (Duoneb 3 Mg/0.5 Mg (3 Ml) Ud) 3 ml IH Q2H PRN PRN Reason: Shortness of Breath Last Admin: 06/01/18 07:45 Dose: 3 ml Budesonide (Pulmicort Respules) 0.5 mg IH [id number] [facility] Last Admin: 06/01/18 07:45 Dose: 0.5 mg Digoxin (Lanoxin) 0.125 mg IV 1400 [facility] Last Admin: 06/01/18 12:45 Dose: 0.125 mg Docusate Sodium (Colace) 100 mg PO BID [facility] Last Admin: 06/01/18 10:21 Dose: Not Given Dextrose/Sodium Chloride (Dextrose 5%/0.45% Ns 1000 Ml) 1,000 mls @ 60 mls/hr IV .[id number] [facility] Last Admin: 06/01/18 11:00 Dose: 60 mls/hr Lorazepam (Ativan) 0.5 mg IVP Q6H PRN; Protocol PRN Reason: Anxiety Last Admin: 06/01/18 02:14 Dose: 0.5 mg Metoprolol Tartrate (Lopressor) 5 mg IVP Q6 PRN PRN Reason: Heart Rate greater than 110bpm Last Admin: 06/01/18 03:59 Dose: 5 mg Ondansetron HCl (Zofran Inj) 4 mg IVP Q6H PRN PRN Reason: Nausea/Vomiting Propranolol HCl (Inderal La) 80 mg PO DAILY [facility] Last Admin: 05/26/18 10:16 Dose: 80 mg Quetiapine Fumarate (Seroquel) 12.5 mg PO 1500 PRN; Protocol PRN Reason: Psychosis Quetiapine Fumarate (Seroquel) 12.5 mg PO HS PRN; Protocol PRN Reason: psychosis, agiation Verapamil HCl (Calan Tab) 40 mg PO TID [facility] Last Admin: 05/26/18 17:39 Dose: 40 mg Verapamil HCl (Verapamil Inj) 5 mg IV Q4H [facility] Last Admin: 06/01/18 10:30 Dose: Not Given Warfarin Sodium (Coumadin) 5 mg PO 1800 UBALDO; Protocol - Labs Labs: 06/01/18 08:40 06/01/18 09:00 PT 13.7 SECONDS (9.4-12.5) H 05/22/18 08:40 INR 1.19 05/22/18 08:40 APTT 28.0 Seconds (25.1-36.5) 05/22/18 08:40 - Constitutional Appears: Cachectic, Chronically Ill - Eye Exam Eye Exam: Normal appearance, PERRL - ENT Exam ENT Exam: Mucous Membranes Moist - Respiratory Exam Respiratory Exam: Decreased Breath Sounds, Rhonchi - Cardiovascular Exam Cardiovascular Exam: Irregular Rhythm, +S1, +S2 - GI/Abdominal Exam GI & Abdominal Exam: Soft, Hypoactive Bowel Sounds - Exam Additional comments: incontinent - Extremities Exam Extremities Exam: Normal Capillary Refill - Back Exam Back Exam: NORMAL INSPECTION - Neurological Exam Neurological Exam: Altered - Skin Skin Exam: Dry, Pallor, Petechiae Assessment and Plan - Assessment and Plan (Free Text) Assessment: 72 eugene odl male with history of HTN who is admitted with lung mass, thrombocytopenia and altered mental status. Patient remains confused , extremely restless. 1:1 Appetite poor Family request patient be DNR/DNI Plan: Lung mass: path report pending AMS: CT of head 05/16 no acute findings. MRI r/o organic/metastatic disease? Constipation:last BM 05/30, Ducolax as needed Restlessness: Seroquel HS as and as needed. Ativan as needed.
--- NOTE | 2018-06-01 17:22 | CP.PCM.PN ---
Subjective - Date & Time of Evaluation Date of Evaluation: 06/01/18 Time of Evaluation: 10:50 - Subjective Subjective: Somewhat lethargic, no fevers overnight. Objective - Vital Signs/Intake and Output Vital Signs (last 24 hours): Temp Pulse Resp BP Pulse Ox 98.7 F 123 H 20 130/75 94 L 06/01/18 00:01 06/01/18 06:25 06/01/18 00:01 06/01/18 06:25 06/01/18 00:01 Intake and Output: 05/31/18 06/01/18 18:59 06:59 Intake Total 1350 Output Total 4 Balance 1346 - Medications Medications: Current Medications Acetaminophen (Tylenol 325mg Tab) 650 mg PO Q6H PRN PRN Reason: Pain, Mild (1-3) Last Admin: 05/30/18 11:32 Dose: 650 mg Acetaminophen (Tylenol 650 Mg Supp) 650 mg RC Q6H PRN PRN Reason: Fever >100.4 F Last Admin: 05/29/18 20:33 Dose: 650 mg Albuterol/Ipratropium (Duoneb 3 Mg/0.5 Mg (3 Ml) Ud) 3 ml IH Q2H PRN PRN Reason: Shortness of Breath Last Admin: 06/01/18 02:19 Dose: 3 ml Budesonide (Pulmicort Respules) 0.5 mg IH [id number] [facility] Last Admin: 05/31/18 19:30 Dose: 0.5 mg Digoxin (Lanoxin) 0.125 mg IV 1400 [facility] Last Admin: 05/31/18 14:27 Dose: 0.125 mg Docusate Sodium (Colace) 100 mg PO BID [facility] Last Admin: 05/31/18 17:31 Dose: Not Given Lorazepam (Ativan) 0.5 mg IVP Q6H PRN; Protocol PRN Reason: Anxiety Last Admin: 06/01/18 02:14 Dose: 0.5 mg Metoprolol Tartrate (Lopressor) 5 mg IVP Q6 PRN PRN Reason: Heart Rate greater than 110bpm Last Admin: 06/01/18 03:59 Dose: 5 mg Ondansetron HCl (Zofran Inj) 4 mg IVP Q6H PRN PRN Reason: Nausea/Vomiting Propranolol HCl (Inderal La) 80 mg PO DAILY [facility] Last Admin: 05/26/18 10:16 Dose: 80 mg Quetiapine Fumarate (Seroquel) 12.5 mg PO 1500 PRN; Protocol PRN Reason: Psychosis Quetiapine Fumarate (Seroquel) 12.5 mg PO HS PRN; Protocol PRN Reason: psychosis, agiation Verapamil HCl (Calan Tab) 40 mg PO TID [facility] Last Admin: 05/26/18 17:39 Dose: 40 mg Verapamil HCl (Verapamil Inj) 5 mg IV Q4H [facility] Last Admin: 06/01/18 06:25 Dose: 5 mg Warfarin Sodium (Coumadin) 5 mg PO 1800 [facility]; Protocol - Labs Labs: 05/30/18 07:00 05/30/18 07:00 PT 13.7 SECONDS (9.4-12.5) H 05/22/18 08:40 INR 1.19 05/22/18 08:40 APTT 28.0 Seconds (25.1-36.5) 05/22/18 08:40 - Constitutional Appears: Chronically Ill - Head Exam Head Exam: NORMAL INSPECTION - Respiratory Exam Respiratory Exam: Decreased Breath Sounds - Cardiovascular Exam Cardiovascular Exam: +S1, +S2 - GI/Abdominal Exam GI & Abdominal Exam: absent: Tenderness Assessment and Plan - Assessment and Plan (Free Text) Plan: Assessment S/P new onset HCAP S/P left sided community-acquired pneumonia, now with new finding of left lung mass on CT scan, suspicious for malignancy, history of Severe sepsis secondary to community-acquired pneumonia COPD hypertension dyslipidemia Psoriasis Plan S/P 5 days of Vancomycin and Cefepime ; cultures have been negative Heme/Onc doing work up for the lung mass overall prognosis is poor discussed with Dr. Campos
--- NOTE | 2018-06-01 18:47 | PN ---
DATE: 06/01/2018 SUBJECTIVE: A 72 year-old male lying in bed this morning. Nursing staff relates the patient has been a bit agitated. He remains on one-to-one. OBJECTIVE: VITAL SIGNS: The patient has a temperature of 98, pulse is 135, and blood pressure is 108/63. LUNGS: Show diminished breath sounds at the bases. HEART: Irregular S1 and S2 rhythm. ABDOMEN: Obese and soft with positive bowel sounds. EXTREMITIES: Show psoriatic plaques. LABORATORY DATA: Shows a WBC of 3.6, RBC of 4.47, hemoglobin 12.3, hematocrit 39.2, and platelet count is 33,000. Chemistry shows a sodium of 148, potassium 4.4, chloride 110, CO2 of 35, BUN is 37, and creatinine is 1. Total bilirubin is 1.4. AST is 139, ALT is 63, and alkaline phosphatase is 195. ASSESSMENT AND PLAN: 1. The patient is status post lung biopsy, pathology report is pending. 2. He has atrial fibrillation, being followed by Cardiology. 3. He has periods of agitation and confusion. Follow up with Neurology will be requested. 4. He has underlying chronic obstructive pulmonary disease, being followed by Pulmonary. The patient was recently treated for community-acquired pneumonia. He was made a do not resuscitate/do not intubate by the family. Palliative care consult is noted. Awaiting the results of pathology. We will ask for followup with Neurology. Follow up the patient's labs. Natalya Campos MD
--- NOTE | 2018-06-01 19:47 | PN ---
DATE: 06/01/2018 ENDOCRINOLOGY FOLLOWUP NOTE LOCATION: Room 276. This is a 71-year-old male admitted with congestive heart failure and is improving clinically and hemodynamically as noted thereof. He is also being followed closely for history of hyperthyroidism and was previously on methimazole therapy as noted. His chemistry showed a BUN of 37, sodium 148, potassium 4.4, chloride 110, CO2 is 35, glucose is 107, and creatinine is 1. His latest thyroid study shows a T4 of 10.8, free T4 of 1.72, and a TSH of 1.7. So at this time, he remains clinically and biochemically euthyroid with no need for the resumption of his medical therapy as noted. We will obtain serial chemistries and supplement accordingly as needed. We will follow. Rika Anderson MD
[2018-06-02 00:40] VITALS: O2SAT 100
[2018-06-02] MEDS: Dextrose 5%/0.45% NS 1,000 ML IV SCH ×2 (03:45→20:26)
[2018-06-02 06:55] VITALS: RESP 20
[2018-06-02] MEDS: Budesonide 0.5 mg/2 ml Inhal Susp UD IH SCH ×2 (08:11→20:26)
[2018-06-02] MEDS: Albuterol-Ipratrop 3 mg / 0.5 (3 ml) UD IH PRN (08:11)
[2018-06-02 09:24] LABS: HEMOGLOBIN 11.5 g/dL (14.0-18.0); MEAN CELL VOLUME 88.2 fl (80.0-105.0); MEAN CORPUSCULAR HEMOGLOBIN 27.3 pg (25.0-35.0); MEAN CORPUSCULAR HGB CONC 30.9 g/dl (31.0-37.0); RBC 4.22 10^6/uL (3.5-6.1); RED CELL DISTRIBUTION WIDTH 15.9 % (11.5-14.5); WHITE BLOOD COUNT 3.3 10^3/uL (4.5-11.0)
[2018-06-02 09:36] LABS: PLATELET COUNT 30 10^3/uL (120.0-450.0)
[2018-06-02 09:41] LABS: BLOOD UREA NITROGEN 33 mg/dL (7-21); CALCIUM 9.8 mg/dL (8.4-10.5); GFR NON-AFRICAN AMERICAN > 60
--- NOTE | 2018-06-02 09:46 | PN ---
DATE: 06/02/2018 PULMONARY NOTE SUBJECTIVE: The patient appears comfortable this morning. He is not short of breath at rest. He remains confused. OBJECTIVE: VITAL SIGNS: Temperature is 98.6, pulse 121, respiratory rate is 20, blood pressure 130/87. Oxygen saturation on nasal cannula is 100%. HEENT: Normocephalic, atraumatic. NECK: No JVD. CARDIOVASCULAR: Systolic ejection murmur at the lower left sternal border. Questionable S3 gallop. LUNGS: Minimal crackles at the bases. Very minimal/less rhonchi. No wheezing. EXTREMITIES: Mild edema. No cyanosis, no clubbing. Calves are nontender to palpation. GASTROINTESTINAL: Abdomen is soft, nontender and nondistended. Bowel sounds are positive. SKIN: No acute rash. NEUROLOGIC: Limited at the present time. PERTINENT LABORATORY DATA: CAT scan guided lung biopsy pathology; small cell neuroendocrine carcinoma. 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 2. Chronic obstructive pulmonary disease. 3. Congestive heart failure. 4. Rule out pneumonia - right lower lobe. 5. Atrial fibrillation. 6. Thrombocytopenia. PLAN: The patient appears comfortable this morning. He is not short of breath at rest. He remains confused. I did discuss the case with the nurse and aide at length. Pathology from the CAT scan guided lung biopsy is noted above. We are awaiting additional input from oncology. On physical exam, there is much less bronchospasm noted. In addition, the oxygen saturation on nasal cannula is now 100%. I will continue the current nebulizer treatments and aspiration precautions for now. Inputs by Infectious Disease, Cardiology and Endocrine are noted. Clinical status of the patient is certainly improved - compared to last week. However, unfortunately, the future status/prognosis for this patient appears poor. I will discuss the above with the attending physician. Javier Echevarria MD MTDD
--- NOTE | 2018-06-02 11:22 | PN ---
DATE: 06/02/2018 SUBJECTIVE: This is 72-year-old man who has a 5 cm mass. His lung biopsy shows small cell cancer of the lung. Evidently his chest x-ray was normal a few months ago. Since then, rapidly progressive cancer. When he came into the hospital, he was quite weak but in the last two weeks he has just gone weaker and weaker. Now he is in the bed. He is really incoherent. He now has a one to one at the bedside because he is pulling his IVs as he is incoherent. PHYSICAL EXAMINATION: SKIN: No petechiae. No bruises. HEENT: Anicteric. Nodes nonpalpable in the axial, cervical, supraclavicular regions. LUNGS: He is not cooperative but he is not able to lie flat in bed. HEART: S1, S2. ABDOMEN: No liver. No spleen. No tenderness. No ascites. EXTREMITIES: No edema. CENTRAL NERVOUS SYSTEM: Plantars are downgoing. The patient has small-cell cancer of the lung with many other medical problems and has really gotten worse over the last two weeks. I will try and speak with the sister, but I agree with the DNR. This is not a curable situation and the treatment which would be the VP16. PLAN: We will cover planned regimen and has a high chance of working but his ____ is quite bad and it is doubtful that he be able to respond well meaningfully in this situation and I think that supportive care and symptom control is most reasonable. I will talk to the sister if I can get hold of her today. However, the chemotherapy has significant side effects including severe infection, thrombocytopenia, anemia, neuropathy, etc, but I do not think he will be able to take it. Franco Ross MD
[2018-06-02] MEDS: Digoxin 500 mcg/2ml (0.5 mg/2ml) Inj IV SCH (14:27)
[2018-06-02 14:29] VITALS: PULSE 130
--- NOTE | 2018-06-02 15:39 | CP.PCM.PN ---
Subjective - Date & Time of Evaluation Date of Evaluation: 06/02/18 Time of Evaluation: 10:25 - Subjective Subjective: At times confused but not in distress, no fevers. Objective - Vital Signs/Intake and Output Vital Signs (last 24 hours): Temp Pulse Resp BP Pulse Ox 98 F 149 H 19 132/77 98 06/01/18 12:00 06/01/18 14:05 06/01/18 12:00 06/01/18 14:05 06/01/18 06:00 Intake and Output: 06/01/18 06/01/18 06:59 18:59 Intake Total 1350 Output Total 4 Balance 1346 - Medications Medications: Current Medications Acetaminophen (Tylenol 325mg Tab) 650 mg PO Q6H PRN PRN Reason: Pain, Mild (1-3) Last Admin: 05/30/18 11:32 Dose: 650 mg Acetaminophen (Tylenol 650 Mg Supp) 650 mg RC Q6H PRN PRN Reason: Fever >100.4 F Last Admin: 05/29/18 20:33 Dose: 650 mg Albuterol/Ipratropium (Duoneb 3 Mg/0.5 Mg (3 Ml) Ud) 3 ml IH Q2H PRN PRN Reason: Shortness of Breath Last Admin: 06/01/18 07:45 Dose: 3 ml Budesonide (Pulmicort Respules) 0.5 mg IH [id number] [facility] Last Admin: 06/01/18 07:45 Dose: 0.5 mg Digoxin (Lanoxin) 0.125 mg IV 1400 [facility] Last Admin: 06/01/18 13:03 Dose: Not Given Docusate Sodium (Colace) 100 mg PO BID [facility] Last Admin: 06/01/18 10:21 Dose: Not Given Dextrose/Sodium Chloride (Dextrose 5%/0.45% Ns 1000 Ml) 1,000 mls @ 60 mls/hr IV .[id number] [facility] Last Admin: 06/01/18 11:00 Dose: 60 mls/hr Lorazepam (Ativan) 0.5 mg IVP Q6H PRN; Protocol PRN Reason: Anxiety Last Admin: 06/01/18 02:14 Dose: 0.5 mg Metoprolol Tartrate (Lopressor) 5 mg IVP Q6 PRN PRN Reason: Heart Rate greater than 110bpm Last Admin: 06/01/18 03:59 Dose: 5 mg Ondansetron HCl (Zofran Inj) 4 mg IVP Q6H PRN PRN Reason: Nausea/Vomiting Propranolol HCl (Inderal La) 80 mg PO DAILY [facility] Last Admin: 05/26/18 10:16 Dose: 80 mg Quetiapine Fumarate (Seroquel) 12.5 mg PO 1500 PRN; Protocol PRN Reason: Psychosis Quetiapine Fumarate (Seroquel) 12.5 mg PO HS PRN; Protocol PRN Reason: psychosis, agiation Verapamil HCl (Calan Tab) 40 mg PO TID UBALDO Last Admin: 05/26/18 17:39 Dose: 40 mg Verapamil HCl (Verapamil Inj) 5 mg IV Q4H UBALDO Last Admin: 06/01/18 14:05 Dose: 5 mg Warfarin Sodium (Coumadin) 5 mg PO 1800 UBALDO; Protocol - Labs Labs: 06/01/18 08:40 06/01/18 09:00 PT 13.7 SECONDS (9.4-12.5) H 05/22/18 08:40 INR 1.19 05/22/18 08:40 APTT 28.0 Seconds (25.1-36.5) 05/22/18 08:40 - Constitutional Appears: Chronically Ill - Head Exam Head Exam: NORMAL INSPECTION - Respiratory Exam Respiratory Exam: Decreased Breath Sounds - Cardiovascular Exam Cardiovascular Exam: +S1, +S2 - GI/Abdominal Exam GI & Abdominal Exam: Soft. absent: Tenderness Assessment and Plan - Assessment and Plan (Free Text) Plan: Assessment S/P new onset HCAP S/P left sided community-acquired pneumonia, now with new finding of left lung mass on CT scan, suspicious for malignancy, history of Severe sepsis secondary to community-acquired pneumonia COPD hypertension dyslipidemia Psoriasis Plan S/P 5 days of Vancomycin and Cefepime ; cultures have been negative Heme/Onc doing work up for the lung mass overall prognosis is poor discussed with Dr. Campos previously
--- NOTE | 2018-06-02 15:45 | PN ---
DATE: 06/02/2018 SUBJECTIVE: This 72-year-old male resting in bed this morning. Nursing staff relates that he had a relatively comfortable night but still seems to be a bit agitated at times. OBJECTIVE GENERAL: He is lethargic, confused. VITAL SIGNS: Show a temperature of 98.6. His heart rate is 121. His blood pressure is 130/87. He is on nasal oxygen with a respiratory rate of 20. LUNGS: Show diminished breath sounds at the bases. HEART: Regular S1, S2 rhythm. ABDOMEN: Soft with positive bowel sounds. EXTREMITIES: Show psoriatic changes. LABORATORY DATA: Shows a sodium of 148, potassium of 4.2, chloride of 110, CO2 of 37. The BUN is 33, creatinine is 1.1. His random blood sugar is 113. His CBC shows a WBC of 3.3, RBC 4.22, hemoglobin 11.5, hematocrit 37.2, platelet count is 30,000. MEDICATIONS: At this time, the patient is currently on Ativan, Calan, and Colace, IV D5 and half-normal saline, albuterol treatments, Inderal, Lanoxin, Lopressor; Inderal is on hold at this time as is the warfarin. He is on Pulmicort, Seroquel, Tylenol p.r.n., verapamil IV, Zofran p.r.n. His microbiological studies of urine and blood have been negative. He is currently being followed by Pulmonary, has underlying COPD, pathology report is noted showing small-cell lung cancer. He is being followed by Infectious Disease, by Endocrinology for his hyperthyroid history and by Cardiology for his coronary disease and rapid atrial fibrillation. He is also being followed by Oncology. Waiting the discussion between family and Oncology regarding the patient's diagnosis and treatment plan. We will continue current level of comfort care. He has been made a DNR/DNI. Natalya Campos MD
[2018-06-02] MEDS: Metoprolol 1 mg/ml Inj IVP PRN (22:44)
--- NOTE | 2018-06-02 23:59 | PN ---
DATE: 06/02/2018 SUBJECTIVE: The patient is seen lying in bed, on telemetry. He is somewhat sedated, uncomfortable. CURRENT MEDICATIONS: Include Ativan p.r.n., DuoNeb inhaler, IV digoxin, IV metoprolol, and IV verapamil as well as Seroquel. OBJECTIVE: GENERAL: He is a middle-aged man who appears chronically ill. VITAL SIGNS: His blood pressure is 150/86 with pulse of 120, in atrial fibrillation, respirations are 20. He is afebrile. HEENT: No JVD. CHEST: Bilateral scattered rhonchi. HEART: Rhythm is irregularly irregular. Systolic murmur at the base of left sternal border. ABDOMEN: Soft, nontender with noted bowel sounds. EXTREMITIES: No edema. DIAGNOSTIC DATA: Potassium is 4.2, sodium is 148, BUN and creatinine 33 and 1.1. White count 3.3, hemoglobin and hematocrit 11.5 and 37.2 with platelet count of 30,000. IMPRESSION: 1. Recent diagnosis of small cell carcinoma, await treatment plan if any. 2. Chronic atrial fibrillation with variable heart rate control. 3. Uncs-xb-cykcjyel stenosis. 4. Severe thrombocytopenia. 5. Not currently anticoagulated due to severe thrombocytopenia. RECOMMENDATIONS: Current medications will continue for now. Once oral intake has been resumed, his verapamil , digoxin, and beta yelitza can be switched back to pill form. We await further recommendations as to his course of therapy for his lung cancer, if any. We will continue to follow and make further recommendations as appropriate. Nixon Arevalo MD
[2018-06-03 06:47] VITALS: TEMP 97.9
[2018-06-03] MEDS: Metoprolol 1 mg/ml Inj IVP PRN (07:17)
[2018-06-03] MEDS: Budesonide 0.5 mg/2 ml Inhal Susp UD IH SCH (07:26)
--- NOTE | 2018-06-03 08:07 | PN ---
DATE: 06/03/2018 PULMONARY NOTE SUBJECTIVE: The patient appears comfortable this morning. He is not short of breath at rest. PHYSICAL EXAMINATION: VITALS: Temperature is 97.9, pulse on the monitor is 122, respiratory rate 18-20, blood pressure 135/96. Oxygen saturation on nasal cannula is 100%. HEENT: Normocephalic, atraumatic. No JVD. CARDIOVASCULAR: Systolic ejection murmur at the lower left sternal border. Questionable S3 gallop. LUNGS: Minimal crackles at the bases. Minimal rhonchi. No wheezing. EXTREMITIES: Mild edema. No cyanosis. No clubbing. Calves are nontender to palpation. GASTROINTESTINAL: Abdomen is soft, nontender, and nondistended. Bowel sounds are positive. SKIN: No acute rash. NEUROLOGIC: Exam limited at the present time. IMPRESSION: 1. Small-cell carcinoma - left lower lobe. 2. Chronic obstructive pulmonary disease. 3. Congestive heart failure. 4. Rule out pneumonia - right lower lobe. 5. Atrial fibrillation. 6. Thrombocytopenia. PLAN: The patient appears comfortable this morning. He is not short of breath at rest. He remains confused and restless. I did discuss the case with the nurse and aide at length. On physical exam, there is no significant bronchospasm. In addition, there is no significant alveolar-arterial gradient. I will continue the current nebulizer treatments (inhaled steroids) for now. I would continue with the treatment for congestive heart failure and cardiac arrhythmias as per Cardiology. Input by Dr. Arevalo is noted. Inputs by Dr. Kessler, and Dr. Ross are also noted. Clinical status of the patient appears improved - compared to the initial presentation. However, it certainly appears that the overall prognosis for this patient remains poor. I will discuss the above with the attending physician. Javier Echevarria MD MTDEthan
--- NOTE | 2018-06-03 08:28 | PN ---
DATE: 06/02/2018 ENDOCRINOLOGY FOLLOWUP NOTE LOCATION: Room 236. SUBJECTIVE: This is 72-year-old male with history of hyperthyroidism, currently off methimazole medication as noted and given. He presented here with failure and is being followed closely for hemodynamic monitoring. LABORATORY DATA: His latest chemistries showed BUN of 33. Sodium 148, potassium 4.2, chloride 110, CO2 37, glucose 113, creatinine 1.1. ASSESSMENT AND PLAN: He remains clinically and biochemically euthyroid at this time. So, we will hold off the resumption of his and repeat serial thyroid studies . We will follow with you. Rika Anderson MD
[2018-06-03 09:40] VITALS: BP 128/76
[2018-06-03 11:28] VITALS: PULSE 131
--- NOTE | 2018-06-03 11:44 | PN ---
DATE: 06/03/2018 SUBJECTIVE: The patient is seen lying in bed on telemetry. He remains somnolent in part due to sedation. He failed a swallowing evaluation yesterday. There are plans for a family conference today regarding his future treatment and management. He remains in atrial fibrillation with moderately rapid ventricular rate. He is unable to take oral medication and remains on IV digoxin, metoprolol, and verapamil. His current medications also include Ativan, DuoNeb inhaler, and IV fluids. PHYSICAL EXAMINATION: GENERAL: He is a middle-aged man who appears somnolent. VITAL SIGNS: His blood pressure is 136/90 with a pulse of 120 in atrial fibrillation, respirations are 16. He is afebrile. HEENT: No JVD. CHEST: Bilateral coarse rhonchi. HEART: Rhythm is irregularly regular with a systolic murmur at the base and left sternal border. ABDOMEN: Soft with normoactive bowel sounds. EXTREMITIES: No edema. DIAGNOSTIC DATA: No blood work pending from this morning. His last platelet count was 30,000 yesterday. IMPRESSION: 1. Small cell carcinoma. 2. Chronic atrial fibrillation with variable heart rate control. 3. Vlpe-ax-lohaubkc aortic stenosis. 4. Persistent severe thrombocytopenia. RECOMMENDATIONS: Current management will be continued for now. Further plans will be made after the discussion with his family today regarding aggressiveness of therapy. His overall prognosis remains extremely poor. Comfort care should be planned and hospice may be appropriate at this time. We will be happy to follow along as needed. Nixon Arevalo MD
--- NOTE | 2018-06-03 12:31 | CP.PCM.PN ---
Subjective - Date & Time of Evaluation Date of Evaluation: 06/03/18 Time of Evaluation: 12:00 - Subjective Subjective: Restless, tachycardic, not opening eyes or following command Objective - Vital Signs/Intake and Output Vital Signs (last 24 hours): Temp Pulse Resp BP Pulse Ox 97.9 F 131 H 20 128/76 100 06/03/18 06:00 06/03/18 10:00 06/03/18 06:00 06/03/18 09:38 06/02/18 00:01 Intake and Output: 06/03/18 06/03/18 06:59 18:59 Intake Total 720 Balance 720 - Labs Labs: 06/02/18 08:45 06/02/18 08:45 PT 13.7 SECONDS (9.4-12.5) H 05/22/18 08:40 INR 1.19 05/22/18 08:40 APTT 28.0 Seconds (25.1-36.5) 05/22/18 08:40 - Constitutional Appears: Cachectic - Eye Exam Eye Exam: PERRL - ENT Exam ENT Exam: Mucous Membranes Moist - Respiratory Exam Respiratory Exam: Decreased Breath Sounds, Rhonchi - Cardiovascular Exam Cardiovascular Exam: Tachycardia, Irregular Rhythm - GI/Abdominal Exam GI & Abdominal Exam: Soft, Hypoactive Bowel Sounds - Exam Additional comments: incontinent - Extremities Exam Extremities Exam: Pedal Edema - Neurological Exam Neurological Exam: Altered - Skin Skin Exam: Dry, Pallor Assessment and Plan - Assessment and Plan (Free Text) Assessment: 72 year old male with history of HTN who is admitted with respiratory insufficiency,A Fib, AMS,thrombocytopenia, intractable restlessness, left lung mass> pathology small cell lung cancer. The patient sister Emma met with Dr Campos and were updated of patients diagnosis and prognosis. Family aware that patient is not a candidate for chemot herapy. Hospice was discussed at that time and family is agreeable. I met with patient's sister as well. Hospice services were explained in detail. All questions answered. Psychosocial support and end of life counseling provided. Family then met with [place] [facility] vaccinator and hospice consent signed.The patient will be transitioned to [facility] hospice care for pain symptom management. Time spent with family in goals of care discussion and end of life counseling, 60 minutes Plan: Goals of care and end of life counseling [facility] hospice evaluation Discharge and admit to [facility] hosp[facility] services
--- NOTE | 2018-06-03 13:17 | PN ---
DATE: 06/03/2017 LOCATION: Room 276. HISTORY OF PRESENT ILLNESS: This is a 72-year-old male with recent admission for congestive heart failure and progressive shortness of breath and also evaluated to have a possible lung malignancy and is now being followed closely for metabolic management. He remains clinically and biochemically euthyroid at this time. LABORATORY DATA: His latest chemistry showed a BUN of 33, sodium 148, potassium 4.2, chloride 110, CO2 37, glucose 113 and creatinine 1.1. His latest thyroid studies showed a T4 of 10.8 with a free T4 of 1.72 and a TSH of 1.70. PLAN: So at this time, we will continue the serial chemistries and serial thyroid studies to be obtained, but we will hold off the resumption of the methimazole therapy for hyperthyroidism. We will follow the patient. Rika Anderson MD
--- NOTE | 2018-06-03 17:55 | CP.PCM.PN ---
Subjective - Date & Time of Evaluation Date of Evaluation: 06/03/18 Time of Evaluation: 09:45 - Subjective Subjective: Patient is somewhat confused, not in distress but weak and lethargic. No fevers. Objective - Vital Signs/Intake and Output Vital Signs (last 24 hours): Temp Pulse Resp BP Pulse Ox 98.4 F 145 H 20 140/74 100 06/02/18 12:00 06/02/18 13:20 06/02/18 12:00 06/02/18 13:20 06/02/18 00:01 Intake and Output: 06/02/18 06/02/18 06:59 18:59 Intake Total 720 Output Total 400 Balance 320 - Medications Medications: Current Medications Acetaminophen (Tylenol 325mg Tab) 650 mg PO Q6H PRN PRN Reason: Pain, Mild (1-3) Last Admin: 05/30/18 11:32 Dose: 650 mg Acetaminophen (Tylenol 650 Mg Supp) 650 mg RC Q6H PRN PRN Reason: Fever >100.4 F Last Admin: 05/29/18 20:33 Dose: 650 mg Albuterol/Ipratropium (Duoneb 3 Mg/0.5 Mg (3 Ml) Ud) 3 ml IH Q2H PRN PRN Reason: Shortness of Breath Last Admin: 06/02/18 08:11 Dose: 3 ml Budesonide (Pulmicort Respules) 0.5 mg IH [id number] [facility] Last Admin: 06/02/18 08:11 Dose: 0.5 mg Digoxin (Lanoxin) 0.125 mg IV 1400 [facility] Last Admin: 06/02/18 14:27 Dose: 0.125 mg Docusate Sodium (Colace) 100 mg PO BID [facility] Last Admin: 06/02/18 10:06 Dose: Not Given Dextrose/Sodium Chloride (Dextrose 5%/0.45% Ns 1000 Ml) 1,000 mls @ 60 mls/hr IV .[id number] [facility] Last Admin: 06/02/18 03:45 Dose: 60 mls/hr Lorazepam (Ativan) 0.5 mg IVP Q6H PRN; Protocol PRN Reason: Anxiety Last Admin: 06/02/18 11:44 Dose: 0.5 mg Metoprolol Tartrate (Lopressor) 5 mg IVP Q6 PRN PRN Reason: Heart Rate greater than 110bpm Last Admin: 06/01/18 22:30 Dose: 5 mg Ondansetron HCl (Zofran Inj) 4 mg IVP Q6H PRN PRN Reason: Nausea/Vomiting Propranolol HCl (Inderal La) 80 mg PO DAILY [facility] Last Admin: 05/26/18 10:16 Dose: 80 mg Quetiapine Fumarate (Seroquel) 12.5 mg PO 1500 PRN; Protocol PRN Reason: Psychosis Quetiapine Fumarate (Seroquel) 12.5 mg PO HS PRN; Protocol PRN Reason: psychosis, agiation Verapamil HCl (Calan Tab) 40 mg PO TID [facility] Last Admin: 05/26/18 17:39 Dose: 40 mg Verapamil HCl (Verapamil Inj) 5 mg IV Q4H [facility] Last Admin: 06/02/18 13:20 Dose: 5 mg Warfarin Sodium (Coumadin) 5 mg PO 1800 UBALDO; Protocol - Labs Labs: 06/02/18 08:45 06/02/18 08:45 PT 13.7 SECONDS (9.4-12.5) H 05/22/18 08:40 INR 1.19 05/22/18 08:40 APTT 28.0 Seconds (25.1-36.5) 05/22/18 08:40 - Constitutional Appears: Chronically Ill - Head Exam Head Exam: NORMAL INSPECTION - Respiratory Exam Respiratory Exam: Decreased Breath Sounds - Cardiovascular Exam Cardiovascular Exam: +S1, +S2 - GI/Abdominal Exam GI & Abdominal Exam: Soft. absent: Tenderness Assessment and Plan - Assessment and Plan (Free Text) Plan: Assessment S/P new onset HCAP S/P left sided community-acquired pneumonia, now with new finding of left lung mass on CT scan,which is small cell lung cancer on biopsy and pathology history of Severe sepsis secondary to community-acquired pneumonia COPD hypertension dyslipidemia Psoriasis Plan S/P 5 days of Vancomycin and Cefepime ; cultures have been negative overall prognosis is poor discussed with Dr. Campos - patient is for hospice care
--- NOTE | 2018-06-04 08:25 | DS ---
HOSPITAL COURSE: A 72-year-old male with small cell lung cancer, history of coronary artery disease, history of renal insufficiency, pneumonia, psoriasis, hyperthyroid disease, atrial fibrillation, and thrombocytopenia. Patient is being followed by Endocrinology, Cardiology, Pulmonary, Infectious Disease, and Oncology. After discussion with the patient's sister and [id number], the patient was made DNR/DNI. Given the current diagnosis of small cell lung cancer and the patient's clinical status and prognosis, his sister opted to enter the patient into hospice. He will be discharged and enter into hospice care. Natalya Campos MD
== END 2018-06-03 12:16 | disposition hospice, inpatient (51) | DRG 180 ==
LOC: ED 23:41 → ERH 05-13 02:04 → 2RSO 05-13 04:49
PROVIDERS: ADMIT Internal Medicine; ATTEND Internal Medicine
PROC: 5A09557 Assistance with Respiratory Ventilation, Greater than 96 Consecutive Hours, Continuous Positive Airway Pressure (ICD-10-PCS; 2018-05-13)
PROC: 3E0F7GC Introduction of Other Therapeutic Substance into Respiratory Tract, Via Natural or Artificial Opening (ICD-10-PCS; 2018-05-13)
PROC: 30233R1 Transfusion of Nonautologous Platelets into Peripheral Vein, Percutaneous Approach (ICD-10-PCS; 2018-05-22)
PROC: 0BBJ3ZX Excision of Left Lower Lung Lobe, Percutaneous Approach, Diagnostic (ICD-10-PCS; principal; 2018-05-22 15:00)
DX: C34.32 Malignant neoplasm of lower lobe, left bronchus or lung (principal); J18.9 Pneumonia, unspecified organism; A41.9 Sepsis, unspecified organism; C7A.1 Malignant poorly differentiated neuroendocrine tumors; J44.1 Chronic obstructive pulmonary disease with (acute) exacerbation; J44.0 Chronic obstructive pulmonary disease with (acute) lower respiratory infection; I13.0 Hypertensive heart and chronic kidney disease with heart failure and stage 1 through stage 4 chronic kidney disease, or unspecified chronic kidney disease; E22.2 Syndrome of inappropriate secretion of antidiuretic hormone; N17.9 Acute kidney failure, unspecified; F05 Delirium due to known physiological condition; I48.2 Chronic atrial fibrillation; E05.00 Thyrotoxicosis with diffuse goiter without thyrotoxic crisis or storm; I27.20 Pulmonary hypertension, unspecified; I08.3 Combined rheumatic disorders of mitral, aortic and tricuspid valves; E87.5 Hyperkalemia; E86.0 Dehydration; I50.9 Heart failure, unspecified; D69.6 Thrombocytopenia, unspecified; I25.10 Atherosclerotic heart disease of native coronary artery without angina pectoris; N18.9 Chronic kidney disease, unspecified; E11.22 Type 2 diabetes mellitus with diabetic chronic kidney disease; E78.5 Hyperlipidemia, unspecified; L40.9 Psoriasis, unspecified; E06.3 Autoimmune thyroiditis; R59.0 Localized enlarged lymph nodes; F41.9 Anxiety disorder, unspecified; Z66 Do not resuscitate; Z51.5 Encounter for palliative care; F17.210 Nicotine dependence, cigarettes, uncomplicated; Z79.01 Long term (current) use of anticoagulants; Z79.899 Other long term (current) drug therapy

== ENCOUNTER 2018-06-03 12:18 | Inpatient (IN) | payer OTHER ==
[2018-06-02 14:29] VITALS: PULSE 130
[2018-06-03] MEDS ORDERED: Morphine 2 mg/ml ISec IVP STA (12:47)
[2018-06-03] MEDS ORDERED: Morphine PCA 1 mg/ml (30ml) 30 ML IV PRN (12:48)
[2018-06-03] MEDS: Morphine PCA 1 mg/ml (30ml) 30 ML IV PRN (18:31)
[2018-06-03] MEDS: Budesonide 0.5 mg/2 ml Inhal Susp UD IH SCH (21:42)
[2018-06-04] MEDS: Morphine PCA 1 mg/ml (30ml) 30 ML IV PRN ×2 (01:30→11:08)
[2018-06-04] MEDS: Budesonide 0.5 mg/2 ml Inhal Susp UD IH SCH (08:11)
--- NOTE | 2018-06-04 08:25 | HP ---
DATE OF EXAM: 06/03/2018 HISTORY OF PRESENT ILLNESS: This is a 72-year-old male with diagnosed small cell lung cancer, altered mental status, rapid atrial fibrillation, pneumonia, elevated liver function tests, thrombocytopenia, coronary artery disease, psoriasis, who was been entered into hospice with consent from his sister and [id number]. They spoke with Oncology, Dr. Ross, understanding the patient's clinical status and prognosis opted to keep the patient a DNR/DNI and entered him into hospice. Discussion was held with the hospice coordinating nurse, Rekha Werner, and the hospice nurse as well as with the nursing staff. PHYSICAL EXAMINATION: VITAL SIGNS: His temperature is reported at 97.9, his pulse is 120, blood pressure was 128/76. GENERAL: He had a nasal cannula in place, and he is currently lethargic, nonverbal. LUNGS: Showed scattered rhonchi with diminished breath sounds at the bases. HEART: With an irregular S1, S2 rhythm. ABDOMEN: Soft. Positive bowel sounds. EXTREMITIES: Had psoriatic changes and some small skin abrasion on the right foot. The patient will be entered into hospice with supportive care, placed on medications for respiratory treatment as recommended by Pulmonary and for comfort care and agitation as recommended by the hospice coordinating nurse. Natalya Campos MD
--- NOTE | 2018-06-04 09:08 | PN ---
DATE: 06/04/2018 SUBJECTIVE: The patient appears comfortable this morning. He is not short of breath at rest. He is mildly sedated. PHYSICAL EXAMINATION: VITAL SIGNS (last noted in the computer): Last temperature recorded is 97.9, pulse is 104, respiratory rate 18, blood pressure 128/76. Oxygen saturation on nasal cannula is 100%. HEENT: Normocephalic, atraumatic. NECK: No JVD. CARDIOVASCULAR: Systolic ejection murmur at the lower left sternal border. Questionable S3 gallop. LUNGS: Minimal crackles at the bases. Very minimal/less rhonchi. No wheezing. EXTREMITIES: Mild edema. No cyanosis. No clubbing. Calves are nontender to palpation. GI: Abdomen is soft, nontender and nondistended. Bowel sounds are positive. SKIN: No acute rash. NEUROLOGIC: Exam limited at the present time. IMPRESSION: 1. Small-cell carcinoma - left lower lobe. 2. Chronic obstructive pulmonary disease. 3. Congestive heart failure. 4. Rule out pneumonia - right lower lobe. 5. Atrial fibrillation. 6. Thrombocytopenia. PLAN: The patient appears comfortable this morning. He is not short of breath at rest. He is mildly sedated. I did discuss the case with the nurse and aide at length. On physical exam, there is less bronchospasm noted. In addition, the alveolar-arterial gradient is also less. I will continue with the current inhaled steroids for now. The patient has been transitioned to hospice. I did discuss the case with Dr. Campos at length yesterday. Dr. Campos stated that he would like me to continue to follow along, which I will do. Unfortunately, the future status/prognosis for this patient remains very poor. I will discuss the above with Dr. Campos. Javier Echevarria MD DILAN
--- NOTE | 2018-06-04 10:13 | CP.PCM.PN ---
Subjective - Date & Time of Evaluation Date of Evaluation: 06/04/18 Time of Evaluation: 10:00 - Subjective Subjective: sedated, not as restless , tachypnea Objective - Vital Signs/Intake and Output Intake and Output: 06/04/18 06/04/18 06:59 18:59 Intake Total 442 Output Total 0 Balance 442 - Medications Medications: Current Medications Acetaminophen (Tylenol 650 Mg Supp) 650 mg RC Q4H PRN PRN Reason: Fever >100.4 F Budesonide (Pulmicort Respules) 0.5 mg IH [id number] UBALDO Last Admin: 06/04/18 08:11 Dose: 0.5 mg Morphine Sulfate ([place] [facility] 1 Mg/Ml) 30 mls @ 3 mls/hr IV PRN PRN; Protocol PRN Reason: PRECISION FILER HAND PER MD ORDER Last Admin: 06/04/18 01:30 Dose: 3 mg/hr, 3 mls/hr Lorazepam (Ativan) 1 mg IVP Q12H UBALDO; Protocol Last Admin: 06/04/18 09:38 Dose: Not Given Scopolamine (Transderm-Scop) 1 patch TD Q3D [facility] Last Admin: 06/03/18 14:11 Dose: 1 patch - Constitutional Appears: Chronically Ill - Eye Exam Eye Exam: PERRL - ENT Exam ENT Exam: Mucous Membranes Moist - Respiratory Exam Respiratory Exam: Decreased Breath Sounds Additional comments: tachypnea - Cardiovascular Exam Cardiovascular Exam: Irregular Rhythm, +S1, +S2 - GI/Abdominal Exam GI & Abdominal Exam: Soft, Hypoactive Bowel Sounds - Extremities Exam Extremities Exam: Pedal Edema - Skin Skin Exam: Dry, Pallor Assessment and Plan - Assessment and Plan (Free Text) Assessment: 72 year old male with history of small cell kennedi cancer,HTN,thrombocytopenia who is admitted under hospice services for management of respiratory distress, term inal agitation, AMS. Plan: Morphine 3mg/hr continuos infusion Ativan 1 mg twice dialy scheduled dosing, Ativan 1 mg as needed for agitation Dr Dumas note reviewed. Continue Scopolamine, Pulmicort, Nasal O2, gentle suctioning as needed Tylenol 650 mg for fever over 100F End of life counseling
[2018-06-04 11:57] VITALS: RESP 18
[2018-06-04 16:38] VITALS: TEMP 104.6
[2018-06-04 18:10] VITALS: BP 84/55; PULSE 75
--- NOTE | 2018-06-04 20:31 | CP.PCM.PRO ---
Pronouncement of Note - Clinical Findings Physical Exam: No Response Verbal/Painful Stimuli, Absent Peripheral Puls es{Carotid & Femoral}, Absent Heart & Breath Sounds, No Pupillary Light Reflex, No Corneal Reflex, Pupils Fixed & Dilated, Absence of Vital Signs - Pronouncement Time Time of Pronouncement of : 20:12 - Notifications Pronouncement Notifications: Atending Notified Cadd Operator Notified: No - [place]: [id number] Additional Comments: Spoke to Dr. Campos on the phone. Dr. Campos will call family members and let them know.
--- NOTE | 2018-06-04 22:12 | PN ---
DATE: 06/04/2018 SUBJECTIVE: A 72-year-old male in hospice with DNR/DNI, with small cell lung cancer, COPD, remote history of coronary artery disease, remote history of hypernatremia, remote history of hypokalemia, psoriasis, atrial fibrillation and hyperthyroidism. The patient is currently receiving supportive care, being followed by the hospice team. We will continue current level of supportive care at this time. He is resting comfortably this morning. PHYSICAL EXAMINATION VITAL SIGNS: His temp is 98. LUNGS: Show scattered rhonchi with diminished breath sounds at the bases. HEART: In irregular S1 and S2 rhythm. ABDOMEN: Soft, obese, positive bowel sounds. EXTREMITIES: Show psoriatic changes, but no evidence of edema. PLAN: We will continue current level of supportive care. Family is fully aware of the patient's clinical status and prognosis. Natalya Campos MD
--- NOTE | 2018-06-05 22:06 | DS ---
HOSPITAL COURSE: This is a 72-year-old male in hospice with a history of small cell lung cancer, coronary artery disease, altered mental status, psoriasis, pneumonia, hypokalemia, hypernatremia. The patient was in the hospice program with comfort support, and he passed on 06/04/2018, and the family was notified. Natalya Campos MD
== END 2018-06-04 20:12 | DRG 180 ==
LOC: 2RSO 12:18 → 5RNO 06-04 19:26
PROVIDERS: ADMIT Internal Medicine; ATTEND Internal Medicine
DX: C34.90 Malignant neoplasm of unspecified part of unspecified bronchus or lung (principal); J18.9 Pneumonia, unspecified organism; J44.0 Chronic obstructive pulmonary disease with (acute) lower respiratory infection; D69.6 Thrombocytopenia, unspecified; I11.0 Hypertensive heart disease with heart failure; I50.9 Heart failure, unspecified; I48.91 Unspecified atrial fibrillation; L40.9 Psoriasis, unspecified; I25.10 Atherosclerotic heart disease of native coronary artery without angina pectoris; E05.90 Thyrotoxicosis, unspecified without thyrotoxic crisis or storm; R45.1 Restlessness and agitation; R41.82 Altered mental status, unspecified; Z66 Do not resuscitate; Z51.5 Encounter for palliative care